=== PATIENT | male | born 1980 | race Caucasian/White ===

== ENCOUNTER 2025-09-18 11:03 | Emergency (ER) | payer MEDICARE, MEDICAID, SELFPAY ==
--- OUTSIDE RECORDS SUMMARY | 2025-09-15 20:20 | XMS_ITS | Continuity of Care Document ---
Author Organization [facility] ter Address [address] [place] [address]- Care Team Providers Care Staff Anesthetist Name Role Phone Wilton Myers MD Primary Care Physician [phone] Encounter [facility] Date(s): 09/15/25 - 09/15/[address] [address]- Discharge Disposition: A-D/C Home Attending Physician: Tino Chowdary MD Admitting Physician: Tino Chowdary MD Referring Physician: Not on Staff, Referring MD Encounter Type: Disch ES Allergies, Adverse Reactions, Alerts No Known Medication Allergies Mental Status Mental Status Assessment Assessment Assessment Component Result Effecti ve Date Yumiko coma score total 15 Mental Status Assessment Assessment Assessment Component Result Effecti ve Date Nursery coma score total 15 Problem List Condition Confirmation Course Effective Dates Status H ealth Status Informant Asthma Confirmed Active CAD (coronary artery disease) Confirmed Active 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 TECHNIQUE: Grashey and scapular Y view.. COMPARISON: None. FINDINGS: There is no fracture or focal bony lesion. The glenohumeral joint is normal. The acromioclavicular joint is normal. There is no soft tissue calcification to suggest calcific tendinitis IMPRESSION: 1. No abnormality seen. WSN: [id number] Ordering Physician: Tino Chowdary Dictated By: Miguel Pino MD Dictated Date/Time: 09/15/25 5:08 pm Reviewed By: Miguel Pino MD Signed By: Miguel Pino MD Signed Date/Time: 09/15/25 5:08 pm Transcribed By: RADHA Transcribed Date/Time: 09/15/25 5:07 pm * Exam Date Time Procedure Performing Provider Status 09/15/25 4:52 PM Pelvis 1 or 2 Views Auth (Verified) Notes: (Pelvis 1 or 2 Views) Reason For Exam: fall from standing, paraplegic, poor historian;Other: RESULT: Pelvis 1 or 2 Views Pelvis 1 or 2 Views INDICATION/CLINICAL QUESTION: Hx of Present Illness: pt from home wheelchair- bound at baseline. Fell from couch to floor. Paraplegic. Concern of fracture. COMPARISON: None.. TECHNIQUE: AP pelvis. FINDINGS: There is no fracture or focal lesion of the bony pelvis. The sacroiliac joints show no gross abnormality. There is no fracture in the visualized parts of the femurs. The hip joints are grossly normal. No concerning soft tissue abnormality. IMPRESSION: 1. No bone or joint abnormality seen. WSN: [id number] Ordering Physician: Tino Chowdary Dictated By: Miguel Pino MD Dictated Date/Time: 09/15/25 5:07 pm Reviewed By: Miguel Pino MD Signed By: Miguel Pino MD Signed Date/Time: 09/15/25 5:07 pm Transcribed By: RADHA Transcribed Date/Time: 09/15/25 5:06 pm Vital Signs Most recent to oldest [Reference Range]: 1 2 Oxygen Saturation [94-100 %] 96 % (09/15/25 6:36 PM) 97 % (09/15/25 1:42 PM) Pulse Rate [55-90 bpm] 66 bpm (09/15/25 6:36 PM) 67 bpm (09/15/25 1:42 PM) Blood Pressure [90-138/55-84 mm Hg] 102/ 69mm Hg (09/15/25 6:36 PM) 117/68mm Hg (09/15/25 1:42 PM) Respiratory Rate [16-30 br/min] 17 br/mi n (09/15/25 6:36 PM) 18 br/min (09/15/25 1:42 PM) Temperature [96.8-100.4 DegF] 98.1 DegF (09/15/25 6:36 PM) 98.3 DegF (09/15/25 1:42 PM) Mode of Delivery (Oxygen) Room air (09/15/25 6:36 PM) Room air (09/15/25 1:42 PM) Blood pressure sites Arm, left (09/15/25 1:42 PM) Temperature Route Oral (09/15/25 6:36 PM) Oral (09/15/25 1:42 PM) Social History Social History Type Response Sex Sex Representation Male (finding) Status N/A Note * Epi SANTOS, Tino Lopez: PERFORM Event Display: Patient Education Leaflets Authored Date: [id number] Shoulder Bruise ?? [id number] Shoulder Bruise You have a shoulder bruise (contusion). This causes pain, swelling, and sometimes bruising on the skin. You don???t have any broken bones. This injury will take from a few days to several weeks to heal, depending on how severe it is. Moderate to severe shoulder bruises are treated with a sling or shoulder immobilizer. Minor bruises can be treated without any special support. Home care Follow these tips when caring for yourself at home: ??? If you were given a sling to use, leave it in place for the time advised by your healthcare provider. If you aren???t sure how long to wear it,ask for advice. If the sling becomes loose, adjust it so that your forearm is parallel with the ground. Your shoulder should feel well supported. ??? Put an ice pack on the injured area for 20 minutes every 1 to 2 hours the first day. You can make your own ice pack by putting ice cubes in a plasticbag. Wrap the bag in a thin towel. Continue with ice packs 3 to 4 times a day for the next 2 days. Then use the pack as needed to ease pain and swelling. ??? You may use acetaminophen or ibuprofen tocontrol pain, unless another pain medicine was prescribed.??If you have chronic liver or kidney disease, talk with your healthcare provider before using these medicines. Also talk with your provider if you???ve ever had a stomach ulcer or digestive bleeding. ??? Shoulder and elbow joints become stiff if left in a sling for too long. You should start range of motion exercises about 7 to 10 days after the injury. Talk with your provider to find out what type of exercises to do and how soon to start. ??? Unless your provider told you otherwise, you can take the sling off to shower or bathe. ?? Follow-up care Follow up with your healthcare provider if you don???t start getting better in the next 5 days. ?? When to seek medical advice Call your healthcare provider right away??if any of the following occur: ??? Pain or swelling gets worse??or continues for more than a few days ??? Large amount of bruising on your shoulder or upper arm ??? Your hand or fingers become cold, blue, numb, or tingly ??? Trouble moving your hand or fingers ??? Weakness in your hand or fingers ??? Your shoulder becomes stiff ??? Your shoulder feels like it's popping out ??? You aren???t able to do your daily activities ?? Last Reviewed Date: 2022 00:00:00 ?? [id number] [employer]. All rights reserved. This information is not intended as a substitute for professional medical care. Always follow your healthcare professional's instructions. ?? Patient Care team information Care Team Personnel Name: Wilton Myers MD Position: Reference Physician Member Role: PCP Address: [address] [place] [address] Telecom: Insurance Providers Guarantor name: Health Plan Information #: 1 Payer: [employer] Payer Identifier: LAYLA Member Number: [id number] Group Number: [id number] Subscriber Identifier: [id number] Relationship to Subscriber: self Coverage Type: MEDICAID Coverage Verification Date: LAYLA Telecom: LAYLA Address:
--- NOTE | ~2025-09-18 | CT_ITS ---
CLINICAL HISTORY: Fall from wheelchair, T-spine tenderness --- Additional Notes or Special Instructions: R O fracture CT thoracic spine without contrast Comparison: None provided Findings: Normal vertebral body alignment. No acute fractures or dislocations. No significant degenerative change. Mild right and moderate left bibasilar airspace opacity. Normal upper abdominal contents. IMPRESSION: 1. No evidence of thoracic spine injury. 2. Bibasilar pneumonia. This document has been electronically signed by: Marion Cespedes MD on 09/18/2025 15:43:48
--- NOTE | ~2025-09-18 | CT_ITS ---
CLINICAL HISTORY: Fall from wheelchair, neck pain, R O fracture CT cervical spine without contrast Comparison: None provided Findings: Vertebral alignment is within normal limits. Multilevel disc space narrowing and endplate osteophyte formation, as well as facet hypertrophy. No acute fractures or dislocations. No acute findings on limited view of the intracranial contents. No cervical fluid collections or masses. Lung apices are clear. IMPRESSION: No acute findings. This document has been electronically signed by: Marion Cespedes MD on 09/18/2025 15:46:38
--- NOTE | ~2025-09-18 | CT_ITS ---
CLINICAL HISTORY: Fall from wheelchair, right-sided rib tenderness p --- Additional Notes or Special Instructions: Rule out fracture, pneumothorax CT chest without contrast Comparison: None provided Findings: The heart size is normal. Calcification of the coronary vasculature. The visualized thyroid and mediastinum are unremarkable. Mild right and moderate left bibasilar airspace opacity. Visualized portions of the upper abdomen demonstrate high density material within the gallbladder lumen. No acute fractures. IMPRESSION: 1. Bibasilar pneumonia. 2. Coronary artery disease. This document has been electronically signed by: Marion Cespedes MD on 09/18/2025 15:38:52
--- NOTE | ~2025-09-18 | CT_ITS ---
CLINICAL HISTORY: Fall from wheelchair, headache, R O fracture, blee CT head without contrast Comparison: None provided Findings: No intra-axial mass, midline shift, hydrocephalus, or acute hemorrhage. No significant atrophy-like change or white matter disease. The visualized paranasal sinuses and mastoid air cells are normal. The orbits are unremarkable. No skull fracture. IMPRESSION: 1. No acute intracranial findings. This document has been electronically signed by: Marion Cespedes MD on 09/18/2025 15:41:38
[2025-09-18 11:11] VITALS: BP 104/60; BP 128/82; PULSE 58; PULSE 60; RESP 16; TEMP 36.8; O2SAT 94; O2SAT 95; BMI 30.4
[2025-09-18 11:16] VITALS: BP 104/60; PULSE 58; RESP 16; TEMP 36.8; O2SAT 95
--- OUTSIDE RECORDS SUMMARY | 2025-09-18 11:44 | XMS_ITS | Clinical Summary ---
Author Organization [facility] Address [address] [facility] [address] [place] [address] Phone Care Team Providers Care Day Habilitation Specialist Name Role Phone Pcp, Unknown Primary Care Provider Unavailabl e Encounters Date Type Department Care Team Description 08/01/2025 9:15 AM EDT - 08/01/2025 11:59 PM EDT Hospital Encounter [facility] - [address] [place] [id number] Simon Maier MD Discharge Disposition: Home or Self Care 07/29/2025 Transcribe Orders Virtual Department [address] [place] [address] Simon Maier MD Other neuromuscular dysfunction of bladder (Primary Dx); Other retention of urine 06/24/2025 Orders Only [facility] [address] [place] [id number] Homehealth, Interface ProviderMD from Last 3 Months Social History Tobacco Use Types Packs/Day Years Used Date Smoking Tobacco: Never Assessed Education Answer Date Recorded Are you interested in more education? Not on ancelmo e 06/24/2025 Are you concerned about learning? Not on file 06/24/2025 No 06/24/2025 No 06/24/2025 Digital Access Answer Date Recorded No 06/24/2025 No 06/24/2025 Reliable internet access at home? Not on file 06/24/2025 Device with a working camera? 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 Technically difficult examination demonstrating no obvious hydronephrosis or sonographically evident renal calculi. 2. Urinary bladder is not well assessed Narrative 08/01/2025 11:01 AM EDT US KIDNEYS Referring clinician's provided indication for this examination in Epic: Outside Radiology Order; chronic Tineo TECHNIQUE: Kidney Ultrasound. COMPARISON: Similar studies are unavailable for comparison at this time. FINDINGS: Technically difficult examination as patient was imaged in wheelchair. Right Kidney: Size: 10.0 cm No hydronephrosis or sonographically evident renal calculi Left Kidney: Size: 10.8 cm No hydronephrosis or sonographically evident renal calculi. Bladder: Not well assessed. Procedure Note Adela Beckwith MD - 08/01/2025 US KIDNEYS Referring clinician's provided indication for this examination in Epic:Outside Radiology Order; chronic Tineo TECHNIQUE: Kidney Ultrasound. COMPARISON: Similar studies are unavailable for comparison at this time. FINDINGS: Technically difficult examination as patient was imaged in wheelchair. Right Kidney: Size: 10.0 cm No hydronephrosis or sonographically evident renal calculi Left Kidney: Size: 10.8 cm No hydronephrosis or sonographically evident renal calculi. Bladder: Not well assessed. IMPRESSION: 1. Technically difficult examination demonstrating no obvioushydronephrosis or sonographically evident renal calculi. 2. Urinary bladder is not well assessed Simon Maier MD [facility] Final Result from Last 3 Months Insurance MEDICARE PART A [place] [id number] MEDICARE PART A & [facility] [place] MEDIC[place] PART [place] MED[place]ARE PART A & B [facility] MEDICARE PART A & [facility] [place] [id number] Care Teams Day Habilitation Specialist Relationship Specialty Start Date End Date Pcp, Unknown PCP - General 07/29/25 [address] [place] [address] [place] [id number] Primary Care Physician 07/29/25 Additional Source Comments The information contained in this document represents components of the legal health record. It is not the complete legal health record.[facility]
--- OUTSIDE RECORDS SUMMARY | 2025-09-18 11:44 | XMS_ITS | Encounter Summary ---
Author Organization [facility] Address [address] [place] [address] Care Team Providers Care Rock Wool Insulator Name Role Phone Angelique Agudelo PA-C Primary Care Provider [phone] Juan Mckinley MD Primary Care Provider [phone] Angelique Agudelo PA-C Unavailable Angelique Agudelo PA-C Unavailable [phone] Angelique Agudelo PA-C Unavailable Sarah Figueroa MD Primary Care Provider [phone] Encounter Details Date Type Department Care Team (Late st Contact Info) Description 10/05/2018 Historical Results Only [facility] Radiology Results [address] [place] [address] Angelique Agudelo PA-C [address] [phone] Social History Tobacco Use Types Packs/Day Years Used Date Smoking Tobacco: Every Day Cigarettes 0.5 1 Pipe Smokeless Tobacco: Never Alcohol Use Standard Drinks/Week Comments No 0 (1 standard drink = 0.6 oz pur e alcohol) quit Sex and Gender Information Value Date Recorded Sex Assigned at Male 01/24/2023 11:09 EDT Legal Sex Male 18:36 EST Gender Identity Male 07/17/2022 17:21 EDT Sexual Orientation Straight 03/08/2025 8: 49 EDT documented as of this encounter Functional Status * Because of a physical, mental, or emotional condition, does this person have difficulty doing errands alone such as visiting a doctor's office or shopping? Answer Date of Assessment Author No 01/23/2018 9:07 EDT documented as of this encounter Mental Status * Because of a physical, mental, or emotional condition, does this person have serious difficulty concentrating, remembering, or making decisions? Answer Entry Date Author Yes 01/23/2018 9:07 EDT documented in this encounter Plan of Treatment Not on file documented as of this encounter Procedures Procedure Name Priority Date/Time Associated Diagnosis Comments MR THORACIC SPINE WO CONTRAST 10/05/2018 19:11 EST MR CERVICAL SPINE WO CONTAST 10/05/2018 19:11 EST documented in this encounter Results * MR THORACIC SPINE WO CONTRAST (10/05/2018 19:11 EST) Anatomical Region Laterality Modality Thoracic spine Other 10/05/2018 19:1 1 EST Narrative 10/06/2018 9:21 EST EXAM: MRI 6170 THORACIC SPINE W/O CONTRAST [facility]#[id number] DATE & TIME EXAM COMPLETED: Oct 05 2018 7:11PM CPT:72493 REASON FOR EXAM: M54.14 radiculopathy cervical m54.12 radiculopathy thoracic Accession# : [id number] PT CL: O FINDINGS: The following MRI sequences of the thoracic spine were carried out without IV contrast: T1 W, T2 W, and STIR sagittal; T2 W axial. Comparison is with 03/19/2016. Alignment is normal. No fracture or bone lesion is evident. Findings at thoracic disc levels are as follows: C7-T1: Normal. T1-2: Normal. T2-3: Normal. T3-4: Normal. T4-5: Normal. T5-6: Normal. T6-7: Normal. T7-8: Normal. T8-9: Small left paracentral disc protrusion, not significant changed, with no significant effacement of canal or foramina. T9-10: Normal. T10-11: Normal. T11-12: Trace central disc protrusion, unchanged, with no significant effacement of canal or foramina. T12-L1: Normal. Throughout the thoracic spine, the spinal cord appears normal. Paravertebral soft tissues appear unremarkable. IMPRESSION: No significant change compared with 03/19/2016. Small left paracentral disc protrusion at T8-9 and trace central disc protrusion at T11-12 resulting in no significant effacement of the vertebral canal or neural foramina. Procedure Note Quentin Echeverria MD - 07/31/2019 EXAM: MRI 6170 THORACIC SPINE W/O CONTRAST [facility]#[id number] DATE & TIME EXAM COMPLETED: Oct 05 2018 7:11PM CPT:44263 REASON FOR EXAM: M54.14 radiculopathy cervical m54.12 radiculopathy thoracic Accession# : [id number] PT CL: O FINDINGS: The following MRI sequences of the thoracic spine werecarried out without IV contrast: T1 W, T2 W, and STIR sagittal; T2 W axial. Comparison is with 03/19/2016. Alignment is normal. No fracture or bone lesion is evident. Findings at thoracic disc levels are as follows: C7-T1: Normal. T1-2: Normal. T2-3: Normal. T3-4: Normal. T4-5: Normal. T5-6: Normal. T6-7: Normal. T7-8: Normal. T8-9: Small left paracentral disc protrusion, not significant changed,with no significant effacement of canal or foramina. T9-10: Normal. T10-11: Normal. T11-12: Trace central disc protrusion, unchanged, with no significant effacement of canal or foramina. T12-L1: Normal. Throughout the thoracic spine, the spinal cord appears normal. Paravertebral soft tissues appear unremarkable. IMPRESSION: No significant change compared with 03/19/2016. Small left paracentraldisc protrusion at T8-9 and trace central disc protrusion at T11-12 resultingin no significant effacement of the vertebral canal or neural foramina. us Angelique Agudelo PA-C IMG MRI ORDERABLES Final Result * MR CERVICAL SPINE WO CONTRAST (10/05/2018 19:11 EST) Anatomical Region Laterality Modality Cervical spine Other 10/05/2018 19:1 1 EST Narrative 10/06/2018 9:00 EST EXAM: MRI 5025 C/S CANAL W/O CONTRAST [facility]#[id number] DATE & TIME EXAM COMPLETED: Oct 05 2018 7:11PM CPT:38826 REASON FOR EXAM: M54.14 radiculopathy cervical m54.12 radiculopathy thoracic Accession# : [id number] PT CL: O FINDINGS: The following MRI sequences of the cervical spine were carried out without intravenous contrast: T1W and T2W sagittal; T2W and 3-D MERGE axial; bilateral T2W oblique. COMPARISON: 10/06/2008. Alignment is unremarkable. No bone lesion or fracture is observed. Imaged contents of the posterior fossa appear unremarkable. Anteroposterior diameter the cervical vertebral canal is somewhat small on a congenital basis. Findings at cervical disc levels are as follows: C2-3: Trace left paracentral disc protrusion without significant effacement of canal or foramina. C3-4: No apparent disc herniation. Mild left neural foraminal stenosis secondary to uncinate joint and facet joint hypertrophy. C4-5: Central disc herniation resulting in central spinal stenosis, with narrowing of the anteroposterior diameter the vertebral canal to approximately 7 mm in mild spinal cord compression. Moderate bilateral neural foraminal stenosis secondary to uncinate joint and facet joint hypertrophy. This level appears worse than previously. C5-6: Minimal central disc protrusion. Anteroposterior diameter the vertebral canal is narrowed to approximately 9 mm. No spinal cord compression. Moderate bilateral neural foraminal stenosis secondary to uncinate joint hypertrophy. C6-7: Trace central disc protrusion without significant effacement of the canal or foramina. C7-T1: Normal. Throughout the cervical spine, no signal is seen in the spinal cord. IMPRESSION: Central spinal stenosis at C4-5 with mild cord compression secondary to a central disc herniation. There is also moderate bilateral neural foraminal stenosis at this level secondary to facet joint hypertrophy. This level appears worse than previously. Degenerative changes at additional levels, discussed in detail above. Procedure Note Quentin Echeverria MD - 07/31/2019 EXAM: MRI 5025 C/S CANAL W/O CONTRAST [facility]#[id number] DATE & TIME EXAM COMPLETED: Oct 05 2018 7:11PM CPT:56465 REASON FOR EXAM: M54.14 radiculopathy cervical m54.12 radiculopathy thoracic Accession# : [id number] PT CL: O FINDINGS: The following MRI sequences of the cervical spine werecarried out without intravenous contrast: T1W and T2W sagittal; T2W and 3-DMERGE axial; bilateral T2W oblique. COMPARISON: 10/06/2008. Alignment is unremarkable. No bone lesion or fracture is observed. Imaged contents of the posterior fossa appear unremarkable. Anteroposterior diameter the cervical vertebral canal is somewhat small alberta congenital basis. Findings at cervical disc levels are as follows: C2-3: Trace left paracentral disc protrusion without significanteffacement of canal or foramina. C3-4: No apparent disc herniation. Mild left neural foraminal stenosis secondary to uncinate joint and facet joint hypertrophy. C4-5: Central disc herniation resulting in central spinal stenosis, with narrowing of the anteroposterior diameter the vertebral canal to approximately 7 mm in mild spinal cord compression. Moderate bilateral neural foraminal stenosis secondary to uncinate joint and facet joint hypertrophy. This level appears worse than previously. C5-6: Minimal central disc protrusion. Anteroposterior diameter the vertebral canal is narrowed to approximately 9 mm. No spinal cord compression. Moderate bilateral neural foraminal stenosis secondary to uncinate joint hypertrophy. C6-7: Trace central disc protrusion without significant effacement ofthe canal or foramina. C7-T1: Normal. Throughout the cervical spine, no signal is seen in the spinal cord. IMPRESSION: Central spinal stenosis at C4-5 with mild cord compression secondary toa central disc herniation. There is also moderate bilateral neuralforaminal stenosis at this level secondary to facet joint hypertrophy. This level appears worse than previously. Degenerative changes at additional levels, discussed in detail above. us Angelique Agudelo PA-C [facility] MRI ORDERABLES Final Result documented in this encounter Visit Diagnoses Not on filedocumented in this encounter Additional Health Concerns Infection Onset Date Last Indicated Resolved Time R/O COVID-19 11/30/2024 11/30/2024 12/01/2024 1:04 EST R/O COVID-19 12/08/2024 12/08/2024 12/08/2024 14:1 9 EST R/O COVID-19 12/29/2024 12/29/2024 12/29/2024 23:5 5 EST documented as of this encounter Care Teams Rock Wool Insulator Relationship Specialty Start Date End Date Angelique Agudelo PA-C [address] [phone] PCP - General 01/10/16 07/16/22 Juan Mckinley MD [facility] [address] [place] [address] PCP - General 07/17/22 01/31/25 Sarah Figueroa MD [address] [place] [address] PCP - General Internal Medicine - [facility] 02/01/25 Angelique Agudelo PA-C [address] [phone] Endocrinology, Diabetes and Metabolism 07/14/24 Angelique Agudelo PA-C [address] [address] Endocrinology, Diabetes and Metabolism 08/23/24 Angelique Agudelo PA-C [address] [address] Endocrinology, Diabetes and Metabolism 10/18/24 documented as of this encounter
--- OUTSIDE RECORDS SUMMARY | 2025-09-18 11:44 | XMS_ITS | Encounter Summary ---
Author Organization [facility] Address [address] [place] [address] Care Team Providers Care Prepress Stripper Name Role Phone Angelique Agudelo PA-C Primary Care Provider [phone] Juan Mckinley MD Primary Care Provider [phone] Angelique Agudelo PA-C Unavailable [phone] Angelique Agudelo-C Unavailable [phone] Angelique Agudelo-C Unavailable [phone] Sarah Figueroa MD Primary Care Provider [phone] Reason for Visit * Reason Comments Other Encounter Details Date Type Department Care Team (Late st Contact Info) Description [facility] [address] [place] [address] Connie Herrera, FIELD ARTILLERY RADAR OPERATOR [address] [facility] [address] [place] [phone] Other Social History Tobacco Use Types Packs/Day Years Used Date Smoking Tobacco: Every Day Cigarettes 0.5 1 Pipe Smokeless Tobacco: Never Alcohol Use Standard Drinks/Week Comments No 0 (1 standard drink = 0.6 oz pur e alcohol) quit Interpersonal Safety Answer Date Record ed Physically Hurt Never 05/28/2020 Verbally Threaten Not on file 05/28/2020 Sex and Gender Information Value Date Recorded [...] on file documented as of this encounter Visit Diagnoses Not on filedocumented in this encounter Additional Health Concerns Infection Onset Date Last Indicated Resolved Time R/O COVID-19 11/30/2024 11/30/2024 12/01/2024 1:04 EST R/O COVID-19 12/08/2024 12/08/2024 12/08/2024 14:1 9 EST R/O COVID-19 12/29/2024 12/29/2024 12/29/2024 23:5 5 EST documented as of this encounter Care Teams Prepress Stripper Relationship Specialty Start Date End Date Angelique Agudelo PA-C [address] [facility] [address] [place] [address] PCP - General 01/10/16 07/16/22 Juan Mckinley MD [address] [place] [address] 3 [place] [address] PCP - General 07/17/22 01/31/25 Sarah Figueroa MD [address] [place] [address] PCP - General Internal Medicine - [facility] Medicine 02/01/25 Angelique Agudelo PA-C [address] [phone] Endocrinology, Diabetes and Metabolism 07/14/24 Angelique Agudelo PA-C [address] [phone] Endocrinology, Diabetes and Metabolism 08/23/24 Angelique Agudelo PA-C [address] [phone] Endocrinology, Diabetes and Metabolism 10/18/24 documented as of this encounter
--- OUTSIDE RECORDS SUMMARY | 2025-09-18 11:44 | XMS_ITS | Clinical Summary ---
Author Organization [facility] Address [address] [place] [address] Care Team Providers Care Seat Scooper Machine Name Role Phone Angelique Agudelo PA-C Unavailable Angelique Agudelo PA-C Unavailable Angelique Agudelo PA-C Unavailable Sarah Figueroa MD Primary Care Provider [phone] Allergies Active Allergy Reactions Criticality Noted Date Comments Amitriptyline Hives 12/16/2024 Divalproex 12/16/2024 Medications albuterol 2.5 mg /3 mL (0.083 %) nebulizer solutionIndicat ions:Uncomplica julio cesar asthma, unspecified asthma severity, unspecified whether persistent Take 3 mL by nebulization every 4 hours as needed for Wheezing. 50 Each 5 Active ascorbic acid, vitamin C, (VITAMIN C) 250 mg tablet 1 Tablet by per g tube route daily. 30 Tablet 5 Active cyanocobalamin (VITAMIN B-12) 1,000 mcg tablet 1 Tablet by per g tube route daily. 30 Tablet 5 Active DULoxetine (CYMBALTA) 60 mg capsule Take 1 Capsule by mouth daily. 30 Capsule 5 Active enoxaparin (LOVENOX) 40 mg/0.4 mL injection Inject 40 mg into the skin daily. 30 mL 5 Active lithium carbonate 300 mg capsule Take 1 Capsule by mouth 2 times daily. 60 Tablet 5 Active methIMAzole (TAPAZOLE) 5 mg tablet Take 1 Tablet by mouth every 48 hours. 15 Tablet 5 Active gimcpfrr-wvv-fn rrous gluconate 9 mg iron/ 15 mL (15 mL) liquid oral solution 15 mL by per g tube route daily with breakfast. 450 mL 5 Active polyethylene glycol 3350 (MIRALAX) 17 gram packet 17 g by per g tube route daily. 30 Each 5 Active pregabalin (LYRICA) 300 mg capsuleIndicati ons:Guillain Darnell syndrome Take 1 Capsule by mouth 2 times daily. Daily Max: 600 mg 60 Capsule 5 Active pyridoxine, vitamin B6, (VITAMIN B6) 50 mg tablet 1 Tablet by per g tube route daily. 30 Tablet 5 Active QUEtiapine (SEROQUEL) 100 mg tablet Take 1 Tablet by mouth at bedtime. 30 Tablet 5 Active senna (SENOKOT) 8.6 mg tablet 1 Tablet by per g tube route at bedtime. 30 Tablet 5 Active budesonide-form oterol HFA (SYMBICORT) 160-4.5 mcg/actuation HFA aerosol inhaler inhaler Inhale 1 Puff as directed 2 times daily. 1 Each 5 Active pantoprazole (PROTONIX) 40 mg tablet Take 1 Tablet by mouth daily. 30 Tablet 5 Active thiamine (VITAMIN B1) 100 mg tablet 1 Tablet by per g tube route 3 times daily. 90 Tablet 5 Active traZODone (DESYREL) 100 mg tablet Take 1 Tablet by mouth at bedtime. 30 Tablet 5 Active HYDROcodone-ary taminophen (NORCO) 7.5-325 mg per tabletIndicatio ns:Guillain Darnell syndrome Take 1 Tablet by mouth every 8 hours as needed for Pain. Use hydrocodone/APAP supply at home as directed for pain. This was previously dispensed from [facility] in November just before initial hospitalization. Daily Max: 3 Tablets 5 Active levETIRACetam (KEPPRA) 500 mg/5 mL (5 mL) solution 10 mL by per g tube route 2 times daily. 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 Rhabdomyolysis 12/01/2024 Lactic acidosis 12/01/2024 Kidney damage from lithium 12/01/2024 Elevated CSF protein 12/01/2024 Acute respiratory failure 12/01/2024 Hypokalemia 12/01/2024 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 Weakness 12/01/2024 Dysphagia 12/01/2024 Facet arthropathy, lumbosacral 01/23/2018 Lumbar spondylosis 01/23/2018 Facial asymmetry 09/29/2017 Spells 07/09/2016 Generalized anxiety disorder 10/24/2015 Fibrositis 10/24/2015 Migraine without intractable migraine 10/24/2015 Bipolar disorder 10/24/2015 Pain in back 10/24/2015 GERD (gastroesophageal reflux disease) 5 Depression 10/24/2015 Asthma 10/24/2015 Seizure 10/24/2015 Resolved Problems Problem Noted Date Diagnosed Date Resolved Date GBS (group B streptococcus) infection 12/24/2024 02/10/2025 Surgical History Surgery Date Site/Laterality Comments HERNIA REPAIR 10/27/2008 - 10/26/2009 R inguinal LAPAROSCOPY 10/27/2007 - 10/26/2008 ROSA Babcock HAND SURGERY Right HAND SURGERY Left pinning finger Medical History Medical History Date Comments Hernia of unspecified site o f abdominal cavity without mention of obstruction or gangrene DDD (degenerative disc disease) Generalized anxiety disorder 10/24/2015 Fibrositis 10/24/2015 Migraine without intractable migraine 10/24/2015 Bipolar disorder 10/24/2015 Pain in back 10/24/2015 GERD (gastroesophageal reflux disease) 5 Depression 10/24/2015 Asthma 10/24/2015 Seizure ([facility]) 10/24/2015 last a few mon ths ago; he is not allowed to drive chronic back pain, gets injections Dr. Yaw Kang 07/09/2016 Anxiety Schizophrenia Heart murmur 09/28/2015 Had as child H/O ETOH abuse H/O drug abuse ([facility]) 10/27/2012 Quit- C ocaine, heroin, and speedball Fibromyalgia 09/28/2015 Family History Medical History Relation Comments Cancer Father Unknown No Known Mother No Known Other Relation Status Comments Father Mother Other Other Other Social History Tobacco Use Types Packs/Day Years Used Date Smoking Tobacco: Every Day Cigarettes 1 1 Started: 1989 Pipe Smokeless Tobacco: Never Alcohol Use Standard Drinks/Week Comments No 0 (1 standard drink = 0.6 oz pur e alcohol) quit [facility] Utilities Answer Date Recorded In the past 12 months has th e [employer], gas, oil, or water [employer] threatened to shut off services in your home? No 12/26/2024 PHQ-2 Answer Date Recorded PHQ-2 SUBTOTAL 0 12/01/2024 Hunger Vital Sign Answer Date Recorded Within the past 12 months, y ou worried that your food would run out before you got the money to buy more. Never true 12/27/19 25 Within the past 12 months, t he food you bought just didn't last and you didn't have money to get more. Never true 12/26/2024 PRAPARE - Transportation Answer Date Re corded In the past 12 months, has l ack of transportation kept you from medical appointments or from getting medications? Patient unable to answer 12/03/2024 In the past 12 months, has l ack of transportation kept you from meetings, work, or from getting things needed for daily living? Patient unable to answer 12/03/2024 Housing Stability Vital Sign Answer Carter e Recorded In the last 12 months, was t here a time when you were not able to pay the mortgage or rent on time? Patient unable to answer 12/03/2024 Number of Times Moved in the Last Year Not on fi le 12/03/2024 At any time in the past 12 m [facility], were you homeless or living in a prison (including now)? Patient unable to answer 12/03/2024 [facility] - Inadequate Housing Answer Date Re corded What is your living situation today? I have a [facility] place to live 12/26/[address] you li ve. Do you have problems with any of the following? Pests such as bugs, ants, or mice 12/26/2024 [facility] - Transportation Answer Date Record ed In the past 12 months, has l ack of reliable transportation kept you from medical appointments, meetings, work or from getting things needed for daily living? No 12/26/2024 [facility] - Personal Safety Answer Date Recor ded How often does anyone, shelbie barone family and friends, physically hurt you? Patient unable to answer 12/26/2024 How often does anyone, shelbie barone family and friends, insult or talk down to you? Patient unable to answer 12/26/2024 How often does anyone, shelbie barone family and friends, threaten you with harm? Patient unable to answer 12/26/2024 How often does anyone, shelbie barone family and friends, scream or curse at you? Patient unable to answer 12/26/2024 Interpersonal Safety Answer Date Record ed How often does anyone, shelbie barone family, hit, punch or physically hurt you? Unrecognized value 12/03/2024 How often does anyone, shelbie barone family, insult, scream, curse or threaten to hurt you? Unrecognized value 12/03/2024 Sex and Gender Information Value Date Recorded Sex Assigned at Male 01/24/2023 11:09 EDT Legal Sex Male 18:36 EST Gender Identity Male 07/17/2022 17:21 EDT Sexual Orientation Straight 03/08/2025 8: 49 EDT Last Filed Vital Signs Vital Sign Reading Time Taken Comments Blood Pressure 106/73 02/22/20252309 EDT Pulse 105 02/22/20252309 EDT Temperature 37.2 C (98.9 F) 02/22/20252309 EDT Respiratory Rate 20 02/22/20252309 EDT Oxygen Saturation 97% 02/22/20252309 EDT Inhaled Oxygen Concentration - - Weight 89.8 kg (198 lb) 02/16/20251929 EDT Height 180.3 cm (5' 11 ) 02/16/2025 1930 EDT Body Mass Index 27.62 02/16/2025 193 EDT Plan of Treatment Health Maintenance Due Date Last Done Comments Asthma Action Plan 1981 Lung Function Test (Spirometry) 1981 Hepatitis B Vaccine (1 of 3 - 19+ 3-dose series) 2000 Pneumococcal Immunization (1 of 2 - PCV) 2000 COVID-19 Vaccine ( - 2024- season) 2025 Hepatitis C Screen Completed 12/04/2024, 06/22/2024 Procedures Procedure Name Priority Date/Time Associated Diagnosis Comments HEPATITIS C AB W REFLEX TO HCV RNA BY PCR Add-On 12/04/2024 5:22 EST from Last 3 Months or Most Recently Relevant to Health Maintenance Results * HEPATITIS C AB W REFLEX TO HCV RNA BY PCR (12/04/2024 5:22 EST) Hep C Antibody Negative Negative 12/06/2024 10:40 EST [facility] Blood VENOUS BLOOD / Unknown Venipuncture / Unknown 12/04/2024 5:22 EST 12/04/2024 5:26 EST us Diego Camacho MD CHEMISTRY & BLOOD GAS ORDERAB LES Final Result [facility] [address] [place] [address] from Last 3 Months or Most Recently Relevant to Health Maintenance Insurance MEDICAID [place] [employer] MEDICARE [place]ICAID [place]ICAID [place] MEDICARE Advance Directives For more information, please contact: [phone] Documents on File Type Date Recorded Patient Fabric Sourcer Expl anation Advance Directive 02/14/2025 21:04 Health Care Proxy Advance Directive 02/14/2025 20:54 Power of Civil Engineer Land Development COLST/MOLST 01/31/2025 7:[address] pgs 1 & 2 Void COLST/MOLST 01/20/2025 12:36 H ealth Care Proxy COLST/MOLST 12/25/2024 8:48 MOLS T * Full Code (Latest Code Status on File) Date Activated Date Inactivated Comments 12/24/2024 23:57 01/27/2025 16:08 Question Answer Comments When the patient has NO PULSE: Full Code / CPR [facility]: Refer to current pap er/scanned MOLST for order details. * Full Code Date Activated Date Inactivated Comments 12/01/2024 6:21 12/24/2024 23:04 Question Answer Comments When the patient has NO PULSE: Full Code / CPR Who Made the Decision? Default/Not Discussed Care Teams Seat Scooper Machine Relationship Specialty Start Date End Date Sarah Figueroa MD [address] [place] [address] PCP - General Internal Medicine - [facility] Medicine 02/01/25 Angelique Agudelo PA-C [address] [phone] Endocrinology, Diabetes and Metabolism 07/14/24 Angelique Agudelo PA-C [address] [phone] Endocrinology, Diabetes and Metabolism 08/23/24 Angelique Agudelo PA-C [address] [phone] Endocrinology, Diabetes and Metabolism 10/18/24
--- OUTSIDE RECORDS SUMMARY | 2025-09-18 11:44 | XMS_ITS | Encounter Summary ---
Author Organization [facility] Address [address] [place] [address] Care Team Providers Care Forming Machine Adjuster Name Role Phone Angelique Agudelo PA-C Primary Care Provider [phone] Juan Mckinley MD Primary Care Provider [phone] Angelique Agudelo PA-C Unavailable [phone] Angelique Agudelo PA-C Unavailable [phone] Angelique Agudelo PA-C Unavailable [phone] Sarah Figueroa MD Primary Care Provider [phone] Reason for Visit * Reason Onset Date Comments Medications Refill 01/23/2018 Encounter Details Date Type Department Care Team (Late st Contact Info) Description 01/23/2018 Telephone [facility] Interventional Pain [address] [place] [address] Nydia Sotelo PA [address] [place] [id number] Medications Refill Social History Tobacco Use Types Packs/Day Years [...] 01/23/2018 9:07 EDT documented in this encounter Miscellaneous Notes * Telephone Encounter - Vani Estrada - 01/23/2018 1326 EDT Pharmacy states they can not fill the medication because patient is from [place] and it has a controlled substance in it. Please advise. * Telephone Encounter - Sonam Reddy - 01/23/2018 1109 EDT Please call back pharmacy, they have a question about RX that was sent over to them. Please call. documented in this encounter Plan of Treatment Not on file documented as of this encounter Visit Diagnoses Not on filedocumented in this encounter Additional Health Concerns Infection Onset Date Last Indicated Resolved Time R/O COVID-19 11/30/2024 11/30/2024 12/01/2024 1:04 EST R/O COVID-19 12/08/2024 12/08/2024 12/08/2024 14:1 9 EST R/O COVID-19 12/29/2024 12/29/2024 12/29/2024 23:5 5 EST documented as of this encounter Care Teams Forming Machine Adjuster Relationship Specialty Start Date End Date Angelique Agudelo PA-C [address] [place] [address] [place] [phone] PCP - General 01/10/16 07/16/22 Juan Mckinley MD [address] [facility] [address] [place] [address] PCP - General 07/17/22 01/31/25 Sarah Figueroa MD [address] [place] [address] PCP - General Internal Medicine - [facility] 02/01/25 Angelique Agudelo PA-C [address] [phone] Endocrinology, Diabetes and Metabolism 07/14/24 Angelique Agudelo PA-C [address] [phone] Endocrinology, Diabetes and Metabolism 08/23/24 Angelique Agudelo PA-C [address] [phone] Endocrinology, Diabetes and Metabolism 10/18/24 documented as of this encounter
--- OUTSIDE RECORDS SUMMARY | 2025-09-18 11:44 | XMS_ITS | Encounter Summary ---
Author Organization [facility] Address [address] [place] [address] Care Team Providers Care Irrigation Foreman Name Role Phone Angelique Agudelo PA-C Primary Care Provider [phone] Juan Mckinley MD Primary Care Provider [phone] Angelique Agudelo PA-C Unavailable Angelique Agudelo PA-C Unavailable [phone] Angelique Agudelo-C Unavailable [phone] Sarah Figueroa MD Primary Care Provider [phone] Encounter Details Date Type Department Care Team (Late st Contact Info) Description 12/19/2016 Historical Results Only [facility] - [facility] Radiology Results [address] [place] [address] Kaz Munguia DO [address] [place] [address] [address] [place] [address] Social History Tobacco Use Types Packs/Day Years Used Date Smoking Tobacco: Every Day Cigarettes 0.5 1 Pipe Alcohol Use Standard Drinks/Week Comments No 0 [...] shopping? Answer Date of Assessment Author No 07/09/2016 8:45 EDT documented as of this encounter Mental Status * Because of a physical, mental, or emotional condition, does this person have serious difficulty concentrating, remembering, or making decisions? Answer Entry Date Author Yes 07/09/2016 8:45 EDT documented in this encounter Plan of Treatment Not on file documented as of this encounter Procedures Procedure Name Priority Date/Time Associated Diagnosis Comments MR LUMBAR SPINE WO CONTRAST 12/19/2016 9:07 EST documented in this encounter Results * MR LUMBAR SPINE WO CONTRAST (12/19/2016 9:07 EST) Anatomical Region Laterality Modality Lumbar spine Other 12/19/2016 9:07 EST Narrative 12/19/2016 15:43 EST EXAM: MRI [id number] L/S SPINE CANAL W/O CONTRAST [facility]#[id number] DATE & TIME EXAM COMPLETED: Dec 19 2016 9:07AM CPT:35439 REASON FOR EXAM: Lumbar Radiculopathy Accession# : [id number] PT CL: {pt_class} FINDINGS: Sagittal T1, T2 and STIR and axial T1 and T2-weighted images were obtained. COMPARISON STUDY: 12/31/2013. IV contrast: None MEDICAL HISTORY: Low back pain and right leg radiculopathy. The lumbar vertebral bodies demonstrate normal height and shape. The bone marrow signal intensity is within normal limits. There is no subluxation. The tip of the conus medullaris is behind L1-2 disc which is normal. The aorta is not dilated and there is no retroperitoneal lymphadenopathy. At L1-2, disc height is within normal limits. There is no disc herniation or bulging. There is no central spinal or neuroforaminal stenosis. At L2-3, disc height is normal. There is no disc herniation. There is no central spinal or neuroforaminal stenosis. At L3-4, disc height is normal. There is mild circumferential disc bulging and there is mild bilateral facet arthritis with small spurs. There is mild triangulation of the thecal sac. Mid sagittal spinal canal diameter measures 13.5 mm. There is no significant central spinal or neuroforaminal stenosis. At L4-5, disc height appears normal. There is mild circumferential disc bulging and mild facet arthritis. There is no herniation. There is no central spinal or neuroforaminal stenosis. There is mild triangulation of the thecal sac. At L5-S1, disc height is normal. There is minimal posterior disc bulging and there is no herniation. There is no central spinal or neuroforaminal stenosis. There is mild facet arthritis. IMPRESSION: There is mild circumferential disc bulging and mild facet arthritis at L3-4, L4-5 and L5-S1. There is no disc herniation or central spinal stenosis or nerve impingement. Procedure Note Ruben Pat MD - 07/30/2019 EXAM: MRI [id number] L/S SPINE CANAL W/O CONTRAST [facility]#[id number] DATE & TIME EXAM COMPLETED: Dec 19 2016 9:07AM CPT:01934 REASON FOR EXAM: Lumbar Radiculopathy PT CL: {pt_class} FINDINGS: Sagittal T1, T2 and STIR and axial T1 and T2-weighted imageswere obtained. COMPARISON STUDY: 12/31/2013. IV contrast: None MEDICAL HISTORY: Low back pain and right leg radiculopathy. The lumbar vertebral bodies demonstrate normal height and shape. Thebone marrow signal intensity is within normal limits. There is nosubluxation. The tip of the conus medullaris is behind L1-2 disc which is normal. The aorta is not dilated and there is no retroperitoneal lymphadenopathy. At L1-2, disc height is within normal limits. There is no disc herniationor bulging. There is no central spinal or neuroforaminal stenosis. At L2-3, disc height is normal. There is no disc herniation. There is no central spinal or neuroforaminal stenosis. At L3-4, disc height is normal. There is mild circumferential discbulging and there is mild bilateral facet arthritis with small spurs. There ismild triangulation of the thecal sac. Mid sagittal spinal canal diametermeasures 13.5 mm. There is no significant central spinal or neuroforaminalstenosis. At L4-5, disc height appears normal. There is mild circumferential disc bulging and mild facet arthritis. There is no herniation. There is no central spinal or neuroforaminal stenosis. There is mild triangulationof the thecal sac. At L5-S1, disc height is normal. There is minimal posterior disc bulgingand there is no herniation. There is no central spinal or neuroforaminal stenosis. There is mild facet arthritis. IMPRESSION: There is mild circumferential disc bulging and mild facet arthritis at L3-4, L4-5 and L5-S1. There is no disc herniation orcentral spinal stenosis or nerve impingement. Kaz Munguia DO IMG MRI ORDERABLES Final Result documented in this encounter Visit Diagnoses Not on filedocumented in this encounter Additional Health Concerns Infection Onset Date Last Indicated Resolved Time R/O COVID-19 11/30/2024 11/30/2024 12/01/2024 1:04 EST R/O COVID-19 12/08/2024 12/08/2024 12/08/2024 14:1 9 EST R/O COVID-19 12/29/2024 12/29/2024 12/29/2024 23:5 5 EST documented as of this encounter Care Teams Irrigation Foreman Relationship Specialty Start Date End Date Angelique Agudelo PA-C [address] [place] [phone] PCP - General 01/10/16 07/16/22 Juan Mckinley MD [address] [place] [address] 3 [place] [address] PCP - General 07/17/22 01/31/25 Sarah Figueroa MD [address] [place] [address] PCP - General Internal Medicine - [facility] Medicine 02/01/25 Angelique Agudelo PA-C [address] [phone] Endocrinology, Diabetes and Metabolism 07/14/24 Angelique Agudelo PA-C [address] [phone] Endocrinology, Diabetes and Metabolism 08/23/24 Angelique Agudelo PA-C [address] [phone] Endocrinology, Diabetes and Metabolism 10/18/24 documented as of this encounter
--- OUTSIDE RECORDS SUMMARY | 2025-09-18 11:44 | XMS_ITS | Encounter Summary ---
Author Organization [facility] Address [address] [place] [address] Care Team Providers Care Applications Support Specialist Name Role Phone Angelique Agudelo PA-C Primary Care Provider [phone] Juan Mckinley MD Primary Care Provider [phone] Angelique Agudelo PA-C Unavailable Angelique Agudelo PA-C Unavailable [phone] Angelique Agudelo-C Unavailable Sarah Figueroa MD Primary Care Provider [phone] Encounter Details Date Type Department Care Team (Late st Contact Info) Description 10/22/[address] [facility] - CV[facility] Radiology Results [address] [place] [address] Kaz Munguia DO [address] [place] [address] [address] [place] [address] Social History Tobacco Use Types [...] Procedure Name Priority Date/Time Associated Diagnosis Comments XR CERVICAL SPINE 4-5 VIEWS 10/22/2016 13:11 EST documented in this encounter Results * XR CERVICAL SPINE 4-5 VIEWS (10/22/2016 13:11 EST) Anatomical Region Laterality Modality Left Other 10/22/2016 13:1 1 EST Narrative 10/22/2016 14:42 EST EXAM: RAD 1405 CERVICAL SPINE MIN 4 VIEWS CDM#[id number] DATE & TIME EXAM COMPLETED: Oct 22 2016 1:11PM CPT:15910 REASON FOR EXAM: M47.892 Cervical spondylosis Accession# : [id number] PT CL: {pt_class} FINDINGS: AP, lateral and oblique views of the cervical spine were obtained. Alignment is maintained. Vertebral body heights are maintained. There is mild disc space degeneration and narrowing at C4/C5. Disc spaces otherwise preserved. There is mild uncovertebral spur formation seen at C5/C6 on the right without significant foraminal narrowing. IMPRESSION: Mild degenerative disease. Procedure Note Unknown, Doctor - 11/03/2019 EXAM: RAD 1405 CERVICAL SPINE MIN 4 VIEWS CDM#[id number] DATE & TIME EXAM COMPLETED: Oct 22 2016 1:11PM CPT:17416 REASON FOR EXAM: M47.892 Cervical spondylosis PT CL: {pt_class} FINDINGS: AP, lateral and oblique views of the cervical spine wereobtained. Alignment is maintained. Vertebral body heights are maintained. There is mild disc space degeneration and narrowing at C4/C5. Disc spacesotherwise preserved. There is mild uncovertebral spur formation seen at C5/C6 onthe right without significant foraminal narrowing. IMPRESSION: Mild degenerative disease. Kaz Munguia IMG DIAGNOSTIC IMAGING ORDERABLE S Final Result documented in this encounter Visit Diagnoses Not on filedocumented in this encounter Additional Health Concerns Infection Onset Date Last Indicated Resolved Time R/O COVID-19 11/30/2024 11/30/2024 12/01/2024 1:04 EST R/O COVID-19 12/08/2024 12/08/2024 12/08/2024 14:1 9 EST R/O COVID-19 12/29/2024 12/29/2024 12/29/2024 23:5 5 EST documented as of this encounter Care Teams Applications Support Specialist Relationship Specialty Start Date End Date Angelique Agudelo PA-C [address] [phone] PCP - General 01/10/16 07/16/22 Juan Mckinley MD 158 [facility] 3 [place] [address] PCP - General 07/17/22 01/31/25 Sarah Figueroa MD [address] [place] [address] PCP - General Internal Medicine - [facility] Medicine 02/01/25 Angelique Agudelo PA-C [address] [phone] Endocrinology, Diabetes and Metabolism 07/14/24 Angelique Agudelo PA-C [address] [phone] Endocrinology, Diabetes and Metabolism 08/23/24 Angelique Agudelo PA-C [address] [place] [phone] Endocrinology, Diabetes and Metabolism 10/18/24 documented as of this encounter
--- OUTSIDE RECORDS SUMMARY | 2025-09-18 11:44 | XMS_ITS | Encounter Summary ---
Author Organization [facility] Address [address] [place] [address] Care Team Providers Care Spindle Setter Name Role Phone Heena Oneill MD Primary Care Provider Encounter Details Date Type Department Care Team (Late st Contact Info) Description 09/13/2025 Zindig[facility]art Message [facility] Primary Care [address] [place] [phone] Heena Oneill MD [address] [place], [place] [id number] Referral for Partial Rotator Cuff Tear Social History Tobacco Use Types Packs/Day Years Used Date Smoking Tobacco: Every Day Cigarettes Smokeless Tobacco: Never Alcohol Use Standard Drinks/Week Comments Not Currently 0 (1 standard drink = 0.6 oz pur e alcohol) Hunger Vital Sign Answer Date Recorded Within the past 12 months, y ou worried that your food would run out before you got the money to buy more. Patient declined Within the past 12 months, t he food you bought just didn't last and you didn't have money to get more. Patient declined [facility] Utilities Answer Date Recorded In the past 12 months has e electric, gas, oil, or water company threatened to shut off services in your home? No 06/18/2025 Transportation Answer Date Recorded In the past 12 months, has l ack of reliable transportation kept you from medical appointments, meetings, work or from getting things needed for daily living? No 06/18/2025 Housing Answer Date Recorded Housing Risk Low 2 06/18/2025 Housing Risk Medium Not on file 06/18/2025 Housing Risk High Not on file 06/18/2025 What is your living situation today? LSSTEADY 06/18/2025 Sex and Gender Information Value Date Recorded Sex Assigned at Male 02/24/2025 11:57 AM EDT Legal Sex Male 4:31 PM EDT Gender Identity Male 04/14/2025 9:18 PM EDT Sexual Orientation Not on file documented as of this encounter Plan of Treatment Upcoming Encounters Date Type Department Care Team (Late st Contact Info) Description 10/14/2025 4:20 PM EST Follow-Up [facility] End[facility]ology [facility] [address] [place] [address] Bottle Washer Machine: Maria Alejandra Gardiner MD [address] [place] [address] 04/25/2026 9:45 AM EDT Appointment [address] [address] documented as of this encounter Visit Diagnoses Not on filedocumented in this encounter Care Teams Spindle Setter Relationship Specialty Start Date End Date Heena Oneill MD [address] [place] [address] [place] [address] PCP - General Family Medicine 06/22/25 documented as of this encounter
--- OUTSIDE RECORDS SUMMARY | 2025-09-18 11:44 | XMS_ITS | Encounter Summary ---
Author Organization [facility] Address [address] [place] [address] Care Team Providers Care Cost Reduction Engineer Name Role Phone Angelique Agudelo PA-C Primary Care Provider [phone] Juan Mckinley MD Primary Care Provider [phone] Angelique Agudelo PA-C Unavailable Angelique Agudelo PA-C Unavailable [phone] Angelique Agudelo PA-C Unavailable Sarah Figueroa MD Primary Care Provider [phone] Encounter Details Date Type Department Care Team (Late st Contact Info) Description 05/20/2018 Historical Results Only [facility] - CVPH Radiology Results [address] [place] [address] Angelique Agudelo PA-C [address] [phone] Social History Tobacco Use Types [...] Diagnosis Comments MR LUMBAR SPINE WO CONTRAST 05/20/2018 10:35 EDT documented in this encounter Results * MR LUMBAR SPINE WO CONTRAST (05/20/2018 10:35 EDT) Anatomical Region Laterality Modality Lumbar spine Other 05/20/2018 10:3 5 EDT Narrative 05/20/2018 10:41 EDT EXAM: MRI 5055 L/S SPINE CANAL W/O CONTRAST [facility]#[id number] DATE & TIME EXAM COMPLETED: May 20 2018 10:35AM CPT:90350 REASON FOR EXAM: G83.10 M54.16 R53, WEAKNESS, LUMBAR RADICULOPATHY Accession# : [id number] PT CL: O FINDINGS: Multiplanar multi sequential study of the lumbar spine is performed. Comparison made to prior study of 12/19/2016. Vertebral body alignment is anatomic. No fracture or bone marrow edema. Tip of the conus is at the top of L2. T12-L1 disc is unremarkable and there is no stenosis or foraminal narrowing at this level. At L1-2 and L2-3 the disc is unremarkable with no stenosis or foraminal narrowing. At L3-4 the disc is unremarkable. There is some mild facet DJD. No stenosis or foraminal narrowing. At L4-5 mild degree of diffuse annular bulging is present without significant foraminal narrowing or stenosis. There is mild facet DJD. At L5-S1 slight degree of annular disc bulging is again seen with minimal facet DJD. No stenosis or foraminal narrowing. Paraspinal muscular structures are unremarkable. Aorta is normal in caliber. No paraspinal mass. IMPRESSION: Minimal degenerative changes lower lumbar spine similar to prior study, no new abnormalities. Procedure Note Froilan Fisher MD - 07/30/2019 EXAM: MRI 5055 L/S SPINE CANAL W/O CONTRAST [facility]#[id number] DATE & TIME EXAM COMPLETED: May 20 2018 10:35AM CPT:18803 REASON FOR EXAM: G83.10 M54.16 R53, WEAKNESS, LUMBAR RADICULOPATHY Accession# : [id number] PT CL: O FINDINGS: Multiplanar multi sequential study of the lumbar spine is performed. Comparison made to prior study of 12/19/2016. Vertebral body alignment is anatomic. No fracture or bone marrow edema.Tip of the conus is at the top of L2. T12-L1 disc is unremarkable and there is no stenosis or foraminalnarrowing at this level. At L1-2 and L2-3 the disc is unremarkable with no stenosis or foraminal narrowing. At L3-4 the disc is unremarkable. There is some mild facet DJD. Nostenosis or foraminal narrowing. At L4-5 mild degree of diffuse annular bulging is present without significant foraminal narrowing or stenosis. There is mild facet DJD. At L5-S1 slight degree of annular disc bulging is again seen withminimal facet DJD. No stenosis or foraminal narrowing. Paraspinal muscular structures are unremarkable. Aorta is normal incaliber. No paraspinal mass. IMPRESSION: Minimal degenerative changes lower lumbar spine similar toprior study, no new abnormalities. us Angelique Agudelo PA-C IMHorace MRI ORDERABLES Final Result documented in this encounter Visit Diagnoses Not on filedocumented in this encounter Additional Health Concerns Infection Onset Date Last Indicated Resolved Time R/O COVID-19 11/30/2024 11/30/2024 12/01/2024 1:04 EST R/O COVID-19 12/08/2024 12/08/2024 12/08/2024 14:1 9 EST R/O COVID-19 12/29/2024 12/29/202412/2912/29/2024 23:5 5 EST documented as of this encounter Care Teams Cost Reduction Engineer Relationship Specialty Start Date End Date Angelique Agudelo PA-C [address] [phone] PCP - General 01/10/16 07/16/22 Juan Mckinley MD [address] 3 [place] [address] PCP - General 07/17/22 01/31/25 Sarah Figueroa MD [address] [place] [address] PCP - General Internal Medicine - [facility] Medicine 02/01/25 Angelique Agudelo PA-C [address] [phone] Endocrinology, Diabetes and Metabolism 07/14/24 Angelique Agudelo PA-C [address] [phone] Endocrinology, Diabetes and Metabolism 08/23/24 Angelique Agudelo PA-C [address] [phone] Endocrinology, Diabetes and Metabolism 10/18/24 documented as of this encounter
--- OUTSIDE RECORDS SUMMARY | 2025-09-18 11:44 | XMS_ITS | Encounter Summary ---
Author Organization [facility] Address [address] [place] [address] Care Team Providers Care Wood Barker Name Role Phone Angelique Agudelo PA-C Primary Care Provider [phone] Juan Mckinley MD Primary Care Provider [phone] Angelique Agudelo PA-C Unavailable Angelique Agudelo-C Unavailable [phone] Angelique Agudelo-C Unavailable Sarah Figueroa MD Primary Care Provider [phone] Reason for Visit * Reason Comments Other Encounter Details Date Type Department Care Team (Late st Contact Info) Description 09/28/2018 [facility] Neurophysiology - [facility] ([facility]) [address] [place], [place] [address] [place] [address] [phone] Other Social History Tobacco Use Types Packs/Day [...] 01/23/2018 9:07 EDT documented in this encounter Ordered Prescriptions Prescription Sig Dispense Quantity Refills Last Filled Start Date End Date levETIRAcetam (KEPPRA) 500 mg tablet TAKE 1 TABLET BY MOUTH 2 TIMES DAILY. 60 Tab 09/29/2018 10/24/2018 documented in this encounter Miscellaneous Notes * Telephone Encounter - Chey Maldonado - 09/30/2018 0922 EST Patient returning call and scheduled w/ on 10/09/18 @ 9am. * Telephone Encounter - Bhakti Flores RN - 09/29/2018 1505 EST Reason for contact: Pharmacy requested rx refill Keppra 500 mg bid Pt last seen 02/03/18. Was nos for visit on 08/04/18 and has not called to reschedule Rx refilled x 30 days with no refills. Message forwarded to home health scheduler to contact pt and schedule visit documented in this encounter Plan of Treatment Not on file documented as of this encounter Visit Diagnoses Not on filedocumented in this encounter Discontinued Medications Medication Sig Discontinue Reason Start Date End Da te levETIRAcetam (KEPPRA) 500 mg tablet Take 1 Tab by mouth 2 times daily. Reorder 09/02/2018 09/28/2018 documented as of this encounter Additional Health Concerns Infection Onset Date Last Indicated Resolved Time R/O COVID-19 11/30/2024 11/30/2024 12/01/2024 1:04 EST R/O COVID-19 12/08/2024 12/08/2024 12/08/2024 14:1 9 EST R/O COVID-19 12/29/2024 12/29/2024 12/29/2024 23:5 5 EST documented as of this encounter Care Teams Wood Barker Relationship Specialty Start Date End Date Angelique Agudelo PA-C [address] [phone] PCP - General 01/10/16 07/16/22 Juan Mckinley MD 158 [facility] 3 [place] [address] PCP - General 07/17/22 01/31/25 Sarah Figueroa MD [address] [place] [address] PCP - General Internal Medicine - [facility] Medicine 02/01/25 Angelique Agudelo PA-C [address] [phone] Endocrinology, Diabetes and Metabolism 07/14/24 Angelique Agudelo PA-C [address] [address] Endocrinology, Diabetes and Metabolism 08/23/24 Angelique Agudelo PA-C [address] [address] Endocrinology, Diabetes and Metabolism 10/18/24 documented as of this encounter
--- OUTSIDE RECORDS SUMMARY | 2025-09-18 11:44 | XMS_ITS | Encounter Summary ---
Author Organization [facility] Address [address] [place] [address] Care Team Providers Care Child Support Case Officer Name Role Phone Angelique Agudelo PA-C Primary Care Provider + [phone] Juan Mckinley MD Primary Care Provider [phone] Angelique Agudelo PA-C Unavailable Angelique Agudelo PA-C Unavailable [phone] Angelique Agudelo PA-C Unavailable Sarah Figueroa MD Primary Care Provider [phone] Encounter Details Date Type Department Care Team (Late st Contact Info) Description 09/03/2018 Historical Results Only [facility] - CVPH Radiology Results [address] [place] [address] Angelique Agudelo PA-C [address] [phone] Social History Tobacco Use Types [...] Name Priority Date/Time Associated Diagnosis Comments XR THORACIC SPINE 2 VIEWS 09/03/2018 12:38 EST XR CERVICAL SPINE 4-5 VIEWS 09/03/2018 12:38 EST documented in this encounter Results * XR THORACIC SPINE 2 VIEWS (09/03/2018 12:38 EST) Anatomical Region Laterality Modality Spine Other 09/03/2018 12:3 8 EST Narrative 09/03/2018 16:56 EST EXAM: RAD 1435 THORACIC SPINE 2 VIEWS CD#[id number] DATE & TIME EXAM COMPLETED: Sep 03 2018 12:38PM CPT:85899 REASON FOR EXAM: M54.2 Cervical pain M54.6 Thoracic pain Accession# : [id number] PT CL: O FINDINGS: AP and lateral views of the thoracic spine are obtained. There are no visible fractures and no focal bony abnormalities are identified. Alignment is anatomic. No paraspinal or soft tissue abnormality is seen. Disc spaces are well-maintained. IMPRESSION: Normal study. Comparison study 07/29/2013. Procedure Note Froilan Fisher MD - 07/31/2019 EXAM: RAD 1435 THORACIC SPINE 2 VIEWS CDM#[id number] DATE & TIME EXAM COMPLETED: Sep 03 2018 12:38PM CPT:80246 REASON FOR EXAM: M54.2 Cervical pain M54.6 Thoracic pain Accession# : [id number] PT CL: O FINDINGS: AP and lateral views of the thoracic spine are obtained.There are no visible fractures and no focal bony abnormalities are identified. Alignment is anatomic. No paraspinal or soft tissue abnormality is seen. Disc spaces are well-maintained. IMPRESSION: Normal study. Comparison study 07/29/2013. Angelique Agudelo PA-C IM DIAGNOSTIC IMAGING OR DERABLES Final Result * XR CERVICAL SPINE 4-5 VIEWS (09/03/2018 12:38 EST) Anatomical Region Laterality Modality Lower Extremities, Calcaneus Left Oth er 09/03/2018 12:3 8 EST Narrative 09/03/2018 16:52 EST EXAM: RAD 1405 CERVICAL SPINE MIN 4 VIEWS [facility]#[id number] DATE & TIME EXAM COMPLETED: Sep 03 2018 12:38PM CPT:62190 REASON FOR EXAM: M54.2 Cervical pain M54.6 Thoracic pain Accession# : [id number] PT CL: O FINDINGS: Five views of the cervical spine including bilateral oblique views are obtained. Comparison made to prior study of 07/01/2017. Disc space narrowing again seen at C4-5 and C5-6. No subluxation. No prevertebral soft tissue swelling. Slight foraminal narrowing bilaterally at C4-5. No fracture or destructive lesion. IMPRESSION: Mild degenerative disc disease. No acute findings. Procedure Note Froilan Fisher MD - 07/31/2019 EXAM: RAD 1405 CERVICAL SPINE MIN 4 VIEWS [facility]#[id number] DATE & TIME EXAM COMPLETED: Sep 03 2018 12:38PM CPT:59503 REASON FOR EXAM: M54.2 Cervical pain M54.6 Thoracic pain Accession# : [id number] PT CL: O FINDINGS: Five views of the cervical spine including bilateral oblique views are obtained. Comparison made to prior study of 07/01/2017. Disc space narrowing again seen at C4-5 and C5-6. No subluxation. No prevertebral soft tissue swelling. Slight foraminal narrowing bilaterallyat C4-5. No fracture or destructive lesion. IMPRESSION: Mild degenerative disc disease. No acute findings. us Angelique Agudelo PA-C IM DIAGNOSTIC IMAGING OR DERABLES Final Result documented in this encounter Visit Diagnoses Not on filedocumented in this encounter Additional Health Concerns Infection Onset Date Last Indicated Resolved Time R/O COVID-19 11/30/2024 11/30/2024 12/01/2024 1:04 EST R/O COVID-19 12/08/2024 12/08/2024 12/08/2024 14:1 9 EST R/O COVID-19 12/29/2024 12/29/2024 12/29/2024 23:5 5 EST documented as of this encounter Care Teams Child Support Case Officer Relationship Specialty Start Date End Date Angelique Agudelo PA-C [address] [phone] PCP - General 01/10/16 07/16/22 Juan Mckinley MD 158 [facility] [address] [place] [address] PCP - General 07/17/22 01/31/25 Sarah Figueroa MD [address] [place] [address] PCP - General Internal Medicine - [facility] Medicine 02/01/25 Angelique Agudelo PA-C [address] [phone] Endocrinology, Diabetes and Metabolism 07/14/24 Angelique Agudelo PA-C [address] [phone] Endocrinology, Diabetes and Metabolism 08/23/24 Angelique Agudelo PA-C [address] [address] Endocrinology, Diabetes and Metabolism 10/18/24 documented as of this encounter
--- OUTSIDE RECORDS SUMMARY | 2025-09-18 11:44 | XMS_ITS | Encounter Summary ---
Author Organization [facility] Address [address] [place] [address] Care Team Providers Care Auto Air Conditioning Installer Name Role Phone Angelique Agudelo PA-C Primary Care Provider [phone] Juan Mckinley MD Primary Care Provider [phone] Angelique Agudelo PA-C Unavailable Angelique Agudelo-C Unavailable [phone] Angelique Agudelo-C Unavailable Sarah Figueroa MD Primary Care Provider [phone] Reason for Visit * Reason Comments Other Encounter Details Date Type Department Care Team (Late st Contact Info) Description 10/24/2018 [facility] Neurophysiology - [facility] ([facility]) [address] [place], [place] [phone] [place] [address] [address] Other Social History Tobacco Use [...] BY MOUTH 2 TIMES DAILY. 60 Tab 1 10/26/2018 11/20/2018 documented in this encounter Miscellaneous Notes * Telephone Encounter - Bhakti Flores, RN - 10/26/2018 0712 EST Reason for contact: Rx refill Keppra 500 mg bid Pt last seen 02/03/18. Was nos for visits on 08/14/18 and 09/29/18 due to problems with Medicaid transportation. Pt needs appt. If Medicaid will not provide transportation and pt unable to get here, possibly schedule with Dr Lindsey in [place]. Will forward to schedulers. I refilled rx for 30 days with 1 rf documented in this encounter Plan of Treatment Not on file documented as of this encounter Visit Diagnoses Not on filedocumented in this encounter Discontinued Medications Medication Sig Discontinue Reason Start Date End Da te levETIRAcetam (KEPPRA) 500 mg tablet TAKE 1 TABLET BY MOUTH 2 TIMES DAILY. Reorder 09/29/2018 10/24/2018 documented as of this encounter Additional Health Concerns Infection Onset Date Last Indicated Resolved Time R/O COVID-19 11/30/2024 11/30/2024 12/01/2024 1:04 EST R/O COVID-19 12/08/2024 12/08/2024 12/08/2024 14:1 9 EST R/O COVID-19 12/29/2024 12/29/2024 12/29/2024 23:5 5 EST documented as of this encounter Care Teams Auto Air Conditioning Installer Relationship Specialty Start Date End Date Angelique Agudelo PA-C [address] [phone] PCP - General 01/10/16 07/16/22 Juan Mckinley MD [facility] 3 [place] [address] PCP - General 07/17/22 01/31/25 Sarah Figueroa MD [address] [place] [address] PCP - General Internal Medicine - [facility] Medicine 02/01/25 Angelique Agudelo PA-C [address] [phone] Endocrinology, Diabetes and Metabolism 07/14/24 Angelique Agudelo PA-C [address] [address] Endocrinology, Diabetes and Metabolism 08/23/24 Angelique Agudelo PA-C [address] [phone] Endocrinology, Diabetes and Metabolism 10/18/24 documented as of this encounter
--- OUTSIDE RECORDS SUMMARY | 2025-09-18 11:44 | XMS_ITS | Encounter Summary ---
Author Organization [facility] Address [address] [place] [address] Care Team Providers Care Assessment Nurse Practitioner Name Role Phone Angelique Agudelo PA-C Primary Care Provider + [phone] Juan Mckinley MD Primary Care Provider [phone] Angelique Agudelo PA-C Unavailable [phone] Angelique Agudelo PA-C Unavailable [phone] Angelique Agudelo-C Unavailable [phone] Sarah Figueroa MD Primary Care Provider [phone] Encounter Details Date Type Department Care Team (Late st Contact Info) Description 01/23/2022 Lab [facility] - [facility] [address] [place], [place] [address] Outr Resulting Lab, Provider Social History Tobacco Use Types Packs/Day Years [...] Procedure Name Priority Date/Time Associated Diagnosis Comments HEMOGLOBIN A1C Routine 01/23/2022 12:44 EDT documented in this encounter Results * HEMOGLOBIN A1C (01/23/2022 12:44 EDT) Hemoglobin A1c 5.4 <5.7 % 01/24/2022 14:23 EDT [facility] Comment: Glycemic Status References: Normal: <5.7% Pre-Diabetes: 5.7% - 6.4% Diagnostic of Diabetes: > or = 6.5% (if confirmed) Est Avg Glucose 108 mg/dL 14:23 EDT [facility] Comment:The eAG represents t he A1c result expressed as average glucose in mg/dL. Blood VENOUS BLOOD / Unknown 01/23/2022 12:44 EDT 01/24/2022 8:57 EDT us Provider Outr Resulting Lab CHEMISTRY & BLOOD GA S ORDERABLES Final Result [facility] [address] [place] [address] documented in this encounter Visit Diagnoses Not on filedocumented in this encounter Additional Health Concerns Infection Onset Date Last Indicated Resolved Time R/O COVID-19 11/30/2024 11/30/2024 12/01/2024 1:04 EST R/O COVID-19 12/08/2024 12/08/2024 12/08/2024 14:1 9 EST R/O COVID-19 12/29/2024 12/29/2024 12/29/2024 23:5 5 EST documented as of this encounter Care Teams Assessment Nurse Practitioner Relationship Specialty Start Date End Date Angelique Agudelo PA-C [address] [address] PCP - General 01/10/16 07/16/22 Juan Mckinley MD [address] [place] [address] 3 [place] [address] PCP - General 07/17/22 01/31/25 Sarah Figueroa MD [address] [place] [address] PCP - General Internal Medicine - [facility] 02/01/25 Angelique Agudelo PA-C [address] [address] Endocrinology, Diabetes and Metabolism 07/14/24 Angelique Agudelo PA-C [address] [address] Endocrinology, Diabetes and Metabolism 08/23/24 Angelique Agudelo PA-C [address] [phone] Endocrinology, Diabetes and Metabolism 10/18/24 documented as of this encounter
--- OUTSIDE RECORDS SUMMARY | 2025-09-18 11:44 | XMS_ITS | Encounter Summary ---
Author Organization [facility] Address [address] [place] [address] Care Team Providers Care Associate Professor Of Theology Name Role Phone Angelique Agudelo PA-C Primary Care Provider [phone] Juan Mckinley MD Primary Care Provider [phone] Angelique Agudelo PA-C Unavailable [phone] Angelique Agudelo PA-C Unavailable [phone] Angelique Agudelo-C Unavailable [phone] Sarah Figueroa MD Primary Care Provider [phone] Reason for Visit * Reason Onset Date Comments Appointment Related 02/13/2018 Encounter Details Date Type Department Care Team (Late st Contact Info) Description 02/13/2018 Telephone [facility] Interventional Pain [address] [place] [address] Nydia Sotelo PA [address] [place] [id number] Appointment Related Social History Tobacco Use Types Packs/Day Years [...] encounter Miscellaneous Notes * Telephone Encounter - Sonam Reddy - 02/13/2018 1433 EDT PER NYDIA MONTES He has had success with TPI and RFA through the [facility]. We will obtain records and schedule these injections once records are obtained. THESE NOTES HAVE BEEN SCANNEDINTO PATIENTS CHART. documented in this encounter Plan of Treatment Not on file documented as of this encounter Visit Diagnoses Not on filedocumented in this encounter Additional Health Concerns Infection Onset Date Last Indicated Resolved Time R/O COVID-19 11/30/2024 11/30/2024 12/01/2024 1:04 EST R/O COVID-19 12/08/2024 12/08/2024 12/08/2024 14:1 9 EST R/O COVID-19 12/29/2024 12/29/2024 12/29/2024 23:5 5 EST documented as of this encounter Care Teams Associate Professor Of Theology Relationship Specialty Start Date End Date Angelique Agudelo PA-C [address] [place] [phone] PCP - General 01/10/16 07/16/22 Juan Mckinley MD [address] [place] [address] PCP - General 07/17/22 01/31/25 Sarah Figueroa MD [address] [place] [address] PCP - General Internal Medicine - [facility] Medicine 02/01/25 Angelique Agudelo PA-C [address] [address] Endocrinology, Diabetes and Metabolism 07/14/24 Angelique Agudelo PA-C [address] [phone] Endocrinology, Diabetes and Metabolism 08/23/24 Angelique Agudelo PA-C [address] [address] Endocrinology, Diabetes and Metabolism 10/18/24 documented as of this encounter
--- OUTSIDE RECORDS SUMMARY | 2025-09-18 11:44 | XMS_ITS | Encounter Summary ---
Author Organization [facility] Address [address] [place] [address] Care Team Providers Care Telegraph Office Route Aide Name Role Phone Angelique Agudelo PA-C Primary Care Provider [phone] Juan Mckinley MD Primary Care Provider [phone] Angelique Agudelo PA-C Unavailable Angelique Agudelo PA-C Unavailable [phone] Angelique Agudelo-C Unavailable [phone] Sarah Figueroa MD Primary Care Provider [phone] Encounter Details Date Type Department Care Team (Late st Contact Info) Description 07/01/2017 Historical Results Only [facility] - [facility] Radiology Results [address] [place] [address] Navarro Banks MD [address] [place] [phone] Social History Tobacco Use Types Packs/Day Years [...] shopping? Answer Date of Assessment Author No 01/22/2017 9:15 EDT documented as of this encounter Mental Status * Because of a physical, mental, or emotional condition, does this person have serious difficulty concentrating, remembering, or making decisions? Answer Entry Date Author Yes 01/22/2017 9:15 EDT documented in this encounter Plan of Treatment Not on file documented as of this encounter Procedures Procedure Name Priority Date/Time Associated Diagnosis Comments XR CERVICAL SPINE 4-5 VIEWS 07/01/2017 9:20 EDT documented in this encounter Results * XR CERVICAL SPINE 4-5 VIEWS (07/01/2017 9:20 EDT) Anatomical Region Laterality Modality Lower Extremities, Calcaneus Left Oth er 07/01/2017 9:20 EDT Narrative 07/01/2017 16:26 EDT EXAM: RAD 1405 CERVICAL SPINE MIN 4 VIEWS [facility]#[id number] DATE & TIME EXAM COMPLETED: Jul 01 2017 9:20AM CPT:10415 REASON FOR EXAM: CERVICALGIA Accession# : [id number] PT CL: {pt_class} FINDINGS: AP, open mouth, lateral, and two oblique views of the cervical spine were obtained. Comparison is with 10/22/2016. Alignment is unremarkable. No bone lesion or fracture is evident. There is again mild disc space narrowing and endplate osteophytosis at C4-5 and C5-6. Precervical soft tissues appear unremarkable. There appears to be slight narrowing of the left neuroforamen at C5-6 secondary to uncinate joint hypertrophy. IMPRESSION: Degenerative disc disease at C4-5 and C5-6 with slight apparent narrowing of the left neuroforamen at C4-5 secondary to uncinate joint hypertrophy. No significant change from the prior study. Procedure Note Quentin Echeverria MD - 07/30/2019 EXAM: RAD 1405 CERVICAL SPINE MIN 4 VIEWS [facility]#[id number] DATE & TIME EXAM COMPLETED: Jul 01 2017 9:20AM CPT:10797 REASON FOR EXAM: CERVICALGIA Accession# : [id number] CL: {pt_class} FINDINGS: AP, open mouth, lateral, and two oblique views of thecervical spine were obtained. Comparison is with 10/22/2016. Alignment is unremarkable. No bone lesion or fracture is evident. Thereis again mild disc space narrowing and endplate osteophytosis at C4-5 andC5-6. Precervical soft tissues appear unremarkable. There appears to be slight narrowing of the left neuroforamen at C5-6 secondary to uncinate joint hypertrophy. IMPRESSION: Degenerative disc disease at C4-5 and C5-6 with slight apparent narrowingof the left neuroforamen at C4-5 secondary to uncinate joint hypertrophy.No significant change from the prior study. Navarro Banks MD IMG DIAGNOSTIC IMAGING ORDERAB LES Final Result documented in this encounter Visit Diagnoses Not on filedocumented in this encounter Additional Health Concerns Infection Onset Date Last Indicated Resolved Time R/O COVID-19 11/30/2024 11/30/2024 12/01/2024 1:04 EST R/O COVID-19 12/08/2024 12/08/2024 12/08/2024 14:1 9 EST R/O COVID-19 12/29/2024 12/29/2024 12/29/2024 23:5 5 EST documented as of this encounter Care Teams Telegraph Office Route Aide Relationship Specialty Start Date End Date Angelique Agudelo PA-C [address] [place] [address] [address] [place] [address] PCP - General 01/10/16 07/16/22 Juan Mckinley MD [address] [place] [address] 3 [place] [address] PCP - General 07/17/22 01/31/25 Sarah Figueroa MD [address] [place] [address] PCP - General Internal Medicine - Hospital [facility] 02/01/25 Angelique Agudelo PA-C [address] [phone] Endocrinology, Diabetes and Metabolism 07/14/24 Angelique Agudelo PA-C [address] [address] Endocrinology, Diabetes and Metabolism 08/23/24 Angelique Agudelo PA-C [address] [phone] Endocrinology, Diabetes and Metabolism 10/18/24 documented as of this encounter
--- OUTSIDE RECORDS SUMMARY | 2025-09-18 11:45 | XMS_ITS | Encounter Summary ---
Author Organization [facility] Address [address] [place] [address] Care Team Providers Care Rack Production Worker Name Role Phone Juan Mckinley MD Primary Care Provider [phone] Angelique Agudelo PA-C Unavailable [phone] Angelique Agudelo PA-C Unavailable [phone] Angelique Agudelo PA-C Unavailable [phone] Sarah Figueroa MD Primary Care Provider [phone] Reason for Visit * Reason Comments Medications Refill Encounter Details Date Type Department Care Team (Late st Contact Info) Description 01/27/2023 Refill [facility] - [facility] Endocrinology [address] [place] [address] Angelique Agudelo PA-C 210 [facility] [address] [place] [phone] Medications Refill Social History Tobacco Use Types [...] Refills Last Filled Start Date End Date propRANolol (INDERAL) 20 mg tabletIndications: Hyperthyroidism TAKE ONE TABLET BY MOUTH THREE TIMES A DAY 90 Tablet 01/29/2023 12/24/2024 documented in this encounter Miscellaneous Notes * Telephone Encounter - Jodee Mott RN - 01/28/2023 0827 EDT Pharmacy requesting refills on behalf of patient. JANE 09/11/2022. Jodee Mott RN 01/28/2023 8:28 documented in this encounter Plan of Treatment Not on file documented as of this encounter Visit Diagnoses Diagnosis Hyperthyroidism Thyrotoxicosis without mention of goiter or other cause, without mention of thyrotoxic crisis or storm documented in this encounter Discontinued Medications Medication Sig Discontinue Reason Start Date End Da te propRANolol (INDERAL) 20 mg tabletIndications:Hypert hyroidism Take 1 Tablet by mouth 3 times daily. 12/31/2022 01/29/2023 documented as of this encounter Additional Health Concerns Infection Onset Date Last Indicated Resolved Time R/O COVID-19 11/30/2024 11/30/2024 12/01/2024 1:04 EST R/O COVID-19 12/08/2024 12/08/2024 12/08/2024 14:1 9 EST R/O COVID-19 12/29/2024 12/29/2024 12/29/2024 23:5 5 EST documented as of this encounter Care Teams Rack Production Worker Relationship Specialty Start Date End Date Juan Mckinley MD [address] [place] [address] PCP - General 07/17/22 01/31/25 Sarah Figueroa MD [address] [place] [address] PCP - General Internal Medicine - [facility] 02/01/25 Angelique Agudelo PA-C [address] [address] Endocrinology, Diabetes and Metabolism 07/14/24 Angelique Agudelo PA-C [address] [phone] Endocrinology, Diabetes and Metabolism 08/23/24 Angelique Agudelo PA-C [address] [place] [phone] Endocrinology, Diabetes and Metabolism 10/18/24 documented as of this encounter
--- OUTSIDE RECORDS SUMMARY | 2025-09-18 11:45 | XMS_ITS | Encounter Summary ---
Author Organization [facility] Address [address] [place] [address] Care Team Providers Care File Keeper Name Role Phone Juan Mckinley MD Primary Care Provider [phone] Angelique Agudelo-Idalia Unavailable [phone] Angelique Agudelo-Idalia Unavailable [phone] Angelique Agudelo-Idalia Unavailable [phone] Sarah Figueroa MD Primary Care Provider [phone] Reason for Visit * Reason Onset Date Comments Medications Refill 10/22/2024 Encounter Details Date Type Department Care Team (Late st Contact Info) Description 10/22/2024 Refill [facility] - [facility] Endocrinology [address] [place] [address] Fely Martin, TAMARA Medications Refill Social History Tobacco Use Types [...] Refills Last Filled Start Date End Date methIMAzole (TAPAZOLE) 5 mg tabletIndications: Hyperthyroidism Take 1 Tablet by mouth every 48 hours. 45 Tablet 10/22/2024 12/24/2024 documented in this encounter Miscellaneous Notes * Telephone Encounter - Fely Martin RN - 10/22/2024 1346 EST JANE 01/08/24 NOV nothing yet Labs 10/05/24 TSH 1.35 documented in this encounter Plan of Treatment Not on file documented as of this encounter Visit Diagnoses Diagnosis Hyperthyroidism Thyrotoxicosis without mention of goiter or other cause, without mention of thyrotoxic crisis or storm documented in this encounter Discontinued Medications Medication Sig Discontinue Reason Start Date End Da te methIMAzole (TAPAZOLE) 5 mg tabletIndications:Hypert hyroidism Take 1 Tablet by mouth every 48 hours. Reorder 08/27/2024 10/22/2024 documented as of this encounter Additional Health Concerns Infection Onset Date Last Indicated Resolved Time R/O COVID-19 11/30/2024 11/30/2024 12/01/2024 1:04 EST R/O COVID-19 12/08/2024 12/08/2024 12/08/2024 14:1 9 EST R/O COVID-19 12/29/2024 12/29/2024 12/29/2024 23:5 5 EST documented as of this encounter Care Teams File Keeper Relationship Specialty Start Date End Date Juan Mckinley MD [address] [place] [address] PCP - General 07/17/22 01/31/25 Sarah Figueroa MD [address] [place] [address] PCP - General Internal Medicine - [facility] Medicine 02/01/25 Angelique Agudelo PA-C [address] [phone] Endocrinology, Diabetes and Metabolism 07/14/24 Angelique Agudelo PA-C [address] [phone] Endocrinology, Diabetes and Metabolism 08/23/24 Angelique Agudelo PA-C [address] [phone] Endocrinology, Diabetes and Metabolism 10/18/24 documented as of this encounter
--- OUTSIDE RECORDS SUMMARY | 2025-09-18 11:45 | XMS_ITS | Encounter Summary ---
Author Organization [facility] Address [address] [place] [address] Care Team Providers Care Director Sales Support Name Role Phone Angelique Agudelo PA-C Primary Care Provider [phone] Juan Mckinley MD Primary Care Provider [phone] Angelique Agudelo PA-C Unavailable Angelique Agudelo-C Unavailable [phone] Angelique Agudelo-C Unavailable Sarah Figueroa MD Primary Care Provider [phone] Reason for Visit * Reason Onset Date Comments Other 05/21/2022 Encounter Details Date Type Department Care Team (Late st Contact Info) Description 05/21/2022 Telephone [facility] Transplant - [place] [address] [place], [place] [id number] Ochoa Mcguire MD 1 [facility], Level [address] [place] [address] Other Social History Tobacco Use Types Packs/Day [...] encounter Miscellaneous Notes * Telephone Encounter - Pretty Bermudez - 05/21/2022 1442 EDT Call to NETWORK ANALYST Anneliese. She shares that pt struggles with compliance, hoping he attends appt 05/27. Sees him for mental health. Was on lithium but not compliant with labs, finally got labs done and kidney function declining - December 2021 GFR 46 CRE 1.6, 2019 GFR 76 and CRE 1.1. D/C'd lithium slowly and pt was very upset about this. Pt has hx of bipolar and aggression and reports feeling more irritable off lithium. Wondering if safe to restart low dose of lithium if cleared by powder blender and pourer. Med List (prescribed by Anneliese) Latuda 60 mg Duloxetine 30 mg Trazadone 100 mg HS Hydraxazine 50 mg TID PRN for anxiety (by PCP) Hydrocodone Marce Burrell Routing message to Dr. Mcguire for review prior to pt's appt 05/27. * Telephone Encounter - Peggy Torres - 05/21/2022 1310 EDT Anneliese Stoney NETWORK ANALYST referred Pt here and would like to speak with someone about her concerns before his appt next week. Please call her at [phone] ext [phone] leave a msg if she doesn't answer and she will call back documented in this encounter Plan of Treatment Not on file documented as of this encounter Visit Diagnoses Not on filedocumented in this encounter Additional Health Concerns Infection Onset Date Last Indicated Resolved Time R/O COVID-19 11/30/2024 11/30/2024 12/01/2024 1:04 EST R/O COVID-19 12/08/2024 12/08/2024 12/08/2024 14:1 9 EST R/O COVID-19 12/29/2024 12/29/2024 12/29/2024 23:5 5 EST documented as of this encounter Care Teams Director Sales Support Relationship Specialty Start Date End Date Angelique Agudelo PA-C [address] [phone] PCP - General 01/10/16 07/16/22 Juan Mckinley MD [address] [place] [address] 3 [place] [address] PCP - General 07/17/22 01/31/25 Sarah Figueroa MD [address] [place] [address] PCP - General Internal Medicine - [facility] Medicine 02/01/25 Angelique Agudelo PA-C [address] [place] [phone] Endocrinology, Diabetes and Metabolism 07/14/24 Angelique Agudelo PA-C [address] [place] [phone] Endocrinology, Diabetes and Metabolism 08/23/24 Angelique Agudelo PA-C 210 [facility] [address] [place] [phone] Endocrinology, Diabetes and Metabolism 10/18/24 documented as of this encounter
--- OUTSIDE RECORDS SUMMARY | 2025-09-18 11:45 | XMS_ITS | Encounter Summary ---
Author Organization [facility] Address [address] [place] [address] Care Team Providers Care Director Of Vocational Guidance Name Role Phone Juan Mckinley MD Primary Care Provider [phone] Angelique Agudelo PA-C Unavailable [phone] Angelique Agudelo PA-C Unavailable [phone] Angelique Agudelo PA-C Unavailable [phone] Sarah Figueroa MD Primary Care Provider [phone] Reason for Visit * Reason Comments Medications Refill Encounter Details Date Type Department Care Team (Late st Contact Info) Description 02/12/[address] [facility] - [facility] Endocrinology [address] [place] [address] Angelique Agudelo PA-C 210 [facility] [address] [place] [phone] Medications Refill Social History Tobacco Use Types [...] Date methIMAzole (TAPAZOLE) 5 mg tabletIndications: Hyperthyroidism TAKE ONE TABLET BY MOUTH EVERY DAY 30 Tablet 02/13/2023 03/04/2023 documented in this encounter Miscellaneous Notes * Telephone Encounter - Jodee Mott RN - 02/13/2023 0830 EDT Pharmacy requesting refills on behalf of patient. JANE 09/11/2022, Cancelled 10/11/22, 10/18/22. NOV05/28/23. Jodee Mott RN 02/13/2023 8:35 documented in this encounter Plan of Treatment Not on file documented as of this encounter Visit Diagnoses Diagnosis Hyperthyroidism Thyrotoxicosis without mention of goiter or other cause, without mention of thyrotoxic crisis or storm documented in this encounter Discontinued Medications Medication Sig Discontinue Reason Start Date End Da te methIMAzole (TAPAZOLE) 5 mg tabletIndications:Hypert hyroidism Take 1 Tablet by mouth daily for 30 days. 02/07/2023 02/13/2023 documented as of this encounter Additional Health Concerns Infection Onset Date Last Indicated Resolved Time R/O COVID-19 11/30/2024 11/30/2024 12/01/2024 1:04 EST R/O COVID-19 12/08/2024 12/08/2024 12/08/2024 14:1 9 EST R/O COVID-19 12/29/2024 12/29/2024 12/29/2024 23:5 5 EST documented as of this encounter Care Teams Director Of Vocational Guidance Relationship Specialty Start Date End Date Juan Mckinley MD [address] [address] [place] [address] PCP - General 07/17/22 01/31/25 Sarah Figueroa MD [address] [place] [address] PCP - General Internal Medicine - [facility] 02/01/25 Angelique Agudelo PA-C [address] [phone] Endocrinology, Diabetes and Metabolism 07/14/24 Angelique Agudelo PA-C [address] [phone] Endocrinology, Diabetes and Metabolism 08/23/24 Angelique Agudelo PA-C [address] [phone] Endocrinology, Diabetes and Metabolism 10/18/24 documented as of this encounter
--- OUTSIDE RECORDS SUMMARY | 2025-09-18 11:45 | XMS_ITS | Encounter Summary ---
Author Organization [facility] Address [address] [place] [address] Care Team Providers Care Hardening Machine Operator Name Role Phone Angelique Agudelo PA-C Primary Care Provider [phone] Juan Mckinley MD Primary Care Provider [phone] Angelique Agudelo PA-C Unavailable Angelique Agudelo PA-C Unavailable [phone] Angelique Agudelo-C Unavailable [phone] Sarah Figueroa MD Primary Care Provider [phone] Encounter Details Date Type Department Care Team (Late st Contact Info) Description 03/19/2016 Historical Results Only [facility] - [facility] Radiology Results [address] [place] [address] Navarro Banks MD [address] [place] [phone] Social History Tobacco Use Types Packs/Day Years Used Date Smoking Tobacco: Every Day Cigarettes 1.5 1 Pipe Alcohol Use Standard Drinks/Week Comments [...] shopping? Answer Date of Assessment Author No 01/11/2016 14:22 EDT documented as of this encounter Mental Status * Because of a physical, mental, or emotional condition, does this person have serious difficulty concentrating, remembering, or making decisions? Answer Entry Date Author Yes 01/11/2016 14:22 EDT documented in this encounter Plan of Treatment Not on file documented as of this encounter Procedures Procedure Name Priority Date/Time Associated Diagnosis Comments MR THORACIC SPINE WO CONTRAST 03/19/2016 18:24 EDT documented in this encounter Results * MR THORACIC SPINE WO CONTRAST (03/19/2016 18:24 EDT) Anatomical Region Laterality Modality Thoracic spine Other 03/19/2016 18:2 4 EDT Narrative 03/20/2016 11:36 EDT EXAM: MRI 6170 THORACIC SPINE W/O CONTRAST [facility]#[id number] DATE & TIME EXAM COMPLETED: Mar 19 2016 6:24PM CPT:53361 REASON FOR EXAM: THORACIC DISCOGENIC PAIN Accession# : [id number] PT CL: {pt_class} FINDINGS: A multiplanar, multi sequential MR examination of the thoracic spine was performed without contrast. The alignment and contours of the thoracic vertebral bodies are within normal limits. The thoracic spinal cord demonstrates normal signal intensity and contour. There is no syrinx. T1-T2: There is no evidence of a disc bulge, protrusion, or extrusion. There is no central or neuroforaminal narrowing. T2-T3: There is no evidence of a disc bulge, protrusion, or extrusion. There is no central or neuroforaminal narrowing. T3-T4: There is no evidence of a disc bulge, protrusion, or extrusion. There is no central or neuroforaminal narrowing. T4-T5: There is no evidence of a disc bulge, protrusion, or extrusion. There is no central or neuroforaminal narrowing. T5-T6: There is no evidence of a disc bulge, protrusion, or extrusion. There is no central or neuroforaminal narrowing. T6-T7: There is no evidence of a disc bulge, protrusion, or extrusion. There is no central or neuroforaminal narrowing. T7-T8: There is no evidence of a disc bulge, protrusion, or extrusion. There is no central or neuroforaminal narrowing. T8-T9: There is a very small left lateral recess disc protrusion minimally indenting the anterior aspect of the thecal sac. There is no central or neuroforaminal stenosis. T9-T10: There is no evidence of a disc bulge, protrusion, or extrusion. There is no central or neuroforaminal narrowing. T10-T11: There is no evidence of a disc bulge, protrusion, or extrusion. There is no central or neuroforaminal narrowing. T11-T12: There is no evidence of a disc bulge, protrusion, or extrusion. There is no central or neuroforaminal narrowing. IMPRESSION: 1. Small focal disc protrusion on the left at the T8-9 level with only minimal mass effect. Otherwise negative study. Procedure Note Perry Soliman MD - 07/29/2019 EXAM: MRI 6170 THORACIC SPINE W/O CONTRAST [facility]#[id number] DATE & TIME EXAM COMPLETED: Mar 19 2016 6:24PM CPT:91758 REASON FOR EXAM: THORACIC DISCOGENIC PAIN Accession# : [id number] PT CL: {pt_class} FINDINGS: A multiplanar, multi sequential MR examination of thethoracic spine was performed without contrast. The alignment and contours of the thoracic vertebral bodies are within normal limits. The thoracic spinal cord demonstrates normal signal intensity andcontour. There is no syrinx. T1-T2: There is no evidence of a disc bulge, protrusion, or extrusion.There is no central or neuroforaminal narrowing. T2-T3: There is no evidence of a disc bulge, protrusion, or extrusion.There is no central or neuroforaminal narrowing. T3-T4: There is no evidence of a disc bulge, protrusion, or extrusion.There is no central or neuroforaminal narrowing. T4-T5: There is no evidence of a disc bulge, protrusion, or extrusion.There is no central or neuroforaminal narrowing. T5-T6: There is no evidence of a disc bulge, protrusion, or extrusion.There is no central or neuroforaminal narrowing. T6-T7: There is no evidence of a disc bulge, protrusion, or extrusion.There is no central or neuroforaminal narrowing. T7-T8: There is no evidence of a disc bulge, protrusion, or extrusion.There is no central or neuroforaminal narrowing. T8-T9: There is a very small left lateral recess disc protrusionminimally indenting the anterior aspect of the thecal sac. There is no central or neuroforaminal stenosis. T9-T10: There is no evidence of a disc bulge, protrusion, or extrusion. There is no central or neuroforaminal narrowing. T10-T11: There is no evidence of a disc bulge, protrusion, or extrusion. There is no central or neuroforaminal narrowing. T11-T12: There is no evidence of a disc bulge, protrusion, or extrusion. There is no central or neuroforaminal narrowing. IMPRESSION: 1. Small focal disc protrusion on the left at the T8-9 level with only minimal mass effect. Otherwise negative study. us Navarro Banks MD IMG MRI ORDERABLES Final Resul t documented in this encounter Visit Diagnoses Not on filedocumented in this encounter Additional Health Concerns Infection Onset Date Last Indicated Resolved Time R/O COVID-19 11/30/2024 11/30/2024 12/01/2024 1:04 EST R/O COVID-19 12/08/2024 12/08/2024 12/08/2024 14:1 9 EST R/O COVID-19 12/29/2024 12/29/2024 12/29/2024 23:5 5 EST documented as of this encounter Care Teams Hardening Machine Operator Relationship Specialty Start Date End Date Angelique Agudelo PA-C [address] [facility] [address] [place] [address] PCP - General 01/10/16 07/16/22 Juan Mckinley MD [address] [place] [address] [address] [place], [place] [id number] PCP - General 07/17/22 01/31/25 Sarah Figueroa MD [address] [place] [address] PCP - General Internal Medicine - [facility] Medicine 02/01/25 Angelique Agudelo PA-C [address] [address] Endocrinology, Diabetes and Metabolism 07/14/24 Angelique Agudelo PA-C [address] [address] Endocrinology, Diabetes and Metabolism 08/23/24 Angelique Agudelo PA-C [address] [address] Endocrinology, Diabetes and Metabolism 10/18/24 documented as of this encounter
--- OUTSIDE RECORDS SUMMARY | 2025-09-18 11:45 | XMS_ITS | Encounter Summary ---
Author Organization [facility] Address [address] [place] [address] Care Team Providers Care Design Agent Name Role Phone Juan Mckinley MD Primary Care Provider [phone] Angelique Agudelo PA-C Unavailable [phone] Angelique Agudelo PA-C Unavailable [phone] Angelique Agudelo PA-C Unavailable [phone] Sarah Figueroa MD Primary Care Provider [phone] Reason for Visit * Reason Comments Medications Refill Encounter Details Date Type Department Care Team (Late st Contact Info) Description 03/29/2024 Refill [facility] - [facility] Endocrinology [address] [place] [address] Angelique Agudelo PA-C 210 [facility] [address] [place] [phone] Medications Refill Social History Tobacco Use Types [...] by mouth every 48 hours. 45 Tablet 03/30/2024 06/15/2024 documented in this encounter Miscellaneous Notes * Telephone Encounter - Fely Martin, RN - 03/30/2024 1356 EDT JANE 01/08/24 NOV 07/14/24 Labs 03/17/24 TSH 11.60 documented in this encounter Plan of Treatment Not on file documented as of this encounter Visit Diagnoses Diagnosis Hyperthyroidism Thyrotoxicosis without mention of goiter or other cause, without mention of thyrotoxic crisis or storm documented in this encounter Discontinued Medications Medication Sig Discontinue Reason Start Date End Da te methIMAzole (TAPAZOLE) 5 mg tabletIndications:Hypert hyroidism Take 1 Tablet by mouth daily. 01/08/2024 03/30/2024 documented as of this encounter Additional Health Concerns Infection Onset Date Last Indicated Resolved Time R/O COVID-19 11/30/2024 11/30/2024 12/01/2024 1:04 EST R/O COVID-19 12/08/2024 12/08/2024 12/08/2024 14:1 9 EST R/O COVID-19 12/29/2024 12/29/202412/2912/29/2024 23:5 5 EST documented as of this encounter Care Teams Design Agent Relationship Specialty Start Date End Date Juan Mckinley MD [address] [address] [place] [address] PCP - General 07/17/22 01/31/25 Sarah Figueroa MD [address] [place] [address] PCP - General Internal Medicine - [facility] Medicine 02/01/25 Angelique Agudelo PA-C [address] [address] Endocrinology, Diabetes and Metabolism 07/14/24 Angelique Agudelo PA-C [address] [phone] Endocrinology, Diabetes and Metabolism 08/23/24 Angelique Agudelo PA-C [address] [phone] Endocrinology, Diabetes and Metabolism 10/18/24 documented as of this encounter
--- OUTSIDE RECORDS SUMMARY | 2025-09-18 11:45 | XMS_ITS | Encounter Summary ---
Author Organization [facility] Address [address] [place] [address] Care Team Providers Care Customer Solutions Representative Name Role Phone Juan Mckinley MD Primary Care Provider [phone] Angelique Agudelo-Idalia Unavailable [phone] Angelique Agudelo-Idalia Unavailable [phone] Angelique Agudelo-Idalia Unavailable [phone] Sarah Figueroa MD Primary Care Provider [phone] Encounter Details Date Type Department Care Team (Late st Contact Info) Description 09/12/2022 Refill [facility] - [facility] Endocrinology [address] [place] [address] Roselyn Morales, TAMARA Social History Tobacco Use Types Packs/Day Years [...] Sexual Orientation Straight 03/08/2025 8: 49 EDT COVID-19 Exposure Response Date Recorded In the last 10 days, have fadia soto been in contact with someone who was confirmed or suspected to have Coronavirus/COVID-19? No / Unsure 09/11/2022 14:47 EST documented as of this encounter Functional Status [...] tabletIndications: Hyperthyroidism Take 1 Tablet by mouth 2 times daily for 30 days. 60 Tablet 09/12/2022 10/18/2022 propRANolol (INDERAL) 20 mg tabletIndications: Hyperthyroidism Take 1 Tablet by mouth 3 times daily for 30 days. 90 Tablet 09/12/2022 10/18/2022 documented in this encounter Miscellaneous Notes * Telephone Encounter - Roselyn Morales RN - 09/12/2022 1257 EST Patient was in yesterday, Scripts got sent to the wrong pharmacy. [facility] documented in this encounter Plan of Treatment Not on file documented as of this encounter Visit Diagnoses Diagnosis Hyperthyroidism Thyrotoxicosis without mention of goiter or other cause, without mention of thyrotoxic crisis or storm documented in this encounter Discontinued Medications Medication Sig Discontinue Reason Start Date End Da te propRANolol (INDERAL) 20 mg tabletIndications:Hypert hyroidism Take 1 Tablet by mouth 3 times daily for 30 days. Reorder 09/11/2022 09/12/2022 methIMAzole (TAPAZOLE) 5 mg tabletIndications:Hypert hyroidism Take 1 Tablet by mouth 2 times daily for 30 days. Reorder 09/11/2022 09/12/2022 documented as of this encounter Additional Health Concerns Infection Onset Date Last Indicated Resolved Time R/O COVID-19 11/30/2024 11/30/2024 12/01/2024 1:04 EST R/O COVID-19 12/08/2024 12/08/2024 12/08/2024 14:1 9 EST R/O COVID-19 12/29/2024 12/29/2024 12/29/2024 23:5 5 EST documented as of this encounter Care Teams Customer Solutions Representative Relationship Specialty Start Date End Date Juan Mckinley MD [address] [facility] 3 [place] [address] PCP - General 07/17/22 01/31/25 Sarah Figueroa MD [address] [place] [address] PCP - General Internal Medicine - [facility] 02/01/25 Angelique Agudelo PA-C [address] [phone] Endocrinology, Diabetes and Metabolism 07/14/24 Angelique Agudelo PA-C [address] [phone] Endocrinology, Diabetes and Metabolism 08/23/24 Angelique Agudelo PA-C [address] [address] Endocrinology, Diabetes and Metabolism 10/18/24 documented as of this encounter
--- OUTSIDE RECORDS SUMMARY | 2025-09-18 11:45 | XMS_ITS | Encounter Summary ---
Author Organization [facility] Address [address] [place] [address] Care Team Providers Care Chipper Machine Operator Name Role Phone Juan Mckinley MD Primary Care Provider [phone] Angelique Agudelo-C Unavailable [phone] Angelique Agudelo-C Unavailable [phone] Angelique Agudelo-Idalia Unavailable [phone] Sarah Figueroa MD Primary Care Provider [phone] Reason for Visit * Reason Onset Date Comments Medication Questions 02/18/2023 Encounter Details Date Type Department Care Team ([facility] Contact Info) Description 02/18/2023 Telephone [facility] - [facility] Endocrinology [address] [place] [address] Roselyn Morales, stabilizing machine operator Questions Social History Tobacco Use Types Packs/Day Years [...] Telephone Encounter - Roselyn Morales RN - 02/18/2023 6346 EDT Spoke with patients significant other. She states they mad an appointment with [facility] for next . She is aware that either imitrex or lithium could be the cause of his mood. Roselyn Morales RN 02/18/2023 13:59 * Telephone Encounter - Roselyn Morales RN - 02/18/2023 1058 EDT Patient states that since he cut back on his methimazole he has been short tempered and doesn't feel like himself. Pt. Also started taking Imitrex again for migraines. Bricklayer advised him to call his pcp to let him know this information as it could be imitrex causing the irritability. Please advise. Roselyn Morales RN 02/18/2023 11:01 documented in this encounter Plan of Treatment Not on file documented as of this encounter Visit Diagnoses Not on filedocumented in this encounter Additional Health Concerns Infection Onset Date Last Indicated Resolved Time R/O COVID-19 11/30/2024 11/30/2024 12/01/2024 1:04 EST R/O COVID-19 12/08/2024 12/08/202412/08/2024 14:1 9 EST R/O COVID-19 12/29/2024 12/29/2024 12/29/2024 23:5 5 EST documented as of this encounter Care Teams Chipper Machine Operator Relationship Specialty Start Date End Date Juan Mckinley MD [address] [place] [address] PCP - General 07/17/22 01/31/25 Sarah Figueroa MD [address] [place] [address] PCP - General Internal Medicine - [facility] 02/01/25 Angelique Agudelo PA-C [address] [phone] Endocrinology, Diabetes and Metabolism 07/14/24 Angelique Agudelo PA-C [address] [phone] Endocrinology, Diabetes and Metabolism 08/23/24 Angelique Agudelo PA-C [address] [phone] Endocrinology, Diabetes and Metabolism 10/18/24 documented as of this encounter
--- OUTSIDE RECORDS SUMMARY | 2025-09-18 11:45 | XMS_ITS | Encounter Summary ---
Author Organization [facility] Address [address] [place] [address] Care Team Providers Care Policy Checker Name Role Phone Angelique Agudelo PA-C Primary Care Provider [phone] Juan Mckinley MD Primary Care Provider [phone] Angelique Agudelo PA-C Unavailable [phone] Angelique Agudelo-Idalia Unavailable [phone] Angelique Agudelo-C Unavailable [phone] Sarah Figueroa MD Primary Care Provider [phone] Reason for Visit * Reason Comments Other Encounter Details Date Type Department Care Team (Late st Contact Info) Description 05/07/2020 [facility] [place] [facility] [address] [place] [phone] Connie Herrera, INSPECTORS AND [employer]ULATORY OFFICERS [address] [facility] [address] [place] [phone] Other Social History Tobacco Use Types Packs/Day [...] documented as of this encounter Care Teams Policy Checker Relationship Specialty Start Date End Date Angelique Agudelo PAYeimyC [address] [place] [address] [place] [phone] PCP - General 01/10/16 07/16/22 Juan Mckinley MD [address] [place] [address] 3 [place] [address] PCP - General 07/17/22 01/31/25 Sarah Figueroa MD [address] [place] [address] PCP - General Internal Medicine - [facility] Medicine 02/01/25 Angelique Agudelo PA-C [address] [phone] Endocrinology, Diabetes and Metabolism 07/14/24 Angelique Agudelo PA-C [address] [phone] Endocrinology, Diabetes and Metabolism 08/23/24 Angelique Agudelo PA-C [address] [phone] Endocrinology, Diabetes and Metabolism 10/18/24 documented as of this encounter
--- OUTSIDE RECORDS SUMMARY | 2025-09-18 11:45 | XMS_ITS | Clinical Summary ---
Author Organization [facility] Address [address] [place] [address] Care Team Providers Care Client Support Manager Name Role Phone Heena Oneill MD Primary Care Provider [phone] Allergies Active Allergy Reactions Criticality Noted Date Comments Amitriptyline Anaphylaxis,Hives High 12/16/2024 Divalproex Unknown 12/16/2024 Medications * This document contains information received from the source organization and may not represent a complete record from that organization. naloxone HCl (Narcan) 4 mg/actuation nasal spray Administer 4 mg into affected nostril(s). Instill the contents of 1 unit intranasally for suspected opioid overdose. Repeat after 3 minutes if no or minimal response. Active albuterol (PROAIR HFA,VENTOLIN HFA) 90 mcg inhalerIndication s:Moderate persistent asthma without complication (HCC) Inhale 2 puffs (180 mcg total) by mouth every 6 hours as needed for wheezing or shortness of breath. Use with spacer. 18 g 3 025 Active thiamine mononitrate (VITAMIN B1) 100 mg tabletIndications :Wernicke encephalopathy Take 1 tablet (100 mg total) by mouth once a day. 30 tablet 025 Active senna (SENOKOT) 8.6 mg tabletIndications :Chronic constipation Take 1 tablet (8.6 mg total) by mouth every night. 30 tablet 025 Active rosuvastatin (CRESTOR) 20 mg tabletIndications :Mixed hyperlipidemia,Co ronary artery disease of unga artery of unga heart with stable angina pectoris Take 1 tablet (20 mg total) by mouth nightly. 90 tablet 3 025 Active pyridoxine (VITAMIN B6) 50 mg tabletIndications :Wernicke encephalopathy Take 1 tablet (50 mg total) by mouth once a day. 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 If no relief, dial 911. 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 90 tablet 025 Active methIMAzole (TAPAZOLE) 5 mg tabletIndications :Hyperthyroidism Take 1 tablet (5 mg total) by mouth every morning. 90 tablet 025 Active ibuprofen (MOTRIN) 600 mg tabletIndications :Chronic pain disorder Take 1 tablet (600 mg total) by mouth every 6 hours as needed for pain. [address] (CYMBALTA) 60 mg capsuleIndication s:Chronic pain disorder,Schizoaf fective disorder, unspecified type Take 1 capsule (60 mg total) by mouth once a day. 30 capsule Active budesonide-formot Shayne (SYMBICORT) 160-4.5 mcg inhalerIndication s:Moderate persistent asthma without complication (HCC) Inhale 2 puffs by mouth 2 times a day. Rinse mouth with water after use. Do not swallow. 6 g 025 Active capsaicin (ZOSTRIX-HP) 0.075% topical creamIndications: Chronic pain disorder Apply topically to the affected area 3 times a day. 57 g 3 025 Active polyethylene glycol 3350 (MIRALAX) 17 gram packet TAKE 1 PACKET (17 G TOTAL) BY MOUTH DAILY NEEDED FOR CONSTIPATION. 30 packet 2 025 Active traZODone (DESYREL) 100 mg tabletIndications :Schizoaffective disorder, unspecified type Take 0.5 tablets (50 mg total) by mouth at bed time. 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 90 tablet 3 025 2025 Active acetaminophen (TYLENOL) 325 mg tabletIndications :Chronic pain disorder Take 2 tablets (650 mg total) by mouth every 4 hours as needed for pain or fever (not to exceed 3 grams in 24 hours). 90 tablet 3 Active benzoyl peroxide 2.5 % gelIndications:Ac ne vulgaris Apply 1 g topically to the affected area once a day. 42.5 g 3 025 2025 Active ketoconazole (NIZORAL) 2% creamIndications: Onychomycosis Apply topically to the affected area once a day. 60 g 1 Active tiZANidine (ZANAFLEX) 2 mg tabletIndications :Chronic pain disorder Take 1 tablet (2 mg total) by mouth every 8 hours as needed for muscle spasms. 90 tablet 1 025 2024 Active nicotine (NICODERM CQ) 14 mg/24 hr patchIndications: Tobacco use disorder Place 1 patch on the skin every 24 hours. 30 patch 025 Active lithium 300 mg capsuleIndication s:Schizoaffective disorder, unspecified type Take 1 capsule (300 mg total) by mouth every 12 hours. 60 capsule 025 2024 Active levETIRAcetam (KEPPRA) 500 mg tabletIndications :Seizure disorder Take 2 tablets (1,000 mg total) by mouth 2 times a day. 90 tablet 3 025 Active pregabalin (LYRICA) 300 mg capsuleIndication s:Chronic pain disorder Take 1 capsule (300 mg total) by mouth 2 times a day. 90 capsule 025 Active cyanocobalamin (vitamin B-12) 1,000 mcg tabletIndications :Wernicke encephalopathy TAKE 1 TABLET BY MOUTH EVERY DAY 90 tablet Active QUEtiapine (SEROquel) 100 mg tabletIndications :Schizoaffective disorder, unspecified type Take 1 tablet (100 mg total) by mouth nightly. 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 720 tablet [address] (PROTONIX) 40 mg tabletIndications :Gastroesophageal reflux disease without esophagitis Take 1 tablet (40 mg total) by mouth once a day. 30 tablet 025 2024 Active cyanocobalamin (vitamin B-12) 1,000 mcg tabletIndications :Wernicke encephalopathy Take 1 tablet (1,000 mcg total) by mouth once a day. 30 tablet 025 2024 Discontinued vitamin B-12 1,000 mcg tabletIndications :Wernicke encephalopathy TAKE 1 TABLET (1,000 MCG TOTAL) BY MOUTH DAILY 30 tablet 025 2024 Discontinued Active Problems Problem Noted Date Diagnosed Date Chronic constipation 06/30/2025 Assessment & Plan (06/30/2025 6:26 PM EDT): Wheelchair bound. No BM in 2 days. Plan to double miralax and senna until patient has diarrhea, then go back to normal bowel regimen of 1 cap miralax and 1 senna. Could be contributing to urinary retention. Orders: senna (SENOKOT) 8.6 mg tablet; Take 1 tablet (8.6 mg total) by mouth every night. polyethylene glycol 3350 (MIRALAX) 17 gram packet; Take 1 packet (17 g total) by mouth 2 times a day. Mix powder in 4 to 8 oz of water, juice, coffee, or tea prior to administration. magnesium hydroxide (MILK OF MAGNESIA) 400 mg/5 mL suspension; Take 30 mL by mouth daily as needed for constipation. Tobacco use disorder 06/30/2025 Assessment & Plan (06/30/2025 6:26 PM EDT): Smokes 4 cigarettes per day; desires nicotine patch Consider chantix at future visit Orders: nicotine (NICODERM CQ) 14 mg/24 hr patch; Place 1 patch on the skin every 24 hours. Pyelonephritis of right kidney 06/30/2025 Assessment & Plan (06/30/2025 6:26 PM EDT): Patient endorsing worsening dysuria and right sided flank pain for the past week. No n/v/fever/chills. Recent urine cx in April grew pseudomonas resistant to cipro. Will treat for pyleo empirically with bactrim for 14 days. Ua and urine culture today would likely grow something and not sure how helpful that data would be with indwelling lezama catheter. Consider exchange of lezama with urology if no improvement of symptoms with abx. Orders: sulfamethoxazole-trimethoprim (BACTRIM DS) 800-160 mg tablet; Take 1 tablet by mouth 2 times a day for 14 days. Vitamin D deficiency 06/30/2025 Assessment & Plan (06/30/2025 6:26 PM EDT): Will check vit d level per daughter request Orders: Vitamin D 25 hydroxy; Future Quadriparesis 06/29/2025 Assessment & Plan (07/28/2025 6:27 PM EDT): Neurologic exam slowly improving per patient and daughter D/t GBS PT, OT, Physiatry [place] needed Need for home health; patient is total care 2 assist Orders: Ambulatory referral to Home Health; Future Assessment & Plan (06/30/2025 6:26 PM EDT): Neurologic exam slowly improving per patient and daughter D/t GBS PT, OT, Physiatry in [place] needed Need for home health; patient is total care 2 assist Orders: Ambulatory referral to Physical Medicine Rehab; Future Hyperlipidemia 06/19/2025 Assessment & Plan (06/30/2025 6:26 PM EDT): Cont crestor 20 mg. Pt was dx with NSTEMI and received stent to LAD. ?SCAD. Consider increasing to 40 mg next visit for secondary prevention. Orders: Lipid panel; Future rosuvastatin (CRESTOR) 20 mg tablet; Take 1 tablet (20 mg total) by mouth nightly. Assessment & Plan (06/20/2025 1:32 PM EDT): Chest pain worsening over several months but acutely while outpatient getting imagine. Unstable angina in 44 year old patient w/ no prior coronary history as well as a CTA coronary calcium score of 0 plus abrupt narrowing in LAD is suspicious for SCAD vs coronary artery vasospasm. Trops peaked at 141, EKG without ischemic changes. With a calcium score of 0, an atherosclerotic plaque is unlikely however still possible though he would be very young for this. Inflammatory markers elevated (CRP 20.6, ESR 32). Suspect instead some inflammatory process related to GBS or stress cardiomyopathy precipitating this. It is strange however as GBS is more typically associated with myocarditis. Recent A1c 5.1. TSH - 2.79 Lipids - T cholest 213. Trigs 552, cannot calculate LDL -Repeat lipid panel -Start crestor 20mg every day -Start metoprolol tartrate 12.5mg BID -Continue aspirin 81mg every day -Plan for cardiac cath this admission -SLN 0.8mg PRN chest pain -TSH as in #hyperthyroidism Assessment & Plan (06/19/2025 11:19 AM EDT): Chest pain worsening over several months but acutely while outpatient getting imagine. Unstable angina in 44 year old patient w/ no prior coronary history as well as a CTA coronary calcium score of 0 plus abrupt narrowing in LAD is suspicious for SCAD vs coronary artery vasospasm. Trops peaked at 141, EKG without ischemic changes. With a calcium score of 0, an atherosclerotic plaque is unlikely however still possible though he would be very young for this. Inflammatory markers elevated (CRP 20.6, ESR 32). Suspect instead some inflammatory process related to GBS or stress cardiomyopathy precipitating this. It is strange however as GBS is more typically associated with myocarditis. Recent A1c 5.1. TSH Lipids - T cholest 213. Trigs 552, cannot calculate LDL -Repeat lipid panel -Start crestor 20mg every day -Start metoprolol tartrate 12.5mg BID -Continue aspirin 81mg every day -Plan for cardiac cath this admission -SLN 0.8mg PRN chest pain -TSH as in #hyperthyroidism Polysubstance use disorder 06/18/2025 Assessment & Plan (06/20/2025 1:32 PM EDT): In remission; not on any maintenence medications Assessment & Plan (06/19/2025 7:25 AM EDT): In remission; not on any maintenence medications Assessment & Plan (06/18/2025 8:10 PM EDT): In remission; not on any maintenence medications Onychomycosis 05/09/2025 Assessment & Plan (07/28/2025 8:35 PM EDT): Ongoing past 20 years. Use ketoconazole cream for tinea ungum. Orders: ketoconazole (NIZORAL) 2% cream; Apply topically to the affected area once a day. Assessment & Plan (06/30/2025 6:26 PM EDT): Ongoing past 20 years. Probably needs oral treatment. 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 Found to have unstable angina s/p PCI to LAD on 06/20/25. Chest pain worsening over several months but acutely while getting outpatient CTA Coronary. Troponins peaked at 141, EKG without ischemic changes. CTA coronary performed showed calcium score of 0 and abrupt narrowing in LAD is suspicious for SCAD vs coronary artery vasospasm. With a calcium score of 0, an atherosclerotic plaque is unlikely however still possible though he would be very young for this. Inflammatory markers elevated (CRP 20.6, ESR 32). Inflammatory process related to GBS or stress cardiomyopathy is also possibly a precipitating factor. It is strange however as GBS is more typically associated with myocarditis. Recent A1c 5.1, TSH - 2.79, Lipids - T cholest 213. Trigs 552, cannot calculate LDL. Cath performed on 06/20/25 revealed mid-vessel 70% lesion in LAD, and TAURUS was successfully deployed in this area. Brilinta was added to med regimen. Echo 05/20 EF 60%, no valvular dysfunction. In office today, no CP, shortness of breath, palpitations. discussed healthy eating and smoking cessation to improve triglycerides. Cardiology recommendations: -Continue aspirin 81 mg daily indefinitely. -Continue ticagrelor 90 mg BID for at least 12 months post-PCI. -Continue metoprolol succinate 25 mg daily. -Continue rosuvastatin 20 mg nightly. -Continue nitroglycerin SL as needed for chest pain. -Emphasize medication adherence and avoidance of NSAIDs (except for short-term use if needed for costochondritis). -Cardiology follow-up in 6 months, or sooner if symptoms recur. -Lipid panel in 3 months, goal LDL <75 -Reinforced smoking cessation Orders: aspirin 81 mg EC tablet; Take 1 tablet (81 mg total) by mouth once a day. Assessment & Plan (06/30/2025 6:26 PM EDT): chest pain during an outpatient CTA coronary. Found to have unstable angina s/p PCI to LAD on 06/20/25. Chest pain worsening over several months but acutely while getting outpatient CTA Coronary. Troponins peaked at 141, EKG without ischemic changes. CTA coronary performed showed calcium score of 0 and abrupt narrowing in LAD is suspicious for SCAD vs coronary artery vasospasm. With a calcium score of 0, an atherosclerotic plaque is unlikely however still possible though he would be very young for this. Inflammatory markers elevated (CRP 20.6, ESR 32). Inflammatory process related to GBS or stress cardiomyopathy is also possibly a precipitating factor. It is strange however as GBS is more typically associated with myocarditis. Recent A1c 5.1, TSH - 2.79, Lipids - T cholest 213. Trigs 552, cannot calculate LDL. Cath performed on 06/20/25 revealed mid-vessel 70% lesion in LAD, and TAURUS was successfully deployed in this area. Brilinta was added to med regimen. Echo 05/20 EF 60%, no valvular dysfunction. In office today, no CP, shortness of breath, palpitations. - Continue Aspirin 81mg daily - Cont Brilinta 90mg BID - Cont Metoprolol Succinate XL 25mg Daily - Cont SL Nitroglycerin 0.4mg PRN - Cont crestor 20 mg every day - Repeat lipid panel today - Follow up with cardiology as outpatient (apt tomorrow) Orders: Lipid panel; Future ticagrelor (BRILINTA) 90 mg tablet; Take 1 tablet (90 mg total) by mouth every 12 hours. rosuvastatin (CRESTOR) 20 mg tablet; Take 1 tablet (20 mg total) by mouth nightly. nitroglycerin (NITROSTAT) 0.4 mg SL tablet; Dissolve 1 tablet under the tongue every 5 minutes for up to 3 doses as needed for chest pain. If no relief, dial 911. metoprolol succinate XL (TOPROL XL) 25 mg tablet; Take 1 tablet (25 mg total) by mouth once a day. aspirin 81 mg EC tablet; Take 1 tablet (81 mg total) by mouth once a day. Ambulatory referral to Cardiology; Future Assessment & Plan (05/11/2025 5:44 PM EDT): Patient has a complex medical history and is presenting to emergency department secondary to chest pain from his facility. Patient of note had a recent admission to [facility] secondary to similar with a largely negative work about that time. Initial electrocardiogram here demonstrated normal sinus rhythm without any evidence of ischemic change and was comparable to prior electrocardiogram. Patient's troponins were 109 and 110; improved from 300 during prior admission. Echocardiogram on 05/03/2025 demonstrated ejection fraction of 57% with no evidence of biventricular dysfunction or significant valvular abnormalities. Consideration for myocarditis given tenderness and pleuritic chest pain with elevated troponins; patient during prior admission was discharged with plans for evaluation by cardiology and possible outpatient CT coronary; stress testing was held off due to seizure history and inpatient ischemic evaluation was held off due to negative echocardiogram. - Cardiology consulted, appreciate recs: - No further trending trop or EKG - No heparin gtt or antiplatelet - Consider outpatient coronary CT - Monitor patient on telemetry and pulse oximetry - Monitor daily weights and strict ins and outs - No indication for further troponin trending or echocardiography - Recent A1C of 5.1 5 days ago with lipid panel showing a total cholesterol of 215 and LDL of 106. Assessment & Plan (05/09/2025 6:16 PM EDT): Patient has a complex medical history and is presenting to emergency department secondary to chest pain from his facility. Patient of note had a recent admission to [facility] secondary to similar with a largely negative work about that time. Initial electrocardiogram here demonstrated normal sinus rhythm without any evidence of ischemic change and was comparable to prior electrocardiogram. Patient's troponins were 109 and 110; improved from 300 during prior admission. Echocardiogram on 05/03/2025 demonstrated ejection fraction of 57% with no evidence of biventricular dysfunction or significant valvular abnormalities. Consideration for myocarditis given tenderness and pleuritic chest pain with elevated troponins; patient during prior admission was discharged with plans for evaluation by cardiology and possible outpatient CT coronary; stress testing was held off due to seizure history and inpatient ischemic evaluation was held off due to negative echocardiogram. - Cardiology consulted, appreciate recs: - No further trending trop or EKG - No heparin gtt or antiplatelet - Consider outpatient coronary CT - Monitor patient on telemetry and pulse oximetry - Monitor daily weights and strict ins and outs - No indication for further troponin trending or echocardiography - Recent A1C of 5.1 5 days ago with lipid panel showing a total cholesterol of 215 and LDL of 106. Pseudomonas urinary tract infection 05/08/2025 Assessment & Plan (05/09/2025 6:16 PM EDT): Patient was noted during prior admission at [facility] to have a positive urine culture for pansensitive pseudomonas with initiation of IV ceftriaxone on 05/03/2025 and patient was ultimately sent home on cefuroxime. Patient fortunately had no fever or evidence of leukocytosis lactic acidosis or sepsis otherwise. Due to chronic indwelling lezama from neurogenic bladder he has grown sensitive pseudomonas in the past, likely colonized. He has already received 4 days of IV ceftriaxone and 3 days of Zosyn, and with lack of systemic signs antibiotics stopped. 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 He had a recent fall in November 2024 from his bed. He believes many of his symptoms started after this fall. X-ray from February of his right shoulder shows moderate AC joint osteoarthritis and mild GH osteoarthritis with signs of rotator cuff arthropathy. MRI of his right shoulder showed rotator cuff tendinopathy with probable partial-thickness supraspinatus tear and mild AC degenerative arthropathy. Additionally an MRI of his cervical spine from November 2024 did show some extensive epidural collections C1-C4 moderate spinal canal stenosis with concern of an epidural phlegmon. Multilevel spinal canal stenosis in the setting of degenerative disc changes and ligamentum flavum thickening along the epidural collection which was moderate to severe C4-C5. On exam today he is significantly limited in range of motion in abduction and flexion secondary to pain and decreased muscle strength secondary to pain. He likely has some symptoms secondary to the rotator cuff findings seen on his MRI. However it is difficult to tell to what degree nerve impingement, given his cervical spine MRI, may be contributing to his symptoms. We discussed the following plan during today's visit: - An ultrasound-guided SA-SD bursa corticosteroid injection was performed during today's visit. See procedure note for further details. He tolerated the procedure well. - Postinjection instructions were discussed - He may continue with his current medication regimen and conservative measures for symptomatic relief - Follow-up in 10 weeks for reevaluation - I agree with the plan for physiatry referral for further evaluation of his cervical spine and how may be contributing to his current symptoms Lezama catheter present 04/08/2025 Assessment & Plan (07/28/2025 8:35 PM EDT): No dysuria today. Lezama exchanged 1 month ago in ED Assessment & Plan (06/30/2025 6:26 PM EDT): Recently saw [facility] urology, passed voiding trial. However a few days later retained 500 mL in bladder so lezama was replaced. Likely bladder muscle weakness due to chronic lezama use. 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 Well controlled. Referral provided for neurologist in [facility]. -Avoid sodium channel blockers -Continue Keppra 500mg BID Orders: levETIRAcetam (KEPPRA) 500 mg tablet; Take 2 tablets (1,000 mg total) by mouth 2 times a day. 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 Well controlled. Needs neurologist in [facility]. -Avoid sodium channel blockers -Continue Keppra 500mg BID Orders: levETIRAcetam (KEPPRA) 500 mg/5 mL solution; Take 10 mL (1,000 mg total) by mouth every 12 hours. 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 Patient presented to emergency department secondary to a 30 minute episode of eyes fluttering shoulder twitching concerning for possible seizure like activity. Has hx of PNES as well. Witnessed eyes fluttering on 05/08. Pt was conscious, reportedly remembered episode on the . Today 05/09 says that he doesn't remember these episodes but says it lasted 3-5 mins. cEEG not available in [facility] so will obtain spot EEG. Rapid response called 05/09 for altered mental status, code stroke activated, CT head completed. Per Tel[facility] attending, patient to have [facility] at [facility]. 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 Patient presented to emergency department secondary to a 30 minute episode of eyes fluttering shoulder twitching concerning for possible seizure like activity. Has hx of PNES as well. Witnessed eyes fluttering on 05/08. Pt was conscious, reportedly remembered episode on the . Today 05/09 says that he doesn't remember these episodes but says it lasted 3-5 mins. cEEG not available in [facility] so will obtain spot EEG. Rapid response called 05/09 for altered mental status, code stroke activated, CT head completed. Per [facility] attending, patient to have [facility] - Neuro consulted, appreciate recs: - Episodes most consistent w PNES (no added treatment for reduced responsiveness but preserved awareness) - Continue keppra and rec ambulatory EEG - Spot EEG 05/09, normal - Seizure precautions - Continue home levetiracetam 1 g IV twice daily Assessment & Plan (03/28/2025 10:26 AM EDT): Patient daughter reported that the patient has been having increased seizure- like episodes, between 5 to 10/week. Previously, episodes were occurring only about once a month. Episodes described as fluttering of the eyes and shoulders which last about 1-2 minutes. Neurology noted that description of episodes are atypical for epileptic seizures. PNES suspected. Spot EEG normal. No seizure like activity noted during this admission. - Continue home Keppra 500 mg twice daily - Seizure precautions - Patient to follow-up with neurology at [facility] as an outpatient Assessment & Plan (03/27/2025 10:58 AM EDT): Patient daughter reported that the patient has been having increased seizure- like episodes, between 5 to 10/week. Previously, episodes were occurring only about once a month. Episodes described as fluttering of the eyes and shoulders which last about 1-2 minutes. Neurology noted that description of episodes are atypical for epileptic seizures. PNES suspected. Spot EEG normal. No seizure like activity noted during this admission. - Continue home Keppra 500 mg twice daily - Seizure precautions - Patient to follow-up with neurology at [facility] as an outpatient Assessment & Plan (03/26/2025 11:33 AM EDT): Patient daughter reported that the patient has been having increased seizure- like episodes, between 5 to 10/week. Previously, episodes were occurring only about once a month. Episodes described as fluttering of the eyes and shoulders which last about 1-2 minutes. Neurology noted that description of episodes are atypical for epileptic seizures. PNES suspected. Spot EEG normal. No seizure like activity noted during this admission. - Continue home Keppra 500 mg twice daily - Seizure precautions - Patient to follow-up with neurology at [facility] as an outpatient Assessment & Plan (03/25/2025 2:15 PM EDT): Patient daughter reported that the patient has been having increased seizure- like episodes, between 5 to 10/week. Previously, episodes were occurring only about once a month. Episodes described as fluttering of the eyes and shoulders which last about 1-2 minutes. Neurology noted that description of episodes are atypical for epileptic seizures. PNES suspected. Spot EEG normal. No seizure like activity noted during this admission. - Continue home Keppra 500 mg twice daily - Seizure precautions - Patient to follow-up with neurology at [facility] as an outpatient Assessment & Plan (03/24/2025 3:46 PM EDT): Patient daughter reported that the patient has been having increased seizure- like episodes, between 5 to 10/week. Previously, episodes were occurring only about once a month. Episodes described as fluttering of the eyes and shoulders which last about 1-2 minutes. Neurology noted that description of episodes are atypical for epileptic seizures. PNES suspected. Spot EEG normal. - Continue home Keppra 500 mg twice daily - Seizure precautions - Patient to follow-up with neurology at [facility] as an outpatient -no seizure like activity noted during admission Assessment & Plan (03/23/2025 5:05 PM EDT): Patient daughter reported that the patient has been having increased seizure- like episodes, between 5 to 10/week. Previously, episodes were occurring only about once a month. Episodes described as fluttering of the eyes and shoulders which last about 1-2 minutes. Neurology noted that description of episodes are atypical for epileptic seizures. PNES suspected. Spot EEG normal. - Continue home Keppra 500 mg twice daily - Seizure precautions - Patient to follow-up with neurology at [facility] as an outpatient -no seizure like activity noted during admission Assessment & Plan (03/22/2025 12:57 PM EDT): Patient daughter reported that the patient has been having increased seizure- like episodes, between 5 to 10/week. Previously, episodes were occurring only about once a month. Episodes described as fluttering of the eyes and shoulders which last about 1-2 minutes. Neurology noted that description of episodes are atypical for epileptic seizures. PNES suspected. Spot EEG normal. - Continue home Keppra 500 mg twice daily - Seizure precautions - Patient to follow-up with neurology at [facility] as an outpatient Assessment & Plan (03/21/2025 11:38 AM EDT): Patient daughter reported that the patient has been having increased seizure- like episodes, between 5 to 10/week. Previously, episodes were occurring only about once a month. Episodes described as fluttering of the eyes and shoulders which last about 1-2 minutes. Neurology noted that description of episodes are atypical for epileptic seizures. PNES suspected. Spot EEG normal. - Continue home Keppra 500 mg twice daily - Seizure precautions - Patient to follow-up with neurology at [facility] as an outpatient Assessment & Plan (03/20/2025 5:14 PM EDT): Patient daughter reports that the patient has been having increased seizure-like episodes, between 5 to 10/week. Previously, episodes were occurring only about once a month. Episodes described as fluttering of the eyes and shoulders which last about 1-2 minutes. Neurology noted that description of episodes are atypical for epileptic seizures. PNES suspected. Spot EEG normal. - Continue home Keppra 500 mg twice daily - Seizure precautions - Patient to follow-up with neurology at [facility] as an outpatient Assessment & Plan (03/19/2025 4:34 PM EDT): Patient daughter reports that the patient has been having increased seizure-like episodes, between 5 to 10/week. Previously, episodes were occurring only about once a month. Episodes described as fluttering of the eyes and shoulders which last about 1-2 minutes. Neurology noted that description of episodes are atypical for epileptic seizures. PNES suspected. Spot EEG normal. -Continue home Keppra 500 mg twice daily - Seizure precautions -Patient to follow-up with neurology at [facility] as an outpatient Assessment & Plan (03/18/2025 3:36 PM EDT): Patient daughter reports that the patient has been having increased seizure-like episodes, between 5 to 10/week. Previously, episodes were occurring only about once a month. Episodes described as fluttering of the eyes and shoulders which last about 1-2 minutes. Neurology noted that description of episodes are atypical for epileptic seizures. PNES suspected. Spot EEG normal. -Continue home Keppra 500 mg twice daily - Seizure precautions -Patient to follow-up with neurology at [facility] as an outpatient Assessment & Plan (03/17/2025 3:10 PM EDT): Patient daughter reports that the patient has been having increased seizure-like episodes, between 5 to 10/week. Previously, episodes were occurring only about once a month. Episodes described as fluttering of the eyes and shoulders which last about 1-2 minutes. Neurology noted that description of episodes are atypical for epileptic seizures. PNES suspected. Spot EEG normal. -Continue home Keppra 500 mg twice daily - Seizure precautions -Patient to follow-up with neurology at [facility] as an outpatient Assessment & Plan (03/16/2025 10:48 PM EDT): Patient daughter reports that the patient has been having increased seizure-like episodes, between 5 to 10/week. Previously, episodes were occurring only about once a month. Episodes described as fluttering of the eyes and shoulders which last about 1-2 minutes. Neurology noted that description of episodes are atypical for epileptic seizures. PNES suspected. Spot EEG normal. -Continue home Keppra 500 mg twice daily - Seizure precautions -Patient to follow-up with neurology at [facility] as an outpatient Neurogenic bladder 03/16/2025 Assessment & Plan (07/28/2025 8:35 PM EDT): Neurogenic bladder, with patient now with indwelling catheter. He needs a urological evaluation including ultrasound of the bladder and upper tracts. Saw urology today; recommend kidney US and cystoscopy Urology will exchange his lezama every month outpatient until he gets home nursing seet up Assessment & Plan (06/30/2025 6:26 PM EDT): Neurogenic bladder, with patient now with indwelling catheter. He needs a urological evaluation including ultrasound of the bladder and upper tracts. Needs urologist in [facility]. Orders: Ambulatory referral to Urology; Future Assessment & Plan (05/11/2025 5:43 PM EDT): Secondary to GBS. This admission he has been having polyuria, with 7L yesterday. He has reportedly been drinking a lot of water PO. No symptoms of dehydration and lithium level on 05/07 was low-normal. - Continue catheterization Assessment & Plan (05/09/2025 6:16 PM EDT): Secondary to GBS. This admission he has been having polyuria, with 7L yesterday. He has reportedly been drinking a lot of water PO. No symptoms of dehydration and lithium level on 05/07 was low-normal. 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 Plasmapheresis was discontinued 2 days after initiation due to central line infection. He completed 5 days of IVIG. MRI brain was consistent with Wernicke's encephalopathy for which he received high-dose thiamine. As a result of the GBS, patient has flaccid paralysis bl LE and limited motor strength in upper extremitites L>R, neurogenic bladder (with chronic indwelling Lezama). He also has cognitive impairment, which may be multifactorial. He is alert and oriented x 3, which is his current baseline. Patient had been a rehab facility in [place], but was discharged by the patient's daughter and transferred to [facility] on 03/16 by private ambulance due to concerns for poor care at the facility and to be closer to family. 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 His healthcare proxy (daughter, Halina Payan) was previously activated on admissions. Currently HCP not activated as patient able to understand simple medical information and participate in discharge planning. He may require more support and shared decision making for more complex medical decisions. -Patient will need follow-up with neurology at [facility] as an outpatient - PT/OT, case management -> bed search for STR, currently being [facility] Daughter and patient made aware that facilities willing to offer a bed would likely be limited due to patient and daughter's homeless status. PT/dtr advised that planning for eventual transition home would need to occur with SW at next facility as insurance would require up to date evals and a permanent address to arrange DME. 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 Plasmapheresis was discontinued 2 days after initiation due to central line infection. He completed 5 days of IVIG. MRI brain was consistent with Wernicke's encephalopathy for which he received high-dose thiamine. As a result of the GBS, patient has flaccid paralysis bl LE and limited motor strength in upper extremitites L>R, neurogenic bladder (with chronic indwelling Lezama). He also has cognitive impairment, which may be multifactorial. He is alert and oriented x 3, which is his current baseline. Patient had been a rehab facility in [place], but was discharged by the patient's daughter and transferred to [facility] on 03/16 by private ambulance due to concerns for poor care at the facility and to be closer to family. 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 His healthcare proxy (daughter, Halnia Payan) was previously activated on admissions. Currently HCP not activated as patient able to understand simple medical information and participate in discharge planning. He may require more support and shared decision making for more complex medical decisions. -Patient will need follow-up with neurology at [facility] as an outpatient - PT/OT, case management -> bed search for STR, currently being followed by [facility], and [facility]. Daughter and patient made aware that facilities willing to offer a bed would likely be limited due to patient and daughter's homeless status. PT/dtr advised that planning for eventual transition home would need to occur with SW at next facility as insurance would require up to date evals and a permanent address to arrange DME. 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 Plasmapheresis was discontinued 2 days after initiation due to central line infection. He completed 5 days of IVIG. MRI brain was consistent with Wernicke's encephalopathy for which he received high-dose thiamine. As a result of the GBS, patient has flaccid paralysis bl LE and limited motor strength in upper extremitites L>R, neurogenic bladder (with chronic indwelling Lezama). He also has cognitive impairment, which may be multifactorial. He is alert and oriented x 3, which is his current baseline. Patient had been a rehab facility in [place], but was discharged by the patient's daughter and transferred to [facility] on 03/16 by private ambulance due to concerns for poor care at the facility and to be closer to family. 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 His healthcare proxy (daughter, Halina Payan) was previously activated on admissions. Currently HCP not activated as patient able to understand simple medical information and participate in discharge planning. He may require more support and shared decision making for more complex medical decisions. -Patient will need follow-up with neurology at [facility] as an outpatient - PT/OT, case management -> bed search for STR, currently being followed by [facility], and [facility]. Daughter and patient made aware that facilities willing to offer a bed would likely be limited due to patient and daughter's homeless status. PT/dtr advised that planning for eventual transition home would need to occur with SW at next facility as insurance would require up to date evals and a permanent address to arrange DME. 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 Plasmapheresis was discontinued 2 days after initiation due to central line infection. He completed 5 days of IVIG. MRI brain was consistent with Wernicke's encephalopathy for which he received high-dose thiamine. As a result of the GBS, patient has flaccid paralysis bl LE and limited motor strength in upper extremitites L>R, neurogenic bladder (with chronic indwelling Lezama). He also has cognitive impairment, which may be multifactorial. He is alert and oriented x 3, which is his current baseline. Patient had been a rehab facility in [place], but was discharged by the patient's daughter and transferred to [facility] on 03/16 by private ambulance due to concerns for poor care at the facility and to be closer to family. 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 His healthcare proxy (daughter, Halina Payan) was previously activated on admissions. Currently HCP not activated as patient able to understand simple medical information and participate in discharge planning. He may require more support and shared decision making for more complex medical decisions. -Patient will need follow-up with neurology at [facility] as an outpatient - PT/OT, case management -> bed search for STR, currently being followed by [facility], and [facility]. Daughter and patient made aware that facilities willing to offer a bed would likely be limited due to patient and daughter's homeless status. PT/dtr advised that planning for eventual transition home would need to occur with SW at next facility as insurance would require up to date evals and a permanent address to arrange DME. 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 Plasmapheresis was discontinued 2 days after initiation due to central line infection. He completed 5 days of IVIG. MRI brain was consistent with Wernicke's encephalopathy for which he received high-dose thiamine. As a result of the GBS, patient has flaccid paralysis bl LE and limited motor strength in upper extremitites L>R, neurogenic bladder (with chronic indwelling Lezama). He also has cognitive impairment, which may be multifactorial. He is alert and oriented x 3, which is his current baseline. His healthcare proxy (daughter, Halina Payan) was previously activated on admissions. Patient has been a rehab facility in [place], but was discharged by the patient's daughter and transferred to [facility] by private ambulance due to concerns for poor care at the facility. Also to be closer to family. -Patient will need follow-up with neurology at [facility] as an outpatient - PT/OT, case management -G-tube removed 03/23 -HCP activated on ban but no documentation in chart of activation and patient marked as full capacity. Capacity assessed on 03/24. Patient has basic understanding of his current medical condition and physical limitations. Although he would like to go home with his daughter, he understands the lack of housing and his inability to care for himself are barriers. Patient understands the need to go to a SNF in order to receive care. He has capacity to make these discharge decisions. He may require more support and shared decision making for more complex medical decisions. He will remain his own decision maker at this time. 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 Plasmapheresis was discontinued 2 days after initiation due to central line infection. He completed 5 days of IVIG. MRI brain was consistent with Wernicke's encephalopathy for which he received high-dose thiamine. As a result of the GBS, patient has flaccid paralysis paralysis, neurogenic bladder (with chronic indwelling Lezama). He also has cognitive impairment, which may be multifactorial. He is alert and oriented x 2, which is his current baseline. His healthcare proxy (daughter, Halina Payan) was previously activated. Patient has been a rehab facility in [place], but was discharged by the patient's daughter and transferred to [facility] by private ambulance due to concerns for poor care at the facility. Also to be closer to family. -Patient will need follow-up with neurology at [facility] as an outpatient - PT/OT, case management -G-tube removed 03/23 -HCP activated on ban but no documentation in chart of activation and patient marked as full capacity. Prior notes indicate plan reviewed with patient and no concerns for capacity. Removed HCP activation ban. Will perform formal capacity assessment in am. 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 Plasmapheresis was discontinued 2 days after initiation due to central line infection. He completed 5 days of IVIG. MRI brain was consistent with Wernicke's encephalopathy for which he received high-dose thiamine. As a result of the GBS, patient has flaccid paralysis paralysis, neurogenic bladder (with chronic indwelling Lezama). He also has cognitive impairment, which may be multifactorial. He is alert and oriented x 2, which is his current baseline. His healthcare proxy (daughter, Halina Payan) was previously activated. Patient has been a rehab facility in [place], but was discharged by the patient's daughter and transferred to [facility] by private ambulance due to concerns for poor care at the facility. Also to be closer to family. Patient asked when the G-tube can be removed. We will check first with dietitian for assessment before deciding on G-tube removal. 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 Plasmapheresis was discontinued 2 days after initiation due to central line infection. He completed 5 days of IVIG. MRI brain was consistent with Wernicke's encephalopathy for which he received high-dose thiamine. As a result of the GBS, patient has flaccid paralysis paralysis, neurogenic bladder (with chronic indwelling Lezama). He also has cognitive impairment, which may be multifactorial. He is alert and oriented x 2, which is his current baseline. His healthcare proxy (daughter, Halina Payan) was previously activated. Patient has been a rehab facility in [place], but was discharged by the patient's daughter and transferred to [facility] by private ambulance due to concerns for poor care at the facility. Also to be closer to family. Patient asked when the G-tube can be removed. We will check first with dietitian for assessment before deciding on G-tube removal. 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 Plasmapheresis was discontinued 2 days after initiation due to central line infection. He completed 5 days of IVIG. MRI brain was consistent with Wernicke's encephalopathy for which he received high-dose thiamine. As a result of the GBS, patient has flaccid paralysis paralysis, neurogenic bladder (with chronic indwelling Lezama). He also has cognitive impairment, which may be multifactorial. He is alert and oriented x 2, which is his current baseline. His healthcare proxy (daughter, Halina Payan) was previously activated. Patient has been a rehab facility in [place], but was discharged by the patient's daughter and transferred to [facility] by private ambulance due to concerns for poor care at the facility. Also to be closer to family. Patient asked when the G-tube can be removed. We will check first with dietitian for assessment before deciding on G-tube removal. 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 Plasmapheresis was discontinued 2 days after initiation due to central line infection. He completed 5 days of IVIG. MRI brain was consistent with Wernicke's encephalopathy for which he received high-dose thiamine. As a result of the GBS, patient has flaccid paralysis paralysis, neurogenic bladder (with chronic indwelling Lezama). He also has cognitive impairment, which may be multifactorial. He is alert and oriented x 2, which is his current baseline. His healthcare proxy (daughter, Halina Payan) was previously activated. Patient has been a rehab facility in [place], but was discharged by the patient's daughter and transferred to [facility] by private ambulance due to concerns for poor care at the facility. Also to be closer to family. -Patient will need follow-up with neurology at [facility] as an outpatient - PT/OT, case management Assessment & Plan (03/18/2025 3:36 PM EDT): Patient with MICU admission in 12/21 at an OSH for weakness with areflexia and AMS requiring intubation for airway protection secondary to axonal variant of Guillain-Darnell . Plasmapheresis was discontinued 2 days after initiation due to central line infection. He completed 5 days of IVIG. MRI brain was consistent with Wernicke's encephalopathy for which he received high-dose thiamine. As a result of the GBS, patient has flaccid paralysis paralysis, neurogenic bladder (with chronic indwelling Lezama). He also has cognitive impairment, which may be multifactorial. He is alert and oriented x 2, which is his current baseline. His healthcare proxy (daughter, Halina Payan) was previously activated. Patient has been a rehab facility in [place], but was discharged by the patient's daughter and transferred to [facility] by private ambulance due to concerns for poor care at the facility. Also to be closer to family. -Patient will need follow-up with neurology at [facility] as an outpatient - PT/OT, case management Assessment & Plan (03/17/2025 3:10 PM EDT): Patient with MICU admission in 12/21 at an OSH for weakness with areflexia and AMS requiring intubation for airway protection secondary to axonal variant of Guillain-Darnell . Plasmapheresis was discontinued 2 days after initiation due to central line infection. He completed 5 days of IVIG. MRI brain was consistent with Wernicke's encephalopathy for which he received high-dose thiamine. As a result of the GBS, patient has flaccid paralysis paralysis, neurogenic bladder (with chronic indwelling Lzeama). He also has cognitive impairment, which may be multifactorial. He is alert and oriented x 2, which is his current baseline. His healthcare proxy (daughter, Halina Payan) was previously activated. Patient has been a rehab facility in [place], but was discharged by the patient's daughter and transferred to [facility] by private ambulance due to concerns for poor care at the facility. Also to be closer to family. -Patient will need follow-up with neurology at [facility] as an outpatient - PT/OT, case management Assessment & Plan (03/16/2025 10:48 PM EDT): Patient with MICU admission in 12/21 at an OSH for weakness with areflexia and AMS requiring intubation for airway protection secondary to axonal variant of Guillain-Darnell . Plasmapheresis was discontinued 2 days after initiation due to central line infection. He completed 5 days of IVIG. MRI brain was consistent with Wernicke's encephalopathy for which he received high-dose thiamine. As a result of the GBS, patient has flaccid paralysis paralysis, neurogenic bladder (with chronic indwelling Lezama). He also has cognitive impairment, which may be multifactorial. He is alert and oriented x 2, which is his current baseline. His healthcare proxy (daughter, Halina Payan) was previously activated. Patient has been a rehab facility in [place], but was discharged by the patient's daughter and transferred to [facility] by private ambulance due to concerns for poor care at the facility. Also to be closer to family. -Patient will need follow-up with neurology at [facility] as an outpatient - PT/OT, case management Hyperthyroidism 03/16/2025 Assessment & Plan (06/30/2025 6:26 PM EDT): Home medication: Methimazole 5mg every day Repeat TSH, Ft4 today Would like patient to see endocrine in [facility] Thyroid dysfunction could be due to lithium Orders: TSH Reflex Free T4; Future methIMAzole (TAPAZOLE) 5 mg tablet; Take 1 tablet (5 mg total) by mouth every morning. Ambulatory referral to Endocrinology; Future Assessment & Plan (06/20/2025 1:32 PM EDT): Home medication: Methimazole 5mg every day -Continue home methimazole 5mg every day -TSH reflex free T4 Assessment & Plan (06/19/2025 7:25 AM EDT): Home medication: Methimazole 5mg every day -Continue home methimazole 5mg every day -TSH reflex free T4 Assessment & Plan (06/18/2025 8:10 PM EDT): Home medication: Methimazole 5mg every day -Continue home methimazole 5mg every day -TSH reflex free T4 Assessment & Plan (05/09/2025 6:16 PM EDT): Patient reportedly has been on methimazole since October 2024 with reported plan for outpatient follow-up with endocrinology. Last reported TSH of 2.3 within normal free T4. - Continue home methimazole 5 mg every other day. - Plan for follow-up with endocrinology outpatient on discharge Assessment & Plan (03/28/2025 10:26 AM EDT): Per OSH records patient has been on methimazole since at least Oct 2024. There are no records to indicate when he was diagnosed and records from OSH at that time do not have a hyperthyroidism diagnosis although they do mention continuing this medication during his care in hospital notes from Oct, Nov, Dec, and Apr. Daughter and patient can not recall exactly when/where hyperthyroidism was dx. They believe it was about 2 years ago. TSH and free T4 WNL Continue home methimazole 5 mg every other day Refer to endocrinology on discharge. Patient and daughter advised to follow up with endocrinology q 6 months for monitoring of thyroid function and methimazole. Assessment & Plan (03/27/2025 10:58 AM EDT): Per OSH records patient has been on methimazole since at least Oct 2024. There are no records to indicate when he was diagnosed and records from OSH at that time do not have a hyperthyroidism diagnosis although they do mention continuing this medication during his care in hospital notes from Oct, Nov, Dec, and Apr. Daughter and patient can not recall exactly when/where hyperthyroidism was dx. They believe it was about 2 years ago. TSH and free T4 WNL Continue home methimazole 5 mg every other day Refer to endocrinology on discharge. Patient and daughter advised to follow up with endocrinology q 6 months for monitoring of thyroid function and methimazole. Assessment & Plan (03/26/2025 11:33 AM EDT): Per OSH records patient has been on methimazole since at least Oct 2024. There are no records to indicate when he was diagnosed and records from OSH at that time do not have a hyperthyroidism diagnosis although they do mention continuing this medication during his care in hospital notes from Oct, Nov, Dec, and Apr. Daughter and patient can not recall exactly when/where hyperthyroidism was dx. They believe it was about 2 years ago. TSH and free T4 WNL Continue home methimazole 5 mg every other day Refer to endocrinology on discharge. Patient and daughter advised to follow up with endocrinology q 6 months for monitoring of thyroid function and methimazole. Assessment & Plan (03/25/2025 2:15 PM EDT): Per OSH records patient has been on methimazole since at least Oct 2024. There are no records to indicate when he was diagnosed and records from OSH at that time do not have a hyperthyroidism diagnosis although they do mention continuing this medication during his care in hospital notes from Oct, Nov, Dec, and Jan. Daughter and patient can not recall exactly when/where hyperthyroidism was dx. They believe it was about 2 years ago. TSH and free T4 WNL Continue home methimazole 5 mg every other day Refer to endocrinology on discharge. Patient and daughter advised to follow up with endocrinology q 6 months for monitoring of thyroid function and methimazole. Assessment & Plan (03/24/2025 3:46 PM EDT): Per OSH records patient has been on methimazole since at least Oct 2024. There are no records to indicate when he was diagnosed and records from OSH at that time do not have a hyperthyroidism diagnosis although they do mention continuing this medication during his care in hospital notes from Oct, Nov, Dec, and Apr. Continue home methimazole 5 mg every other day Check TSH and Free T4 Assessment & Plan (03/23/2025 5:05 PM EDT): Continue home methimazole 5 mg every other day Assessment & Plan (03/22/2025 12:57 PM EDT): Continue home methimazole 5 mg every other day Assessment & Plan (03/21/2025 11:38 AM EDT): Continue home methimazole 5 mg every other day Assessment & Plan (03/20/2025 5:14 PM EDT): Continue home methimazole 5 mg every other day Assessment & Plan (03/19/2025 4:34 PM EDT): Continue home methimazole 5 mg every other day Assessment & Plan (03/18/2025 3:36 PM EDT): Continue home methimazole 5 mg every other day Assessment & Plan (03/17/2025 3:10 PM EDT): Continue home methimazole 5 mg every other day Assessment & Plan (03/16/2025 10:48 PM EDT): Continue home methimazole 5 mg every other day Moderate persistent asthma without complication 03/16/2025 Assessment & Plan (06/30/2025 6:26 PM EDT): Well controlled. No shortness of breath, wheezing, cough. Orders: albuterol (PROAIR HFA,VENTOLIN HFA) 90 mcg inhaler; Inhale 2 puffs (180 mcg total) by mouth every 6 hours as needed for wheezing or shortness of breath. Use with spacer. budesonide-formoteroL (SYMBICORT) 160-4.5 mcg inhaler; Inhale 2 puffs by mouth 2 times a day. Rinse mouth with water after use. Do not swallow. Assessment & Plan (05/09/2025 6:16 PM EDT): Was placed on 2L NC when came in, but not on O2 at baseline and as of 05/09 on RA with no dyspnea. CXR from 05/07 was showing airspace opacities at bases ?aspiration vs pna, but clinical suspicion is low. - Continue nebs (baseline budesonide-formoterol, albuterol PRN) Assessment & Plan (03/28/2025 10:26 AM EDT): Stable. No wheezing on exam. -Hold home Symbicort - Start budesonide nebs ever 12 hours and arformoterol nebs every 12 hours - Albuterol nebs every 4 hours as needed for shortness of breath/wheeze Assessment & Plan (03/27/2025 10:58 AM EDT): Stable. No wheezing on exam. -Hold home Symbicort - Start budesonide nebs ever 12 hours and arformoterol nebs every 12 hours - Albuterol nebs every 4 hours as needed for shortness of breath/wheeze Assessment & Plan (03/26/2025 11:33 AM EDT): Stable. No wheezing on exam. -Hold home Symbicort - Start budesonide nebs ever 12 hours and arformoterol nebs every 12 hours - Albuterol nebs every 4 hours as needed for shortness of breath/wheeze Assessment & Plan (03/25/2025 2:15 PM EDT): Stable. No wheezing on exam. -Hold home Symbicort - Start budesonide nebs ever 12 hours and arformoterol nebs every 12 hours - Albuterol nebs every 4 hours as needed for shortness of breath/wheeze Assessment & Plan (03/24/2025 3:46 PM EDT): Stable. No wheezing on exam. -Hold home Symbicort - Start budesonide nebs ever 12 hours and arformoterol nebs every 12 hours - Albuterol nebs every 4 hours as needed for shortness of breath/wheeze Assessment & Plan (03/23/2025 5:05 PM EDT): Stable. No wheezing on exam. -Hold home Symbicort - Start budesonide nebs ever 12 hours and arformoterol nebs every 12 hours - Albuterol nebs every 4 hours as needed for shortness of breath/wheeze Assessment & Plan (03/22/2025 12:57 PM EDT): Stable. No wheezing on exam. -Hold home Symbicort - Start budesonide nebs ever 12 hours and arformoterol nebs every 12 hours - Albuterol nebs every 4 hours as needed for shortness of breath/wheeze Assessment & Plan (03/21/2025 11:38 AM EDT): Stable. No wheezing on exam. -Hold home Symbicort - Start budesonide nebs ever 12 hours and arformoterol nebs every 12 hours - Albuterol nebs every 4 hours as needed for shortness of breath/wheeze Assessment & Plan (03/20/2025 5:14 PM EDT): Stable. No wheezing on exam. -Hold home Symbicort - Start budesonide nebs ever 12 hours and arformoterol nebs every 12 hours - Albuterol nebs every 4 hours as needed for shortness of breath/wheeze Assessment & Plan (03/19/2025 4:34 PM EDT): Stable. No wheezing on exam. -Hold home Symbicort - Start budesonide nebs ever 12 hours and arformoterol nebs every 12 hours - Albuterol nebs every 4 hours as needed for shortness of breath/wheeze Assessment & Plan (03/18/2025 3:36 PM EDT): Stable. No wheezing on exam. -Hold home Symbicort - Start budesonide nebs ever 12 hours and arformoterol nebs every 12 hours - Albuterol nebs every 4 hours as needed for shortness of breath/wheeze Assessment & Plan (03/17/2025 3:10 PM EDT): Stable. No wheezing on exam. -Hold home Symbicort - Start budesonide nebs ever 12 hours and arformoterol nebs every 12 hours - Albuterol nebs every 4 hours as needed for shortness of breath/wheeze Assessment & Plan (03/16/2025 10:48 PM EDT): Stable. No wheezing on exam. -Hold home Symbicort - Start budesonide nebs ever 12 hours and arformoterol nebs every 12 hours - Albuterol nebs every 4 hours as needed for shortness of breath/wheeze Gastroesophageal reflux disease without esophagi tis 03/16/2025 Assessment & Plan (06/30/2025 6:26 PM EDT): Denies reflux symptoms today. Orders: pantoprazole DR (PROTONIX) 40 mg tablet; Take 1 tablet (40 mg total) by mouth once a day. Assessment & Plan (05/09/2025 6:16 PM EDT): - Continue home pantoprazole 40mg daily Assessment & Plan (03/28/2025 10:26 AM EDT): Continue home pantoprazole 40 mg daily Assessment & Plan (03/27/2025 10:58 AM EDT): Continue home pantoprazole 40 mg daily Assessment & Plan (03/26/2025 11:33 AM EDT): Continue home pantoprazole 40 mg daily Assessment & Plan (03/25/2025 2:15 PM EDT): Continue home pantoprazole 40 mg daily Assessment & Plan (03/24/2025 3:46 PM EDT): Continue home pantoprazole 40 mg daily Assessment & Plan (03/23/2025 5:05 PM EDT): Continue home pantoprazole 40 mg daily Assessment & Plan (03/22/2025 12:57 PM EDT): Continue home pantoprazole 40 mg daily Assessment & Plan (03/21/2025 11:38 AM EDT): Continue home pantoprazole 40 mg daily Assessment & Plan (03/20/2025 5:14 PM EDT): Continue home pantoprazole 40 mg daily Assessment & Plan (03/19/2025 4:34 PM EDT): Continue home pantoprazole 40 mg daily Assessment & Plan (03/18/2025 3:36 PM EDT): Continue home pantoprazole 40 mg daily Assessment & Plan (03/17/2025 3:10 PM EDT): Continue home pantoprazole 40 mg daily Assessment & Plan (03/16/2025 10:48 PM EDT): Continue home pantoprazole 40 mg daily 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 Patient no longer requires tube feedings as any dysphagia has completely resolved. He is able to feed himself with someone else cutting up his food and doing set up for him. 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 - Continue home enoxaparin prophylaxis Psychoactive substance abuse 01/27/2025 Assessment & Plan (06/30/2025 11:42 AM EDT): History of polysubstance abuse with Warnicke's encephalopathy. Patient may have some cognitive deficits with regards to higher level executive function which need to be evaluated before he is discharged to a home environment where he would need to make more decisions for himself. 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 Off ddavp. Most recent Na 138. Not receiving extra free water. Likely due to lithium. MSSA bacteremia 12/08/2024 Assessment & Plan (06/30/2025 12:00 PM EDT): Blood cultures were positive for MSSA bacteremia secondary to central line. Infectious disease was consulted who recommended cefazolin IV for 6 weeks (until 01/14/25). Hypernatremia 12/07/2024 Wernicke encephalopathy 12/03/2024 Assessment & Plan (07/28/2025 8:35 PM EDT): Clear, goal directed thinking today. No agitation. Cont Thiamine supplement. Assessment & Plan (06/30/2025 6:26 PM EDT): Clear, goal directed thinking today. No agitation. Cont Thiamine supplement. Consider checking thiamine level. Orders: Vitamin B1 (Thiamine), Plasma; Future thiamine mononitrate (VITAMIN B1) 100 mg tablet; Take 1 tablet (100 mg total) by mouth once a day. pyridoxine (VITAMIN B6) 50 mg tablet; Take 1 tablet (50 mg total) by mouth once a day. cyanocobalamin (vitamin B-12) 1,000 mcg tablet; Take 1 tablet (1,000 mcg total) by mouth once a day. ascorbic acid (VITAMIN C) 500 mg tablet; Take 0.5 tablets (250 mg total) by mouth once a day. 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 Assessment & Plan (06/30/2025 11:52 AM EDT): D/t guillan barre syndrome Paralyzed from waist down as well as b/l hands Assessment & Plan (06/20/2025 1:32 PM EDT): Paralyzed from waist down as well as b/l hands -Pressure offloading Assessment & Plan (06/19/2025 7:25 AM EDT): Paralyzed from waist down as well as b/l hands -Pressure offloading Assessment & Plan (06/18/2025 10:35 PM EDT): Paralyzed from waist down as well as b/l hands -Pressure offloading Assessment & Plan (05/09/2025 6:16 PM EDT): Patient has a 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 Patient presented to emergency department secondary to a 30 minute episode of eyes fluttering shoulder twitching concerning for possible seizure like activity. Has hx of PNES as well. Witnessed eyes fluttering on 05/08. Pt was conscious, reportedly remembered episode on the . Today 05/09 says that he doesn't remember these episodes but says it lasted 3-5 mins. cEEG not available in [facility] so will obtain spot EEG. Rapid response called 05/09 for altered mental status, code stroke activated, CT head completed. Per Tel[facility] attending, patient to have cEEG [facility] at [facility]. - Neuro consulted, appreciate recs: - Episodes most consistent w PNES (no added treatment for reduced responsiveness but preserved awareness) - Continue keppra and rec ambulatory EEG - Spot EEG 05/09, normal - Seizure precautions - Continue home levetiracetam 1 g IV twice daily Assessment & Plan (03/28/2025 10:26 AM EDT): Patient with MICU admission in 12/21 at an OSH for weakness with areflexia and AMS requiring intubation for airway protection secondary to axonal variant of Guillain-Darnell . Plasmapheresis was discontinued 2 days after initiation due to central line infection. He completed 5 days of IVIG. MRI brain was consistent with Wernicke's encephalopathy for which he received high-dose thiamine. As a result of the GBS, patient has flaccid paralysis bl LE and limited motor strength in upper extremitites L>R, neurogenic bladder (with chronic indwelling Lezama). He also has cognitive impairment, which may be multifactorial. He is alert and oriented x 3, which is his current baseline. Patient had been a rehab facility in [place], but was discharged by the patient's daughter and transferred to [facility] on 03/16 by private ambulance due to concerns for poor care at the facility and to be closer to family. 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 His healthcare proxy (daughter, Halina Payan) was previously activated on admissions. Currently HCP not activated as patient able to understand simple medical information and participate in discharge planning. He may require more support and shared decision making for more complex medical decisions. -Patient will need follow-up with neurology at [facility] as an outpatient - PT/OT, case management -> bed search for STR, currently being followed by [facility], and [facility]. Daughter and patient made aware that facilities willing to offer a bed would likely be limited due to patient and daughter's homeless status. PT/dtr advised that planning for eventual transition home would need to occur with SW at next facility as insurance would require up to date evals and a permanent address to arrange DME. 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 Plasmapheresis was discontinued 2 days after initiation due to central line infection. He completed 5 days of IVIG. MRI brain was consistent with Wernicke's encephalopathy for which he received high-dose thiamine. As a result of the GBS, patient has flaccid paralysis bl LE and limited motor strength in upper extremitites L>R, neurogenic bladder (with chronic indwelling Lezama). He also has cognitive impairment, which may be multifactorial. He is alert and oriented x 3, which is his current baseline. Patient had been a rehab facility in [place], but was discharged by the patient's daughter and transferred to [facility] on 03/16 by private ambulance due to concerns for poor care at the facility and to be closer to family. 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 His healthcare proxy (daughter, Halina Payan) was previously activated on admissions. Currently HCP not activated as patient able to understand simple medical information and participate in discharge planning. He may require more support and shared decision making for more complex medical decisions. -Patient will need follow-up with neurology at [facility] as an outpatient - PT/OT, case management -> bed search for STR, currently being followed by [facility] [place], and [facility]. Daughter and patient made aware that facilities willing to offer a bed would likely be limited due to patient and daughter's homeless status. PT/dtr advised that planning for eventual transition home would need to occur with SW at next facility as insurance would require up to date evals and a permanent address to arrange DME. 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 Plasmapheresis was discontinued 2 days after initiation due to central line infection. He completed 5 days of IVIG. MRI brain was consistent with Wernicke's encephalopathy for which he received high-dose thiamine. As a result of the GBS, patient has flaccid paralysis bl LE and limited motor strength in upper extremitites L>R, neurogenic bladder (with chronic indwelling Lezama). He also has cognitive impairment, which may be multifactorial. He is alert and oriented x 3, which is his current baseline. Patient had been a rehab facility in [place], but was discharged by the patient's daughter and transferred to [facility] on 03/16 by private ambulance due to concerns for poor care at the facility and to be closer to family. 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 His healthcare proxy (daughter, Halina Payan) was previously activated on admissions. Currently HCP not activated as patient able to understand simple medical information and participate in discharge planning. He may require more support and shared decision making for more complex medical decisions. -Patient will need follow-up with neurology at [facility] as an outpatient - PT/OT, case management -> bed search for STR, currently being [facility] Daughter and patient made aware that facilities willing to offer a bed would likely be limited due to patient and daughter's homeless status. PT/dtr advised that planning for eventual transition home would need to occur with SW at next facility as insurance would require up to date evals and a permanent address to arrange DME. 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 Plasmapheresis was discontinued 2 days after initiation due to central line infection. He completed 5 days of IVIG. MRI brain was consistent with Wernicke's encephalopathy for which he received high-dose thiamine. As a result of the GBS, patient has flaccid paralysis bl LE and limited motor strength in upper extremitites L>R, neurogenic bladder (with chronic indwelling Lezama). He also has cognitive impairment, which may be multifactorial. He is alert and oriented x 3, which is his current baseline. Patient had been a rehab facility in [place], but was discharged by the patient's daughter and transferred to [facility] on 03/16 by private ambulance due to concerns for poor care at the facility and to be closer to family. 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 His healthcare proxy (daughter, Halina Payan) was previously activated on admissions. Currently HCP not activated as patient able to understand simple medical information and participate in discharge planning. He may require more support and shared decision making for more complex medical decisions. -Patient will need follow-up with neurology at [facility] as an outpatient - PT/OT, case management -> bed search for STR, currently [facility] and [facility]. Daughter and patient made aware that facilities willing to offer a bed would likely be limited due to patient and daughter's homeless status. PT/dtr advised that planning for eventual transition home would need to occur with SW at next facility as insurance would require up to date evals and a permanent address to arrange DME. 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 Plasmapheresis was discontinued 2 days after initiation due to central line infection. He completed 5 days of IVIG. MRI brain was consistent with Wernicke's encephalopathy for which he received high-dose thiamine. As a result of the GBS, patient has flaccid paralysis bl LE and limited motor strength in upper extremitites L>R, neurogenic bladder (with chronic indwelling Lezama). He also has cognitive impairment, which may be multifactorial. He is alert and oriented x 3, which is his current baseline. His healthcare proxy (daughter, Halina Payan) was previously activated on admissions. Patient has been a rehab facility in [place], but was discharged by the patient's daughter and transferred to [facility] by private ambulance due to concerns for poor care at the facility. Also to be closer to family. -Patient will need follow-up with neurology at [facility] as an outpatient - PT/OT, case management -G-tube removed 03/23 -HCP activated on but no documentation in chart of activation and patient marked as full capacity. Capacity assessed on 03/24. Patient has basic understanding of his current medical condition and physical limitations. Although he would like to go home with his daughter, he understands the lack of housing and his inability to care for himself are barriers. Patient understands the need to go to a SNF in order to receive care. He has capacity to make these discharge decisions. He may require more support and shared decision making for more complex medical decisions. He will remain his own decision maker at this time. 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 Plasmapheresis was discontinued 2 days after initiation due to central line infection. He completed 5 days of IVIG. MRI brain was consistent with Wernicke's encephalopathy for which he received high-dose thiamine. As a result of the GBS, patient has flaccid paralysis paralysis, neurogenic bladder (with chronic indwelling Lezama). He also has cognitive impairment, which may be multifactorial. He is alert and oriented x 2, which is his current baseline. His healthcare proxy (daughter, Halina Payan) was previously activated. Patient has been a rehab facility in [place], but was discharged by the patient's daughter and transferred to [facility] by private ambulance due to concerns for poor care at the facility. Also to be closer to family. -Patient will need follow-up with neurology at [facility] as an outpatient - PT/OT, case management -G-tube removed 03/23 -HCP activated on banner but no documentation in chart of activation and patient marked as full capacity. Prior notes indicate plan reviewed with patient and no concerns for capacity. Removed HCP activation banner. Will perform formal capacity assessment in am. 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 Plasmapheresis was discontinued 2 days after initiation due to central line infection. He completed 5 days of IVIG. MRI brain was consistent with Wernicke's encephalopathy for which he received high-dose thiamine. As a result of the GBS, patient has flaccid paralysis paralysis, neurogenic bladder (with chronic indwelling Lezama). He also has cognitive impairment, which may be multifactorial. He is alert and oriented x 2, which is his current baseline. His healthcare proxy (daughter, Halina Payan) was previously activated. Patient has been a rehab facility in [place], but was discharged by the patient's daughter and transferred to [facility] by private ambulance due to concerns for poor care at the facility. Also to be closer to family. Patient asked when the G-tube can be removed. We will check first with dietitian for assessment before deciding on G-tube removal. 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 Plasmapheresis was discontinued 2 days after initiation due to central line infection. He completed 5 days of IVIG. MRI brain was consistent with Wernicke's encephalopathy for which he received high-dose thiamine. As a result of the GBS, patient has flaccid paralysis paralysis, neurogenic bladder (with chronic indwelling Lezama). He also has cognitive impairment, which may be multifactorial. He is alert and oriented x 2, which is his current baseline. His healthcare proxy (daughter, Halina Payan) was previously activated. Patient has been a rehab facility in [place], but was discharged by the patient's daughter and transferred to [facility] by private ambulance due to concerns for poor care at the facility. Also to be closer to family. Patient asked when the G-tube can be removed. We will check first with dietitian for assessment before deciding on G-tube removal. 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 Plasmapheresis was discontinued 2 days after initiation due to central line infection. He completed 5 days of IVIG. MRI brain was consistent with Wernicke's encephalopathy for which he received high-dose thiamine. As a result of the GBS, patient has flaccid paralysis paralysis, neurogenic bladder (with chronic indwelling Lezama). He also has cognitive impairment, which may be multifactorial. He is alert and oriented x 2, which is his current baseline. His healthcare proxy (daughter, Halina Payan) was previously activated. Patient has been a rehab facility in [place], but was discharged by the patient's daughter and transferred to [facility] by private ambulance due to concerns for poor care at the facility. Also to be closer to family. Patient asked when the G-tube can be removed. We will check first with dietitian for assessment before deciding on G-tube removal. 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 Plasmapheresis was discontinued 2 days after initiation due to central line infection. He completed 5 days of IVIG. MRI brain was consistent with Wernicke's encephalopathy for which he received high-dose thiamine. As a result of the GBS, patient has flaccid paralysis paralysis, neurogenic bladder (with chronic indwelling Lezama). He also has cognitive impairment, which may be multifactorial. He is alert and oriented x 2, which is his current baseline. His healthcare proxy (daughter, Halina Payan) was previously activated. Patient has been a rehab facility in [place], but was discharged by the patient's daughter and transferred to [facility] by private ambulance due to concerns for poor care at the facility. Also to be closer to family. -Patient will need follow-up with neurology at [facility] as an outpatient - PT/OT, case management Assessment & Plan (03/18/2025 3:36 PM EDT): Patient with MICU admission in 12/21 at an OSH for weakness with areflexia and AMS requiring intubation for airway protection secondary to axonal variant of Guillain-Darnell . Plasmapheresis was discontinued 2 days after initiation due to central line infection. He completed 5 days of IVIG. MRI brain was consistent with Wernicke's encephalopathy for which he received high-dose thiamine. As a result of the GBS, patient has flaccid paralysis paralysis, neurogenic bladder (with chronic indwelling Lezama). He also has cognitive impairment, which may be multifactorial. He is alert and oriented x 2, which is his current baseline. His healthcare proxy (daughter, Halina Payan) was previously activated. Patient has been a rehab facility in [place], but was discharged by the patient's daughter and transferred to [facility] by private ambulance due to concerns for poor care at the facility. Also to be closer to family. -Patient will need follow-up with neurology at [facility] as an outpatient - PT/OT, case management Assessment & Plan (03/17/2025 3:10 PM EDT): Patient with MICU admission in 12/21 at an OSH for weakness with areflexia and AMS requiring intubation for airway protection secondary to axonal variant of Guillain-Darnell . Plasmapheresis was discontinued 2 days after initiation due to central line infection. He completed 5 days of IVIG. MRI brain was consistent with Wernicke's encephalopathy for which he received high-dose thiamine. As a result of the GBS, patient has flaccid paralysis paralysis, neurogenic bladder (with chronic indwelling Lezama). He also has cognitive impairment, which may be multifactorial. He is alert and oriented x 2, which is his current baseline. His healthcare proxy (daughter, Halina Payan) was previously activated. Patient has been a rehab facility in [place], but was discharged by the patient's daughter and transferred to [facility] by private ambulance due to concerns for poor care at the facility. Also to be closer to family. -Patient will need follow-up with neurology at [facility] as an outpatient - PT/OT, case management Assessment & Plan (03/16/2025 10:48 PM EDT): Patient with MICU admission in 12/21 at an OSH for weakness with areflexia and AMS requiring intubation for airway protection secondary to axonal variant of Guillain-Darnell . Plasmapheresis was discontinued 2 days after initiation due to central line infection. He completed 5 days of IVIG. MRI brain was consistent with Wernicke's encephalopathy for which he received high-dose thiamine. As a result of the GBS, patient has flaccid paralysis paralysis, neurogenic bladder (with chronic indwelling Lezama). He also has cognitive impairment, which may be multifactorial. He is alert and oriented x 2, which is his current baseline. His healthcare proxy (daughter, Halina Payan) was previously activated. Patient has been a rehab facility in [place], but was discharged by the patient's daughter and transferred to [facility] by private ambulance due to concerns for poor care at the facility. Also to be closer to family. 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 Patient is currently presenting with a variety of complaints including chest pain as well as hypoxia and possible aspiration noted on imaging. Patient reportedly is able to take oral medications without difficulty. 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 S/p plex, IVIG. Gradually improved neurologic function. 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 PT/OT referral placed. Patient moved to [place]. Holter lift at home. Patient needs help getting set up with home health in [facility]. Daughter is caring for him at home by herself currently. Needs neurologist, PT, PM&R, OT in [facility]. Also needs home nursing to exchange lezama 1x/month for neurogenic bladder Assessment & Plan (06/30/2025 6:26 PM EDT): Intubated in MICU nov 2024 for resp failure. S/p plex, IVIG. Gradually improved neurologic function. 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 PT/OT referral placed. Patient moved to [place]. Holter lift at home. Patient needs help getting set up with home health in [facility]. Daughter is caring for him at home by herself currently. Needs neurologist, PT, PM&R, OT in [facility]. 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 Patient presented to emergency department secondary to a 30 minute episode of eyes fluttering shoulder twitching concerning for possible seizure like activity. Has hx of PNES as well. Witnessed eyes fluttering on 05/08. Pt was conscious, reportedly remembered episode on the . Today 05/09 says that he doesn't remember these episodes but says it lasted 3-5 mins. cEEG not available in [facility] so will obtain spot EEG. Rapid response called 05/09 for altered mental status, code stroke activated, CT head completed. Per Tel[facility] attending, patient to have cEEG completed at [facility]. - Neuro consulted, appreciate recs: - Episodes most consistent w PNES (no added treatment for reduced responsiveness but preserved awareness) - Continue keppra and rec ambulatory EEG - Spot EEG 05/09, normal - Seizure precautions - Continue home levetiracetam 1 g IV twice daily Assessment & Plan (03/28/2025 10:26 AM EDT): Patient with MICU admission in 12/21 at an OSH for weakness with areflexia and AMS requiring intubation for airway protection secondary to axonal variant of Guillain-Darnell . Plasmapheresis was discontinued 2 days after initiation due to central line infection. He completed 5 days of IVIG. MRI brain was consistent with Wernicke's encephalopathy for which he received high-dose thiamine. As a result of the GBS, patient has flaccid paralysis bl LE and limited motor strength in upper extremitites L>R, neurogenic bladder (with chronic indwelling Lezama). He also has cognitive impairment, which may be multifactorial. He is alert and oriented x 3, which is his current baseline. Patient had been a rehab facility in [place], but was discharged by the patient's daughter and transferred to [facility] on 03/16 by private ambulance due to concerns for poor care at the facility and to be closer to family. 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 His healthcare proxy (daughter, Halina Payan) was previously activated on admissions. Currently HCP not activated as patient able to understand simple medical information and participate in discharge planning. He may require more support and shared decision making for more complex medical decisions. -Patient will need follow-up with neurology at [facility] as an outpatient - PT/OT, case management -> bed search for STR, currently being [facility]. Daughter and patient made aware that facilities willing to offer a bed would likely be limited due to patient and daughter's homeless status. PT/dtr advised that planning for eventual transition home would need to occur with SW at next facility as insurance would require up to date evals and a permanent address to arrange DME. 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 Plasmapheresis was discontinued 2 days after initiation due to central line infection. He completed 5 days of IVIG. MRI brain was consistent with Wernicke's encephalopathy for which he received high-dose thiamine. As a result of the GBS, patient has flaccid paralysis bl LE and limited motor strength in upper extremitites L>R, neurogenic bladder (with chronic indwelling Lezama). He also has cognitive impairment, which may be multifactorial. He is alert and oriented x 3, which is his current baseline. Patient had been a rehab facility in [place], but was discharged by the patient's daughter and transferred to [facility] on 03/16 by private ambulance due to concerns for poor care at the facility and to be closer to family. 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 His healthcare proxy (daughter, Halina Payan) was previously activated on admissions. Currently HCP not activated as patient able to understand simple medical information and participate in discharge planning. He may require more support and shared decision making for more complex medical decisions. -Patient will need follow-up with neurology at [facility] as an outpatient - PT/OT, case management -> bed search for STR, currently being [facility] by [facility], and [facility]. Daughter and patient made aware that facilities willing to offer a bed would likely be limited due to patient and daughter's homeless status. PT/dtr advised that planning for eventual transition home would need to occur with SW at next facility as insurance would require up to date evals and a permanent address to arrange DME. 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 Plasmapheresis was discontinued 2 days after initiation due to central line infection. He completed 5 days of IVIG. MRI brain was consistent with Wernicke's encephalopathy for which he received high-dose thiamine. As a result of the GBS, patient has flaccid paralysis bl LE and limited motor strength in upper extremitites L>R, neurogenic bladder (with chronic indwelling Lezama). He also has cognitive impairment, which may be multifactorial. He is alert and oriented x 3, which is his current baseline. Patient had been a rehab facility in [place], but was discharged by the patient's daughter and transferred to [facility] on 03/16 by private ambulance due to concerns for poor care at the facility and to be closer to family. 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 His healthcare proxy (daughter, Halina Payan) was previously activated on admissions. Currently HCP not activated as patient able to understand simple medical information and participate in discharge planning. He may require more support and shared decision making for more complex medical decisions. -Patient will need follow-up with neurology at [facility] as an outpatient - PT/OT, case management -> bed search for STR, currently being followed by [facility], and [facility]. Daughter and patient made aware that facilities willing to offer a bed would likely be limited due to patient and daughter's homeless status. PT/dtr advised that planning for eventual transition home would need to occur with SW at next facility as insurance would require up to date evals and a permanent address to arrange DME. 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 Plasmapheresis was discontinued 2 days after initiation due to central line infection. He completed 5 days of IVIG. MRI brain was consistent with Wernicke's encephalopathy for which he received high-dose thiamine. As a result of the GBS, patient has flaccid paralysis bl LE and limited motor strength in upper extremitites L>R, neurogenic bladder (with chronic indwelling Lezama). He also has cognitive impairment, which may be multifactorial. He is alert and oriented x 3, which is his current baseline. Patient had been a rehab facility in [place], but was discharged by the patient's daughter and transferred to [facility] on 03/16 by private ambulance due to concerns for poor care at the facility and to be closer to family. 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 His healthcare proxy (daughter, Halina Payan) was previously activated on admissions. Currently HCP not activated as patient able to understand simple medical information and participate in discharge planning. He may require more support and shared decision making for more complex medical decisions. -Patient will need follow-up with neurology at [facility] as an outpatient - PT/OT, case management -> bed search for STR, currently being followed by [facility], and [facility]. Daughter and patient made aware that facilities willing to offer a bed would likely be limited due to patient and daughter's homeless status. PT/dtr advised that planning for eventual transition home would need to occur with SW at next facility as insurance would require up to date evals and a permanent address to arrange DME. 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 Plasmapheresis was discontinued 2 days after initiation due to central line infection. He completed 5 days of IVIG. MRI brain was consistent with Wernicke's encephalopathy for which he received high-dose thiamine. As a result of the GBS, patient has flaccid paralysis bl LE and limited motor strength in upper extremitites L>R, neurogenic bladder (with chronic indwelling Lezama). He also has cognitive impairment, which may be multifactorial. He is alert and oriented x 3, which is his current baseline. His healthcare proxy (daughter, Halina Payan) was previously activated on admissions. Patient has been a rehab facility in [place], but was discharged by the patient's daughter and transferred to [facility] by private ambulance due to concerns for poor care at the facility. Also to be closer to family. -Patient will need follow-up with neurology at [facility] as an outpatient - PT/OT, case management -G-tube removed 03/23 -HCP activated on ban but no documentation in chart of activation and patient marked as full capacity. Capacity assessed on 03/24. Patient has basic understanding of his current medical condition and physical limitations. Although he would like to go home with his daughter, he understands the lack of housing and his inability to care for himself are barriers. Patient understands the need to go to a SNF in order to receive care. He has capacity to make these discharge decisions. He may require more support and shared decision making for more complex medical decisions. He will remain his own decision maker at this time. 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 Plasmapheresis was discontinued 2 days after initiation due to central line infection. He completed 5 days of IVIG. MRI brain was consistent with Wernicke's encephalopathy for which he received high-dose thiamine. As a result of the GBS, patient has flaccid paralysis paralysis, neurogenic bladder (with chronic indwelling Lezama). He also has cognitive impairment, which may be multifactorial. He is alert and oriented x 2, which is his current baseline. His healthcare proxy (daughter, Halina Payan) was previously activated. Patient has been a rehab facility in [place], but was discharged by the patient's daughter and transferred to [facility] by private ambulance due to concerns for poor care at the facility. Also to be closer to family. -Patient will need follow-up with neurology at [facility] as an outpatient - PT/OT, case management -G-tube removed 03/23 -HCP activated on banner but no documentation in chart of activation and patient marked as full capacity. Prior notes indicate plan reviewed with patient and no concerns for capacity. Removed HCP activation banner. Will perform formal capacity assessment in am. 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 Plasmapheresis was discontinued 2 days after initiation due to central line infection. He completed 5 days of IVIG. MRI brain was consistent with Wernicke's encephalopathy for which he received high-dose thiamine. As a result of the GBS, patient has flaccid paralysis paralysis, neurogenic bladder (with chronic indwelling Lezama). He also has cognitive impairment, which may be multifactorial. He is alert and oriented x 2, which is his current baseline. His healthcare proxy (daughter, Halina Payan) was previously activated. Patient has been a rehab facility in [place], but was discharged by the patient's daughter and transferred to [facility] by private ambulance due to concerns for poor care at the facility. Also to be closer to family. Patient asked when the G-tube can be removed. We will check first with dietitian for assessment before deciding on G-tube removal. 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 Plasmapheresis was discontinued 2 days after initiation due to central line infection. He completed 5 days of IVIG. MRI brain was consistent with Wernicke's encephalopathy for which he received high-dose thiamine. As a result of the GBS, patient has flaccid paralysis paralysis, neurogenic bladder (with chronic indwelling Lezama). He also has cognitive impairment, which may be multifactorial. He is alert and oriented x 2, which is his current baseline. His healthcare proxy (daughter, Halina Payan) was previously activated. Patient has been a rehab facility in [place], but was discharged by the patient's daughter and transferred to [facility] by private ambulance due to concerns for poor care at the facility. Also to be closer to family. Patient asked when the G-tube can be removed. We will check first with dietitian for assessment before deciding on G-tube removal. 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 Plasmapheresis was discontinued 2 days after initiation due to central line infection. He completed 5 days of IVIG. MRI brain was consistent with Wernicke's encephalopathy for which he received high-dose thiamine. As a result of the GBS, patient has flaccid paralysis paralysis, neurogenic bladder (with chronic indwelling Lezama). He also has cognitive impairment, which may be multifactorial. He is alert and oriented x 2, which is his current baseline. His healthcare proxy (daughter, Halina Payan) was previously activated. Patient has been a rehab facility in [place], but was discharged by the patient's daughter and transferred to [facility] by private ambulance due to concerns for poor care at the facility. Also to be closer to family. Patient asked when the G-tube can be removed. We will check first with dietitian for assessment before deciding on G-tube removal. 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 Plasmapheresis was discontinued 2 days after initiation due to central line infection. He completed 5 days of IVIG. MRI brain was consistent with Wernicke's encephalopathy for which he received high-dose thiamine. As a result of the GBS, patient has flaccid paralysis paralysis, neurogenic bladder (with chronic indwelling Lezama). He also has cognitive impairment, which may be multifactorial. He is alert and oriented x 2, which is his current baseline. His healthcare proxy (daughter, Halina Payan) was previously activated. Patient has been a rehab facility in [place], but was discharged by the patient's daughter and transferred to [facility] by private ambulance due to concerns for poor care at the facility. Also to be closer to family. -Patient will need follow-up with neurology at [facility] as an outpatient - PT/OT, case management Assessment & Plan (03/18/2025 3:36 PM EDT): Patient with MICU admission in 12/21 at an OSH for weakness with areflexia and AMS requiring intubation for airway protection secondary to axonal variant of Guillain-Darnell . Plasmapheresis was discontinued 2 days after initiation due to central line infection. He completed 5 days of IVIG. MRI brain was consistent with Wernicke's encephalopathy for which he received high-dose thiamine. As a result of the GBS, patient has flaccid paralysis paralysis, neurogenic bladder (with chronic indwelling Lezama). He also has cognitive impairment, which may be multifactorial. He is alert and oriented x 2, which is his current baseline. His healthcare proxy (daughter, Halina Payan) was previously activated. Patient has been a rehab facility in [place], but was discharged by the patient's daughter and transferred to [facility] by private ambulance due to concerns for poor care at the facility. Also to be closer to family. -Patient will need follow-up with neurology at [facility] as an outpatient - PT/OT, case management Assessment & Plan (03/17/2025 3:10 PM EDT): Patient with MICU admission in 12/21 at an OSH for weakness with areflexia and AMS requiring intubation for airway protection secondary to axonal variant of Guillain-Darnell . Plasmapheresis was discontinued 2 days after initiation due to central line infection. He completed 5 days of IVIG. MRI brain was consistent with Wernicke's encephalopathy for which he received high-dose thiamine. As a result of the GBS, patient has flaccid paralysis paralysis, neurogenic bladder (with chronic indwelling Lezama). He also has cognitive impairment, which may be multifactorial. He is alert and oriented x 2, which is his current baseline. His healthcare proxy (daughter, Halina Payan) was previously activated. Patient has been a rehab facility in [place], but was discharged by the patient's daughter and transferred to [facility] by private ambulance due to concerns for poor care at the facility. Also to be closer to family. -Patient will need follow-up with neurology at [facility] as an outpatient - PT/OT, case management Assessment & Plan (03/16/2025 10:48 PM EDT): Patient with MICU admission in 12/21 at an OSH for weakness with areflexia and AMS requiring intubation for airway protection secondary to axonal variant of Guillain-Darnell . Plasmapheresis was discontinued 2 days after initiation due to central line infection. He completed 5 days of IVIG. MRI brain was consistent with Wernicke's encephalopathy for which he received high-dose thiamine. As a result of the GBS, patient has flaccid paralysis paralysis, neurogenic bladder (with chronic indwelling Lezama). He also has cognitive impairment, which may be multifactorial. He is alert and oriented x 2, which is his current baseline. His healthcare proxy (daughter, Halina Payan) was previously activated. Patient has been a rehab facility in [place], but was discharged by the patient's daughter and transferred to [facility] by private ambulance due to concerns for poor care at the facility. Also to be closer to family. -Patient will need follow-up with neurology at [facility] as an outpatient - PT/OT, case management Facet arthropathy, lumbosacral 01/23/2018 Facial asymmetry 09/29/2017 Asthma 10/24/2015 Depression 10/24/2015 Generalized anxiety disorder 10/24/2015 Migraine without intractable migraine 10/24/2015 Schizoaffective disorder 10/27/2014 Assessment & Plan (07/28/2025 8:35 PM EDT): History of bipolar and schizophrenia, no psychiatrist currently. I will refill his home psychotropic medications however psych needs to see him for ongoing management and diagnostic clarification. Decreased trazodone dose due to sedation Home medications: [place] 300mg BID, Trazodone 100mg -> 50 mg at bedtime, Seroquel 100mg at bedtime, Lyrica 300mg BID, Duloxetine 60mg QD Orders: traZODone (DESYREL) 100 mg tablet; Take 0.5 tablets (50 mg total) by mouth at bed time. Ambulatory referral to Psychiatry; Future Assessment & Plan (06/30/2025 6:26 PM EDT): History of bipolar and schizophrenia, no psychiatrist currently. I will refill his home psychotropic medications however psych needs to see him for ongoing management and diagnostic clarification. I would like to increase duloxetine dose for lower extremity neuropathy but am hesitant given hx bipolar 1 with walker without psychiatric approval. Mental status exam normal today. No recent AVH. Passive SI. Low suicide risk today. Warm handoff to Corrina NAVA who will coordinate followup for this patient. Home medications: [place] 300mg BID, Trazodone 100mg at bedtime, Seroquel 100mg at bedtime, Lyrica 300mg BID, Duloxetine 60mg QD Orders: Ambulatory referral to Psychiatry; Future traZODone (DESYREL) 100 mg tablet; Take 1 tablet (100 mg total) by mouth nightly. QUEtiapine (SEROquel) 100 mg tablet; Take 1 tablet (100 mg total) by mouth nightly. lithium 300 mg capsule; Take 1 capsule (300 mg total) by mouth every [address] (CYMBALTA) 60 mg capsule; Take 1 capsule (60 mg total) by mouth once a day. Assessment & Plan (06/20/2025 1:32 PM EDT): Home medications: [place] 300mg BID, Trazodone 100mg at bedtime, Seroquel 100mg at bedtime, Lyrica 300mg BID, Duloxetine 60mg QD -Continue all home medications Assessment & Plan (06/19/2025 7:25 AM EDT): Home medications: [place] 300mg BID, Trazodone 100mg at bedtime, Seroquel 100mg at bedtime, Lyrica 300mg BID, Duloxetine 60mg QD -Continue all home medications Assessment & Plan (06/18/2025 8:10 PM EDT): Home medications: [place] 300mg BID, Trazodone 100mg at bedtime, Seroquel 100mg at bedtime, Lyrica 300mg BID, Duloxetine 60mg QD -Continue all home medications Assessment & Plan (05/09/2025 6:16 PM EDT): - Continue home lithium 300 mg twice daily, duloxetine 60 mg daily, quetiapine 100 mg nightly and trazodone 100 mg nightly Assessment & Plan (03/28/2025 10:26 AM EDT): Mood stable. Continue home lithium 300 mg twice daily; lithium a.m. level low at 0.5 mg on 03/16 Continue home duloxetine 60 mg daily Continue home quetiapine 100 mg nightly Continue home trazodone 100 mg nightly Assessment & Plan (03/27/2025 10:58 AM EDT): Mood stable. Continue home lithium 300 mg twice daily; lithium a.m. level low at 0.5 mg on 03/16 Continue home duloxetine 60 mg daily Continue home quetiapine 100 mg nightly Continue home trazodone 100 mg nightly Assessment & Plan (03/26/2025 11:33 AM EDT): Mood stable. Continue home lithium 300 mg twice daily; lithium a.m. level low at 0.5 mg on 03/16 Continue home duloxetine 60 mg daily Continue home quetiapine 100 mg nightly Continue home trazodone 100 mg nightly Assessment & Plan (03/25/2025 2:15 PM EDT): Mood stable. Continue home lithium 300 mg twice daily; lithium a.m. level low at 0.5 mg on 03/16 Continue home duloxetine 60 mg daily Continue home quetiapine 100 mg nightly Continue home trazodone 100 mg nightly Assessment & Plan (03/24/2025 3:46 PM EDT): Mood stable. Continue home lithium 300 mg twice daily; lithium a.m. level low at 0.5 mg on 03/16 Continue home duloxetine 60 mg daily Continue home quetiapine 100 mg nightly Continue home trazodone 100 mg nightly Assessment & Plan (03/23/2025 5:05 PM EDT): Mood stable. Continue home lithium 300 mg twice daily; lithium a.m. level low at 0.5 mg on 03/16 Continue home duloxetine 60 mg daily Continue home quetiapine 100 mg nightly Continue home trazodone 100 mg nightly Assessment & Plan (03/22/2025 12:57 PM EDT): Continue home lithium 300 mg twice daily; lithium a.m. level low at 0.5 mg on 03/16 Continue home duloxetine 60 mg daily Continue home quetiapine 100 mg nightly Continue home trazodone 100 mg nightly Assessment & Plan (03/21/2025 11:38 AM EDT): Continue home lithium 300 mg twice daily; lithium a.m. level low at 0.5 mg on 03/16 Continue home duloxetine 60 mg daily Continue home quetiapine 100 mg nightly Continue home trazodone 100 mg nightly Assessment & Plan (03/20/2025 5:14 PM EDT): Continue home lithium 300 mg twice daily; lithium a.m. level low at 0.5 mg on 03/16 Continue home duloxetine 60 mg daily Continue home quetiapine 100 mg nightly Continue home trazodone 100 mg nightly Assessment & Plan (03/19/2025 4:34 PM EDT): Continue home lithium 300 mg twice daily; lithium a.m. level low at 0.5 mg on 03/16 Continue home duloxetine 60 mg daily Continue home quetiapine 100 mg nightly Continue home trazodone 100 mg nightly Assessment & Plan (03/18/2025 3:36 PM EDT): Continue home lithium 300 mg twice daily; lithium a.m. level low at 0.5 mg on 03/16 Continue home duloxetine 60 mg daily Continue home quetiapine 100 mg nightly Continue home trazodone 100 mg nightly Assessment & Plan (03/17/2025 3:10 PM EDT): Continue home lithium 300 mg twice daily; lithium a.m. level low at 0.5 mg on 03/16 Continue home duloxetine 60 mg daily Continue home quetiapine 100 mg nightly Continue home trazodone 100 mg nightly Assessment & Plan (03/16/2025 10:48 PM EDT): Continue home lithium 300 mg twice daily; lithium a.m. level low at 0.5 mg on 03/16 Continue home duloxetine 60 mg daily Continue home quetiapine 100 mg nightly Continue home trazodone 100 mg nightly Chronic pain disorder 10/27/2004 Assessment & Plan (07/28/2025 8:35 PM EDT): Patient has a longstanding history of chronic pain for which he had previously been on hydrocodone, pregabalin, duloxetine and ibuprofen; - Cont current pain meds including cont capsaicin cream and diclofenac gel alternating 4x/day for bilateral lower extremity neuropathy. - no gabapentin (walker) - Refilled norco this month; however discussed with patient I will be tapering this medication slowly as he has little improvement in his pain from it and it can cause sedation, worsen constipation, and increases risks of falls. - added robaxin 500 mg BID for continued chronic pain, however neuropathic pain is slowly improving as patient recovers from gbs - at max dose of duloxetine and pregablin - cont norco 7.5 mg once daily Orders: acetaminophen (TYLENOL) 325 mg tablet; Take 2 tablets (650 mg total) by mouth every 4 hours as needed for pain or fever (not to exceed 3 grams in 24 hours). methocarbamoL (ROBAXIN) 500 mg tablet; Take 1 tablet (500 mg total) by mouth 4 times a day as needed for muscle spasms. Assessment & Plan (06/30/2025 6:26 PM EDT): Patient has a longstanding history of chronic pain for which he had previously been on hydrocodone, pregabalin, duloxetine and ibuprofen; - Cont current pain meds; start capsaicin cream and diclofenac gel alternating for bilateral lower extremity neuropathy. - no gabapentin (walker) - Refilled norco this month; however discussed with patient I will be tapering this medication slowly as he has little improvement in his pain from it and it can cause sedation, worsen constipation, and increases risks of falls. - consider adding muscle relaxant next visit - consider increasing dose of duloxetine for neuropathy and depression; however I am cautious because of his schizoaffective disorder with hx walker. I would like psych to see him before I change any of his psychotropic medications. Orders: pregabalin (LYRICA) 300 mg capsule; Take 1 capsule (300 mg total) by mouth 2 times a day. ibuprofen (MOTRIN) 600 mg tablet; Take 1 tablet (600 mg total) by mouth every 6 hours as needed for pain. HYDROcodone-acetaminophen (NORCO) 7.5-325 mg per tablet; Take 1 tablet by mouth every 8 hours as needed for pain. DULoxetine DR (CYMBALTA) 60 mg capsule; Take 1 capsule (60 mg total) by mouth once a day. diclofenac (VOLTAREN) 1% gel; Apply 4 g topically to the affected area 4 times a day for 30 days. acetaminophen (TYLENOL) 325 mg tablet; Take 2 tablets (650 mg total) by mouth every 6 hours as needed for pain or fever (not to exceed 3 grams in 24 hours). capsaicin (ZOSTRIX-HP) 0.075% topical cream; Apply topically to the affected area 3 times a day. Assessment & Plan (05/09/2025 6:16 PM EDT): Patient has a longstanding history of chronic pain for which he had previously been on hydrocodone, pregabalin, duloxetine and ibuprofen; the hydrocodone was stopped during prior admission due to minimal improvement as well as initiation of lidocaine patches and tizanidine - Continue home lidocaine patches and tizanidine - Patient was sent home on morphine with slight improvement - Continue home pregabalin 200 mg twice daily, duloxetine 60 mg daily Assessment & Plan (03/28/2025 10:26 AM EDT): Increased home hydrocodone-acetaminophen 7.5 mg to every 6 hours as needed for pain instead of every 8 hours on 03/17; daughter expressed concern that dose was too high as patient slept till noon the next day. Patient alert since that time. Discussed with nursing and no concerns for sedation. 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 Reassurance provided at bedside that left knee examination is entirely normal Assessment & Plan (03/27/2025 10:58 AM EDT): Increased home hydrocodone-acetaminophen 7.5 mg to every 6 hours as needed for pain instead of every 8 hours on 03/17; daughter expressed concern that dose was too high as patient slept till noon the next day. Patient alert since that time. Discussed with nursing and no concerns for sedation. 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 Continue home Cymbalta 60 mg daily- maximum suggested dose for neuropathic pain Ibuprofen 600 mg every 6 hours as needed for mild pain -increased hydrocodone-acetominophen to 10mg q6hrs prn pain on 03/25 Patient would benefit from steam locomotive firer/fireman visit however service not available inpatient, consider ambulatory referral on discharge Assessment & Plan (03/26/2025 11:33 AM EDT): Increased home hydrocodone-acetaminophen 7.5 mg to every 6 hours as needed for pain instead of every 8 hours on 03/17; daughter expressed concern that dose was too high as patient slept till noon the next day. Patient alert since that time. Discussed with nursing and no concerns for sedation. 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 Continue home Cymbalta 60 mg daily- maximum suggested dose for neuropathic pain Ibuprofen 600 mg every 6 hours as needed for mild pain -increased hydrocodone-acetominophen to 10mg q6hrs prn pain on 03/25 Patient would benefit from steam locomotive firer/fireman visit however service not available inpatient, consider ambulatory referral on discharge Assessment & Plan (03/25/2025 2:15 PM EDT): Increased home hydrocodone-acetaminophen 7.5 mg to every 6 hours as needed for pain instead of every 8 hours on 03/17; daughter expressed concern that dose was too high as patient slept till noon the next day. Patient alert since that time. Discussed with nursing and no concerns for sedation. Pain report today: significant R shoulder pain. Neuropathic pain in LE not bothering him as much today. 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 Continue home Cymbalta 60 mg daily- maximum suggested dose for neuropathic pain Ibuprofen 600 mg every 6 hours as needed for mild pain -increased hydrocodone-acetominophen to 10mg q6hrs prn pain on 03/25 Patient would benefit from steam locomotive firer/fireman visit however service not available inpatient, consider ambulatory referral on discharge Assessment & Plan (03/24/2025 3:46 PM EDT): Increased home hydrocodone-acetaminophen 7.5 mg to every 6 hours as needed for pain instead of every 8 hours on 03/17; daughter expressed concern that dose was too high as patient slept till noon the next day. Patient alert since that time. Discussed with nursing and no concerns for sedation so will continue dose at this time. 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 Patient alert since that time. Discussed with nursing and no concerns for sedation so will continue dose at this time. 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 Continue home Cymbalta 60 mg daily- maximum suggested dose for neuropathic pain Ibuprofen 600 mg every 6 hours as needed for mild pain Patient would benefit from steam locomotive firer/fireman visit however service not available inpatient, consider ambulatory referral on discharge Assessment & Plan (03/22/2025 12:57 PM EDT): Increased home hydrocodone-acetaminophen 7.5 mg to every 6 hours as needed for pain instead of every 8 hours Continue home pregabalin 300 mg twice daily Ibuprofen 600 mg every 6 hours as needed for mild pain Assessment & Plan (03/21/2025 11:38 AM EDT): Increased home hydrocodone-acetaminophen 7.5 mg to every 6 hours as needed for pain instead of every 8 hours Continue home pregabalin 300 mg twice daily Ibuprofen 600 mg every 6 hours as needed for mild pain Assessment & Plan (03/20/2025 5:14 PM EDT): Increased home hydrocodone-acetaminophen 7.5 mg to every 6 hours as needed for pain instead of every 8 hours Continue home pregabalin 300 mg twice daily Ibuprofen 600 mg every 6 hours as needed for mild pain Assessment & Plan (03/19/2025 4:34 PM EDT): Increased home hydrocodone-acetaminophen 7.5 mg to every 6 hours as needed for pain instead of every 8 hours Continue home pregabalin 300 mg twice daily Ibuprofen 600 mg every 6 hours as needed for mild pain Assessment & Plan (03/18/2025 3:36 PM EDT): Increased home hydrocodone-acetaminophen 7.5 mg to every 6 hours as needed for pain instead of every 8 hours Continue home pregabalin 300 mg twice daily Ibuprofen 600 mg every 6 hours as needed for mild pain Assessment & Plan (03/17/2025 3:10 PM EDT): Increased home hydrocodone-acetaminophen 7.5 mg to every 6 hours as needed for pain instead of every 8 hours Continue home pregabalin 300 mg twice daily Ibuprofen 600 mg every 6 hours as needed for mild pain Assessment & Plan (03/16/2025 10:48 PM EDT): Continue home hydrocodone-acetaminophen 7.5 mg every 8 hours as needed for pain Continue home pregabalin 300 mg twice daily Ibuprofen 600 mg every 6 hours as needed for mild pain Resolved Problems Problem Noted Date Diagnosed Date Resolved Date Unstable angina 06/18/2025 06/21/2025 Assessment & Plan (06/20/2025 1:32 PM EDT): Chest pain worsening over several months but acutely while outpatient getting imagine. Unstable angina in 44 year old patient w/ no prior coronary history as well as a CTA coronary calcium score of 0 plus abrupt narrowing in LAD is suspicious for SCAD vs coronary artery vasospasm. Trops peaked at 141, EKG without ischemic changes. With a calcium score of 0, an atherosclerotic plaque is unlikely however still possible though he would be very young for this. Inflammatory markers elevated (CRP 20.6, ESR 32). Suspect instead some inflammatory process related to GBS or stress cardiomyopathy precipitating this. It is strange however as GBS is more typically associated with myocarditis. Recent A1c 5.1. TSH - 2.79 Lipids - T cholest 213. Trigs 552, cannot calculate LDL -Repeat lipid panel -Start crestor 20mg every day -Start metoprolol tartrate 12.5mg BID -Continue aspirin 81mg every day -Plan for cardiac cath this admission -SLN 0.8mg PRN chest pain -TSH as in #hyperthyroidism Assessment & Plan (06/19/2025 11:19 AM EDT): Chest pain worsening over several months but acutely while outpatient getting imagine. Unstable angina in 44 year old patient w/ no prior coronary history as well as a CTA coronary calcium score of 0 plus abrupt narrowing in LAD is suspicious for SCAD vs coronary artery vasospasm. Trops peaked at 141, EKG without ischemic changes. With a calcium score of 0, an atherosclerotic plaque is unlikely however still possible though he would be very young for this. Inflammatory markers elevated (CRP 20.6, ESR 32). Suspect instead some inflammatory process related to GBS or stress cardiomyopathy precipitating this. It is strange however as GBS is more typically associated with myocarditis. Recent A1c 5.1. TSH Lipids - T cholest 213. Trigs 552, cannot calculate LDL -Repeat lipid panel -Start crestor 20mg every day -Start metoprolol tartrate 12.5mg BID -Continue aspirin 81mg every day -Plan for cardiac cath this admission -SLN 0.8mg PRN chest pain -TSH as in #hyperthyroidism Assessment & Plan (06/18/2025 10:35 PM EDT): Unstable angina in 44 year old patient w/ no prior coronary history as well as a CTA coronary calcium score of 0 plus abrupt narrowing in LAD only is suspicious for SCAD vs coronary artery vasospasm. With a calcium score of 0, an atherosclerotic plaque is extremely unlikely however still possible though he would be very young for this. Suspect instead some inflammatory process related to GBS or stress cardiomyopathy precipitating this. It is strange however as GBS is more typically associated with myocarditis. -Repeat lipid panel -Start crestor 20mg every day -Start metoprolol tartrate 12.5mg BID -Continue aspirin 81mg every day -Plan for cardiac cath this admission -SLN 0.8mg PRN chest pain -ESR/CRP -A1c -TSH as in #hyperthyroidism Chest pain, unspecified type 05/05/2025 06/30/2025 Assessment & Plan (06/20/2025 1:32 PM EDT): Troponin level elevated 05/02/2025 08/03/2025 Assessment & Plan (06/20/2025 1:32 PM EDT): Chest pain worsening over several months but acutely while outpatient getting imagine. Unstable angina in 44 year old patient w/ no prior coronary history as well as a CTA coronary calcium score of 0 plus abrupt narrowing in LAD is suspicious for SCAD vs coronary artery vasospasm. Trops peaked at 141, EKG without ischemic changes. With a calcium score of 0, an atherosclerotic plaque is unlikely however still possible though he would be very young for this. Inflammatory markers elevated (CRP 20.6, ESR 32). Suspect instead some inflammatory process related to GBS or stress cardiomyopathy precipitating this. It is strange however as GBS is more typically associated with myocarditis. Recent A1c 5.1. TSH - 2.79 Lipids - T cholest 213. Trigs 552, cannot calculate LDL -Repeat lipid panel -Start crestor 20mg every day -Start metoprolol tartrate 12.5mg BID -Continue aspirin 81mg every day -Plan for cardiac cath this admission -SLN 0.8mg PRN chest pain -TSH as in #hyperthyroidism Assessment & Plan (06/19/2025 11:19 AM EDT): Chest pain worsening over several months but acutely while outpatient getting imagine. Unstable angina in 44 year old patient w/ no prior coronary history as well as a CTA coronary calcium score of 0 plus abrupt narrowing in LAD is suspicious for SCAD vs coronary artery vasospasm. Trops peaked at 141, EKG without ischemic changes. With a calcium score of 0, an atherosclerotic plaque is unlikely however still possible though he would be very young for this. Inflammatory markers elevated (CRP 20.6, ESR 32). Suspect instead some inflammatory process related to GBS or stress cardiomyopathy precipitating this. It is strange however as GBS is more typically associated with myocarditis. Recent A1c 5.1. TSH Lipids - T cholest 213. Trigs 552, cannot calculate LDL -Repeat lipid panel -Start crestor 20mg every day -Start metoprolol tartrate 12.5mg BID -Continue aspirin 81mg every day -Plan for cardiac cath this admission -SLN 0.8mg PRN chest pain -TSH as in #hyperthyroidism Assessment & Plan (06/18/2025 10:35 PM EDT): Unstable angina in 44 year old patient w/ no prior coronary history as well as a CTA coronary calcium score of 0 plus abrupt narrowing in LAD only is suspicious for SCAD vs coronary artery vasospasm. With a calcium score of 0, an atherosclerotic plaque is extremely unlikely however still possible though he would be very young for this. Suspect instead some inflammatory process related to GBS or stress cardiomyopathy precipitating this. It is strange however as GBS is more typically associated with myocarditis. -Repeat lipid panel -Start crestor 20mg every day -Start metoprolol tartrate 12.5mg BID -Continue aspirin 81mg every day -Plan for cardiac cath this admission -SLN 0.8mg PRN chest pain -ESR/CRP -A1c -TSH as in #hyperthyroidism Dysphagia 03/16/2025 03/29/2025 Assessment & Plan (03/28/2025 10:26 AM EDT): PEG tube was placed in 11/2024 for dysphagia. At presentation he was on a modified diet and has not been using the G-tube. Per discussion with staff at patient's rehab facility, patient was scheduled to have the G-tube removed on 03/14, but the appointment was canceled for unclear reason. - HORIZONTAL RESAW OPERATOR and MBS completed. -Continued on modified diet: regular liquids, soft and bite-size solids -gastric tube removed 03/23 Assessment & Plan (03/27/2025 10:58 AM EDT): PEG tube was placed in 11/2024 for dysphagia. At presentation he was on a modified diet and has not been using the G-tube. Per discussion with staff at patient's rehab facility, patient was scheduled to have the G-tube removed on 03/14, but the appointment was canceled for unclear reason. - HORIZONTAL RESAW OPERATOR and MBS completed. -Continued on modified diet: regular liquids, soft and bite-size solids -gastric tube removed 03/23 Assessment & Plan (03/26/2025 11:33 AM EDT): PEG tube was placed in 11/2024 for dysphagia. At presentation he was on a modified diet and has not been using the G-tube. Per discussion with staff at patient's rehab facility, patient was scheduled to have the G-tube removed on 03/14, but the appointment was canceled for unclear reason. - HORIZONTAL RESAW OPERATOR and MBS completed. -Continued on modified diet: regular liquids, soft and bite-size solids -gastric tube removed 03/23 Assessment & Plan (03/25/2025 2:15 PM EDT): PEG tube was placed in 11/2024 for dysphagia. At presentation he was on a modified diet and has not been using the G-tube. Per discussion with staff at patient's rehab facility, patient was scheduled to have the G-tube removed on 03/14, but the appointment was canceled for unclear reason. - HORIZONTAL RESAW OPERATOR and MBS completed. -Continued on modified diet: regular liquids, soft and bite-size solids -gastric tube removed 03/23 Assessment & Plan (03/24/2025 3:46 PM EDT): PEG tube was placed in 11/2024 for dysphagia. At presentation he was on a modified diet and has not been using the G-tube. Per discussion with staff at patient's rehab facility, patient was scheduled to have the G-tube removed on 03/14, but the appointment was canceled for unclear reason. - HORIZONTAL RESAW OPERATOR and MBS completed. -Continued on modified diet: regular liquids, soft and bite-size solids -gastric tube removed 03/23 Assessment & Plan (03/23/2025 5:05 PM EDT): PEG tube was placed in 11/2024 for dysphagia. He is currently on a modified diet and has not been using the G-tube. Per discussion with staff at patient's rehab facility, patient was scheduled to have the G-tube removed on 03/14, but the appointment was canceled for unclear reason. - HORIZONTAL RESAW OPERATOR and MBS completed. Continued on modified diet: regular liquids, soft and bite-size solids -gastric tube removed 03/23 Assessment & Plan (03/22/2025 2:51 PM EDT): PEG tube was placed in 11/2024 for dysphagia. He is currently on a modified diet and has not been using the G-tube. Per discussion with staff at patient's rehab facility, patient was scheduled to have the G-tube removed on 03/14, but the appointment was canceled for unclear reason. - HORIZONTAL RESAW OPERATOR and MBS completed. Continued on modified diet: regular liquids, soft and bite-size solids Continue to review the removal of the Gastric tube as patient is unable to feed himself. Review with RD, case management before removal decision is made to ensure he is able to maintain his nutrition without the G-tube. IR consulted and following- s/p X-ray KUB today. Assessment & Plan (03/21/2025 11:38 AM EDT): PEG tube was placed in 11/2024 for dysphagia. He is currently on a modified diet and has not been using the G-tube. Per discussion with staff at patient's rehab facility, patient was scheduled to have the G-tube removed on 03/14, but the appointment was canceled for unclear reason. - HORIZONTAL RESAW OPERATOR and MBS completed. Continued on modified diet: regular liquids, soft and bite-size solids Continue to review the removal of the Gastric tube as patient is unable to feed himself. Review with RD, case management before removal decision is made to ensure he is able to maintain his nutrition without the G-tube. Assessment & Plan (03/20/2025 5:14 PM EDT): PEG tube was placed in 11/2024 for dysphagia. He is currently on a modified diet and has not been using the G-tube. Per discussion with staff at patient's rehab facility, patient was scheduled to have the G-tube removed on 03/14, but the appointment was canceled for unclear reason. -Continued on modified diet: [employer] thickened liquids, soft and bite-size solids - HORIZONTAL RESAW OPERATOR and MBS completed. Patient cleared for regular diet and clear liquids - consulted IR as patient and family wants his peg tube out Assessment & Plan (03/19/2025 4:34 PM EDT): PEG tube was placed in 11/2024 for dysphagia. He is currently on a modified diet and has not been using the G-tube. Per discussion with staff at patient's rehab facility, patient was scheduled to have the G-tube removed on 03/14, but the appointment was canceled for unclear reason. -Continued on modified diet: [employer] thickened liquids, soft and bite-size solids - HORIZONTAL RESAW OPERATOR and MBS completed. Patient cleared for regular diet and clear liquids - consulted IR as patient and family wants his peg tube out Assessment & Plan (03/18/2025 3:36 PM EDT): PEG tube was placed in 11/2024 for dysphagia. He is currently on a modified diet and has not been using the G-tube. Per discussion with staff at patient's rehab facility, patient was scheduled to have the G-tube removed on 03/14, but the appointment was canceled for unclear reason. -Continued on modified diet: [employer] thickened liquids, soft and bite-size solids - HORIZONTAL RESAW OPERATOR and MBS completed. Patient cleared for regular diet and clear liquids - consulted IR as patient and family wants his peg tube out Assessment & Plan (03/17/2025 3:10 PM EDT): PEG tube was placed in 11/2024 for dysphagia. He is currently on a modified diet and has not been using the G-tube. Per discussion with staff at patient's rehab facility, patient was scheduled to have the G-tube removed on 03/14, but the appointment was canceled for unclear reason. -Continued on modified diet: [employer] thickened liquids, soft and bite-size solids - HORIZONTAL RESAW OPERATOR and MBS completed. Patient cleared for regular diet and clear liquids - consult surgery for G tube removal Assessment & Plan (03/16/2025 11:19 PM EDT): PEG tube was placed in 11/2024 for dysphagia. He is currently on a modified diet and has not been using the G-tube. Per discussion with staff at patient's rehab facility, patient was scheduled to have the G-tube removed on 03/14, but the appointment was canceled for unclear reason. -Continued on modified diet: [employer] thickened liquids, soft and bite-size solids - HORIZONTAL RESAW OPERATOR consult - Patient will need to be scheduled for removal of G-tube Diabetes insipidus 03/16/2025 Assessment & Plan (03/28/2025 10:26 AM EDT): During his prior hospitalization received DDAVP for suspected diabetes insipidus; DDAVP was discontinued prior to hospital discharge. Sodium level remained WNL. Assessment & Plan (03/27/2025 10:58 AM EDT): During his prior hospitalization received DDAVP for suspected diabetes insipidus; DDAVP was discontinued prior to hospital discharge. Sodium level remained WNL. Assessment & Plan (03/26/2025 11:33 AM EDT): During his prior hospitalization received DDAVP for suspected diabetes insipidus; DDAVP was discontinued prior to hospital discharge. Sodium level remained WNL. Assessment & Plan (03/25/2025 2:15 PM EDT): During his prior hospitalization received DDAVP for suspected diabetes insipidus; DDAVP was discontinued prior to hospital discharge. Sodium level remained WNL. Assessment & Plan (03/24/2025 3:46 PM EDT): During his prior hospitalization received DDAVP for suspected diabetes insipidus; DDAVP was discontinued prior to hospital discharge. Sodium level remained WNL. Assessment & Plan (03/23/2025 5:05 PM EDT): During his prior hospitalization received DDAVP for suspected diabetes insipidus; DDAVP was discontinued prior to hospital discharge. Sodium level remained WNL. Assessment & Plan (03/22/2025 12:57 PM EDT): During his prior hospitalization received DDAVP for suspected diabetes insipidus; DDAVP was discontinued prior to hospital discharge. Sodium level WNL. - Monitor BMP Assessment & Plan (03/21/2025 11:38 AM EDT): During his prior hospitalization received DDAVP for suspected diabetes insipidus; DDAVP was discontinued prior to hospital discharge. Sodium level WNL. - Monitor BMP Assessment & Plan (03/20/2025 5:14 PM EDT): During his prior hospitalization received DDAVP for suspected diabetes insipidus; DDAVP was discontinued prior to hospital discharge. Sodium level WNL. - Monitor BMP Assessment & Plan (03/19/2025 4:34 PM EDT): During his prior hospitalization received DDAVP for suspected diabetes insipidus; DDAVP was discontinued prior to hospital discharge. Sodium level WNL. - Monitor BMP Assessment & Plan (03/18/2025 3:36 PM EDT): During his prior hospitalization received DDAVP for suspected diabetes insipidus; DDAVP was discontinued prior to hospital discharge. Sodium level WNL. - Monitor BMP Assessment & Plan (03/17/2025 3:10 PM EDT): During his prior hospitalization received DDAVP for suspected diabetes insipidus; DDAVP was discontinued prior to hospital discharge. Sodium level WNL. - Monitor BMP Assessment & Plan (03/16/2025 10:48 PM EDT): During his prior hospitalization received DDAVP for suspected diabetes insipidus; DDAVP was discontinued prior to hospital discharge. Sodium level WNL. - Monitor BMP Fall 03/16/2025 03/29/2025 Assessment & Plan (03/28/2025 10:26 AM EDT): Patient's daughter reports that the patient was dropped by staff at patient's rehab facility on the day prior to presentation. Patient reports that he fell out of bed and hit his head. Head CT without acute intracranial process. Staff at the [facility] was called for collateral information; there was no documentation of a fall during the course of his admission to their facility. On follow up discussions daughter reported that the fall was 3 months ago. Complaining of right shoulder pain -> MRI obtained. Results showed rotator cuff tendinopathy with probable partial thickness supraspinatus tear and mild acromioclavicular degenerative arthropathy. OT consulted. Patient/daughter advised that conservative management is usual approach for partial tear. [facility] outpatient ortho appointment if pain not resolving. - Continue home pain medications per chronic pain section Assessment & Plan (03/27/2025 10:58 AM EDT): Patient's daughter reports that the patient was dropped by staff at patient's rehab facility on the day prior to presentation. Patient reports that he fell out of bed and hit his head. Head CT without acute intracranial process. Staff at the [facility] was called for collateral information; there was no documentation of a fall during the course of his admission to their facility. On follow up discussions daughter reported that the fall was 3 months ago. Complaining of right shoulder pain -> MRI obtained. Results showed rotator cuff tendinopathy with probable partial thickness supraspinatus tear and mild acromioclavicular degenerative arthropathy. OT consulted. Patient/daughter advised that conservative management is usual approach for partial tear. [facility] outpatient ortho appointment if pain not resolving. - Continue home pain medications per chronic pain section Assessment & Plan (03/26/2025 11:33 AM EDT): Patient's daughter reports that the patient was dropped by staff at patient's rehab facility on the day prior to presentation. Patient reports that he fell out of bed and hit his head. Head CT without acute intracranial process. Staff at the [facility] was called for collateral information; there was no documentation of a fall during the course of his admission to their facility. On follow up discussions daughter reported that the fall was 3 months ago. Complaining of right shoulder pain -> MRI obtained. Results showed rotator cuff tendinopathy with probable partial thickness supraspinatus tear and mild acromioclavicular degenerative arthropathy. OT consulted. Patient/daughter advised that conservative management is usual approach for partial tear. [facility] outpatient ortho appointment if pain not resolving. - Continue home pain medications per chronic pain section Assessment & Plan (03/25/2025 2:15 PM EDT): Patient's daughter reports that the patient was dropped by staff at patient's rehab facility on the day prior to presentation. Patient reports that he fell out of bed and hit his head. Head CT without acute intracranial process. Staff at the [facility] was called for collateral information; there was no documentation of a fall during the course of his admission to their facility. On follow up discussions daughter reported that the fall was 3 months ago. Complaining of right shoulder pain -> MRI obtained. Results showed rotator cuff tendinopathy with probable partial thickness supraspinatus tear and mild acromioclavicular degenerative arthropathy. OT consulted. Patient/daughter advised that conservative management is usual approach for partial tear. Recc outpatient ortho appointment if pain not resolving. - Continue home pain medications per chronic pain section Assessment & Plan (03/24/2025 3:46 PM EDT): Patient's daughter reports that the patient was dropped by staff at patient's rehab facility on the day prior to presentation. Patient reports that he fell out of bed and hit his head. Head CT without acute intracranial process. Staff at the [facility] was called for collateral information; there was no documentation of a fall during the course of his admission to their facility. Complaining of right shoulder pain and family notified me that he had a tear in his right shoulder which needed further imaging MRI. Results showed rotator cuff tendinopathy with probable partial thickness supraspinatus tear and mild acromioclavicular degenerative arthropathy. OT consulted. - Continue home pain medications Assessment & Plan (03/23/2025 5:05 PM EDT): Patient's daughter reports that the patient was dropped by staff at patient's rehab facility on the day prior to presentation. Patient reports that he fell out of bed and hit his head. Head CT without acute intracranial process. Staff at the [facility] was called for collateral information; there was no documentation of a fall during the course of his admission to their facility. Complaining of right shoulder pain and family notified me that he had a tear in his right shoulder which needed further imaging MRI. Results showed rotator cuff tendinopathy with probable partial thickness supraspinatus tear and mild acromioclavicular degenerative arthropathy. - Continue home medications Assessment & Plan (03/22/2025 12:57 PM EDT): Patient's daughter reports that the patient was dropped by staff at patient's rehab facility on the day prior to presentation. Patient reports that he fell out of bed and hit his head. Head CT without acute intracranial process. Staff at the [facility] was called for collateral information; there was no documentation of a fall during the course of his admission to their facility. Complaining of right shoulder pain and family notified me that he had a tear in his right shoulder which needed further imaging MRI. Results showed rotator cuff tendinopathy with probable partial thickness supraspinatus tear and mild acromioclavicular degenerative arthropathy. - Continue home medications Assessment & Plan (03/21/2025 11:38 AM EDT): Patient's daughter reports that the patient was dropped by staff at patient's rehab facility on the day prior to presentation. Patient reports that he fell out of bed and hit his head. Head CT without acute intracranial process. Staff at the [facility] was called for collateral information; there was no documentation of a fall during the course of his admission to their facility. Complaining of right shoulder pain and family notified me that he had a tear in his right shoulder which needed further imaging MRI. Results showed rotator cuff tendinopathy with probable partial thickness supraspinatus tear and mild acromioclavicular degenerative arthropathy. - Continue home medications Assessment & Plan (03/20/2025 5:14 PM EDT): Patient's daughter reports that the patient was dropped by staff at patient's rehab facility on the day prior to presentation. Patient reports that he fell out of bed and hit his head. Head CT without acute intracranial process. Staff at the [facility] was called for collateral information; there was no documentation of a fall during the course of his admission to their facility. Complaining of right shoulder pain and family notified me that he had a tear in his right shoulder which needed further imaging MRI. Results showed rotator cuff tendinopathy with probable partial thickness supraspinatus tear and mild acromioclavicular degenerative arthropathy. - Continue home medications Assessment & Plan (03/19/2025 4:34 PM EDT): Patient's daughter reports that the patient was dropped by staff at patient's rehab facility on the day prior to presentation. Patient reports that he fell out of bed and hit his head. Head CT without acute intracranial process. Staff at the [facility] was called for collateral information; there was no documentation of a fall during the course of his admission to their facility. Complaining of right shoulder pain and family notified me that he had a tear in his right shoulder which needed further imaging MRI and has not been done. - get MRI of right shoulder - continue home medications Assessment & Plan (03/18/2025 3:36 PM EDT): Patient's daughter reports that the patient was dropped by staff at patient's rehab facility on the day prior to presentation. Patient reports that he fell out of bed and hit his head. Head CT without acute intracranial process. Staff at the [facility] was called for collateral information; there was no documentation of a fall during the course of his admission to their facility. Complaining of right shoulder pain and family notified me that he had a tear in his right shoulder which needed further imaging MRI and has not been done. - get MRI of right shoulder - continue home medications Assessment & Plan (03/17/2025 3:10 PM EDT): Patient's daughter reports that the patient was dropped by staff at patient's rehab facility on the day prior to presentation. Patient reports that he fell out of bed and hit his head. Head CT without acute intracranial process. Staff at the [facility] was called for collateral information; there was no documentation of a fall during the course of his admission to their facility. Complaining of right shoulder pain and family notified me that he had a tear in his right shoulder which needed further imaging MRI and has not been done. - get MRI of right shoulder - continue home medications Assessment & Plan (03/16/2025 11:19 PM EDT): Patient's daughter reports that the patient was dropped by staff at patient's rehab facility on the day prior to presentation. Patient reports that he fell out of bed and hit his head. Head CT without acute intracranial process. Staff at the [facility] was called for collateral information; there was no documentation of a fall during the course of his admission to their facility. - ibuprofen as needed for pain Drug-induced tardive dystonia 03/16/2025 03/29/2025 Assessment & Plan (03/28/2025 10:26 AM EDT): Mood stable. Continue home lithium 300 mg twice daily; lithium a.m. level low at 0.5 mg on 03/16 Continue home duloxetine 60 mg daily Continue home quetiapine 100 mg nightly Continue home trazodone 100 mg nightly Assessment & Plan (03/27/2025 10:58 AM EDT): Mood stable. Continue home lithium 300 mg twice daily; lithium a.m. level low at 0.5 mg on 03/16 Continue home duloxetine 60 mg daily Continue home quetiapine 100 mg nightly Continue home trazodone 100 mg nightly Assessment & Plan (03/26/2025 11:33 AM EDT): Mood stable. Continue home lithium 300 mg twice daily; lithium a.m. level low at 0.5 mg on 03/16 Continue home duloxetine 60 mg daily Continue home quetiapine 100 mg nightly Continue home trazodone 100 mg nightly Assessment & Plan (03/25/2025 2:15 PM EDT): Mood stable. Continue home lithium 300 mg twice daily; lithium a.m. level low at 0.5 mg on 03/16 Continue home duloxetine 60 mg daily Continue home quetiapine 100 mg nightly Continue home trazodone 100 mg nightly Assessment & Plan (03/24/2025 3:46 PM EDT): Mood stable. Continue home lithium 300 mg twice daily; lithium a.m. level low at 0.5 mg on 03/16 Continue home duloxetine 60 mg daily Continue home quetiapine 100 mg nightly Continue home trazodone 100 mg nightly Assessment & Plan (03/23/2025 5:05 PM EDT): Mood stable. Continue home lithium 300 mg twice daily; lithium a.m. level low at 0.5 mg on 03/16 Continue home duloxetine 60 mg daily Continue home quetiapine 100 mg nightly Continue home trazodone 100 mg nightly Assessment & Plan (03/22/2025 12:57 PM EDT): Continue home lithium 300 mg twice daily; lithium a.m. level low at 0.5 mg on 03/16 Continue home duloxetine 60 mg daily Continue home quetiapine 100 mg nightly Continue home trazodone 100 mg nightly Assessment & Plan (03/21/2025 11:38 AM EDT): Continue home lithium 300 mg twice daily; lithium a.m. level low at 0.5 mg on 03/16 Continue home duloxetine 60 mg daily Continue home quetiapine 100 mg nightly Continue home trazodone 100 mg nightly Assessment & Plan (03/20/2025 5:14 PM EDT): Continue home lithium 300 mg twice daily; lithium a.m. level low at 0.5 mg on 03/16 Continue home duloxetine 60 mg daily Continue home quetiapine 100 mg nightly Continue home trazodone 100 mg nightly Assessment & Plan (03/19/2025 4:34 PM EDT): Continue home lithium 300 mg twice daily; lithium a.m. level low at 0.5 mg on 03/16 Continue home duloxetine 60 mg daily Continue home quetiapine 100 mg nightly Continue home trazodone 100 mg nightly Assessment & Plan (03/18/2025 3:36 PM EDT): Continue home lithium 300 mg twice daily; lithium a.m. level low at 0.5 mg on 03/16 Continue home duloxetine 60 mg daily Continue home quetiapine 100 mg nightly Continue home trazodone 100 mg nightly Assessment & Plan (03/17/2025 3:10 PM EDT): Continue home lithium 300 mg twice daily; lithium a.m. level low at 0.5 mg on 03/16 Continue home duloxetine 60 mg daily Continue home quetiapine 100 mg nightly Continue home trazodone 100 mg nightly Assessment & Plan (03/16/2025 10:48 PM EDT): Continue home lithium 300 mg twice daily; lithium a.m. level low at 0.5 mg on 03/16 Continue home duloxetine 60 mg daily Continue home quetiapine 100 mg nightly Continue home trazodone 100 mg nightly Methicillin susceptible Stap hylococcus aureus infection 01/27/2025 06/30/2025 Elevated CSF protein 12/01/2024 025 Seizure 10/24/2015 06/30/2025 Heart murmur 04/08/2025 Encounters * This document contains information received from the source organization and may not represent a complete record from that organization. Date Type Department Care Team Description 09/13/2025 myChart Message [facility] Primary [facility] [address] [place] [address] [phone] Heena Oneill MD Referral for Partial Rotator Cuff Tear 09/12/2025 Results Follow-Up [facility] [address] [facility], [place] [address] Shipwright Helper: Mae Vaca PA 09/12/2025 Refill [facility] [address] [place] [address] [phone] Heena Oneill MD Gastroesophageal reflux disease without esophagitis 09/06/2025 Telephone [facility] [address] [place] [phone] Telephone Intake, Staff ATI asking for OT to be added 09/05/2025 1:30 PM EST Office Visit [facility] [address]th [address] 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 09/05/2025 Refill [facility] [address] [place] [address] [phone] Brian Smith MD Schizoaffective disorder, unspecified type 08/30/2025 Refill [facility] [address] [place] [address] [phone] Laila Tobias MD Wernicke encephalopathy 08/29/2025 Refill [facility] [address] [place] [address] [phone] Heena Oneill MD Chronic pain disorder 08/29/2025 Refill [facility] [address] [place] [address] [phone] Heena Oneill MD Seizure disorder 08/29/2025 myChart Message [facility] [address] [place] [address] [phone] Heena Oneill MD Referral 08/26/2025 Telephone [facility] [address] [place] [address] [phone] Telephone Intake, Staff notes and medication list needed 08/24/2025 Refill [facility] Care [address] [place] [address] [phone] Jose Finney MD Wernicke encephalopathy 08/23/2025 Refill [facility] [address] [place] [address] [phone] Heena Oneill MD Schizoaffective disorder, unspecified type ; Wernicke encephalopathy 08/23/2025 Telephone [facility] [address] [place] [address] [phone] Telephone Intake, Staff FYI, auth form 08/11/2025 Refill [facility] [address] [place] [address] [phone] Heena Oneill MD Schizoaffective disorder, unspecified type 08/11/2025 Refill [facility] [address] [place] [address] [phone] Heena Oneill MD Tobacco use disorder 08/01/2025 Refill [facility] [address] [place] [address] [phone] Heena Oneill MD Chronic pain disorder 07/29/2025 3:30 PM EDT Clinical Support [facility] [address] [place] [phone] Shipwright Helper: Anneliese Jernigan LPN Urinary retention (Primary Dx) 07/28/2025 2:45 PM EDT Follow-Up [facility] [address] [place] [phone] Heena Oneill MD Quadriparesis (Primary Dx); Schizoaffective disorder, unspecified type ; Seizure disorder ; 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; Chronic pain disorder; Acne vulgaris; Guillain Darnell syndrome (HCC); Wernicke encephalopathy; Neurogenic bladder; Lezama catheter present; Onychomycosis 07/27/2025 Refill [facility] [address] [place] [phone] Heena Oneill MD Schizoaffective disorder, unspecified type 07/25/2025 Refill [facility] [address] [place] [phone] Heena Oneill MD 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 07/21/2025 Telephone [facility] [address] [place] [phone] Telephone Intake, Staff would like referral resent to [facility] urology 07/14/2025 Telephone [facility] [address] [place] [phone] Telephone Intake, Staff 4 referrals faxed 07/14/2025 myChart Message [facility] [address] [place] [phone] Heena Oneill MD Referrals 07/11/2025 myChart Message [facility] [address] [place] [phone] Corrina Hdz, [facility] Appointment and Community Resources 07/06/2025 Telephone [facility] [address] [place] [phone] Telephone Intake, Staff AT asking for call back 07/05/2025 Telephone [facility] Cardiology at [facility] [address] [place] [address] Deanne Drake NP 07/04/2025 Refill [facility] [address] [place] [phone] Heena Oneill MD Schizoaffective disorder, unspecified type (HCC) 07/04/2025 Telephone [facility] [address] [place] [phone] Telephone Intake, Staff 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 07/01/2025 4:00 PM EDT Office Visit [facility] 4th floor Cardiology Medicine [address] [place] [phone] Shipwright Helper: Lucas Robles MD 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 (Primary Dx); Mixed hyperlipidemia; Tobacco use disorder 07/01/2025 Results Follow-Up [address] [address] Wilton Myers MD 07/01/2025 Refill [facility] [address] [place] [address] [phone] Jose Finney MD 06/30/2025 2:00 PM EDT Office Visit [facility] [address] [place] [address] [phone] Heena Oneill MD Guillain Darnell syndrome (HCC) (Primary Dx); Seizure disorder (HCC); Chronic pain disorder; Wernicke encephalopathy; Moderate persistent asthma without complication (HCC); Mixed hyperlipidemia; Schizoaffective disorder, unspecified type (HCC); Diabetes insipidus (HCC); 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; Hyperthyroidism; Vitamin D deficiency; Pyelonephritis of right kidney; Gastroesophageal reflux disease without esophagitis; Lezama catheter present; Neurogenic bladder; Chronic constipation; Onychomycosis; Quadriparesis (HCC); Tobacco use disorder 06/30/2025 Refill [facility] [address] [place] [phone] Henea Oneill MD 06/29/2025 10:00 AM EDT Office Visit [facility] [address] [place] [address] Jun Agudelo MD Guillain Darnell syndrome (HCC) (Primary Dx); Quadriparesis (HCC); Neurogenic bladder; Polysubstance use disorder; Other schizoaffective disorders (HCC) 06/22/2025 6:31 PM EDT - 06/23/2025 5:08 AM EDT Emergency [facility] Emergency Department [address] [place] [phone] Jonas Stanley MD Lieu, Amanda, MD Chest wall pain (Primary Dx) Discharge Disposition: Home or Self Care () 06/22/2025 11:00 AM EDT Office Visit [facility] [address] [place] [address] Shipwright Helper: Ester Marcelino NP Urinary retention (Primary Dx) 06/22/2025 Telephone [facility] Cardiology [address] [place] [phone] Ronda Springer NP 06/21/[address] floor Cardiology Medicine [address] [place] [phone] Shipwright Helper: Narda Milton Telephone Intake, Staff PAC Appt Request - Established 06/20/2025 4:00 PM EDT - 06/20/2025 5:14 PM EDT Surgery [facility] Heart and Vascular Interventional Lab [address] [place] [address] Jone Oliver MD Coronary angiography 06/17/2025 2:13 PM EDT - 06/21/2025 2:25 PM EDT Hospital Encounter [facility] [address] [place] [address] Jose J Malin MD Hegde, Shruti, MD Chest pain (Primary Dx); Chest pain, unspecified type; Unstable angina (HCC) Discharge Disposition: Retirement Facility (03) from Last 3 Months Immunizations Immunization Administration Dates Next Due Influenza trivalent, PF MDCK (FLUCELVAX) vaccine 0.5 mL IM (for age 6 mo and older) 10/09/2019 Tuberculin Skin Test; Unspecified Formulation Family History Medical History Relation Name Comments Heart disease Brother 1 at age 12 Substance Abuse Brother 2 due to overdose No Known Problems Brother 3 No Known Problems Brother 4 Asthma Daughter Cancer Father ? type No Known Problems Sister 1 No Known Problems Sister 2 Geetha Autoimmune disease Neg Hx Thyroid disease Neg Hx Relation Name Status Comments Brother 1 Brother 2 Brother 3 Alive Brother 4 Alive Daughter Alive Father Mother Unknown Sister 1 Alive Sister 2 Geetha Alive Social History Tobacco Use Types Packs/Day Years Used Date Smoking Tobacco: Every Day Cigarettes Smokeless Tobacco: Never Tobacco Cessation:Ready to Q uit: Not Asked; Counseling Given: Not Answered Alcohol Use Standard Drinks/Week Comments Not Currently [...] have money to get more. Patient declined [facility] Utilities Answer Date Recorded In the past 12 months has th e electric, gas, oil, or water company [...] PM EDT Sexual Orientation Not on file Last Filed Vital Signs Vital Sign Reading Time Taken Comments Blood Pressure 116/80 07/29/2025 3:26 PM EDT Pulse 79 07/29/2025 3:26 PM EDT Temperature 36.9 C (98.5 F) 06/22/2025 6:41 PM EDT Respiratory Rate 18 07/01/2025 4:02 PM EDT Oxygen Saturation 95% 07/01/2025 4:02 PM EDT Inhaled Oxygen Concentration - - Weight 83.9 kg (185 lb) 06/18/2025 9:46 PM EDT Height 180.3 cm (5' 11 ) 06/18/2025 9:46 PM EDT Body Mass Index 25.8 06/18/2025 9:46 PM EDT Plan of Treatment Upcoming Encounters Date Type Department Care Team (Late st Contact Info) Description 10/14/2025 4:20 PM EST Follow-Up [facility] Endocrinology Clinic [address] [place] [phone] Shipwright Helper: Maria Alejandra Gardiner MD [address] [place] [phone] 04/25/2026 9:45 [place] [address] Health Maintenance Due Date Last Done Comments HIV Screening 1981 Hepatitis C Screening 1981 Medicare AWV 1982 Varicella Vaccines (1 of 2 - 13+ 2-dose series) 1994 Hepatitis B Vaccines (1 of 3 - 19+ 3-dose series) 2000 Pneumococcal Vaccine: Pediat blanche (0-5 Years) and At-Risk Patients (6-50 Years) (1 of 2 - PCV) 2000 DTaP,Tdap,and Td Vaccines (1 - Tdap) 2003 Alcohol/Substance Use Screening 10/27/2024 Influenza Vaccine (#1) 2025 10/09/2019 COVID-19 Vaccine (1 - 2024-2 6 season) 2025 Social Drivers of Health Connie ual Screening 06/18/2026 06/18/2025 Depression Screening and Follow-Up 06/30/20262024 Diabetes Screening 06/22/2028 06/22/2025, 0 06/21/2025, 06/20/2025, Additional history exists Abdominal Aortic Aneurysm (A AA) Screening Completed 04/18/2025, 04/15/2025, 02/16/2025, Additional history exists Medical Devices Implanted Type Area Heavy Equipment Operator/Paver Device Identifier Shelf Expiration Date Model / Serial / Lot Stent Coronary Drug Eluting Sirolimus Rapid Exchange Biolute Pro[employer] Coating Cocr [id number] [facility] S00 - [id number] Implanted:Qty: 1 on 06/20/2025 by Jone Oliver MD at [facility] Stent N/A: Coronary Biotronik [id number] 02/21/2028 [id number] 00 / [id number] Procedures * Due to [place] state law, this organization might not be sharing negative HIV tests. Procedure Name Priority Date/Time Associated Diagnosis Comments FUNGUS CULTURE W/STAIN, SKIN/HAIR/NAILS Routine 09/05/2025 2:56 PM EST Nail dystrophy HC 025080 BAG SECURITY CONTOURED LAEG 600ML Routine 07/29/2025 3:30 PM EDT Urinary retention HC 938848 BARD CATHETER TRAY Routine 07/29/2025 3:30 PM EDT Urinary retention HC 390329 CATHETER LEZAMA BARD 16 FR 5 CC Routine 07/29/2025 3:30 PM EDT Urinary retention HC INSERTION OF TEMPORARY INDWELLING BLADDER CATHETER SIMPLE Routine 07/29/2025 3:30 PM EDT Urinary retention ECG 12-LEAD Routine 07/01/2025 4:06 PM EDT Mixed hyperlipidemia VITAMIN B1 (THIAMINE), PLASMA Routine 06/30/2025 4:07 PM EDT Wernicke encephalopathy VITAMIN D, 25-HYDROXY, TOTAL, IMMUNOASSAY Routine 06/30/2025 4:07 PM EDT Chronic pain disorder Vitamin D deficiency TSH REFLEX FREE T4 Routine 06/30/2025 4: 07 PM EDT Chronic pain disorder Hyperthyroidism LIPID PANEL Routine 06/30/2025 4:07 PM EDT Mixed hyperlipidemia 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 TROPONIN T HIGH SENSITIVITY STAT 06/22/2025 9:43 PM EDT XR CHEST 1 VW STAT 06/22/2025 8:55 PM EDT ECG 12-LEAD STAT 06/22/2025 8:30 PM EDT CBC AUTO DIFFERENTIAL STAT 06/22/2025 8:00 PM EDT TROPONIN T HIGH SENSITIVITY STAT 06/22/2025 8:00 PM EDT COMPREHENSIVE METABOLIC PANEL STAT 06/22/2025 8:00 PM EDT CATHETER CHANGE Routine 06/22/2025 11:00 AM EDT Urinary retention HEART & VASCULAR - SCANNED 06/22/2025 MAGNESIUM Routine 06/21/2025 4:27 AM EDT COMPREHENSIVE METABOLIC PANEL Routine 06/21/2025 4:27 AM EDT CBC AUTO DIFFERENTIAL Routine 06/21/2025 4:27 AM EDT CARDIAC CATHETERIZATION Routine 06/20/2025 5:23 PM EDT Chest pain, unspecified type CARDIAC CATHETERIZATION Routine 06/20/2025 5:23 PM EDT Chest pain, unspecified type CARDIAC CATHETERIZATION Routine 06/20/2025 5:23 PM EDT Chest pain, unspecified type CARDIAC CATHETERIZATION Routine 06/20/2025 5:23 PM EDT Chest pain, unspecified type ECG 12-LEAD Routine 06/20/2025 5:17 PM EDT POCT I-STAT ACTIVATED CLOTTING TIME Routine 06/20/2025 5:06 PM EDT POCT I-STAT ACTIVATED CLOTTING TIME Routine 06/20/2025 4:44 PM EDT SMEAR REVIEW Routine 06/20/2025 6:54 AM EDT MAGNESIUM Routine 06/20/2025 6:54 AM EDT COMPREHENSIVE METABOLIC PANEL Routine 06/20/2025 6:54 AM EDT CBC AUTO DIFFERENTIAL Routine 06/20/2025 6:54 AM EDT POCT GLUCOSE Routine 06/19/2025 11:51 AM EDT CBC AUTO DIFFERENTIAL Routine 06/19/2025 6:28 AM EDT HEMOGLOBIN A1C Routine 06/19/2025 6:28 AM EDT SEDIMENTATION RATE, AUTOMATED Routine 06/19/2025 6:28 AM EDT TSH Add-On 06/19/2025 6:27 AM EDT MAGNESIUM Routine 06/19/2025 6:27 AM EDT COMPREHENSIVE METABOLIC PANEL Routine 06/19/2025 6:27 AM EDT C-REACTIVE PROTEIN Routine 06/19/2025 6: 27 AM EDT LIPID PANEL W/REFLEX TO DIRECT LDL Routine 06/19/2025 6:[address] CARDIAC CORONARY AND CALCIUM SCORING STAT 06/18/2025 2:[address] ABDOMEN PELVIS W CONTRAST STAT 04/18/2025 8:52 PM EDT from Last 3 Months or Most Recently Relevant to Health Maintenance Results * Due to [place] state law, this organization might not be sharing negative HIV tests. * HC INSERTION OF TEMPORARY INDWELLING BLADDER CATHETER [place], [place] 585110 CATHETER LEZAMA BARD 16 FR 5CC, HC 414719 BARD CATHETER TRAY, [place] 750661 BAG SECURITY CONTOURED LAEG 600ML (07/29/2025 3:30 PM EDT) Anneliese Robison LPN - 07/29/2025 3:30 PM EDT Anneliese Huffman LPN 07/29/2025 4:01 PM Bladder Catheterization Performed by: Anneliese Huffman LPN Authorized by: Ester Norris NP Procedure: Catheter Change Patient ID confirmed by name and : Yes Removal: Catheter Type: Lezama Catheter size: 16 Fr Catheter disconected from: Bedside bag Urine characteristics upon removal: Yellow Balloon size (cc's): 10 Ease of Removal: Easy Insertion: Patient prepped with: Betadine solution Catheter insertion type: Indwelling Catheter type: Lezama Catheter size: 16 Fr Complicated insertion: No Ease of Insertion: Easy Balloon size (cc's): 10 mL's of normal saline used for cath irrigation: 60 Urine volume (ml): 100 Urine characteristics: Yellow Catheter attached to: Bedside bag Patient tolerance: Patient tolerated the procedure well with no immediate complications Pt of FATOU Norris was scheduled incorrectly as a nurse visit but was suppose to be booked on FATOU Norris schedule for Follow up. Pt arrived to urology clinic with catheter in place. Pt had catheter in for 6 weeks was placed in ER at OSH. Pt and family expressed that they are also being followed at [facility] urology. Pt had catheter changed today and is flushed and aspirated with return of clear yellow urine. Pt will return in 1 month on [facility] schedule to determine if patient can have another TOV. Pt d/c from clinic Supplies: HC 852717 Catheter Lezama Bard 16 Fr 5 cc HC 298413 Bard Catheter Tray HC 419458 Bag Security Contoured LAEG 600 ml Ester Norris PROTOCOL OFFICER UROLOGY ORDERABLES Final Res ult * ECG 12 lead (07/01/2025 4:06 PM EDT) Only the most recent of3 resultswithin the time period is included. Ventricular Rate EKG 71 BPM MUSE EKG Atrial Rate 71 BPM MUSE EKG VT Interval 182 ms MUSE EKG QRS Interval 96 ms MUSE EKG QT Interval 386 ms MUSE EKG QTC Interval 419 ms MUSE EKG P [place] 31 degrees MUSE EKG R [place] 26 degrees MUSE EKG T Wave [place] 55 degrees MUSE EKG 07/01/2025 4:06 PM EDT 07/06/2025 6:32 AM EDT Impressions MUSE EKG - 07/06/2025 6:32 AM EDT NORMAL SINUS RHYTHM RSR' OR QR PATTERN IN V1 SUGGESTS RIGHT VENTRICULAR CONDUCTION DELAY WHEN COMPARED WITH ECG OF 22-Jun-2025 20:30, NO SIGNIFICANT CHANGE WAS FOUND Confirmed by Jone Soto ([id number]) on 07/06/2025 6:32:55 AM Narrative Procedure Note Jone Soto MD - 07/06/2025 IMPRESSION: NORMAL SINUS RHYTHM RSR' OR QR PATTERN IN V1 SUGGESTS RIGHT VENTRICULAR CONDUCTION DELAY WHEN COMPARED WITH ECG OF 22-Jun-2025 20:30, NO SIGNIFICANT CHANGE WAS FOUND Confirmed by Jone Soto ([id number]) on 07/06/2025 6:32:55 AM Lucas Jordan MD ECG ORDERABLES Final Resu lt MUSE EKG * TSH Reflex Free T4 (06/30/2025 4:07 PM EDT) TSH 2.750 0.280 - 3.890 uIU/mL 06/30/2025 9:34 PM EDT [email or web address] Blood Structure of peripheral vein / Unknown Venipuncture / Unknown 06/30/2025 4:07 PM EDT 06/30/2025 4:07 PM EDT Wilton Myers MD LAB BLOOD ORDERABLES Final Re sult Performing Organization Address City/[facility]/ZIP Co de Phone Number [facility] [address] [place] [address], [place] * Vitamin D 25 hydroxy (06/30/2025 4:07 PM EDT) Calcidiol+ercalc idiol 36 30 - 100 ng/mL 07/01/2025 1:15 AM EDT [facility] Comment: Vitamin D Status 25-OH Vitamin D: Deficiency: <20 ng/mL Insufficiency: 20 - 29 ng/mL Optimal: > or = 30 ng/mL For 25-OH Vitamin D testing on patients on D2-supplementation and patients for whom quantitation of D2 and D3 fractions is required, the QuestAssureD(TM) 25-OH VIT D, (D2,D3), LC/MS/MS is recommended: order code 06616 (patients >2yrs). See Note 1 Note 1 For additional information, please refer to http://education.Sportmeets/faq/EKO598 (This link is being provided for informational/ educational purposes only.) Blood Structure of peripheral vein / Unknown Venipuncture / Unknown 06/30/2025 4:07 PM EDT 06/30/2025 4:07 PM EDT Narrative [facility] [place] - 07/01/2025 1:15 AM EDT [facility] Received Date:[id number] us Wilton Myers MD LAB BLOOD ORDERABLES Final Re sult [facility] [place] [address] [facility] 3rd Floor, [place] [address], [facility] [address], [place] [address], * (ABNORMAL) Vitamin B1 (Thiamine), Plasma (06/30/2025 4:07 PM EDT) Pathologist [facility] Vitamin B1, LCMSMS 134(H) 8 - 30 nmol/L 07/04/2025 11:38 AM EDT [facility] [place]) Comment: Vitamin supplementation within 24 hours prior to blood draw may affect the accuracy of the results. This test was developed and its analytical performance characteristics have been determined by [facility] [place], [place]. It has not been cleared or approved by the U.S. Food and Drug Administration. This assay has been validated pursuant to the CLIA regulations and is used for clinical purposes. Blood Structure of peripheral vein / Unknown Venipuncture / Unknown 06/30/2025 4:07 PM EDT 06/30/2025 4:07 PM EDT Narrative [facility] ([facility]) - 07/04/2025 11:38 AM EDT [facility] Received Date: us Wilton Myers MD LAB BLOOD ORDERABLES [place]) [address] [place] [address], [place] * (ABNORMAL) Lipid panel (06/30/2025 4:07 PM EDT) Pathologist [facility] Cholesterol 156 <=199 mg/dL 06/30/2025 9:37 PM EDT [email or web address] Triglycerides 411(H) <=149 mg/dL 06/30/2025 9:37 PM EDT [email or web address] Cholesterol, HDL 43 40 - 59 mg/dL 06/30/2025 9:37 PM EDT [email or web address] Cholesterol, Non-HDL 113 mg/dL 06/30/2025 9:37 PM EDT [email or web address] LDL Cholesterol [place] [facility] 06/30/2025 9:37 PM EDT [facility] Comment: Unable to calculate due to elevated Triglycerides LDL-C is calculated using the Friedewald calculation. VLDL [place] [facility] 06/30/2025 9:37 PM EDT [facility] Comment: Unable to calculate due to elevated Triglycerides Cholesterol/HDL Ratio 3.6 [place] [facility] 06/30/2025 9:37 PM EDT [facility] ManagementM[facility] Blood Structure of peripheral vein / Unknown Venipuncture / Unknown 06/30/2025 4:07 PM EDT 06/30/2025 4:07 PM EDT Narrative [facility] - 06/30/2025 9:37 PM EDT Adult Treatment Panel III Guidelines of NCEP 2001 Category: Total Cholesterol (mg/dL) Desirable <200 Borderline High 200-239 High >=240 Category: LDL Cholesterol (mg/dL) Optimal <100 Near Optimal/Above Optimal 100-129 Borderline High 130-159 High 160-189 Very High >=190 Category: HDL Cholesterol (mg/dL) Low <40 High >=60 NCEP's Expert Panel on Blood Cholesterol in Children and Adolescents Category: Total Cholesterol (mg/dL) Desirable <170 Borderline High 170-199 High >=200 Category: LDL Cholesterol (mg/dL) Desirable <110 Borderline High 110-129 High >=130 us Wilton Myers MD LAB BLOOD ORDERABLES Final Re sult [facility] [address] [place] [address], * (ABNORMAL) Repeat Troponin #1 (06/22/2025 9:43 PM EDT) Only the most recent of2 resultswithin the time period is included. Troponin T High Sensitivity 103(HH) <=21 ng/L 06/22/2025 10:48 PM EDT [facility]asesAK [facility] Comment: Lc-Eaosbomy-A level of 52 ng/L or higher at 0-hour at presentation is recommended by the ESC 0/1-hour algorithm for identifying patients at high risk for ruling in acute myocardial infarction (AMI) in the appropriate clinical context. Repeat troponin testing 1-3 hours after the initial sample may be helpful in assessing for ongoing myocardial injury. Troponin elevations can be seen in several other non-infarct conditions, and the change (delta) should be evaluated in line with the 4th [place] Definition of AMI. Troponin baseline and serial elevation for a significant delta should be interpreted with clinical presentation, history, signs and symptoms, ECG, and biomarker concentrations. For inpatient setting: Value <12ng/L is considered negative for all genders. 0-1hr: A delta change of <3 will be considered negative/flat if chest pain onset >3 hours 0-3hr: A delta change of <7 will be considered negative/flat Blood Structure of peripheral vein / Unknown 06/22/2025 9:43 PM EDT 06/22/2025 9:43 PM EDT us Jonas Stanley MD LAB BLOOD ORDERABLES Final Re sult [facility] [address] [place] [address], [place] * XR Chest 1 vw (06/22/2025 8:55 PM EDT) Anatomical Region Laterality Modality Body Computed Radiogr aphy 06/22/2025 9:31 PM EDT Impressions 06/22/2025 9:32 PM EDT No acute cardiopulmonary process identified. If this radiology report contains a blank impression section, it is an incomplete radiology report. Please contact the interpreting radiologist or applicable radiology division as soon as possible to obtain the completed interpretation. Workstation ID: [id number] Narrative 06/22/2025 9:32 PM EDT COMPARISON: 06/17/2025. FINDINGS: There is no consolidation. Stable chronic atelectasis or scar at the bilateral lung bases. The cardiac silhouette and mediastinal contours are unremarkable. No pleural effusion or CHF is identified. There is no pneumothorax. Resulting Agency Comment [id number] Procedure Note Reymundo Jerome MD - 06/22/2025 COMPARISON: 06/17/2025. FINDINGS: There is no consolidation. Stable chronic atelectasis or scar at thebilateral lung bases. The cardiac silhouette and mediastinal contours areunremarkable. No pleural effusion or CHF is identified. There is nopneumothorax. IMPRESSION: No acute cardiopulmonary process identified. If this radiology report contains a blank impression section, it is anincomplete radiology report. Please contact the interpreting radiologistor applicable radiology division as soon as possible to obtain thecompleted interpretation. Workstation ID: [id number] us Jonas Stanley MD IMG XR PROCEDURES Final Resul t * (ABNORMAL) CBC Auto Differential (06/22/2025 8:00 PM EDT) Only the most recent of4 resultswithin the time period is included. WBC 9.3 3.8 - 10.8 10*3/uL 06/22/2025 8:10 PM EDT [email or web address] RBC 4.75 4.20 - 5.80 10*6/uL 06/22/2025 8:10 PM EDT [email or web address] Hemoglobin 13.6 13.2 - 17.1 g/dL 06/22/2025 8:10 PM EDT [facility] Hematocrit 42.2 38.5 - 50.0 % 06/22/2025 8:10 PM EDT [facility] MCV 88.8 80.0 - 100.0 fL 06/22/2025 8:10 PM EDT [facility] MCH 28.6 27.0 - 33.0 pg 06/22/2025 8:10 PM EDT [facility] MCHC 32.2 32.0 - 36.0 g/dL 06/22/2025 8:10 PM EDT [email or web address] RDW 13.5 11.0 - 15.0 % 06/22/2025 8:10 PM EDT [email or web address] Platelets 250 140 - 400 10*3/uL 06/22/2025 8:10 PM EDT [email or web address] MPV 10.0 7.5 - 12.5 fL 06/22/2025 8:10 PM EDT [facility] Neutrophil % 64.2 % 06/22/2025 8:10 PM EDT [facility] Immature Grans % 1.3(H) 0.0 - 0.9 % 06/22/2025 8:10 PM EDT [facility] Lymphocyte % 22.9 % 06/22/2025 8:10 PM EDT [facility] Monocyte % 7.8 % 06/22/2025 8:10 PM EDT [facility] Eosinophil % 2.9 % 06/22/2025 8:10 PM EDT [facility] Basophil % 0.9 % 06/22/2025 8:10 PM EDT [facility] Neutrophil # 5.99 1.50 - 7.80 10*3/uL 06/22/2025 8:10 PM EDT [facility] Immature Grans # 0.12(H) <=0.03 10*3/uL 06/22/2025 8:10 PM EDT [facility] Lymphocyte # 2.10 0.85 - 3.90 10*3/uL 06/22/2025 8:10 PM EDT [facility] Monocyte # 0.70 0.20 - 0.95 10*3/uL 06/22/2025 8:10 PM EDT [facility] Eosinophil # 0.30 0.02 - 0.50 10*3/uL 06/22/2025 8:10 PM EDT [facility] Basophil # 0.10 0.00 - 0.20 10*3/uL 06/22/2025 8:10 PM EDT [facility] nRBC % 0.0 /100 WBCs 06/22/2025 8:10 PM EDT [facility] nRBC # <0.01 <0.01 10*3/uL 06/22/2025 8:10 PM EDT [email or web address] Blood Structure of peripheral vein / Unknown Venipuncture / Unknown 06/22/2025 8:00 PM EDT 06/22/2025 8:00 PM EDT us Jonas Stanley MD LAB BLOOD ORDERABLES Final Re sult [facility] [address] [place] [address], * (ABNORMAL) CMP - Comprehensive Metabolic Panel (06/22/2025 8:00 PM EDT) Only the most recent of4 resultswithin the time period is included. NA 141 135 - 145 mmol/L 06/22/2025 8:40 PM EDT [email or web address] K 4.2 3.5 - 5.3 mmol/L 06/22/2025 8:40 PM EDT [email or web address] Cl 103 98 - 107 mmol/L 06/22/2025 8:40 PM EDT [email or web address] CO2 24 22 - 32 mmol/L 06/22/2025 8:40 PM EDT [email or web address] Anion Gap 14 5 - 15 06/22/2025 8:40 PM EDT [email or web address] Glucose 78 65 - 99 mg/dL 06/22/2025 8:40 PM EDT [email or web address] Creatinine 1.25 0.60 - 1.30 mg/dL 06/22/2025 8:40 PM EDT [email or web address] Calcium 9.2 8.6 - 10.5 mg/dL 06/22/2025 8:40 PM EDT [email or web address] Total Protein 7.7 6.0 - 8.0 g/dL 06/22/2025 8:40 PM EDT [email or web address] Albumin 4.1 3.5 - 5.2 g/dL 06/22/2025 8:40 PM EDT [email or web address] Bilirubin, Total 0.2 0.2 - 1.2 mg/dL 06/22/2025 8:40 PM EDT [facility] Alkaline Phosphatase 92 35 - 129 U/L 06/22/2025 8:40 PM EDT [facility] AST 21 10 - 40 U/L 06/22/2025 8:40 PM EDT [facility] ALT 18 10 - 40 U/L 06/22/2025 8:40 PM EDT [email or web address] BUN 13 7 - 23 mg/dL 06/22/2025 8:40 PM EDT [facility] eGFR 73 >=60 mL/min/1. 73m2 06/22/2025 8:40 PM EDT [facility] Comment:The estimated glomer ular filtration rate (eGFR) is calculated using a new formula developed by the NKF-ASN task force to eliminate race-based correction factors. The new formula uses serum/plasma creatinine, age, and gender to determine eGFR. A value below 60mls/min might indicate kidney disease and will be flagged. For additional information, see Toya et al, Am J Kidney Dis. 2021;79(2):268- 288, A Unifying Approach for GFR estimation: Recommendations of the NKF-ASN Task Force on Reassessing the Inclusion of Race in Diagnosing Kidney Disease . Globulin, Total 3.6 2.1 - 4.2 g/dL 06/22/2025 8:40 PM EDT [facility] A/G Ratio 1.1(L) 1.5 - 3.0 06/22/2025 8:40 PM EDT [facility] Blood Structure of peripheral vein / Unknown Venipuncture / Unknown 06/22/2025 8:00 PM EDT 06/22/2025 8:00 PM EDT us Jonas Stanley MD LAB BLOOD ORDERABLES Final Re sult [email or web address] [address] [place] [address], [place] * Bladder Catheterization (06/22/2025 11:00 AM EDT) Narrative Amber Douglas LPN - 06/22/2025 11:00 AM EDT Amber Douglas LPN 06/22/2025 4:31 PM Bladder Catheterization Performed by: Amber Douglas LPN Authorized by: Ester Norris NP Procedure: Catheter Removal Patient ID confirmed by name and : Yes Removal: Catheter Type: Lezama Catheter size: 16 Fr Catheter disconected from: Bedside bag Urine characteristics upon removal: Yellow Patient prepped with: Betadine solution Balloon size (cc's): 10 Ease of Removal: Easy Patient tolerance: Patient tolerated the procedure well with no immediate complications Rey Payan in clinic today for Trial of Void. Consent obtained and patient prepped accordingly for procedure.200 ml of sterile water instilled into the bladder via catheter, then the 10 ml ballon was deflated and catheter removed without complication. Patient voided 200 ml, us Ester Norris NP UROLOGY ORDERABLES Final Res ult * HEART & VASCULAR - SCANNED (06/22/2025) Anatomical Region Laterality Modality Other us Onbase Scan Kedar SCANNED PROCEDURES Final Resu lt * Magnesium (06/21/2025 4:27 AM EDT) Only the most recent of3 resultswithin the time period is included. MG 2.0 1.6 - 2.4 mg/dL 06/21/2025 5:21 AM EDT [email or web address] Blood Structure of peripheral vein / Unknown Venipuncture / Unknown 06/21/2025 4:27 AM EDT 06/21/2025 4:50 AM EDT us Jaye Gill MD LAB BLOOD ORDERABLES Final Resul t [facility] [address] [place] [address], * CORONARY ANGIOGRAPHY, CORONARY INTERVENTION (PCI), LEFT HEART CATHETERIZATION, OPTICAL COHERENCE TOMOGRAPHY (OCT) (06/20/2025 5:23 PM EDT) Anatomical Region Laterality Modality Heart X-Ray Angiograph y Narrative 06/20/2025 5:49 PM EDT Findings: 6F RRA LVEDP 15 Right-dominant circulation LM normal LAD large vessel, mid-vessel 70% lesion. OCT MLA 1.69mm2 LCX non-dominant vessel with luminal irregularities RCA dominant vessel with luminal irregularities Successful OCT-guided PCI of the LAD with TAURUS (2.11j00no Orsiro, post-dilated to 2.5mm proximally). Recommendations: Return to [facility] after completion of post-procedural care. Aspirin for lifetime. P2Y12 inhibitor for at least one year. Further management as per the Cardiology team. Evidence-based optimal medical therapy. Aggressive cardiovascular risk factor modification. High-intensity statin. Procedure Details The risks and alternatives of the procedures and conscious sedation were explained to the patient and informed consent was obtained. The patient was brought to the laborer tanbark and placed on the table. The planned puncture sites were prepped and draped in the usual sterile fashion and a time-out was performed. Right radial artery access. The puncture site was infiltrated with 1% lidocaine. The vessel was accessed using the ultrasound-guided and micropuncture-assisted modified Seldinger technique, a wire was threaded into the vessel, and a 6 Fr sheath was advanced over the wire into the vessel. Right coronary artery angiography. A JR4 catheter was advanced to the aorta and positioned in the vessel ostium under fluoroscopic guidance. Angiography was performed in multiple projections using hand-injection of contrast. Left coronary artery angiography. A JL 3.5 catheter was advanced to the aorta and positioned in the vessel ostium under fluoroscopic guidance. Angiography was performed in multiple projections using hand-injection of contrast. Left heart catheterization. A JR4 catheter was advanced across the aortic valve and left ventricular pressures were recorded. On the basis of the findings from the diagnostic coronary angiography, the decision was made to proceed with percutaneous coronary intervention, as detailed below. Hemostasis with TR Band. The attending physician performed the procedure and interpreted the results. Please refer to the Procedural Log for details. Coronary Findings Diagnostic Dominance: Right Left Main: The vessel was visualized by angiography, is moderate in size and is angiographically normal. Left Anterior Descending: Mid LAD lesion is 70% stenosed. Optical coherence tomography (OCT) was performed using a CATHETER IMAGING [employer] OPSTAR. Cross-sectional area: 1.7 mm . The lesion is fibrinous. Left Circumflex: The vessel was visualized by angiography and is moderate in size. The vessel exhibits minimal luminal irregularities. Right Coronary Artery: The vessel was visualized by angiography and is angiographically normal. Intervention Mid LAD lesion: PCI: A CATHETER GUIDE LEFT STANDARD SIZE 3.5 6FR [id number] LAUNCHER guide catheter was used to engage the vessel ostium. A GUIDEWIRE CORONARY SHAPEABLE TIP [id number] RUNTHROUGH guidewire was used. The pre- interventional distal flow is normal (YANDY 3). A balloon angioplasty was performed using a CATHETER BALLOON MONORAIL 2.03IYP69YR EMERGE. A STENT CORONARY DRUG ELUTING SIROLIMUS RAPID EXCHANGE BIOLUTE PROBIO COATING COCR 2.14MFE05LD [facility] drug-eluting stent was successfully deployed. Post-stent angioplasty was performed using a CATHETER BALLOON MONORAIL 2.9YWP51VI NC EMERGE . The post-interventional distal flow is normal (YANDY 3). The intervention was successful. No complications occurred at this lesion. There is a 0% residual stenosis post intervention. Left Ventricle LV end diastolic pressure is mildly elevated. Imaging Guidance Imaging guidance used for procedure: fluoroscopy and ultrasound. Ultrasound was used for evaluation of the access site, to confirm selected vessel patency, and for concurrent real-time ultrasound visualization of vascular needle entry. Images were stored in the permanent record. History Rey Payan is a 44 y.o. 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 He began having chest pain following PEG tube removal in January. He was scheduled for outpatient coronary CTA when in arrival he complained of worsening chest pain and became less responsive. He had trop elevation to 138-> 141. Subsequent CTA performed demonstrated calcium score of 0, however also with a distal LAD abrupt decreased in caliber. He was admitted for LHC +/- PCI. us Jaye Gill MD CV CARDIAC CATH PROCEDURES Final Result * POCT I-STAT Activated Clotting Time, interfaced (06/20/2025 5:06 PM EDT) Only the most recent of2 resultswithin the time period is included. Sample Type, POCT Arterial 06/20/2025 5:08 PM EDT [facility], POC ACT Average, POCT 298 See Comment Seconds 06/20/2025 5:08 PM EDT [facility] [facility] Comment: Therapeutic Range: Baseline: 75-127 Cardiac Catherization Lab: 200-300 EP Lab: 200-400 Perfusion and OR - Cardiac Surgery: 450 Valve replacement: 480 Blood 06/20/2025 5:06 PM EDT 06/20/2025 5:08 PM EDT Jaye Gill MD LAB POCT ORDERABLES - DEVICE Fin al Result [facility] [address] [place] [address], * Smear Review (06/20/2025 6:54 AM EDT) Pathologist [facility] Platelet Estimate Adequate Adequate 06/20/2025 7:46 AM EDT [email or web address] RBC Morphology Normal Normal, No clinically significant RBC morphology present (ICSH guidelines, 2015). 06/20/2025 7:46 AM EDT [email or web address] Blood Structure of peripheral vein / Unknown Venipuncture / Unknown 06/20/2025 6:54 AM EDT 06/20/2025 7:06 AM EDT Jaye Gill MD LAB BLOOD ORDERABLES Final Resul t [facility] [address] [place] [address], [place] * (ABNORMAL) POCT Glucose, interfaced (06/19/2025 11:51 AM EDT) Glucose, POCT 100(H) 70 - 99 mg/dL 06/19/2025 11:52 AM EDT [facility] Comment: The fitter up has not determined the efficacy of this test in Critically ill patients. [facility] defines Critically ill patients for the purpose of blood glucose monitoring (BGM) by glucometer, as patients meeting one or more of the following criteria: Hypotension- non-ICU patients (systolic blood pressure Less than 90 mmHg) due to shock Hypotension -ICU patients (Mean Arterial Pressure (MAP) <60 mmHg or systolic blood pressure < 90 mmHg due to shock Patients receiving Vasopressors (phenylephrine, vasopressin or norepinephrine) Anasarca In all locations, BGM test results should not be relied upon in the above situations, unless these results confirmed with lab-based glucose values. Blood 06/19/2025 11:5 1 AM EDT 06/19/2025 11:52 AM EDT Jaye Gill MD LAB POCT ORDERABLES - DEVICE Fin al Result Performing Organization Address City/[facility]/ZIP Co de Phone Number [facility] [address] [place] [address], [place] * (ABNORMAL) Sedimentation Rate (06/19/2025 6:28 AM EDT) Sed Rate 32(H) <15 mm/Hr mm/Hr 06/19/2025 7:02 AM EDT [facility] [employer] CL[facility] PATH[facility] LAB[facility] Blood Structure of peripheral vein / Unknown Venipuncture / Unknown 06/19/2025 6:28 AM EDT 06/19/2025 6:55 AM EDT Jaye Gill MD LAB BLOOD ORDERABLES Final Resul t [facility] [address] [place] [address], [place] * Hemoglobin A1c (06/19/2025 6:28 AM EDT) Hemoglobin A1C 5.0 <5.7 % 06/20/2025 10:20 AM EDT [facility] Comment: For the purpose of screening for the presence of diabetes: <5.7% Consistent with the absence of diabetes 5.7-6.4% Consistent with increased risk for diabetes (prediabetes) > or =6.5% Consistent with diabetes This assay result is consistent with a decreased risk of diabetes. Currently, no consensus exists regarding use of hemoglobin A1c for diagnosis of diabetes in children. According to [place] Diabetes Association (ADA) guidelines, hemoglobin A1c <7.0% represents optimal control in non- diabetic patients. Different metrics may apply to specific patient populations. Standards of Medical Care in Diabetes(ADA). eAG (MG/DL) 97 mg/dL 06/20/2025 10:20 AM EDT [facility] [facility] eAG (MMOL/L) 5.4 mmol/L 06/20/2025 10:20 AM EDT [employer] Blood Structure of peripheral vein / Unknown Venipuncture / Unknown 06/19/2025 6:28 AM EDT 06/19/2025 6:55 AM EDT Narrative [facility] - 06/20/2025 10:20 AM EDT Check-Cap Received Date: us Jaye Gill MD LAB BLOOD ORDERABLES Final Resul t [facility] [address] [facility] [address], [place] [address], [place] [phone] [employer] [facility] [address] [facility] 3rd Floor, [place] [address], [place] [phone] * (ABNORMAL) Lipid Panel w/Reflex to Direct LDL (06/19/2025 6:27 AM EDT) Cholesterol 201(H) <=199 mg/dL 06/19/2025 7:30 AM EDT [email or web address] Triglycerides 338(H) <=149 mg/dL 06/19/2025 7:30 AM EDT [email or web address] Cholesterol, HDL 34(L) 40 - 59 mg/dL 06/19/2025 7:30 AM EDT [email or web address] Cholesterol, Non-HDL 167 mg/dL 06/19/2025 7:30 AM EDT [email or web address] LDL Cholesterol 99 <100 mg/dL 06/19/2025 7:30 AM EDT [email or web address] VLDL 67.6 mg/dL 06/19/2025 7:30 AM EDT [email or web address] Cholesterol/HDL Ratio 5.9(H) <5.0 06/19/2025 7:30 AM EDT [email or web address] Blood Structure of peripheral vein / Unknown Venipuncture / Unknown 06/19/2025 6:27 AM EDT 06/19/2025 6:56 AM EDT [email or web address] - 06/19/2025 7:30 AM EDT Adult Treatment Panel III Guidelines of NCEP 2001 Category: Total Cholesterol (mg/dL) Desirable <200 Borderline High 200-239 High >=240 Category: LDL Cholesterol (mg/dL) Optimal <100 Near Optimal/Above Optimal 100-129 Borderline High 130-159 High 160-189 Very High >=190 Category: HDL Cholesterol (mg/dL) Low <40 High >=60 NCEP's Expert Panel on Blood Cholesterol in Children and Adolescents Category: Total Cholesterol (mg/dL) Desirable <170 Borderline High 170-199 High >=200 Category: LDL Cholesterol (mg/dL) Desirable <110 Borderline High 110-129 High >=130 us Jaye Gill MD LAB BLOOD ORDERABLES Final Resul t [facility] [address] [place] [address], * (ABNORMAL) C-reactive protein (06/19/2025 6:27 AM EDT) C Reactive Protein 20.6(H) <=9.9 mg/L 06/19/2025 7:30 AM EDT [email or web address] Blood Structure of peripheral vein / Unknown Venipuncture / Unknown 06/19/2025 6:27 AM EDT 06/19/2025 6:56 AM EDT Jaye Gill MD LAB BLOOD ORDERABLES Final Resul t Performing Organization Address City/[facility] Co de Phone Number [facility] [address] [place] [address], * TSH (06/19/2025 6:27 AM EDT) TSH 2.790 0.280 - 3.890 uIU/mL 06/19/2025 12:00 PM EDT [facility] Blood Structure of peripheral vein / Unknown Venipuncture / Unknown 06/19/2025 6:27 AM EDT 06/19/2025 6:56 AM EDT Jaye Gill MD LAB BLOOD ORDERABLES Final Resul t Performing Organization Address [facility] de Phone Number [facility] [address] [place] [address], [place] * CT CARDIAC CORONARY AND CALCIUM SCORING (06/18/2025 2:02 PM EDT) Anatomical Region Laterality Modality Heart Computed Tomogra phy 06/18/2025 3:12 PM EDT Impressions 06/18/2025 3:[address] coronary calcium of 0 2. LAD: The left anterior descending artery is patent. The left anterior descending (LAD) artery is patent and gives off one significant diagonal branch (D1, >1.8 mm). No atherosclerotic plaque or stenosis is seen in the proximal or mid LAD. In the distal LAD, beginning at the end of the mid segment, there is an abrupt decrease in vessel caliber. The distal LAD remains very small throughout its course and cannot be adequately evaluated on this CT. The abrupt transition in vessel caliber may represent coronary dissection, vasospasm, or diffuse atherosclerosis. Clinical correlation is recommended. 3.FFRct: FFRct coronary analysis will not be ordered to define the extent of lesion-specific ischemia in the multiple vessels coronary artery. TERMINOLOGY (CAD-RAD Class and Recommendations): / CAD-RADS CATEGORY STENOSIS GRADE (%) MANAGEMENT 0 0 No further evaluation of ACS is required. Consider other etiologies. 1 Minimal (1-24%) Consider evaluation of non-ACS etiology. Consider referral for out-patient follow-up for preventive management of coronary atherosclerosis and risk factors modification. 2 Mild (25-49%) Consider evaluation of non-ACS etiology. Consider referral for out-patient follow-up for preventive management of coronary atherosclerosis and risk factors modification. 3 Moderate (50-69%) Consider and/or ICA for evaluation and management. Recommendation for anti-ischemic and preventive management should be considered as well as risk factor modifications . Other treatments should be considered if there is the presence of hemodynamic significant lesion. 4 Severe (A 70-99%) Consider hospital admission with cardiology consultation and further evaluation with ICA and revascularization is appropriate. (B left main > 50% or Recommendation for anti-ischemic and preventive management should be considered as well as risk factor modifications 3-vessel obstructive disease) 5 Occluded (100%) Consider expedited ICA on a timely basis and revascularization if appropriate. Recommendation for anti-ischemic and preventive management should be considered as well as risk factor modifications. MODIFIERS: S=Stent presents G=By-pass grafts present V= High-risk plaque present N=Non-diagnostic ACS: acute coronary syndrome, CAD: coronary artery disease, CAD-RADS coronary artery disease reporting and data system, ICA: invasive coronary angiography REFERENCES: 1. / / / / / / / Bri RL, Landon H, Noe R, Abiel W, Scott RA. Distribution of coronary artery calcium by race, gender, and age: results from the Multi- Ethnic Study of Atherosclerosis (MCKEON). Circulation. 2006;113(1):30-37. 2. / / / / / / / Tamra RC, Kalia S, Antoine S, Lopez A, Jacky DS, Chanda MJ, Cj KE, Katelin JE, Kimberlee CD, Alfredo GD, Ashlee FJ, Jey UJ, Mitchell LJ, Delia AE, Wilber CS, Nieves PK, Gina GONZALES. CAD-RADS(TM) Coronary Artery Disease - Reporting and Data System. An expert consensus document of the Society of Cardiovascular Computed Tomography (SCCT), the [place] College of Radiology (ACR) and the [place] Society for Cardiovascular Imaging (NASCI). Endorsed by the [place] College of Cardiology. Journal of cardiovascular computed tomography. 2016; 10 (4): 269-78. / If this radiology report contains a blank impression section, it is an incomplete radiology report. Please contact the interpreting radiologist or applicable radiology division as soon as possible to obtain the completed interpretation. Workstation ID: [id number] Narrative 06/18/2025 3:[address] CARDIAC CORONARY AND CALCIUM SCORING INDICATION: CAD evaluation, chest pain TECHNIQUE: Prior to and during the administration of intravenous contrast material, ECG-gated CT of the heart was performed from the cardiac base to the apex without complication using retrospective gating. A timing bolus was used. Medications: / /nitroglycerine 0.8 mg nitroglycerine SL Dose: For radiation dose control at least one of the following techniques was used in this procedure (1) Automated exposure control (2) Adjustment of the mA and/or kV according to patient size (3) Use of iterative reconstruction technique. Post-processing:Multiplanar and 3D reformatted images were rendered and reviewed on an advanced processing workstation to further define anatomy and possible pathology. Calcium scoring was performed. TECHNICAL QUALITY: fair FINDINGS: Calcium Score: The total calcium score 0 Coronary Arteries: Coronary Origin:Normal Coronary dominance: Right Dominant LM: The left main coronary artery is patent. It divides into LAD and LCX LAD: The left anterior descending artery is patent. The left anterior descending (LAD) artery is patent and gives off one significant diagonal branch (D1, >1.8 mm). No atherosclerotic plaque or stenosis is seen in the proximal or mid LAD. In the distal LAD, beginning at the end of the mid segment, there is an abrupt decrease in vessel caliber. The distal LAD remains very small throughout its course and cannot be adequately evaluated on this CT. The abrupt transition in vessel caliber may represent coronary dissection, vasospasm, or diffuse atherosclerosis. Clinical correlation is recommended. Ramus:none LCX: The left circumflex artery is patent. It gives off no significant (>1.8 mm) obtuse marginal branches. Circumflex is small and diminutive branch. Also affected by motion artifact. No significant stenosis noted. RCA: The right coronary artery is patent. RCA is a dominant vessel gives off a right PDA and posterolateral branch. There is significant motion artifact in the distal RCA. Within the limitations of the study there is no significant atherosclerosis or luminal stenosis noted. Other Cardiac Findings: Left ventricle: Normal in size Valves: Normal aortic and mitral valves Pericardium: Normal in thickness Extra-cardiac findings: Please see separately reported limited CT of the chest for extra-cardiac findings. Resulting Agency Comment [id number] Procedure Note Jaye Gill MD - 06/18/2025 CT CARDIAC CORONARY AND CALCIUM SCORING INDICATION: CAD evaluation, chest pain TECHNIQUE: Prior to and during the administration of intravenous contrastmaterial, ECG-gated CT of the heart was performed from the cardiac base tothe apex without complication using retrospective gating. A timing boluswas used. Medications: / /nitroglycerine 0.8 mg nitroglycerine SL Dose: For radiation dose control at least one of the following techniqueswas used in this procedure (1) Automated exposure control (2) Adjustmentof the mA and/or kV according to patient size (3) Use of iterativereconstruction technique. Post-processing:Multiplanar and 3D reformatted images were rendered andreviewed on an advanced processing workstation to further define anatomyand possible pathology. Calcium scoring was performed. TECHNICAL QUALITY: fair FINDINGS: Calcium Score: The total calcium score 0 Coronary Arteries: Coronary Origin:Normal Coronary dominance: Right Dominant LM: The left main coronary artery is patent. It divides into LAD and LCX LAD: The left anterior descending artery is patent. The left anteriordescending (LAD) artery is patent and gives off one significant diagonalbranch (D1, >1.8 mm). No atherosclerotic plaque or stenosis is seen in theproximal or mid LAD. In the distal LAD, beginning at the end of the midsegment, there is an abrupt decrease in vessel caliber. The distal LADremains very small throughout its course and cannot be adequatelyevaluated on this CT. The abrupt transition in vessel caliber mayrepresent coronary dissection, vasospasm, or diffuse atherosclerosis.Clinical correlation is recommended. Ramus:none LCX: The left circumflex artery is patent. It gives off no significant(>1.8 mm) obtuse marginal branches. Circumflex is small and diminutivebranch. Also affected by motion artifact. No significant stenosisnoted. RCA: The right coronary artery is patent. RCA is a dominant vessel givesoff a right PDA and posterolateral branch. There is significant motionartifact in the distal RCA. Within the limitations of the study there isno significant atherosclerosis or luminal stenosis noted. Other Cardiac Findings: Left ventricle: Normal in size Valves: Normal aortic and mitral valves Pericardium: Normal in thickness Extra-cardiac findings: Please see separately reported limited CT of the chest for extra- cardiacfindings. IMPRESSION: 1. CT coronary calcium of 0 2. LAD: The left anterior descending artery is patent. The left anteriordescending (LAD) artery is patent and gives off one significant diagonalbranch (D1, >1.8 mm). No atherosclerotic plaque or stenosis is seen in theproximal or mid LAD. In the distal LAD, beginning at the end of the midsegment, there is an abrupt decrease in vessel caliber. The distal LADremains very small throughout its course and cannot be adequatelyevaluated on this CT. The abrupt transition in vessel caliber mayrepresent coronary dissection, vasospasm, or diffuse atherosclerosis.Clinical correlation is recommended. 3.FFRct: FFRct coronary analysis will not be ordered to define the extentof lesion-specific ischemia in the multiple vessels coronary artery. TERMINOLOGY (CAD-RAD Class and Recommendations): / CAD-RADS CATEGORY STENOSIS GRADE (%)MANAGEMENT 0 0No further evaluation of ACS is required.Consider other etiologies. 1 Minimal (1-24%)Consider evaluation of non-ACS etiology. Consider referral for out-patient follow-upfor preventive management of coronary atherosclerosis and risk factorsmodification. 2 Mild (25-49%)Consider evaluation of non-ACS etiology. Consider referral for out-patient follow-upfor preventive management of coronary atherosclerosis and risk factorsmodification. 3 Moderate (50-69%)Consider and/or ICA for evaluation and management. Recommendation for anti-ischemic andpreventive management should be considered as well as risk factormodifications . Other treatments should be considered ifthere is the presence of hemodynamic significant lesion. 4 Severe (A 70-99%)Consider hospital admission with cardiology consultation andfurther evaluation with ICA and revascularization is appropriate. (B left main > 50% orRecommendation for anti-ischemic and preventivemanagement should be considered as well as risk factor modifications 3-vessel obstructive disease) 5 Occluded (100%)Consider expedited ICA on a timely basis andrevascularization if appropriate. Recommendation for anti-ischemic andpreventive management should be considered as well as risk factormodifications. MODIFIERS: S=Stent presents G=By-pass grafts present V= High-risk plaque present N=Non-diagnostic ACS: acute coronary syndrome, CAD: coronary artery disease, CAD-RADScoronary artery disease reporting and data system, ICA: invasive coronaryangiography REFERENCES: 1. / / / / / / / Bri RL, Landon H, Noe R, Abiel W, Scott RA.Distribution of coronary artery calcium by race, gender, and age: resultsfrom the Multi- Ethnic Study of Atherosclerosis (MCKEON). Circulation.2006;113(1):30-37. 2. / / / / / / / Tamra RC, Kalia S, Antoine S, Lopez A, Jacky DS,Chanda MJ, Cj KE, Katelin JE, Kimberlee CD, Alfredo GD, Ashlee FJ, AníbalJ, Mitchell LJ, Delia AE, Wilber CS, Nieves PK, Gina JA. CAD-RADS(TM)Coronary Artery Disease - Reporting and Data System. An expert consensusdocument of the Society of Cardiovascular Computed Tomography (SCCT), theAmerican College of Radiology (ACR) and the [place] Society forCardiovascular Imaging (NASCI). Endorsed by the [place] College ofCardiology. Journal of cardiovascular computed tomography. 2016; 10 (4):269- 81. / If this radiology report contains a blank impression section, it is anincomplete radiology report. Please contact the interpreting radiologistor applicable radiology division as soon as possible to obtain thecompleted interpretation. Workstation ID: [id number] Simon Campuzano NP IMG CT PROCEDURES Final Result * CT Abd Pelvis W Contrast (04/18/2025 8:52 PM EDT) Anatomical Region Laterality Modality Body Computed Tomogra phy 04/18/2025 9:14 PM EDT Impressions 04/18/2025 9:23 PM EDT No acute abnormality in the abdomen and pelvis. No acute fracture of the lumbar spine. If this radiology report contains a blank impression section, it is an incomplete radiology report. Please contact the interpreting radiologist or applicable radiology division as soon as possible to obtain the completed interpretation. Workstation ID: [id number] Up-to-date CT equipment and radiation dose reduction techniques were employed. CTDIvol: 17.3 mGy. DLP: 1080 mGy-cm. Narrative 04/18/2025 9:23 PM EDT EXAMINATION: CT RECONSTRUCTION LUMBAR SPINE, CT ABDOMEN PELVIS W CONTRAST INDICATION: Low back pain. TECHNIQUE: Images of the abdomen and pelvis were obtained with intravenous contrast. Coronal and sagittal reformats were generated. COMPARISON: None available. FINDINGS: LOWER THORAX: The visualized lung bases are clear. HEPATOBILIARY: No focal hepatic lesions. Patent portal and hepatic veins. The gallbladder is contracted.. No biliary ductal dilatation. SPLEEN: No splenomegaly. PANCREAS: No focal masses or ductal dilatation. ADRENAL GLANDS: No adrenal nodules. KIDNEYS/URETERS: No hydronephrosis, calculi, or solid mass lesions. GI TRACT: Rectal wall thickening likely related to proctitis. The appendix is unremarkable. PERITONEUM/RETROPERITONEUM: No ascites or free air. LYMPH NODES: No lymphadenopathy. VESSELS: Unremarkable. PELVIC ORGANS/BLADDER: The urinary bladder is underdistended with Lezama catheter in place. BONES AND SOFT TISSUES: Unremarkable. Resulting Agency Comment [id number] Procedure Note Fredi Stockton MD - 04/18/2025 EXAMINATION: CT RECONSTRUCTION LUMBAR SPINE, CT ABDOMEN PELVIS WCONTRAST INDICATION: Low back pain. TECHNIQUE: Images of the abdomen and pelvis were obtained with intravenouscontrast. Coronal and sagittal reformats were generated. COMPARISON: None available. FINDINGS: LOWER THORAX: The visualized lung bases are clear. HEPATOBILIARY: No focal hepatic lesions. Patent portal and hepatic veins.The gallbladder is contracted.. No biliary ductal dilatation. SPLEEN: No splenomegaly. PANCREAS: No focal masses or ductal dilatation. ADRENAL GLANDS: No adrenal nodules. KIDNEYS/URETERS: No hydronephrosis, calculi, or solid mass lesions. GI TRACT: Rectal wall thickening likely related to proctitis. Theappendix is unremarkable. PERITONEUM/RETROPERITONEUM: No ascites or free air. LYMPH NODES: No lymphadenopathy. VESSELS: Unremarkable. PELVIC ORGANS/BLADDER: The urinary bladder is underdistended with Foleycatheter in place. BONES AND SOFT TISSUES: Unremarkable. IMPRESSION: No acute abnormality in the abdomen and pelvis. No acute fracture of the lumbar spine. If this radiology report contains a blank impression section, it is anincomplete radiology report. Please contact the interpreting radiologistor applicable radiology division as soon as possible to obtain thecompleted interpretation. Workstation ID: [id number] Up-to-date CT equipment and radiation dose reduction techniques wereemployed. CTDIvol: 17.3 mGy. DLP: 1080 mGy-cm. Ameer Alberto Kendall MD IMG CT PROCEDURES Final Resu lt from Last 3 Months or Most Recently Relevant to Health Maintenance Insurance [facility]ICARE [facility] Advance Directives Documents on File Type Date Recorded Patient Continuous Improvement Coach Expl anation Health Care Proxy 05/08/2025 4:00 PM Healt h Care Proxy Health Care Proxy 05/08/2025 12:22 AM 04/21 Health Care Proxy 03/24/2025 4:07 PM 03-24 MOLST/POLST 03/23/2025 10:36 AM * Full Code (Latest Code Status on File) Date Activated Date Inactivated Comments 06/20/2025 5:26 PM 06/21/2025 4:30 PM * Full Code Date Activated Date Inactivated Comments 06/17/2025 9:56 PM 06/20/2025 5:26 PM * Full Code Date Activated Date Inactivated Comments 05/08/2025 2:50 AM 05/12/2025 4:22 PM * Full Code Date Activated Date Inactivated Comments 05/07/2025 11:48 PM 05/08/2025 2:50 AM * Full Code Date Activated Date Inactivated Comments 05/02/2025 10:11 PM 05/05/2025 3:05 PM Healthcare Agents on File Name Relationship Healthcare Agent Relationshi p Communication Halina Ora Daughter Health Care Agent Care Teams Client Support Manager Relationship Specialty Start Date End Date Heena Oneill MD [address] [place] [address] [place] [id number] PCP - General Family Medicine 06/22/25
--- OUTSIDE RECORDS SUMMARY | 2025-09-18 11:45 | XMS_ITS | Encounter Summary ---
Author Organization [facility] Address [address] [place] [address] Care Team Providers Care Community Resource Officer Name Role Phone Juan Mckinley MD Primary Care Provider [phone] Angelique Agudelo PA-C Unavailable [phone] Angelique Agudelo PA-C Unavailable [phone] Angelique Agudelo PA-C Unavailable [phone] Sarah Figueroa MD Primary Care Provider [phone] Reason for Visit * Reason Comments Medications Refill Encounter Details Date Type Department Care Team (Late st Contact Info) Description 11/26/[address] [facility] Endocrinology [address] [place] [address] Angelique Agudelo PA-C 210 [facility] [address] [place] [phone] Medications Refill Social History Tobacco Use Types [...] tabletIndications: Hyperthyroidism TAKE ONE TABLET BY MOUTH TWICE A DAY 60 Tablet 11/28/2022 12/31/2022 documented in this encounter Miscellaneous Notes * Telephone Encounter - Jodee Mott RN - 11/26/2022 2542 EST .Pharmacy requesting refills on behalf of patient. JANE 09/11/2022. Jodee Mott RN 11/26/2022 14:55 documented in this encounter Plan of Treatment Not on file documented as of this encounter Visit Diagnoses Diagnosis Hyperthyroidism Thyrotoxicosis without mention of goiter or other cause, without mention of thyrotoxic crisis or storm documented in this encounter Discontinued Medications Medication Sig Discontinue Reason Start Date End Da te methIMAzole (TAPAZOLE) 5 mg tabletIndications:Hypert hyroidism TAKE ONE TABLET BY MOUTH TWICE A DAY 10/18/2022 11/28/2022 documented as of this encounter Additional Health Concerns Infection Onset Date Last Indicated Resolved Time R/O COVID-19 11/30/2024 11/30/2024 12/01/2024 1:04 EST R/O COVID-19 12/08/2024 12/08/2024 12/08/2024 14:1 9 EST R/O COVID-19 12/29/2024 12/29/2024 12/29/2024 23:5 5 EST documented as of this encounter Care Teams Community Resource Officer Relationship Specialty Start Date End Date Juan Mckinley MD [address],[facility] [address] [place] [address] PCP - General 07/17/22 01/31/25 Sarah Figueroa MD [address] [place] [address] PCP - General Internal Medicine - [facility] 02/01/25 Angelique Agudelo PA-C [address] [phone] Endocrinology, Diabetes and Metabolism 07/14/24 Angelique Agudelo PA-C [address] [phone] Endocrinology, Diabetes and Metabolism 08/23/24 Angelique Agudelo PA-C [address] [place] [phone] Endocrinology, Diabetes and Metabolism 10/18/24 documented as of this encounter
--- OUTSIDE RECORDS SUMMARY | 2025-09-18 11:45 | XMS_ITS | Encounter Summary ---
Author Organization [facility] Address [address] [place] [address] Care Team Providers Care Contract Engineer Name Role Phone Heena Oneill MD Primary Care Provider [phone] Reason for Visit * Reason Onset Date Comments FYI, auth form 08/23/2025 Encounter Details Date Type Department Care Team (Late st Contact Info) Description 08/23/2025 Telephone [facility] Primary Care [address] [place] [address] Telephone Intake, Staff FYI, auth form Social History Tobacco Use Types Packs/Day Years [...] have money to get more. Patient declined [facility] Utilities Answer Date Recorded In the past [...] on file documented as of this encounter Miscellaneous Notes * Telephone Encounter - Elda Jackie - 08/23/2025 10:47 AM EDT Ginger called today regarding an authorization form for registered appraiser services that she will be refaxing to us momentarily as apparently they did not send it to the correct fax number the first time back on 08/05/25. Please have provider sign and fax back at [phone] documented in this encounter Plan of Treatment Upcoming Encounters Date Type Department Care Team (Late st Contact Info) Description 10/14/2025 4:20 PM EST Follow-Up [facility]ology [facility] [address] [place] [address] Cycle Repairer: Maria Alejandra Gardiner MD [address] [place] [address] 04/25/2026 9:45 AM EDT Appointment [address] [address] documented as of this encounter Visit Diagnoses Not on filedocumented in this encounter Care Teams Contract Engineer Relationship Specialty Start Date End Date Heena Oneill MD [address] [place] [address] PCP - General Family Medicine 06/22/25 documented as of this encounter
--- OUTSIDE RECORDS SUMMARY | 2025-09-18 11:45 | XMS_ITS | Encounter Summary ---
Author Organization [facility] Address [address] [place] [address] Care Team Providers Care Fowl Blood Tester Name Role Phone Heena Oneill MD Primary Care Provider [phone] Reason for Visit * Reason Onset Date Comments [facility] asking for OT to be added 09/06/2025 Encounter Details Date Type Department Care Team (Late st Contact Info) Description 09/06/2025 Telephone [facility] Primary Care [address] [place] [phone] Telephone Intake, Staff [facility] asking for OT to be added Social History Tobacco Use Types Packs/Day Years [...] have money to get more. Patient declined [facility] Utilities Answer Date Recorded In the [...] encounter Miscellaneous Notes * Telephone Encounter - Megha Sandoval - 09/06/2025 2:00 PM EST Pavithra from [facility] is assisting the patient in getting set up with home therapy - they have the PT referral but will need OT added as well and faxed to [facility] at [phone] documented in this encounter Plan of Treatment Upcoming Encounters Date Type Department Care Team (Late st Contact Info) Description 10/14/2025 4:20 PM EST Follow-Up [facility] Endocrinology Clinic [address] [place] [address] Gasket Notcher: Maria Alejandra Gardiner MD [address] [place] [address] 04/25/2026 9:45 AM EDT Appointment [address] [address] documented as of this encounter Visit Diagnoses Not on filedocumented in this encounter Care Teams Fowl Blood Tester Relationship Specialty Start Date End Date Heena Oneill MD [address] [place] [address] PCP - General Family Medicine 06/22/25 documented as of this encounter
--- OUTSIDE RECORDS SUMMARY | 2025-09-18 11:45 | XMS_ITS | Encounter Summary ---
Author Organization [facility] Address [address] [place] [address] Care Team Providers Care Mixer Operator Hot Metal Name Role Phone Jaun Mckinley MD Primary Care Provider [phone] Angelique Agudelo-C Unavailable [phone] Angelique Agudelo-C Unavailable [phone] Angelique Agudelo-C Unavailable [phone] Sarah Figueroa MD Primary Care Provider [phone] Reason for Visit * Reason Onset Date Comments Appointment Related 09/03/2022 Encounter Details Date Type Department Care Team ([facility] [address] Contact Info) Description 09/03/2022 Telephone [facility] Nephrology - [address] [phone] Lucas Reaves MD [address] [place] [phone] Appointment Related Social History Tobacco Use Types [...] encounter Miscellaneous Notes * Telephone Encounter - Eduin Cervantes - 09/03/2022 0923 EST Spoke with pt looking to reschedule NPV appt he advised that he doesn't understand why his doctor is referring him to all these doctor's in [place] as he doesn't have transportation declined rescheduling and will reach out to his doctor. Referral has been closed. documented in this encounter Plan of Treatment Not on file documented as of this encounter Visit Diagnoses Not on filedocumented in this encounter Additional Health Concerns Infection Onset Date Last Indicated Resolved Time R/O COVID-19 11/30/2024 11/30/2024 12/01/2024 1:04 EST R/O COVID-19 12/08/2024 12/08/2024 12/08/2024 14:1 9 EST R/O COVID-19 12/29/2024 12/29/2024 12/29/2024 23:5 5 EST documented as of this encounter Care Teams Mixer Operator Hot Metal Relationship Specialty Start Date End Date Juan Mckinley MD [address] [facility] [place] [address] PCP - General 07/17/22 01/31/25 Sarah Figueroa MD [address] [place] [address] PCP - General Internal Medicine - [facility] Medicine 02/01/25 Angelique Agudelo PA-C [address] [phone] Endocrinology, Diabetes and Metabolism 07/14/24 Angelique Agudelo PA-C [address] [phone] Endocrinology, Diabetes and Metabolism 08/23/24 Angelique Agudelo PA-C [address] [phone] Endocrinology, Diabetes and Metabolism 10/18/24 documented as of this encounter
--- OUTSIDE RECORDS SUMMARY | 2025-09-18 11:45 | XMS_ITS | Encounter Summary ---
Author Organization [facility] Address [address] [place] [address] Care Team Providers Care Sales Solutions Associate Name Role Phone Juan Mckinley MD Primary Care Provider [phone] Angelique Agudelo PA-C Unavailable [phone] Angelique Agudelo PA-C Unavailable [phone] Angelique Agudelo PA-C Unavailable [phone] Sarah Figueroa MD Primary Care Provider [phone] Reason for Visit * Reason Onset Date Comments Erroneous Encounter 10/17/2022 Encounter Details Date Type Department Care Team (Late Contact Info) Description 10/17/2022 Refill [facility] Endocrinology [address] [place] [address] Angelique Agudelo PA-C 210 [facility] [address] [place] [phone] Erroneous Encounter Social History Tobacco Use Types Packs/Day Years [...] BY MOUTH TWICE A DAY 60 Tablet 10/18/2022 11/28/2022 propRANolol (INDERAL) 20 mg tabletIndications: Hyperthyroidism TAKE ONE TABLET BY MOUTH THREE TIMES A DAY 90 Tablet 10/18/2022 12/30/2022 documented in this encounter Miscellaneous Notes * Telephone Encounter - Jodee Mott RN - 10/18/2022 0881 EST Pharmacy requesting refills on behalf of patient. JANE 09/11/22, NOV today. documented in this encounter Plan of Treatment Not on file documented as of this encounter Visit Diagnoses Diagnosis Hyperthyroidism Thyrotoxicosis without mention of goiter or other cause, without mention of thyrotoxic crisis or storm documented in this encounter Discontinued Medications Medication Sig Discontinue Reason Start Date End Da te propRANolol (INDERAL) 20 mg tablet propranolol 20 mg tablet TAKE ONE TABLET BY MOUTH THREE TIMES A DAY 10/18/2022 methIMAzole (TAPAZOLE) 5 mg tablet methimazole 5 mg tablet TAKE ONE TABLET BY MOUTH TWICE A DAY 10/18/2022 propRANolol (INDERAL) 20 mg tabletIndications:Hype rthyroidism Take 1 Tablet by mouth 3 times daily for 30 days. 09/12/2022 10/18/2022 methIMAzole (TAPAZOLE) 5 mg tabletIndications:Hype rthyroidism Take 1 Tablet by mouth 2 times daily for 30 days. 09/12/2022 10/18/2022 documented as of this encounter Additional Health Concerns Infection Onset Date Last Indicated Resolved Time R/O COVID-19 11/30/2024 11/30/2024 12/01/2024 1:04 EST R/O COVID-19 12/08/2024 12/08/2024 12/08/2024 14:1 9 EST R/O COVID-19 12/29/2024 12/29/2024 12/29/2024 23:5 5 EST documented as of this encounter Care Teams Sales Solutions Associate Relationship Specialty Start Date End Date Juan Mckinley MD [address] [facility] 3 [place] [address] PCP - General 07/17/22 01/31/25 Sarah Figueroa MD [address] [place] [address] PCP - General Internal Medicine - [facility] Medicine 02/01/25 Angelique Agudelo PA-C [address] [phone] Endocrinology, Diabetes and Metabolism 07/14/24 Angelique Agudelo PA-C [address] [phone] Endocrinology, Diabetes and Metabolism 08/23/24 Angelique Agudelo PA-C [address] [phone] Endocrinology, Diabetes and Metabolism 10/18/24 documented as of this encounter
--- OUTSIDE RECORDS SUMMARY | 2025-09-18 11:45 | XMS_ITS | Encounter Summary ---
Author Organization [facility] Address [address] [place] [address] Care Team Providers Care Tourist Adviser Name Role Phone Juan Mckinley MD Primary Care Provider [phone] Angelique Agudelo PA-C Unavailable [phone] Angelique Agudelo PA-C Unavailable [phone] Angelique Agudelo PA-C Unavailable [phone] Sarah Figueroa MD Primary Care Provider [phone] Reason for Visit * Reason Onset Date Comments Medications Refill 08/27/2024 Encounter Details Date Type Department Care Team (Late st Contact Info) Description 08/27/2024 Refill [facility] Endocrinology [address] [place] [address] Yesy Ruby, TAMARA Medications Refill Social History Tobacco Use [...] by mouth every 48 hours. 45 Tablet 08/27/2024 10/22/2024 documented in this encounter Miscellaneous Notes * Telephone Encounter - Yesy Ruby RN - 08/27/2024 1322 EDT Next Office Visit:10/22/24 Last Office Visit:08/26/24 Yesy Ruby RN 08/27/2024 13:23 documented in this encounter Plan of Treatment [...] Tablet by mouth every 48 hours. Reorder 06/24/2024 08/27/2024 documented as of this encounter Additional Health Concerns Infection Onset Date Last Indicated Resolved Time R/O COVID-19 11/30/2024 11/30/2024 12/01/2024 1:04 EST R/O COVID-19 12/08/2024 12/08/2024 12/08/2024 14:1 9 EST R/O COVID-19 12/29/2024 12/29/2024 12/29/2024 23:5 5 EST documented as of this encounter Care Teams Tourist Adviser Relationship Specialty Start Date End Date Juan Mckinley MD [address],[facility] 3 [place] [address] PCP - General 07/17/22 01/31/25 Sarah Figueroa MD [address] [place] [address] PCP - General Internal Medicine - [facility] 02/01/25 Angelique Agudelo PA-C [address] [phone] Endocrinology, Diabetes and Metabolism 07/14/24 Angelique Agudelo PA-C [address] [phone] Endocrinology, Diabetes and Metabolism 08/23/24 Angelique Agudelo PA-C [address] [phone] Endocrinology, Diabetes and Metabolism 10/18/24 documented as of this encounter
--- OUTSIDE RECORDS SUMMARY | 2025-09-18 11:45 | XMS_ITS | Encounter Summary ---
Author Organization [facility] Address [address] [place] [address] Care Team Providers Care Portfolio Administrator Name Role Phone Juan Mckinley MD Primary Care Provider [phone] Angelique Agudelo PA-C Unavailable [phone] Angelique Agudelo-C Unavailable [phone] Angelique Agudelo-Idalia Unavailable [phone] Sarah Figueroa MD Primary Care Provider [phone] Reason for Visit * Reason Onset Date Comments Appointment Related 03/17/2024 Encounter Details Date Type Department Care Team ([facility] Contact Info) Description 03/17/[address] [facility] Nephrology [address] [phone] Unknown, Provider, Appointment Related Social History Tobacco Use Types [...] * Telephone Encounter - Eduin Cervantes - 03/18/2024 0844 EDT 2nd attempt to schedule LMOM. * Telephone Encounter - Eduin Cervantes - 03/17/2024 0945 EDT LMOM looking to schedule NPV appt. If pt calls back please schedule next available with any provider (not Dr. Holland) and assign to referral. documented in this encounter Plan of Treatment Not on file documented as of this encounter Visit Diagnoses Not on filedocumented in this encounter Additional Health Concerns Infection Onset Date Last Indicated Resolved Time R/O COVID-19 11/30/2024 11/30/2024 12/01/2024 1:04 EST R/O COVID-19 12/08/2024 12/08/2024 12/08/2024 14:1 9 EST R/O COVID-19 12/29/2024 12/29/2024 12/29/2024 23:5 5 EST documented as of this encounter Care Teams Portfolio Administrator Relationship Specialty Start Date End Date Juan Mckinley MD [address] [facility] [place] [address] PCP - General 07/17/22 01/31/25 Sarah Figueroa MD [address] [place] [address] PCP - General Internal Medicine - [facility] Medicine 02/01/25 Angelique Agudelo PA-C [address] [phone] Endocrinology, Diabetes and Metabolism 07/14/24 Angelique Agudelo PA-C [address] [phone] Endocrinology, Diabetes and Metabolism 08/23/24 Angelique Agudelo PA-C [address] [phone] Endocrinology, Diabetes and Metabolism 10/18/24 documented as of this encounter
--- OUTSIDE RECORDS SUMMARY | 2025-09-18 11:45 | XMS_ITS | Encounter Summary ---
Author Organization [facility] Address [address] [place] [address] Care Team Providers Care Cardiopulmonary Physical Therapist Name Role Phone Juan Mckinley MD Primary Care Provider [phone] Angelique Agudelo PA-C Unavailable [phone] Angelique Agudelo PA-C Unavailable [phone] Angelique Agudelo PA-C Unavailable [phone] Sarah Figueroa MD Primary Care Provider [phone] Reason for Visit * Reason Onset Date Comments Appointment Related 05/10/2024 Encounter Details Date Type Department Care Team (Late st Contact Info) Description 05/10/2024 Telephone [facility] Nephrology - [address] [address] Madeline Genao MD [address] [place] [address] Rehab, Level 2 [place] [address] Appointment Related Social History Tobacco Use Types [...] * Telephone Encounter - Eduin Cervantes - 05/10/2024 0913 EDT LMOM looking to see pt would like to reschedule missed NPV appt. If pt calls back please schedule next available and reassign to referral. documented in this encounter Plan [...] documented as of this encounter Care Teams Cardiopulmonary Physical Therapist Relationship Specialty Start Date End Date Juan Mckinley MD [address] [facility] [place] [address] PCP - General 07/17/22 01/31/25 Sarah Figueroa MD [address] [place] [address] PCP - General Internal Medicine - Hospital [facility] 02/01/25 Angelique Agudelo PA-C [address] [phone] Endocrinology, Diabetes and Metabolism 07/14/24 Angelique Agudelo PA-C [address] [phone] Endocrinology, Diabetes and Metabolism 08/23/24 Angelique Agudelo PA-C [address] [place] [phone] Endocrinology, Diabetes and Metabolism 10/18/24 documented as of this encounter
--- OUTSIDE RECORDS SUMMARY | 2025-09-18 11:45 | XMS_ITS | Encounter Summary ---
Author Organization Health system Address [address] [place] [address] Care Team Providers Care Press Department Manager Name Role Phone Juan Mckinley MD Primary Care Provider [phone] Angelique Agudelo-Idalia Unavailable [phone] Angelique Agudelo-Idalia Unavailable [phone] Angelique Agudelo PA-C Unavailable [phone] Sarah Figueroa MD Primary Care Provider [phone] Reason for Visit * Reason Onset Date Comments Medications Refill 02/03/2023 Encounter Details Date Type Department Care Team (Late st Contact Info) Description 02/03/2023 Refill [facility] Endocrinology [address] [place] [address] Jodee Mott, TAMARA Medications Refill Social History Tobacco Use [...] tabletIndications: Hyperthyroidism Take 1 Tablet by mouth daily for 30 days. 30 Tablet 02/03/2023 02/07/2023 documented in this encounter Miscellaneous Notes * Telephone Encounter - Jodee Mott RN - 02/04/2023 0913 EDT Attempted call to both patient and his friend Leigh, no answer. Letter sent to patient that provider would like labs completed. * Telephone Encounter - Jodee Mott RN - 02/03/2023 1543 EDT Patient looking for refill. JANE 10/18/2022. Jodee Mott RN 02/03/2023 16:04 documented in this encounter Plan of Treatment [...] Tablet by mouth daily for 30 days. Reorder 01/09/2023 02/03/2023 documented as of this encounter Additional Health Concerns Infection Onset Date Last Indicated Resolved Time R/O COVID-19 11/30/2024 11/30/2024 12/01/2024 1:04 EST R/O COVID-19 12/08/2024 12/08/2024 12/08/2024 14:1 9 EST R/O COVID-19 12/29/2024 12/29/2024 12/29/2024 23:5 5 EST documented as of this encounter Care Teams Press Department Manager Relationship Specialty Start Date End Date Juan Mckinley MD [address],[facility] 3 [place] [address] PCP - General 07/17/22 01/31/25 Sarah Figueroa MD [address] [place] [address] PCP - General Internal Medicine - [facility] Medicine 02/01/25 Angelique Agudelo PA-C [address] [phone] Endocrinology, Diabetes and Metabolism 07/14/24 Angelique Agudelo PA-C [address] [phone] Endocrinology, Diabetes and Metabolism 08/23/24 Angelique Agudelo PA-C [address] [phone] Endocrinology, Diabetes and Metabolism 10/18/24 documented as of this encounter
--- OUTSIDE RECORDS SUMMARY | 2025-09-18 11:45 | XMS_ITS | Encounter Summary ---
Author Organization [facility] Address [address] [place] [address] Care Team Providers Care Test Center Manager Name Role Phone Angelique Agudelo PA-C Primary Care Provider [phone] Juan Mckinley MD Primary Care Provider [phone] Angelique Agudelo PA-C Unavailable Angelique Agudelo PA-C Unavailable [phone] Angelique Agudelo-C Unavailable Sarah Figueroa MD Primary Care Provider [phone] Encounter Details Date Type Department Care Team (Late st Contact Info) Description 01/24/2016 Historical Results Only [facility] - [facility] Radiology Results [address] [place] [address] Omaira Barahona MD [address] [place] [phone] Social History Tobacco Use Types Packs/Day Years [...] Procedure Name Priority Date/Time Associated Diagnosis Comments CT ABDOMEN PELVIS W CONTRAST 01/24/2016 20:18 EDT documented in this encounter Results * CT ABDOMEN PELVIS W CONTRAST (01/24/2016 20:18 EDT) Anatomical Region Laterality Modality Abdomen and Pelvis Other 01/24/2016 20:1 8 EDT Narrative 01/24/2016 20:41 EDT EXAM: CTS [id number] ABDOMEN AND PELVIS W/IV CONTRAST [facility]#[id number] DATE & TIME EXAM COMPLETED: Jan 24 2016 8:18PM CPT:24820 REASON FOR EXAM: Abdominal Pain Accession# : [id number] PT CL: {pt_class} FINDINGS: This exam was specifically requested without oral contrast. Following the uneventful intravenous administration of 103 mL of Isovue-300 contrast, multidetector CT was performed from above the liver through the ischial tuberosities. Iterative reconstruction technique and automated exposure control were employed. Comparison is with 01/03/2014. Technologist note indicates the patient plans of lower abdominal pain. Visualized lung bases are clear. In hepatic segment seven there is a hypodense lesion measuring 9 x 5 mm. This was apparent on the previous study and has increased only slightly in size. The spleen, adrenals, pancreas, and right kidney appear unremarkable. There is a small cortical scar at the upper pole the left kidney. The gallbladder appears unremarkable. There is no apparent free air, fluid collection, mass, adenopathy, or inflammatory process in the abdominal and pelvic cavity. No abnormality of bowel structures is identified. The appendix appears normal. The abdominal aorta appears unremarkable. IMPRESSION: No apparent acute findings in the abdomen and pelvis. 9 x 5 mm well-defined hypodense lesion in the liver, only slightly larger than on 01/03/2014 and very likely benign. Procedure Note Quentin Echeverria MD - 07/29/2019 EXAM: CTS [id number] ABDOMEN AND PELVIS W/IV CONTRAST CD#[id number] DATE & TIME EXAM COMPLETED: Jan 24 2016 8:18PM CPT:02206 REASON FOR EXAM: Abdominal Pain Accession# : [id number] CL: {pt_class} FINDINGS: This exam was specifically requested without oral contrast. Following the uneventful intravenous administration of 103 mL ofIsovue-300 contrast, multidetector CT was performed from above the liver throughthe ischial tuberosities. Iterative reconstruction technique and automated exposure control were employed. Comparison is with 01/03/2014. Technologist note indicates the patient plans of lower abdominal pain. Visualized lung bases are clear. In hepatic segment seven there is a hypodense lesion measuring 9 x 5 mm. This was apparent on the previous study and has increased only slightlyin size. The spleen, adrenals, pancreas, and right kidney appearunremarkable. There is a small cortical scar at the upper pole the left kidney. The gallbladder appears unremarkable. There is no apparent free air, fluid collection, mass, adenopathy, or inflammatory process in the abdominal and pelvic cavity. No abnormality of bowel structures is identified. The appendix appears normal. The abdominal aorta appears unremarkable. IMPRESSION: No apparent acute findings in the abdomen and pelvis. 9 x 5 mm well-defined hypodense lesion in the liver, only slightlylarger than on 01/03/2014 and very likely benign. Omaira Barahona MD IMG CT ORDERABLES Final Result documented in this encounter Visit Diagnoses Not on filedocumented in this encounter Additional Health Concerns Infection Onset Date Last Indicated Resolved Time R/O COVID-19 11/30/2024 11/30/2024 12/01/2024 1:04 EST R/O COVID-19 12/08/2024 12/08/2024 12/08/2024 14:1 9 EST R/O COVID-19 12/29/2024 12/29/2024 12/29/2024 23:5 5 EST documented as of this encounter Care Teams Test Center Manager Relationship Specialty Start Date End Date Angelique Agudelo PA-C [address] [phone] PCP - General 01/10/16 07/16/22 Juan Mckinley MD [address],[facility] [address] [place] [address] PCP - General 07/17/22 01/31/25 Sarah Figueroa MD [address] [place] [address] PCP - General Internal Medicine - [facility] Medicine 02/01/25 Angelique Agudelo PA-C [address] [phone] Endocrinology, Diabetes and Metabolism 07/14/24 Angelique Agudelo PA-C [address] [phone] Endocrinology, Diabetes and Metabolism 08/23/24 Angelique Agudelo PA-C [address] [phone] Endocrinology, Diabetes and Metabolism 10/18/24 documented as of this encounter
--- OUTSIDE RECORDS SUMMARY | 2025-09-18 11:45 | XMS_ITS | Encounter Summary ---
Author Organization [facility] Address [address] [place] [address] Care Team Providers Care Senior Communications Specialist Name Role Phone Juan Mckinley MD Primary Care Provider [phone] Angelique Agudelo PA-C Unavailable [phone] Angelique Agudelo PA-C Unavailable [phone] Angelique Agudelo PA-C Unavailable [phone] Sarah Figueroa MD Primary Care Provider [phone] Reason for Visit * Reason Comments Medications Refill Encounter Details Date Type Department Care Team (Late st Contact Info) Description 04/04/2023 Refill [facility] - [facility] Endocrinology [address] [place] [address] Angelique Agudelo PA-C 210 [facility] [address] [place] [phone] Medications Refill Social History Tobacco Use Types [...] crisis or storm documented in this encounter Additional Health Concerns Infection Onset Date Last Indicated Resolved Time R/O COVID-19 11/30/2024 11/30/2024 12/01/2024 1:04 EST R/O COVID-19 12/08/2024 12/08/2024 12/08/2024 14:1 9 EST R/O COVID-19 12/29/2024 12/29/2024 12/29/2024 23:5 5 EST documented as of this encounter Care Teams Senior Communications Specialist Relationship Specialty Start Date End Date Juan Mckinley MD [address] [place] [address] [address] [place] [address] PCP - General 07/17/22 01/31/25 Sarah Figueroa MD [address] [place] [address] PCP - General Internal Medicine - [facility] Medicine 02/01/25 Angelique Agudelo, LATOSHAC [address] [place] [address] [address] [place] [phone] Endocrinology, Diabetes and Metabolism 07/14/24 Angelique Agudelo PA-C [address] [phone] Endocrinology, Diabetes and Metabolism 08/23/24 Angelique Agudelo PA-C [address] [phone] Endocrinology, Diabetes and Metabolism 10/18/24 documented as of this encounter
--- OUTSIDE RECORDS SUMMARY | 2025-09-18 11:45 | XMS_ITS | Encounter Summary ---
Author Organization [facility] Address [address] [place] [address] Care Team Providers Care Pleating Supervisor Name Role Phone Juan Mckinley MD Primary Care Provider [phone] Angelique Agudelo PA-C Unavailable [phone] Angelique Agudelo PA-C Unavailable [phone] Angelique Agudelo PA-C Unavailable [phone] Sarah Figueroa MD Primary Care Provider [phone] Reason for Visit * Reason Comments Medications Refill Encounter Details Date Type Department Care Team (Late st Contact Info) Description 07/21/2023 Refill [facility] Endocrinology [address] [place] [address] Angelique Agudelo PA-C 210 [facility] [address] [place] [phone] Medications Refill Social History Tobacco Use Types [...] BY MOUTH TWICE A DAY 60 Tablet 07/23/2023 08/22/2023 documented in this encounter Miscellaneous Notes * Telephone Encounter - Fely Martin RN - 07/22/2023 0912 EDT JANE 09/11/2022 NOV 09/04/23 Labs 03/28/23 documented in this encounter Plan of Treatment Not on file documented as of this encounter Visit Diagnoses Diagnosis Hyperthyroidism Thyrotoxicosis without mention of goiter or other cause, without mention of thyrotoxic crisis or storm documented in this encounter Discontinued Medications Medication Sig Discontinue Reason Start Date End Da te methIMAzole (TAPAZOLE) 5 mg tabletIndications:Hypert hyroidism TAKE ONE TABLET BY MOUTH TWICE A DAY 06/27/2023 07/23/2023 documented as of this encounter Additional Health Concerns Infection Onset Date Last Indicated Resolved Time R/O COVID-19 11/30/2024 11/30/2024 12/01/2024 1:04 EST R/O COVID-19 12/08/2024 12/08/2024 12/08/2024 14:1 9 EST R/O COVID-19 12/29/2024 12/29/2024 12/29/2024 23:5 5 EST documented as of this encounter Care Teams Pleating Supervisor Relationship Specialty Start Date End Date Juan Mckinley MD [address],[facility] 3 [place] [address] PCP - General 07/17/22 01/31/25 Sarah Figueroa MD [address] [place] [address] PCP - General Internal Medicine - [facility] Medicine 02/01/25 Angelique Agudelo PA-C [address] [phone] Endocrinology, Diabetes and Metabolism 07/14/24 Angelique Agudelo PA-C [address] [phone] Endocrinology, Diabetes and Metabolism 08/23/24 Angelique Agudelo PA-C [address] [phone] Endocrinology, Diabetes and Metabolism 10/18/24 documented as of this encounter
--- OUTSIDE RECORDS SUMMARY | 2025-09-18 11:45 | XMS_ITS | Encounter Summary ---
Author Organization [facility] Address [address] [place] [address] Care Team Providers Care Fur Scraper Name Role Phone Juan Mckinley MD Primary Care Provider [phone] Angelique Agudelo PA-C Unavailable [phone] Angelique Agudelo PA-C Unavailable [phone] Angelique Agudelo-C Unavailable [phone] Sarah Figueroa MD Primary Care Provider [phone] Reason for Visit * Reason Onset Date Comments Appointment Related 09/07/2024 Encounter Details Date Type Department Care Team (Late st Contact Info) Description 09/07/2024 Telephone [facility] Nephrology - [address] [address] Humberto Shabazz MD [address] [place] [address] Rehab, Level [address] [place] [address] Appointment Related Social History Tobacco [...] * Telephone Encounter - Eduin Cervantes - 09/07/2024 1335 EST Pt has no showed 3 times and canceled NPV appt's there will be no more attempts to reschedule. Referral has been closed. documented in this [...] documented as of this encounter Care Teams Fur Scraper Relationship Specialty Start Date End Date Juan Mckinley MD [address] [facility] [place] [address] PCP - General 07/17/22 01/31/25 Sarah Figueroa MD [address] [place] [address] PCP - General Internal Medicine - Hospital Medicine 02/01/25 Angelique Agudelo PA-C [address] [place] [phone] Endocrinology, Diabetes and Metabolism 07/14/24 Angelique Agudelo PA-C [address] [place] [phone] Endocrinology, Diabetes and Metabolism 08/23/24 Angelique Agudelo PA-C [address] [place] [phone] Endocrinology, Diabetes and Metabolism 10/18/24 documented as of this encounter
--- NOTE | 2025-09-18 13:46 | ED.FALL ---
HPI - Fall General Chief Complaint: Fall Stated Complaint: NECK AND BACK PAIN Time Seen by Provider: 09/18/25 11:34 Source: patient Mode of arrival: EMS Limitations: no limitations History of Present Illness ED Provider: Dr. 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 The patient states that he has severe pain in his right chest which is 10/10, worse with movement. He also has severe pain in his mid back and neck. The patient did not take any medications for his pain. Review of systems was negative for fever, chills, nausea, vomiting, frequency, urgency or dysuria. Related Data Previous Rx's ?Medication ?Instructions ?Recorded acetaminophen 500 mg tablet 1,000 mg (2 x 500 mg) PO Q6H PRN 09/18/25 (Tylenol Extra Strength) pain #20 tabs amoxicillin 500 mg capsule 1,000 mg (2 x 500 mg) PO TID 5 09/18/25 days #30 caps azithromycin 250 mg tablet See Rx Instructions PO .COMPLEX #6 09/18/25 (Zithromax Z-Robert) tabs ibuprofen 400 mg tablet 400 mg PO TID PRN fever or pain 09/18/25 #30 tabs morphine 15 mg immediate release 15 mg PO Q6H PRN pain #14 tabs 09/18/25 tablet Allergies Allergy/AdvReac Type Severity Reaction Status Date / Time amitriptyline Allergy Anaphylaxis Verified 09/18/25 11:15 divalproex sodium (From Allergy Anaphylaxis Verified 09/18/25 11:15 Depakote) gabapentin Allergy Anaphylaxis Verified 09/18/25 11:15 Review of Systems Review of Systems: Yes all other systems are reviewed and are negative [facility] Social History Social History Substance Use Type: Marijuana Physical Exam Vital Signs: Vital Signs: Last Vital Signs Temp 98.0 F 09/18/25 17:49 Pulse 70 09/18/25 17:49 Resp 16 09/18/25 17:49 BP 119/59 L 09/18/25 17:49 Pulse Ox 95 09/18/25 17:49 O2 Del Method Room Air 09/18/25 17:49 BMI result Body Mass Index 30.4 Vital signs were normal Exam: General: Awake, alert in no distress Head: Normocephalic, atraumatic EENT: PERRL, sclera and conjunctiva are normal, mouth with no erythema or exudates Neck: Diffuse C-spine tenderness and tenderness palpation of the trapezius muscles bilaterally Lung: breath sounds symmetric, no wheezing, no rales and no rhonchi Chest: symmetric movement, right-sided chest wall tenderness, no crepitus ecchymosis Heart: regular rate and rhythm, normal S1, S2 no murmurs or rubs Abdomen: soft, non-tender, nondistended, normal bowel sounds Back: Patient has diffuse vertebral tenderness with palpation of his thoracic spine. Neuro: Awake, alert, oriented, normal speech, cranial nerves 2-12 intact, spastic paralysis of the upper extremities, normal movement of the lower extremities-consistent with a his Guillain-Conshohocken syndrome Psych: Pleasant, cooperative Medications Administered Discontinued Medications Generic Name Dose Route Start Last Admin Trade Name Freq PRN Reason Stop Dose Admin Amoxicillin 1,000 mg 09/18/25 16:02 09/18/25 16:10 Amoxicillin 500 Mg Capsule PO 09/18/25 16:03 1,000 mg ONCE ONE Administration Azithromycin 500 mg 09/18/25 16:02 09/18/25 16:10 Azithromycin 500 Mg Tablet PO 09/18/25 16:03 500 mg ONCE ONE Administration Ketorolac Tromethamine 15 mg 09/18/25 13:46 09/18/25 14:40 Ketorolac Tromethamine 15 Mg/Ml Vial IVPUSH 09/18/25 13:47 15 mg ONCE STA Administration Morphine Sulfate 4 mg 09/18/25 13:46 09/18/25 14:40 Morphine Sulfate 4 Mg/Ml Cartridge IVPUSH 09/18/25 13:47 4 mg ONCE STA Administration Protocol Morphine Sulfate 4 mg 09/18/25 16:02 09/18/25 16:10 Morphine Sulfate 4 Mg/Ml Cartridge IVPUSH 09/18/25 16:03 4 mg ONCE STA Administration Protocol Medical Decision Making Medical Decision Making MDM Narrative: 44-year-old male with a 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 The patient states that he has severe pain in his right chest which is 10/10, worse with movement. He also has severe pain in his mid back and neck. The patient did not take any medications for his pain.Review of systems was negative for fever, chills, nausea, vomiting, frequency, urgency or dysuria. Vital signs were normal. Patient does have tenderness palpation of his cervical and thoracic spine as well as tenderness palpation in his right chest wall. Differential diagnosis: ?Includes but is not limited to skull fracture, intracranial bleed, cervical fracture, cervical sprain, thoracic fracture thoracic contusion, Course: 13:53 I ordered laboratory evaluation, CT scan of head, cervical spine, thoracic spine and chest without IV contrast, IV insert, Toradol 15 mg IV and morphine 4 mg IV. 16:03 My interpretation patient's laboratory evaluation is as follows: CBC was normal. CMP was normal. PT INR and PTT were normal. CT head, neck and thoracic spine revealed no acute fractures which is reassuring. The CT chest revealed no rib fractures but there is evidence for bilateral lower lobe pneumonia. This may be secondary to chest wall/rib contusions which caused the patient to have shallow breathing, poor mucus clearing leading to pneumonia. I did discuss this with the patient. He denied fever, chills or cough. Patient will be treated empirically with oral antibiotics; amoxicillin 1000 mg t.i.d. x5 days and Zithromax Z-Robert. He was given his 1st dose of these medications here in the emergency department. Patient only got minimal relief of his pain with the above treatment, therefore he was given another dose of morphine 4 mg IV. Patient was given prescriptions for amoxicillin 1000 mg 3 times a day x5 days, azithromycin Z-Robert x5 days,ibuprofen 400 mg q.6 hours, Tylenol 1000 mg q.6 hours and morphine 15 mg q.6 hours PRN pain. He was given printed and verbal instructions and discharged home. Differential Diagnosis Differential Diagnoses: The differential diagnosis associated with the presentation includes (See above) Admission/Observation Consideration of admission/observation: Escalation of care including admission/observation considered (Yes) Lab Data MDM Lab Attestation statement: I reviewed the patient's lab results. 09/18/25 14:21 09/18/25 14:21 Labs: Lab Results 09/18/25 Range/Units 14:21 WBC 11.0 H (4.8-10.8) X10*3/uL RBC 5.12 (4.60-5.80) X10*6/uL Hgb 14.7 (14.0-18.0) g/dl Hct 45.1 (42.0-52.0) % MCV 88.1 (80.0-98.0) fL MCH 28.7 (27.0-33.0) pg MCHC 32.6 (31.0-36.0) g/dl RDW 13.4 (11.0-16.0) % Plt Count 207 (160-400) X10*3/uL MPV 9.5 (9.4-12.4) fL Immature Gran % (Auto) 0.5 H (0.0-0.4) % Neut % (Auto) 72.5 (45-73) % Lymph % (Auto) 18.2 L (20-40) % Bullock % (Auto) 5.4 (2-11) % Eos % (Auto) 2.6 (0-4) % Baso % (Auto) 0.8 (0-2) % Lymph # (Auto) 2.0 (1.2-4.9) X10*3/uL Bullock # (Auto) 0.6 (0.1-1.2) X10*3/uL Eos # (Auto) 0.3 (0.0-0.4) X10*3/uL Baso # (Auto) 0.1 (0.0-0.2) X10*3/uL Abs Immat Gran (auto) 0.06 H (0.00-0.03) X10*3/uL Absolute Neuts (auto) 7.9 (2.0-8.3) x10*3/uL Absolute Nucleated RBC 0.000 (0.0-0.012) X10*3/uL Nucleated RBC % (auto) 0.0 (0.0-0.2) /100WBC PT 12.7 (11.2-13.5) SEC INR 1.0 (0.9-1.1) APTT 33.3 (26.7-34.1) SEC Sodium 144 (135-145) mmol/L Potassium 4.3 (3.3-5.1) mmol/L Chloride 112 H (96-108) mmol/L Carbon Dioxide 24 (22-29) mmol/L Anion Gap 12 (12-20) BUN 17 H (9-16) mg/dL Creatinine 1.23 (0.5-1.4) mg/dL Estim Creat Clear Calc 92.8 Estimated GFR > 60 Random Glucose 92 (60-115) mg/dL Calcium 9.4 (8.4-10.2) mg/dL Total Bilirubin 0.3 (0.0-1.0) mg/dL AST 27 (5-37) U/L ALT 30 (0-40) U/L Alkaline Phosphatase 100 (39-117) U/L Total Protein 7.6 (6.5-8.0) g/dL Albumin 4.5 (3.5-5.0) g/dL Radiology Impression Discussion of test interpretation with radiology: I have reviewed the radiologist's reading. Radiologist Impression: CT head without contrast Comparison: None provided Findings: No intra-axial mass, midline shift, hydrocephalus, or acute hemorrhage. No significant atrophy-like change or white matter disease. The visualized paranasal sinuses and mastoid air cells are normal. The orbits are unremarkable. No skull fracture. IMPRESSION: 1. No acute intracranial findings. This document has been electronically signed by: Marion Cespedes MD on 09/18/2025 15:41:38 CT cervical spine without contrast Comparison: None provided Findings: Vertebral alignment is within normal limits. Multilevel disc space narrowing and endplate osteophyte formation, as well as facet hypertrophy. No acute fractures or dislocations. No acute findings on limited view of the intracranial contents. No cervical fluid collections or masses. Lung apices are clear. IMPRESSION: No acute findings. This document has been electronically signed by: Marion Cespedes MD on 09/18/2025 15:46:38 CT thoracic spine without contrast Comparison: None provided Findings: Normal vertebral body alignment. No acute fractures or dislocations. No significant degenerative change. Mild right and moderate left bibasilar airspace opacity. Normal upper abdominal contents. IMPRESSION: 1. No evidence of thoracic spine injury. 2. Bibasilar pneumonia. This document has been electronically signed by: Marion Cespedes MD on 09/18/2025 15:43:48 CT chest without contrast Comparison: None provided Findings: The heart size is normal. Calcification of the coronary vasculature. The visualized thyroid and mediastinum are unremarkable. Mild right and moderate left bibasilar airspace opacity. Visualized portions of the upper abdomen demonstrate high density material within the gallbladder lumen. No acute fractures. IMPRESSION: 1. Bibasilar pneumonia. 2. Coronary artery disease. This document has been electronically signed by: Marion Cespedes MD on 09/18/2025 15:38:52 Prescription Management I considered prescription management with: Pain Medication (I prescribed ibuprofen, Tylenol and morphine) and Antibiotic (I prescribed the amoxicillin and azithromycin) Chronic Conditions Patient?s care impacted by: Other (Guillain-Conshohocken syndrome with spastic paralysis) Critical Care Time Critical Care Time Critical Care Time: Yes Total Critical Care Time: 45 Attestation: Critical Care: The patient was critically ill with a high probability of imminent or life threatening deterioration. I spent greater than 30 minutes of discontinuous time evaluating the patient,delivering critical care at the bedside, discussing and evaluating pertinent data with consultants. Critical care time does not include time spent performing separately billable procedures or teaching. Total time spent performing critical care was 45 minutes. Discharge Plan Discharge Clinical Impression: Accidental fall from wheelchair, Pneumonia, Contusion of rib on right side, Contusion of back wall of thorax, Acute neck sprain Patient Disposition: Home, Self-Care Instructions: Community Acquired Pneumonia (ED), Chest Contusion (ED) Additional Instructions: Your blood work was unremarkable. CT head, neck, chest and thoracic spine did not reveal any broken bones which is reassuring. CT chest did reveal pneumonia in your lower lungs bilaterally. Take amoxicillin 500 mg pills, 2 pills, every 6 hours (3 times a day) for 5 days. Take Zithromax (azithromycin) Z-Robert as prescribed. Day 1 take 2 pills, each day after that take 1 pill for total of 5 days. This medication states in your system for 7-10 days and continues to work despite only taking it for 5 days. Take ibuprofen 200 mg pills, 2 pills every 6 hours as needed for pain. Take Tylenol (acetaminophen) 2 pills every 6 hours as needed for pain. For pain not relieved by ibuprofen or Tylenol take morphine 15 mg pills, 1 pill every 6 hours as needed for pain. This medication will make you sleepy, do not drive or work while taking this medication. Morphine is a narcotic medication and can be addicting. If you are concerned about addiction you can ask the pharmacist for less pills or do not get this prescription filled. Follow-up with your doctor in 2 days. Please return to the emergency department if your symptoms get worse or if you develop any symptoms that are concerning to you. Prescriptions: New amoxicillin 500 mg capsule 1,000 mg PO TID 5 Days Qty: 30 0RF azithromycin [Zithromax Z-Robert] 250 mg tablet See Rx Instructions .ROUTE .COMPLEX Qty: 6 0RF Rx Instructions: take 500 mg today (day 1), then 250 mg for 4 days (days 2-5) acetaminophen [Tylenol Extra Strength] 500 mg tablet 1,000 mg PO Q6H PRN (Reason: pain) Qty: 20 0RF ibuprofen 400 mg tablet 400 mg PO TID PRN (Reason: fever or pain) Qty: 30 0RF morphine 15 mg tablet 15 mg PO Q6H PRN (Reason: pain) Qty: 14 0RF Rx Instructions: Patient may request partial fill; Partial Fill upon patient request. Interventions: ED Discharge Assessment Last Done: 09/18/25 17:49 Discharge Date/Time: 09/18/25 17:50 Print Language: Syriac
[2025-09-18 14:08] VITALS: BP 99/60; PULSE 58; RESP 16; TEMP 36.6; O2SAT 96
[2025-09-18 14:25] LABS: MANUAL DIFF FLAG NO
[2025-09-18 14:34] LABS: INTERNATIONAL NORM RATIO 1.0 (0.9-1.1); Prothrombin Time 12.7 SEC (11.2-13.5)
[2025-09-18 14:37] LABS: Partial Thromboplastin Time 33.3 SEC (26.7-34.1)
[2025-09-18 14:38] LABS: Hematocrit 45.1 % (42.0-52.0); Hemoglobin 14.7 g/dl (14.0-18.0); Imm Gran Abs Auto 0.06 X10*3/uL (0.00-0.03); Imm Gran Pct Auto 0.5 % (0.0-0.4); Lymphocytes Absolute Auto 2.0 X10*3/uL (1.2-4.9); Mean Corpuscular HGB Conc 32.6 g/dl (31.0-36.0); Mean Corpuscular Hemoglobin 28.7 pg (27.0-33.0); Mean Corpuscular Volume 88.1 fL (80.0-98.0); NRBC Abs Auto 0.000 X10*3/uL (0.0-0.012); NRBC Pct Auto 0.0 /100WBC (0.0-0.2); Platelet Count 207 X10*3/uL (160-400); Red Blood Count 5.12 X10*6/uL (4.60-5.80); White Blood Count 11.0 X10*3/uL (4.8-10.8)
[2025-09-18 14:45] LABS: Alanine Aminotransferase 30 U/L (0-40); Albumin Level 4.5 g/dL (3.5-5.0); Alkaline Phosphatase 100 U/L (39-117); Anion Gap 12 (12-20); Aspartate Amino Transferase 27 U/L (5-37); Blood Urea Nitrogen 17 mg/dL (9-16); Calcium 9.4 mg/dL (8.4-10.2); Carbon Dioxide 24 mmol/L (22-29); Chloride 112 mmol/L (96-108); Creatinine Clr Calc Pharmacy 92.8; Estimated Glomerular Filt Rate > 60; Potassium 4.3 mmol/L (3.3-5.1); Sodium 144 mmol/L (135-145); Total Protein 7.6 g/dL (6.5-8.0)
[2025-09-18 16:12] VITALS: BP 119/59; PULSE 70; RESP 16; TEMP 36.7; O2SAT 95
[2025-09-18 17:49] VITALS: BP 119/59; PULSE 70; RESP 16; TEMP 36.7; O2SAT 95
== END 2025-09-18 17:50 | disposition home or self-care (01) ==
PROVIDERS: Emergency Provider Emergency Medicine Emergency Medical Services
DX: S16.1XXA Strain of muscle, fascia and tendon at neck level, initial encounter (principal); S20.211A Contusion of right front wall of thorax, initial encounter; M54.50 Low back pain, unspecified; J18.9 Pneumonia, unspecified organism; R51.9 Headache, unspecified; M54.2 Cervicalgia; W05.0XXA Fall from non-moving wheelchair, initial encounter; Y93.9 Activity, unspecified; Y92.9 Unspecified place or not applicable; Y99.8 Other external cause status; Z79.899 Other long term (current) drug therapy
CPT/HCPCS: 36415; 70450; 71250; 72125; 72128; 80053; 85025; 85610; 85730; 96374; 96375; 96376; 99284; J1885; J2270

== ENCOUNTER → 2025-09-18 13:47 | Outpatient (BNV) | payer MEDICARE, MEDICAID, SELFPAY | PROVIDERS: Emergency Provider Emergency Medicine Emergency Medical Services; Visit Provider Radiology Diagnostic Radiology | DX: J18.9 Pneumonia, unspecified organism (principal); M54.2 Cervicalgia; R51.9 Headache, unspecified; V00.811A Fall from moving wheelchair (powered), initial encounter | CPT/HCPCS: 70450; 71250; 72125; 72128 ==

== ENCOUNTER 2025-09-22 11:36 | Emergency (ER) | payer MEDICARE, MEDICAID, SELFPAY ==
--- NOTE | ~2025-09-22 | CT_ITS ---
CLINICAL HISTORY: headache, vision changes CT Head without contrast. CT angiography head and neck with contrast. 3D Postprocessing. Comparison: CT/SR - CT HEAD/BRAIN WO IV CON - 09/18/25 14:49 EST Findings: HEAD CT: No intra-axial mass, midline shift, hydrocephalus, or acute hemorrhage. No significant atrophy-like change or white matter disease. There is no sinus or mastoid fluid. The orbits are unremarkable. There is no acute fracture. HEAD AND NECK CTA: Aortic arch and cervical great vessels are patent. Intracranial arteries are patent. No aneurysm, dissection, or occlusion. No abnormal intracranial enhancement. The visualized thyroid gland is unremarkable. No cervical mass or fluid collection. Lung apices clear. No acute fracture. IMPRESSION: 1. Unremarkable head CT. 2. Patent head and neck CTA. This document has been electronically signed by: Louise Eduardo MD on 09/22/2025 15:46:36
--- NOTE | ~2025-09-22 | XR_ITS ---
CLINICAL HISTORY: recent pneumonia 1 view chest x-ray Comparison: CT/SR - CT CHEST WO IV CON - 09/18/25 14:52 EST Findings: There is a focus of airspace opacity within the left lower lung with predominantly bandlike configuration. Multiple linear opacities within the right lower lung. The mid and upper lungs are clear. Heart size is normal. No acute fracture. IMPRESSION: Bibasilar atelectasis and/or infiltrates, [id number]-right. Findings have likely not changed significantly since the prior exam. This document has been electronically signed by: Louise Eduardo MD on 09/22/2025 19:22:18
[2025-09-22 11:44] VITALS: BP 108/70; BP 116/70; PULSE 64; RESP 18; TEMP 36.4; O2SAT 94; O2SAT 98; BMI 30.2
--- NOTE | 2025-09-22 12:05 | ED.HA ---
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 Patient states that he has had ongoing right shoulder pain, he states that he has a known rotator cuff injury, in his scheduled to see Orthopedics for possible surgical intervention for repair. He states that the pain has only worsened over the last several weeks. He denies any new injury or trauma. Patient also reports that this morning he awoke at 8:30 a.m. and noted that he had marked light sensitivity in both eyes with intermittent visual disturbances described as weekly little white worms or specks in the peripheral P on of admission. He states that this is bilateral. He states that he has episodes that lasts approximately 20 minutes and reoccur. He denies any blurred vision or double vision. No H/O similar symptoms in the past. He also reports that he has a headache as well. The headache is a stabbing like sensation localized above both of his eyes, and into his temples bilaterally. The pain comes and goes. Patient denies any recent head trauma or injury. He otherwise denies any fevers, chills, chest pain, shortness of breath, abdominal pain, nausea, vomiting or diarrhea. No new weakness numbness or tingling. MD elicited complaint: headache Onset (ago): day(s) Onset description: on awakening Location: frontal and temporal Quality & Timing: sharp Exacerbating factors: none Relieving factors: nothing Context: occurred at rest Associated symptoms: none Treatments prior to arrival: none Related Data Home Medications ?Medication ?Instructions ?Recorded ?Confirmed aspirin 81 mg tablet 81 mg PO DAILY 09/26/25 09/26/25 cyanocobalamin (vitamin B-12) 1,000 mcg PO DAILY 09/26/25 09/26/25 1,000 mcg tablet (Vitamin B-12) duloxetine 60 mg capsule,delayed 60 mg PO DAILY 12/01/25 12/01/25 release sprinkle levetiracetam 500 mg tablet 500 mg PO BID 09/26/25 09/26/25 (Keppra) lithium carbonate 300 mg tablet 300 mg PO BID 09/26/25 09/26/25 methimazole 5 mg tablet 5 mg PO DAILY 09/26/25 09/26/25 metoprolol succinate 25 mg 25 mg PO DAILY 09/26/25 09/26/25 tablet,extended release 24 hr pantoprazole 40 mg tablet,delayed 40 mg PO DAILY@0630 09/26/25 09/26/25 release pregabalin 300 mg capsule 300 mg PO BID 09/26/25 09/26/25 pyridoxine (vitamin B6) 500 mg 500 mg PO DAILY 09/26/25 09/26/25 tablet quetiapine 100 mg tablet 100 mg PO BEDTIME 09/26/25 09/26/25 rosuvastatin 20 mg tablet 20 mg PO BEDTIME 09/26/25 09/26/25 ticagrelor 90 mg tablet 90 mg PO BID 09/26/25 09/26/25 trazodone 100 mg tablet 50 mg PO BEDTIME 09/26/25 09/26/25 Allergies Allergy/AdvReac Type Severity Reaction Status Date / Time amitriptyline Allergy Anaphylaxis Verified 09/25/25 17:32 divalproex sodium (From Allergy Anaphylaxis Verified 09/25/25 17:32 Depakote) gabapentin Allergy Anaphylaxis Verified 09/25/25 17:32 Review of Systems Review of Systems: Constitutional : No Fever, No Chills ENT/Mouth : No sore throat, No Rhinorrhea Eyes: No Eye Pain, No Swelling, No Redness Cardiovascular : No Chest Pain, No SOB Respiratory : No Cough, No Sputum Gastrointestinal : No Nausea, No Vomiting, No Diarrhea, No abdominal Pain Genitourinary : No Dysuria, No Hematuria Musculoskeletal : No joint pain, No Myalgias, No Joint Swelling Skin : No Skin Lesions Neuro : No Weakness, No Numbness, + Headache All other systems reviewed and are negative Yes all other systems are reviewed and are negative Constitutional: Constitutional: Reports as per [facility] Past Medical History Medical History (Updated 09/28/25 @ 14:06 by Lyudmila Valdez NP) Coronary artery disease GERD (gastroesophageal reflux disease) Bipolar disorder Guillain Darnell? syndrome Seizures Surgical History (Updated 09/28/25 @ 13:28 by Roselyn Lemos RN) Hx of umbilical hernia repair Hx of heart artery stent Social History Social History Household Members: Children Housing: Apartment Do you presently have visiting nurse or other home services: Yes Comment: pt is not able to walk Patient Tobacco Use Status: Current everyday Tobacco user Tobacco use type: Cigarette Cigarettes Per Day: 4 Substance Use Type: Marijuana Advance Directives Date on File: 09/26/25 service: No Physical Exam Vital Signs: Vital Signs: Last Vital Signs Temp 97.3 F 09/22/25 22:17 Pulse 62 09/22/25 22:17 Resp 18 09/22/25 22:17 BP 102/68 09/22/25 22:17 Pulse Ox 97 09/22/25 22:17 O2 Del Method Room Air 09/22/25 22:17 BMI result Body Mass Index 30.2 Const: General: cooperative, comfortable and no acute distress Orientation/consciousness: patient oriented x3 Limitations: no limitations HEENT: Head: Yes normal to inspection, Yes normocephalic and Yes atraumatic Ears: hearing grossly normal bilaterally General nose exam: Normal external nose present Face and sinus: Yes normal facial exam Mouth: Normal oral and palatal mucosa present, oropharynx normal and moist mucous membranes Throat: Yes posterior oropharynx normal Eyes: General: appearance normal, both eyes and all related structures Eyelids: Yes eyelids normal Conjunctivae: conjunctivae normal Sclerae: sclerae normal EOM: EOMs intact bilaterally Neck: Neck: Yes normal visual inspection, Yes full ROM and Yes no lymphadenopathy Lymphatic: no lymphadenopathy noted Chest: Chest palpation & inspection: normal inspection of the chest Resp: Effort & Inspection: normal respiratory effort and able to speak in complete sentences Auscultation: clear to auscultation bilaterally, no crackles, no rales, no rhonchi and no wheezes Cardio: Rate: regular rate Rhythm: regular rhythm Heart sounds: S1 normal heart sound present and S2 normal heart sound present GI: Inspection: Yes normal to inspection Skin: General skin exam: no rashes or lesions noted Trauma: no lacerations or abrasions Wounds: no wounds Neuro: Other: Neurologic examination is limited secondary to Guillain-[place] with lower extremity weakness bilaterally from the knees down. General: patient oriented x3 and Unable to assess gait Cranial nerves: Yes Facial sensation intact/muscles of mastication intact and Yes Midline tongue present Gait exam (Neuro): Unable to assess gait Pupils: Normal pupillary reactivity/response: bilateral Extrem: General: Yes normal to inspection Right upper extremity: normal to inspection Left upper extremity: normal to inspection Right lower extremity: normal to inspection Left lower extremity: normal to inspection Medications Administered Discontinued Medications Generic Name Dose Route Start Last Admin Trade Name Freq PRN Reason Stop Dose Admin Diphenhydramine HCl 25 mg 09/22/25 16:18 09/22/25 17:03 Diphenhydramine Hcl 50 Mg/Ml Vial IVPUSH 09/22/25 16:19 25 mg ONCE ONE Administration Sodium Chloride 1,000 mls @ 999 mls/hr 09/22/25 12:29 09/22/25 15:00 Ns IV 09/22/25 13:29 Infused .Q1H1M ONE Infusion Acetaminophen 1,000 mg in 100 mls @ 400 mls/hr 09/22/25 12:29 09/22/25 14:15 Ofirmev IV 09/22/25 12:43 Infused ONCE ONE Infusion Ceftriaxone Sodium 1 gm/ 50 mls @ 100 mls/hr 09/22/25 21:13 09/22/25 22:16 Sodium Chloride IV 09/22/25 21:42 Infused ONCE ONE Infusion Iohexol 100 ml 09/22/25 14:28 09/22/25 14:39 Iohexol 350 Mg/Ml 100 Ml Infus..Btl IV 09/22/25 14:29 70 ml ONCE ONE Administration Ketorolac Tromethamine 15 mg 09/22/25 16:18 09/22/25 17:04 Ketorolac Tromethamine 15 Mg/Ml Vial IVPUSH 09/22/25 16:19 15 mg ONCE ONE Administration Metoclopramide HCl 10 mg 09/22/25 16:18 09/22/25 17:04 Metoclopramide Hcl 10 Mg/2 Ml Vial IVPUSH 09/22/25 16:19 10 mg ONCE ONE Administration Medical Decision Making Medical Decision Making MDM Narrative: This is a 44-year-old male, with a past medical history of Guillain-Phil[place], who presents emergency department with concerns of chronic right shoulder pain who presents emergency department with the acute onset headache and visual disturbances upon awakening this morning. Patient also reports that last night he does not recall having a headache or these visual disturbances however he is unable to recall the events that happened yesterday. Will obtain IV access, fluids, and pain medication as well as diagnostic imaging and labs. Differential diagnoses include migraine with aura due to acute onset of photophobia, visual disturbances bilaterally, and headache. Also consideration of meningitis and/or encephalitis however this is less likely given no fevers, neck stiffness, or altered mental status. Vascular event such as a TIA or stroke is less likely given no focal neurologic deficits on examination. Will obtain CT head and neck with IV contrast to rule out any acute vascular pathology although this is unlikely. We will also obtain a noncontrast head CT to rule out any acute intracranial hemorrhage. As for chronic right shoulder pain, patient has already been seen by Orthopedics, will treat with IV pain medication, and continue to follow-up with orthopedics. 3:20 PM 09/22/2025 (Franci Husain PA-C): Patient resting comfortably, asleep in room, awaiting scans. 4:18 PM 09/22/2025 (Franci Husain PA-C): CTA negative. We will medicate the patient with migraine cocktail. I discussed this case with my attending physician, he is in agreement with this plan. 5:10 PM 09/22/2025 (Franci Husain PA-C): Patient is now receiving migraine cocktail. I went to go reassess patient, patient was asleep in the bed, I awoke him, he states that his headache is feeling better however is reporting right shoulder pain. The Toradol should help with this. He is now reporting a 3/10 headache. 5:33 PM 09/22/2025 (Franci Husain PA-C): Nursing staff told me that patient's daughter called to inform us that patient was having hallucinations this morning, stating that patient was calling is daughter his aunt's name, appear to be very confused, not oriented, stated that he was transported into his room by a helicopter. And was confused as to why daughter was not in the room. And then was complaining about a headache with eye pain. Daughter reports that had only 1 other episode like this and states that this only happened when he was 1st diagnosed with Guillain-Phil[place], and was attributed to adverse medication reaction. Daughter expresses concerns that this is never happened to him before. Patient was seen last week and was diagnosed with a pneumonia, he has been on azithromycin and amoxicillin which they have been taking. Daughter also reports that patient was having some issues with a new catheter, states that they had to take this out and replaced multiple times. Daughter also reports that patient was complaining of some left lower abdominal pain last night, sharp, atypical of him. I discussed with daughter that his only presentation today was a headache with visual disturbances. This is likely due to migraine with aura. Patient reporting that he is still having shoulder pain, this is chronic for him, pain appreciated with palpation, and with movement. He has a known rotator cuff injury. He has no headache, or vision changes. He states that he is uncomfortable and pain however upon every assessment that I have had with him thus far he has been sleeping requiring me to awake him with my voice. I do not want to over medicate him with other pain medication cause patient appears to be visibly comfortable however upon wakening he appears to be uncomfortable complaining of right shoulder pain. He has no other symptoms. He has no fevers, chills, double vision, blurred vision, chest pain, shortness for breath, abdominal pain, nausea, vomiting or diarrhea. 8:11 PM 09/22/2025 (Franci Husain PA-C): Still awaiting urine to be processed at the lab. CXR revealing bibasilar atelectasis and/or infiltrates, left greater than right, not significantly changed since prior examination. Reviewed with my attending physician, appears to be atelectasis not pneumonia. Already on ABX, no need for further ABX. 9:15 PM 09/22/2025 (Franci Husain PA-C): UA appears to be mildly infected therefore blood cultures were ordered, vital signs within normal limits. Patient given 1st dose of antibiotic IV. Discharged on cefuroxime 500 mg b.i.d.. Patient stable for discharge. Differential Diagnosis Differential Diagnoses: The differential diagnosis associated with the presentation includes See above Admission/Observation Consideration of admission/observation: Escalation of care including admission/observation considered Lab Data MDM Lab Attestation statement: I reviewed the patient's lab results. 09/22/25 13:30 09/22/25 13:30 Labs: Lab Results 09/22/25 09/22/2509/22/25 Range/Units 13:30 14:33 18:43 WBC 9.0 (4.8-10.8) X10*3/uL RBC 5.23 (4.60-5.80) X10*6/uL Hgb 14.9 (14.0-18.0) g/dl Hct 45.6 (42.0-52.0) % MCV 87.2 (80.0-98.0) fL MCH 28.5 (27.0-33.0) pg MCHC 32.7 (31.0-36.0) g/dl RDW 13.4 (11.0-16.0) % Plt Count 202 (160-400) X10*3/uL MPV 9.8 (9.4-12.4) fL Immature Gran % (Auto) 0.2 (0.0-0.4) % Neut % (Auto) 66.4 (45-73) % Lymph % (Auto) 22.5 (20-40) % Fallon % (Auto) 6.5 (2-11) % Eos % (Auto) 3.5 (0-4) % Baso % (Auto) 0.9 (0-2) % Lymph # (Auto) 2.0 (1.2-4.9) X10*3/uL Fallon # (Auto) 0.6 (0.1-1.2) X10*3/uL Eos # (Auto) 0.3 (0.0-0.4) X10*3/uL Baso # (Auto) 0.1 (0.0-0.2) X10*3/uL Abs Immat Gran (auto) 0.02 (0.00-0.03) X10*3/uL Absolute Neuts (auto) 6.0 (2.0-8.3) x10*3/uL Absolute Nucleated RBC 0.000 (0.0-0.012) X10*3/uL Nucleated RBC % (auto) 0.0 (0.0-0.2) /100WBC Sodium 147 H (135-145) mmol/L Potassium 4.7 (3.3-5.1) mmol/L Chloride 109 H (96-108) mmol/L Carbon Dioxide 29 (22-29) mmol/L Anion Gap 14 (12-20) BUN 21 H (9-16) mg/dL Creatinine 1.20 (0.5-1.4) mg/dL Estim Creat Clear Calc 94.7 Estimated GFR > 60 Random Glucose 100 (60-115) mg/dL Calcium 9.6 (8.4-10.2) mg/dL Magnesium 2.5 (1.6-2.6) mg/dL Total Bilirubin 0.4 (0.0-1.0) mg/dL Direct Bilirubin 0.2 (0.0-0.5) mg/dL AST 29 (5-37) U/L ALT 63 H (0-40) U/L Alkaline Phosphatase 121 H (39-117) U/L Ammonia 33 (13-55) umol/L Total Protein 7.5 (6.5-8.0) g/dL Albumin 4.6 (3.5-5.0) g/dL Urine Color Urine Appearance Urine pH (5.0-9.0) Ur Specific Finley (1.005-1.025) Urine Protein (Neg-Trace) mg/dL Urine Glucose (UA) (Negative) mg/dL Urine Ketones (Negative) mg/dL Urine Blood (Negative) Urine Nitrite (Negative) Ur Leukocyte Esterase (Negative) Urine RBC (0-2) /HPF Urine WBC (0-5) /HPF Ur Squamous Epith Cells (0-2) /HPF Urine Bacteria (None Seen) Hyaline Casts (0-2) /LPF Urine Opiates Screen (Not Detect) Ur Buprenorphine Scrn (Not Detect) ng/mL Ur Oxycodone Screen (Not Detect) ng/mL Urine Methadone Screen (Not Detect) ng/mL Urine Fentanyl Screen (Not Detect) Ur Barbiturates Screen (Not Detect) Ur Phencyclidine Scrn (Not Detect) Ur Amphetamines Screen (Not Detect) U Benzodiazepines Scrn (Not Detect) Urine Cocaine Screen (Not Detect) U Marijuana (THC) Screen (Not Detect) Influenza Type A (PCR) NEGATIVE (Negative) Influenza Type B (PCR) NEGATIVE (Negative) RSV RNA Qual (PCR) NEGATIVE (Negative) SARS-CoV-2 RNA (RT-PCR) NEGATIVE (Negative) 09/22/25 Range/Units 20:11 WBC (4.8-10.8) X10*3/uL RBC (4.60-5.80) X10*6/uL Hgb (14.0-18.0) g/dl Hct (42.0-52.0) % MCV (80.0-98.0) fL MCH (27.0-33.0) pg MCHC (31.0-36.0) g/dl RDW (11.0-16.0) % Plt Count (160-400) X10*3/uL MPV (9.4-12.4) fL Immature Gran % (Auto) (0.0-0.4) % Neut % (Auto) (45-73) % Lymph % (Auto) (20-40) % Fallon % (Auto) (2-11) % Eos % (Auto) (0-4) % Baso % (Auto) (0-2) % Lymph # (Auto) (1.2-4.9) X10*3/uL Fallon # (Auto) (0.1-1.2) X10*3/uL Eos # (Auto) (0.0-0.4) X10*3/uL Baso # (Auto) (0.0-0.2) X10*3/uL Abs Immat Gran (auto) (0.00-0.03) X10*3/uL Absolute Neuts (auto) (2.0-8.3) x10*3/uL Absolute Nucleated RBC (0.0-0.012) X10*3/uL Nucleated RBC % (auto) (0.0-0.2) /100WBC Sodium (135-145) mmol/L Potassium (3.3-5.1) mmol/L Chloride (96-108) mmol/L Carbon Dioxide (22-29) mmol/L Anion Gap (12-20) BUN (9-16) mg/dL Creatinine (0.5-1.4) mg/dL Estim Creat Clear Calc Estimated GFR Random Glucose (60-115) mg/dL Calcium (8.4-10.2) mg/dL Magnesium (1.6-2.6) mg/dL Total Bilirubin (0.0-1.0) mg/dL Direct Bilirubin (0.0-0.5) mg/dL AST (5-37) U/L ALT (0-40) U/L Alkaline Phosphatase (39-117) U/L Ammonia (13-55) umol/L Total Protein (6.5-8.0) g/dL Albumin (3.5-5.0) g/dL Urine Color Yellow Urine Appearance Clear Urine pH 7.0 (5.0-9.0) Ur Specific Finley >= 1.030 H (1.005-1.025) Urine Protein Negative (Neg-Trace) mg/dL Urine Glucose (UA) Negative (Negative) mg/dL Urine Ketones Negative (Negative) mg/dL Urine Blood Negative (Negative) Urine Nitrite Negative (Negative) Ur Leukocyte Esterase Trace H (Negative) Urine RBC 0-2 (0-2) /HPF Urine WBC 6-10 H (0-5) /HPF Ur Squamous Epith Cells 0-2 (0-2) /HPF Urine Bacteria 4+ (None Seen) Hyaline Casts 0-2 (0-2) /LPF Urine Opiates Screen POSITIVE H (Not Detect) Ur Buprenorphine Scrn Not Detected (Not Detect) ng/mL Ur Oxycodone Screen Not Detected (Not Detect) ng/mL Urine Methadone Screen Not Detected (Not Detect) ng/mL Urine Fentanyl Screen Not Detected (Not Detect) Ur Barbiturates Screen Not Detected (Not Detect) Ur Phencyclidine Scrn Not Detected (Not Detect) Ur Amphetamines Screen Not Detected (Not Detect) U Benzodiazepines Scrn Not Detected (Not Detect) Urine Cocaine Screen Not Detected (Not Detect) U Marijuana (THC) Screen Not Detected (Not Detect) Influenza Type A (PCR) (Negative) Influenza Type B (PCR) (Negative) RSV RNA Qual (PCR) (Negative) SARS-CoV-2 RNA (RT-PCR) (Negative) Radiology Impression Discussion of test interpretation with radiology: I have reviewed the radiologist's reading. External Record Review External record reviewed: Inpatient record, Office record, Outpatient record, Prior outpatient labs, Prior outpatient radiology, Primary care record and Outside ED record Discharge Plan Discharge Clinical Impression: Migraine, Chronic pain in shoulder, Acute UTI Patient Disposition: Home, Self-Care Instructions: Urinary Tract Infection in Men (ED), Migraine Headache (ED), Shoulder Pain (ED) Additional Instructions: You were seen in the emergency department due to a headache. Your workup today was reassuring. Your CT of your head and neck do not show any acute abnormalities. Your urine does appear to be mildly infected therefore we are starting you on antibiotics. Finish the entire course even if your symptoms improve. We gave you a dose of IV antibiotics here in the emergency department. Please resume antibiotic tomorrow 09/23 You likely suffered something called a migraine with aura. This resolved after you were medicated with multiple medications including IV Tylenol, IV Toradol, Reglan and Benadryl. You continue to have right shoulder pain which is chronic for you. I am encouraging that you follow-up with the transmission specialist, call to make an appointment. Continue all at-home medications as prescribed. If any new or worsening symptoms occur including but not limited to changes in behavior, severe headache, dizziness, blurred vision, chest pain, shortness of breath, please seek emergent care. Prescriptions: No Action levetiracetam [Keppra] 500 mg Tablet 500 mg PO BID cyanocobalamin (vitamin B-12) [Vitamin B-12] 1,000 mcg Tablet 1,000 mcg PO DAILY quetiapine 100 mg Tablet 100 mg PO BEDTIME trazodone 100 mg Tablet 50 mg PO BEDTIME pantoprazole 40 mg Tablet,Delayed Release (Dr/Ec) 40 mg PO DAILY@0630 methimazole 5 mg Tablet 5 mg PO DAILY aspirin 81 mg Tablet 81 mg PO DAILY metoprolol succinate 25 mg Tablet Extended Release 24 Hr 25 mg PO DAILY lithium carbonate 300 mg Tablet 300 mg PO BID pyridoxine (vitamin B6) [Vitamin B-6] 500 mg Tablet 500 mg PO DAILY rosuvastatin 20 mg Tablet 20 mg PO BEDTIME pregabalin 300 mg Capsule 300 mg PO BID ticagrelor 90 mg Tablet 90 mg PO BID duloxetine 60 mg Capsule, Delayed Rel Sprinkle 60 mg PO DAILY Referrals: [facility] [place] Orthopedic Surgeons [Provider Group] Interventions: ED Discharge Assessment Last Done: 09/22/25 22:17 Discharge Date/Time: 09/22/25 22:18 Print Language: Lao
--- OUTSIDE RECORDS SUMMARY | 2025-09-22 12:31 | XMS_ITS | Encounter Summary ---
Author Organization [facility] Address [address] [place] [address] Care Team Providers Care Tea Tree Farmer Name Role Phone Angelique Agudelo PA-C Primary Care Provider [phone] Juan Mckinley MD Primary Care Provider [phone] Angelique Agudelo PA-C Unavailable Angelique Agudelo PA-C Unavailable [phone] Angelique Agudelo PA-C Unavailable Sarah Figueroa MD Primary Care Provider [phone] Encounter Details Date Type Department Care Team (Late st Contact Info) Description 10/05/2018 Historical Results Only [facility] Radiology Results [address] [place] [address] Angelique Agudelo PA-C [address] [phone] Social History Tobacco Use Types [...] EXAM: MRI 6170 THORACIC SPINE W/O CONTRAST [facility]#[id number] DATE & TIME EXAM COMPLETED: Oct 05 2018 7:11PM CPT:58808 REASON FOR EXAM: M54.14 radiculopathy cervical m54.12 radiculopathy thoracic Accession# : [id number] PT CL: O FINDINGS: The following MRI [...] EXAM: MRI 6170 THORACIC SPINE W/O CONTRAST [facility]#[id number] DATE & TIME EXAM COMPLETED: Oct 05 2018 7:11PM CPT:48296 REASON FOR EXAM: M54.14 radiculopathy cervical m54.12 radiculopathy thoracic Accession# : [id number] PT CL: O FINDINGS: The following MRI [...] EXAM: MRI 5025 C/S CANAL W/O CONTRAST [facility]#[id number] DATE & TIME EXAM COMPLETED: Oct 05 2018 7:11PM CPT:46040 REASON FOR EXAM: M54.14 radiculopathy cervical m54.12 radiculopathy thoracic Accession# : [id number] PT CL: O FINDINGS: The following MRI [...] EXAM: MRI 5025 C/S CANAL W/O CONTRAST [facility]#[id number] DATE & TIME EXAM COMPLETED: Oct 05 2018 7:11PM CPT:35046 REASON FOR EXAM: M54.14 radiculopathy cervical m54.12 radiculopathy thoracic Accession# : [id number] PT CL: O FINDINGS: The following MRI [...] documented as of this encounter Care Teams Tea Tree Farmer Relationship Specialty Start Date End Date Angelique Agudelo PA-C [address] [phone] PCP - General 01/10/16 07/16/22 Juan Mckinley MD [facility] [address] [place] [address] PCP - General 07/17/22 01/31/25 Sarah Figueroa MD [address] [place] [id number] PCP - General Internal Medicine - [facility] 02/01/25 Angelique Agudelo PA-C [address] [phone] Endocrinology, Diabetes and Metabolism 07/14/24 Angelique Agudelo PA-C [address] [phone] Endocrinology, Diabetes and Metabolism 08/23/24 Angelique Agudelo PA-C [address] [phone] Endocrinology, Diabetes and Metabolism 10/18/24 documented as of this encounter
--- OUTSIDE RECORDS SUMMARY | 2025-09-22 12:31 | XMS_ITS | Encounter Summary ---
Author Organization [facility] Address [address] [place] [address] Care Team Providers Care Berry Picker Name Role Phone Heena Oneill MD Primary Care Provider [phone] Reason for Visit * Reason Onset Date Comments ATI asking for OT to be added 09/06/2025 Encounter Details Date Type Department Care Team (Late st Contact Info) Description 09/06/2025 Telephone [facility] Primary Care [address] [place] [phone] Telephone Intake, Staff ATI asking for OT [...] have money to get more. Patient declined [facility] Utilities Answer Date Recorded In the [...] OT added as well and faxed to [facility] at [phone] documented in this encounter Plan of Treatment Upcoming Encounters Date Type Department Care Team (Late st Contact Info) Description 10/14/2025 4:20 PM EST Follow-Up [facility] [address] [place] [address] New Vehicle Sales Consultant: Maria Alejandra Gardiner MD [address] [place] [address] 04/25/2026 9:45 AM EDT Appointment [address] [address] documented as of this encounter Visit Diagnoses Not on filedocumented in this encounter Care Teams Berry Picker Relationship Specialty Start Date End Date Heena Oneill MD [address] [place] [address] PCP - General Family Medicine 06/22/25 documented as of this encounter
--- OUTSIDE RECORDS SUMMARY | 2025-09-22 12:31 | XMS_ITS | Encounter Summary ---
Author Organization [facility] Address [address] [place] [address] Care Team Providers Care Hold Worker Name Role Phone Angelique Agudelo PA-C Primary Care Provider [phone] Juan Mckinley MD Primary Care Provider [phone] Angelique Agudelo PA-C Unavailable Angelique Agudelo PA-C Unavailable [phone] Angelique Agudelo PA-C Unavailable Sarah Figueroa MD Primary Care Provider [phone] Encounter Details Date Type Department Care Team (Late st Contact Info) Description 09/03/2018 Historical Results Only [facility] - CVPH Radiology Results [address] [place] [address] Angelique Agudelo PA-C [address] [phone] Social History Tobacco Use Types [...] EXAM: RAD 1435 THORACIC SPINE 2 VIEWS CD#[id number] DATE & TIME EXAM COMPLETED: Sep 03 2018 12:38PM CPT:25653 REASON FOR EXAM: M54.2 Cervical pain M54.6 Thoracic pain Accession# : [id number] PT CL: O FINDINGS: AP and lateral views of the thoracic spine are obtained. There are no visible fractures and no focal bony abnormalities are identified. Alignment is anatomic. No paraspinal or soft tissue abnormality is seen. Disc spaces are well-maintained. IMPRESSION: Normal study. Comparison study 07/29/2013. Procedure Note Froilan Fisher MD - 07/31/2019 EXAM: RAD 1435 THORACIC SPINE 2 VIEWS CDM#[id number] DATE & TIME EXAM COMPLETED: Sep 03 2018 12:38PM CPT:95023 REASON FOR EXAM: M54.2 Cervical pain M54.6 Thoracic pain Accession# : [id number] PT CL: O FINDINGS: AP and lateral [...] RAD 1405 CERVICAL SPINE MIN 4 VIEWS [facility]#[id number] DATE & TIME EXAM COMPLETED: Sep 03 2018 12:38PM CPT:27077 REASON FOR EXAM: M54.2 Cervical pain M54.6 Thoracic pain Accession# : [id number] PT CL: O FINDINGS: Five views of [...] RAD 1405 CERVICAL SPINE MIN 4 VIEWS [facility]#[id number] DATE & TIME EXAM COMPLETED: Sep 03 2018 12:38PM CPT:65519 REASON FOR EXAM: M54.2 Cervical pain M54.6 Thoracic pain Accession# : [id number] PT CL: O FINDINGS: Five views of [...] documented as of this encounter Care Teams Hold Worker Relationship Specialty Start Date End Date Angelique Agudelo PA-C [address] [address] PCP - General 01/10/16 07/16/22 Juan Mckinley MD 158 [facility] 3 [place] [address] PCP - General 07/17/22 01/31/25 Sarha Figueroa MD [address] [place] [address] PCP - General Internal Medicine - [facility] 02/01/25 Angelique Agudelo PA-C [address] [phone] Endocrinology, Diabetes and Metabolism 07/14/24 Angelique Agudelo PA-C [address] [address] Endocrinology, Diabetes and Metabolism 08/23/24 Angelique Agudelo PA-C [address] [address] Endocrinology, Diabetes and Metabolism 10/18/24 documented as of this encounter
--- OUTSIDE RECORDS SUMMARY | 2025-09-22 12:31 | XMS_ITS | Encounter Summary ---
Author Organization [facility] Address [address] [place] [address] Care Team Providers Care Test Skein Winder Name Role Phone Juan Mckinley MD Primary Care Provider [phone] Angelique Agudelo-C Unavailable [phone] Angelique Agudelo-C Unavailable [phone] Angelique Agudelo-Idalia Unavailable [phone] Sarah Figueroa MD Primary Care Provider [phone] Reason for Visit * Reason Onset Date Comments Appointment Related 09/03/2022 Encounter Details Date Type Department Care Team ([facility] Contact Info) Description 09/03/2022 Telephone [facility] - [address] [phone] Lucas Reaves MD [address] [place] [address] Appointment Related Social History Tobacco Use [...] referring him to all these doctor's in [place] as he doesn't have transportation declined rescheduling [...] as of this encounter Care Teams Test Skein Winder Relationship Specialty Start Date End Date Juan Mckinley MD [address] [facility] [place] [address] PCP - General 07/17/22 01/31/25 Sarah Figureoa MD [address] [place] [address] PCP - General Internal Medicine - [facility] 02/01/25 Angelique Agudelo PA-C [address] [phone] Endocrinology, Diabetes and Metabolism 07/14/24 Angelique Agudelo PA-C [address] [phone] Endocrinology, Diabetes and Metabolism 08/23/24 Angelique Agudelo PA-C [address] [phone] Endocrinology, Diabetes and Metabolism 10/18/24 documented as of this encounter
--- OUTSIDE RECORDS SUMMARY | 2025-09-22 12:31 | XMS_ITS | Clinical Summary ---
Author Organization [facility] Address [address] [facility] [address] [place] [address] Phone Care Team Providers Care R&D Lab Technician Name Role Phone Pcp, Unknown Primary Care Provider Unavailabl e Encounters Date Type Department Care Team Description 08/01/2025 9:15 AM EDT - 08/01/2025 11:59 PM EDT Hospital Encounter [facility] - [address] [place] [address] Smion Maier MD Discharge Disposition: Home or Self Care 07/29/2025 Transcribe Orders Virtual Department [address] [place] [address] Simon Maier MD Other neuromuscular dysfunction of bladder (Primary Dx); Other retention of urine 06/24/2025 Orders Only [facility] [address] [place] [phone] Homehealth, Interface ProviderMD from Last 3 Months [...] is not well assessed Simon Maier MD [facility] Final Result from Last 3 Months Insurance MEDICARE PART A & [place] [id number] MEDICARE PART A & [facility] & [place] MEDICARE PART [place] MEDICARE PART A & B [facility] MEDICARE PART A & [place] [id number] Care Teams R&D Lab Technician Relationship Specialty Start Date End Date Pcp, Unknown PCP - General 07/29/25 Heena Oneill [address] [place] [address] [place] [address] Primary Care Physician 07/29/25 Additional Source Comments The information contained in this document represents components of the legal health record. It is not the complete legal health record.[facility]
--- OUTSIDE RECORDS SUMMARY | 2025-09-22 12:31 | XMS_ITS | Encounter Summary ---
Author Organization [facility] Address [address] [place] [address] Care Team Providers Care Wind Turbine Service Technician Name Role Phone Heena Oneill MD Primary Care Provider [phone] Encounter Details Date Type Department Care Team (Late st Contact Info) Description 09/13/2025 EnteroMed[employer]hart Message [facility] Primary Care [address] [place] [phone] Heena Oneill MD [address] [place], [place] [phone] Referral for Partial Rotator Cuff Tear Social [...] have money to get more. Patient declined [facility] Utilities Answer Date Recorded In the [...] Info) Description 10/14/2025 4:20 PM EST Follow-Up [facility] [address] [place] [address] Stopper Maker: Maria Alejandra Gardiner MD [address] [place] [address] 04/25/2026 9:45 AM EDT Appointment [address] [address] documented as of this encounter Visit Diagnoses Not on filedocumented in this encounter Care Teams Wind Turbine Service Technician Relationship Specialty Start Date End Date Heena Oneill MD [address] [place] [address] [place] [address] PCP - General Family Medicine 06/22/25 documented as of this encounter
--- OUTSIDE RECORDS SUMMARY | 2025-09-22 12:31 | XMS_ITS | Encounter Summary ---
Author Organization [facility] Address [address] [place] [address] Care Team Providers Care Waste Water Or Water Plant Operator Name Role Phone Angelique Agudelo PA-C Primary Care Provider [phone] Juan Mckinley MD Primary Care Provider [phone] Angelique Agudelo PA-C Unavailable [phone] Angelique Agduelo PA-C Unavailable [phone] Angelique Agudelo PA-C Unavailable [phone] Sarah Figueroa MD Primary Care Provider [phone] Reason for Visit * Reason Onset Date Comments Medications Refill 01/23/2018 Encounter Details Date Type Department Care Team (Late st Contact Info) Description 01/23/2018 Telephone [facility] Interventional Pain [address] [place] [address] Nydia Sotelo PA [address] [place] [phone] Medications Refill Social History Tobacco Use Types [...] fill the medication because patient is from [place] and it has a controlled substance in [...] documented as of this encounter Care Teams Waste Water Or Water Plant Operator Relationship Specialty Start Date End Date Angelique Agudelo PA-C [address] [place] [address] [place] [phone] PCP - General 01/10/16 07/16/22 Juan Mckinley MD [address] [facility] [place] [address] PCP - General 07/17/22 01/31/25 Sarah Figueroa MD [address] [place] [address] PCP - General Internal Medicine - [facility] 02/01/25 Angelique Agudelo PA-C [address] [phone] Endocrinology, Diabetes and Metabolism 07/14/24 Angelique Agudelo PA-C [address] [phone] Endocrinology, Diabetes and Metabolism 08/23/24 Angelique Agudelo PA-C [address] [phone] Endocrinology, Diabetes and Metabolism 10/18/24 documented as of this encounter
--- OUTSIDE RECORDS SUMMARY | 2025-09-22 12:31 | XMS_ITS | Encounter Summary ---
Author Organization [facility] Address [address] [place] [address] Care Team Providers Care Honing Machine Operator Production Name Role Phone Angelique Agudelo PA-C Primary Care Provider [phone] Juan Mckinley MD Primary Care Provider [phone] Angelique Agudelo PA-C Unavailable Angelique Agudelo PA-C Unavailable [phone] Angelique Agudelo-C Unavailable [phone] Sarah Figueroa MD Primary Care Provider [phone] Encounter Details Date Type Department Care Team (Late st Contact Info) Description 10/22/2016 Historical Results Only [facility] - CVPH Radiology Results [address] [place] [address] Kaz Munguia DO [address] [place] [address] [address] [place] [address] Social History Tobacco Use Types [...] RAD 1405 CERVICAL SPINE MIN 4 VIEWS CDM#[id number] DATE & TIME EXAM COMPLETED: Oct 22 2016 1:11PM CPT:07558 REASON FOR EXAM: M47.892 Cervical spondylosis Accession# : [id number] PT CL: {pt_class} FINDINGS: AP, lateral and [...] RAD 1405 CERVICAL SPINE MIN 4 VIEWS CDM#[id number] DATE & TIME EXAM COMPLETED: Oct 22 2016 1:11PM CPT:24106 REASON FOR EXAM: M47.892 Cervical spondylosis PT [...] documented as of this encounter Care Teams Honing Machine Operator Production Relationship Specialty Start Date End Date Angelique Agudelo PA-C [address] [phone] PCP - General 01/10/16 07/16/22 Juan Mckinley MD 158 [facility] 3 [place] [address] PCP - General 07/17/22 01/31/25 Sarah Figueroa MD [address] [place] [address] PCP - General Internal Medicine - [facility] Medicine 02/01/25 Angelique Agudelo PA-C [address] [phone] Endocrinology, Diabetes and Metabolism 07/14/24 Angelique Agudelo PA-C [address] [phone] Endocrinology, Diabetes and Metabolism 08/23/24 Angelique Agudelo PA-C [address] [place] [phone] Endocrinology, Diabetes and Metabolism 10/18/24 documented as of this encounter
--- OUTSIDE RECORDS SUMMARY | 2025-09-22 12:31 | XMS_ITS | Encounter Summary ---
Author Organization [facility] Address [address] [place] [address] Care Team Providers Care Hardware Assembler Name Role Phone Angelique Agudelo PA-C Primary Care Provider [phone] Juan Mckinley MD Primary Care Provider [phone] Angelique Agudelo PA-C Unavailable [phone] Angelique Agudelo-C Unavailable [phone] Angelique Agudelo-C Unavailable [phone] Sarah Figueroa MD Primary Care Provider [phone] Reason for Visit * Reason Comments Other Encounter Details Date Type Department Care Team (Late st Contact Info) Description 12/03/2020 [facility] [address] [place] [address] Connie Herrera, BUTTONHOLE FACER [address] [facility] [address] [place] [phone] Other Social History Tobacco Use Types Packs/Day [...] documented as of this encounter Care Teams Hardware Assembler Relationship Specialty Start Date End Date Angelique Agudelo PA-C 210 [facility] [address] [place] [address] PCP - General 01/10/16 07/16/22 Juan Mckinley MD [address] [place] [address] 3 [place] [address] PCP - General 07/17/22 01/31/25 Sarah Figueroa MD [address] [place] [address] PCP - General Internal Medicine - [facility] Medicine 02/01/25 Angelique Agudelo PA-C [address] [phone] Endocrinology, Diabetes and Metabolism 07/14/24 Angelique Agudelo PA-C [address] [phone] Endocrinology, Diabetes and Metabolism 08/23/24 Angelique Agudelo PA-C [address] [phone] Endocrinology, Diabetes and Metabolism 10/18/24 documented as of this encounter
--- OUTSIDE RECORDS SUMMARY | 2025-09-22 12:31 | XMS_ITS | Clinical Summary ---
Author Organization [facility] Address [address] [place] [address] Care Team Providers Care Junior Paralegal Name Role Phone Angelique Agudelo PA-C Unavailable Angelique Agudelo PA-C Unavailable Angelique Agudelo PA-C Unavailable Sarah Figueroa MD Primary Care Provider [phone] Allergies Active Allergy Reactions Criticality Noted Date [...] every 48 hours. 15 Tablet 5 Active ebxvyktm-skb-vh rrous gluconate 9 mg iron/ 15 mL [...] for pain. This was previously dispensed from [place] pharmacy in November just before initial hospitalization. [...] disease) 5 Depression 10/24/2015 Asthma 10/24/2015 Seizure ([facility]) 10/24/2015 last a few mon ths ago; he is not allowed to drive chronic back pain, gets injections Dr. Yaw Kang 07/09/2016 Anxiety Schizophrenia Heart murmur 09/28/2015 Had as child H/O ETOH abuse H/O drug abuse ([facility]) 10/27/2012 Quit- C ocaine, heroin, and [...] = 0.6 oz pur e alcohol) quit [facility] Utilities Answer Date Recorded In the past 12 months has th e [place], gas, oil, or water [employer] threatened to shut off services in your [...] time in the past 12 m [facility], were you homeless or living in a custodial (including now)? Patient unable to answer 12/03/2024 [facility] - Inadequate Housing Answer Date Re corded What is your living situation today? I have a [facility] place to live 12/26/[address] you li ve. Do you have problems with any of the following? Pests such as bugs, ants, or mice 12/26/2024 [facility] - Transportation Answer Date Record ed In the past 12 months, has l ack of reliable transportation kept you from medical appointments, meetings, work or from getting things needed for daily living? No 12/26/2024 [facility] - Personal Safety Answer Date Recor ded [...] C Antibody Negative Negative 12/06/2024 10:40 EST [facility] Blood VENOUS BLOOD / Unknown Venipuncture / Unknown 12/04/2024 5:22 EST 12/04/2024 5:26 EST us Diego Camacho MD CHEMISTRY & BLOOD GAS ORDERAB LES Final Result [facility] [address] [place] [address] from Last 3 Months or Most Recently Relevant to Health Maintenance Insurance [place] [address] [phone] MEDICARE Advance Directives For more information, please contact: [phone] Documents on File Type Date Recorded Patient Tanning Wheel Filler Expl anation Advance Directive 02/14/2025 21:04 Health Care Proxy Advance Directive 02/14/2025 20:54 Power of Maintainer Plant COLST/MOLST 01/31/2025 7:[address] pgs 1 & 2 Void COLST/MOLST 01/20/2025 12:36 H ealth Care Proxy COLST/MOLST 12/25/2024 8:48 MOLS T * Full Code (Latest Code Status on File) Date Activated Date Inactivated Comments 12/24/2024 23:57 01/27/2025 16:08 Question Answer Comments When the patient has NO PULSE: Full Code / CPR [facility]: Refer to current pap er/scanned MOLST for order details. * Full Code Date Activated Date Inactivated Comments 12/01/2024 6:21 12/24/2024 23:04 Question Answer Comments When the patient has NO PULSE: Full Code / CPR Who Made the Decision? Default/Not Discussed Care Teams Junior Paralegal Relationship Specialty Start Date End Date Sarah Figueroa MD [address] [place] [address] PCP - General Internal Medicine - [facility] 02/01/25 Angelique Agudelo PA-C [address] [phone] Endocrinology, Diabetes and Metabolism 07/14/24 Angelique Agudelo PA-C [address] [phone] Endocrinology, Diabetes and Metabolism 08/23/24 Angelique Agudelo PA-C [address] [phone] Endocrinology, Diabetes and Metabolism 10/18/24
--- OUTSIDE RECORDS SUMMARY | 2025-09-22 12:31 | XMS_ITS | Encounter Summary ---
Author Organization Health system Address [address] [place] [address] Care Team Providers Care Environment Artist Name Role Phone Angelique Agudelo PA-C Primary Care Provider [phone] Juan Mckinley MD Primary Care Provider [phone] Angelique Agudelo PA-C Unavailable Angelique Agudelo PA-C Unavailable [phone] Angelique Agudelo-C Unavailable [phone] Sarah Figueroa MD Primary Care Provider [phone] Encounter Details Date Type Department Care Team (Late st Contact Info) Description 07/01/2017 Historical Results Only [facility] - CVPH Radiology Results [address] [place] [address] Navarro Banks MD [address] [place] [phone] Social History Tobacco Use Types Packs/Day [...] RAD 1405 CERVICAL SPINE MIN 4 VIEWS [facility]#[id number] DATE & TIME EXAM COMPLETED: Jul 01 2017 9:20AM CPT:57587 REASON FOR EXAM: CERVICALGIA Accession# : [id number] PT CL: {pt_class} FINDINGS: AP, open mouth, [...] RAD 1405 CERVICAL SPINE MIN 4 VIEWS [facility]#[id number] DATE & TIME EXAM COMPLETED: Jul 01 2017 9:20AM CPT:45766 REASON FOR EXAM: CERVICALGIA Accession# : [id number] CL: {pt_class} FINDINGS: AP, open mouth, lateral, [...] documented as of this encounter Care Teams Environment Artist Relationship Specialty Start Date End Date Angelique Agudelo PA-C [address] [place] [address] [address] [place] [address] PCP - General 01/10/16 07/16/22 Juan Mckinley MD [address] [place] [address] [address] [place] [address] PCP - General 07/17/22 01/31/25 Sarah Figueroa MD [address] [place] [address] PCP - General Internal Medicine - Hospital Medicine 02/01/25 Angelique Agudelo PA-C [address] [phone] Endocrinology, Diabetes and Metabolism 07/14/24 Angelique Agudelo PA-C [address] [phone] Endocrinology, Diabetes and Metabolism 08/23/24 Angelique Agudelo PA-C [address] [phone] Endocrinology, Diabetes and Metabolism 10/18/24 documented as of this encounter
--- OUTSIDE RECORDS SUMMARY | 2025-09-22 12:31 | XMS_ITS | Encounter Summary ---
Author Organization [facility] Address [address] [place] [address] Care Team Providers Care Frit Mixer Name Role Phone Angelique Agudelo PA-C Primary Care Provider [phone] Juan Mckinley MD Primary Care Provider [phone] Angelique Agudelo PA-C Unavailable Angelique Agudelo-C Unavailable [phone] Angelique Agudelo-C Unavailable Sarah Figueroa MD Primary Care Provider [phone] Reason for Visit * Reason Comments Other Encounter Details Date Type Department Care Team (Late st Contact Info) Description 10/24/2018 [facility] Neurophysiology - [facility] ([facility]) [address] [place], [place] [address] [place] [address] [address] Other Social History Tobacco Use [...] here, possibly schedule with Dr Lindsey in [place]. Will forward to schedulers. I refilled rx [...] documented as of this encounter Care Teams Frit Mixer Relationship Specialty Start Date End Date Angelique Agudelo PA-C [address] [phone] PCP - General 01/10/16 07/16/22 Juan Mckinley MD [facility] 3 [place] [address] PCP - General 07/17/22 01/31/25 Sarah Figueroa MD [address] [place] [address] PCP - General Internal Medicine - [facility] Medicine 02/01/25 Angelique Agudelo PA-C [address] [phone] Endocrinology, Diabetes and Metabolism 07/14/24 Angelique Agudelo PA-C [address] [phone] Endocrinology, Diabetes and Metabolism 08/23/24 Angelique Agudelo PA-C [address] [phone] Endocrinology, Diabetes and Metabolism 10/18/24 documented as of this encounter
--- OUTSIDE RECORDS SUMMARY | 2025-09-22 12:31 | XMS_ITS | Clinical Summary ---
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 90 tablet 3 025 Active pyridoxine (VITAMIN B6) 50 mg tabletIndications :Wernicke encephalopathy Take 1 tablet (50 mg total) by mouth once a day. 90 tablet 3 025 Active nitroglycerin (NITROSTAT) 0.4 mg SL tabletIndications :Coronary artery disease of [place] artery of [place] heart with stable angina pectoris Dissolve 1 tablet under the tongue every 5 minutes for up to 3 doses as needed for chest pain. If no relief, dial 911. 90 tablet 3 025 Active metoprolol succinate XL (TOPROL XL) 25 mg tabletIndications :Coronary artery disease of [place] artery of [place] heart with stable angina pectoris Take 1 [...] hours as needed for pain. 90 tablet Active budesonide-formot Shayne (SYMBICORT) 160-4.5 mcg inhalerIndication s:Moderate persistent asthma without complication (HCC) Inhale 2 puffs by mouth 2 times a day. Rinse mouth with water after use. Do not swallow. 6 g Active capsaicin (ZOSTRIX-HP) 0.075% topical creamIndications: Chronic pain disorder Apply topically to the affected area 3 times a day. 57 g 3 Active polyethylene glycol 3350 (MIRALAX) 17 gram packet TAKE 1 PACKET (17 G TOTAL) BY MOUTH DAILY NEEDED FOR CONSTIPATION. 30 packet 2 025 Active traZODone (DESYREL) 100 mg tabletIndications :Schizoaffective disorder, unspecified type Take 0.5 tablets (50 mg total) by mouth at bed time. 30 tablet 025 Active aspirin 81 mg EC tabletIndications :Coronary artery disease of [place] artery of [place] heart with stable angina pectoris Take 1 [...] the skin every 24 hours. 30 patch Active pregabalin (LYRICA) 300 mg capsuleIndication s:Chronic pain disorder Take 1 capsule (300 mg total) by mouth 2 times a day. 90 capsule 025 Active cyanocobalamin (vitamin B-12) 1,000 mcg tabletIndications :Wernicke encephalopathy TAKE 1 TABLET BY MOUTH EVERY DAY 90 tablet Active QUEtiapine (SEROquel) 100 mg tabletIndications :Schizoaffective disorder, unspecified type Take 1 tablet (100 mg total) by mouth nightly. 30 tablet Active ticagrelor (BRILINTA) 90 mg tabletIndications :Coronary artery disease of [place] artery of [place] heart with stable angina pectoris Take 1 tablet (90 mg total) by mouth every 12 hours. 720 tablet [address] (PROTONIX) 40 mg tabletIndications :Gastroesophageal reflux disease without esophagitis Take 1 tablet (40 mg total) by mouth once a day. 30 tablet [address] (CYMBALTA) 60 mg capsuleIndication s:Chronic pain disorder,Schizoaf fective disorder, unspecified type Take 1 capsule (60 mg total) by mouth once a day. 30 capsule Active levETIRAcetam (KEPPRA) 500 mg tabletIndications :Seizure disorder Take 2 tablets (1,000 mg total) by mouth 2 times a day. 90 tablet 3 Active lithium 300 mg capsuleIndication s:Schizoaffective disorder, unspecified type Take 1 capsule (300 mg total) by mouth every 12 hours. 60 capsule 025 2024 Active cyanocobalamin (vitamin B-12) 1,000 [...] daughter D/t [facility] PT, OT, Physiatry in [facility] needed Need for home health; patient is total care 2 assist Orders: Ambulatory referral to Home Health; Future Assessment & Plan (06/30/2025 6:26 PM EDT): Neurologic exam slowly improving per patient and daughter D/t [facility] PT, OT, Physiatry in [facility] needed Need for home health; patient is [...] artery disease of n ative artery of [place] heart with stable angina pectoris 05/08/2025 Assessment [...] of note had a recent admission to [facility] secondary to similar with a largely [...] of note had a recent admission to [facility] secondary to similar with a largely [...] Patient was noted during prior admission at [facility] to have a positive urine culture [...] Plan (06/30/2025 6:26 PM EDT): Recently saw [facility] urology, passed voiding trial. However a few [...] Well controlled. Referral provided for neurologist in [facility]. -Avoid sodium channel blockers -Continue Keppra 500mg BID Orders: levETIRAcetam (KEPPRA) 500 mg tablet; Take 2 tablets (1,000 mg total) by mouth 2 times a day. 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 Well controlled. Needs neurologist in [facility]. 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 - Neuro consulted, appreciate recs: - Episodes [...] - Patient to follow-up with neurology at [facility] as an outpatient Assessment & Plan (03/27/2025 [...] - Patient to follow-up with neurology at [facility] as an outpatient Assessment & Plan (03/26/2025 [...] - Patient to follow-up with neurology at [facility] as an outpatient Assessment & Plan (03/25/2025 [...] - Patient to follow-up with neurology at [facility] as an outpatient Assessment & Plan (03/24/2025 [...] - Patient to follow-up with neurology at [facility] as an outpatient -no seizure like activity [...] - Patient to follow-up with neurology at [facility] as an outpatient -no seizure like activity [...] - Patient to follow-up with neurology at [facility] as an outpatient Assessment & Plan (03/21/2025 [...] - Patient to follow-up with neurology at [facility] as an outpatient Assessment & Plan (03/20/2025 [...] - Patient to follow-up with neurology at [facility] as an outpatient Assessment & Plan (03/19/2025 [...] precautions -Patient to follow-up with neurology at [facility] as an outpatient Assessment & Plan (03/18/2025 [...] precautions -Patient to follow-up with neurology at [facility] as an outpatient Assessment & Plan (03/17/2025 [...] precautions -Patient to follow-up with neurology at [facility] as an outpatient Assessment & Plan (03/16/2025 [...] precautions -Patient to follow-up with neurology at [facility] as an outpatient Neurogenic bladder 03/16/2025 Assessment [...] bladder and upper tracts. Needs urologist in [facility]. Orders: Ambulatory referral to Urology; Future Assessment [...] Patient had been a rehab facility in [place], but was discharged by the patient's daughter and transferred to [facility] on 03/16 by private ambulance due to concerns for poor care at the facility and to be closer to family. Ultimately his daughter would like to be his WILDLIFE PROTECTOR however she is homeless and needs to secure housing first. His healthcare proxy (daughter, Halina Payan) was previously activated on admissions. Currently HCP not activated as patient able to understand simple medical information and participate in discharge planning. He may require more support and shared decision making for more complex medical decisions. -Patient will need follow-up with neurology at [facility] as an outpatient - PT/OT, case management -> bed search for STR, currently being followed by [facility] and [facility]. Daughter and patient made aware that facilities [...] Patient had been a rehab facility in [place], but was discharged by the patient's daughter and transferred to [facility] on 03/16 by private ambulance due to concerns for poor care at the facility and to be closer to family. Ultimately his daughter would like to be his WILDLIFE PROTECTOR however she is homeless and needs to secure housing first. His healthcare proxy (daughter, Halina Payan) was previously activated on admissions. Currently HCP not activated as patient able to understand simple medical information and participate in discharge planning. He may require more support and shared decision making for more complex medical decisions. -Patient will need follow-up with neurology at [facility] as an outpatient - PT/OT, case management -> bed search for STR, currently being followed by [facility], and [facility]. Daughter and patient made aware that facilities [...] Patient had been a rehab facility in [place], but was discharged by the patient's daughter and transferred to [facility] on 03/16 by private ambulance due to concerns for poor care at the facility and to be closer to family. Ultimately his daughter would like to be his WILDLIFE PROTECTOR however she is homeless and needs to secure housing first. His healthcare proxy (daughter, Halina Payan) was previously activated on admissions. Currently HCP not activated as patient able to understand simple medical information and participate in discharge planning. He may require more support and shared decision making for more complex medical decisions. -Patient will need follow-up with neurology at [facility] as an outpatient - PT/OT, case management -> bed search for STR, currently being followed by [facility], and [facility]. Daughter and patient made aware that facilities [...] Patient had been a rehab facility in [place], but was discharged by the patient's daughter and transferred to [facility] on 03/16 by private ambulance due to concerns for poor care at the facility and to be closer to family. Ultimately his daughter would like to be his WILDLIFE PROTECTOR however she is homeless and needs to secure housing first. His healthcare proxy (daughter, Halina Payan) was previously activated on admissions. Currently HCP not activated as patient able to understand simple medical information and participate in discharge planning. He may require more support and shared decision making for more complex medical decisions. -Patient will need follow-up with neurology at [facility] as an outpatient - PT/OT, case management -> bed search for STR, currently being followed by [facility], and [facility]. Daughter and patient made aware that facilities [...] Patient has been a rehab facility in [place], but was discharged by the patient's daughter and transferred to [facility] by private ambulance due to concerns for poor care at the facility. Also to be closer to family. -Patient will need follow-up with neurology at [facility] as an outpatient - PT/OT, case management [...] Patient has been a rehab facility in [place], but was discharged by the patient's daughter and transferred to [facility] by private ambulance due to concerns for poor care at the facility. Also to be closer to family. -Patient will need follow-up with neurology at [facility] as an outpatient - PT/OT, case management [...] Patient has been a rehab facility [place], but was discharged by the patient's daughter and transferred to [facility] by private ambulance due to concerns for poor care at the facility. Also to be closer to family. Patient asked when the G-tube can be removed. We will check first with dietitian for assessment before deciding on G-tube removal. -Patient will need follow-up with neurology at [facility] as an outpatient - PT/OT, case management [...] Patient has been a rehab facility [place], but was discharged by the patient's daughter and transferred to [facility] by private ambulance due to concerns for poor care at the facility. Also to be closer to family. Patient asked when the G-tube can be removed. We will check first with dietitian for assessment before deciding on G-tube removal. -Patient will need follow-up with neurology at [facility] as an outpatient - PT/OT, case management [...] Patient has been a rehab facility [place], but was discharged by the patient's daughter and transferred to [facility] by private ambulance due to concerns for poor care at the facility. Also to be closer to family. Patient asked when the G-tube can be removed. We will check first with dietitian for assessment before deciding on G-tube removal. -Patient will need follow-up with neurology at [facility] as an outpatient - PT/OT, case management [...] Patient has been a rehab facility [place], but was discharged by the patient's daughter and transferred to [facility] by private ambulance due to concerns for poor care at the facility. Also to be closer to family. -Patient will need follow-up with neurology at [facility] as an outpatient - PT/OT, case management [...] Patient has been a rehab facility [place], but was discharged by the patient's daughter and transferred to [facility] by private ambulance due to concerns for poor care at the facility. Also to be closer to family. -Patient will need follow-up with neurology at [facility] as an outpatient - PT/OT, case management [...] Patient has been a rehab facility [place], but was discharged by the patient's daughter and transferred to [facility] by private ambulance due to concerns for poor care at the facility. Also to be closer to family. -Patient will need follow-up with neurology at [facility] as an outpatient - PT/OT, case management [...] Patient has been a rehab facility [place], but was discharged by the patient's daughter and transferred to [facility] by private ambulance due to concerns for poor care at the facility. Also to be closer to family. 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 cEEG not available in [facility] so will obtain spot EEG. Rapid response called 05/09 for altered mental status, code stroke activated, CT head completed. Per Telestroke attending, patient to have cEEG completed at [facility]. - Neuro consulted, appreciate recs: - Episodes [...] Patient had been a rehab facility [place], but was discharged by the patient's daughter and transferred to [facility] on 03/16 by private ambulance due to concerns for poor care at the facility and to be closer to family. Ultimately his daughter would like to be his WILDLIFE PROTECTOR however she is homeless and needs to secure housing first. His healthcare proxy (daughter, Halina Payan) was previously activated on admissions. Currently HCP not activated as patient able to understand simple medical information and participate in discharge planning. He may require more support and shared decision making for more complex medical decisions. -Patient will need follow-up with neurology at [facility] as an outpatient - PT/OT, case management -> bed search for STR, currently being followed by [facility], and [facility]. Daughter and patient made aware that facilities [...] Patient had been a rehab facility [place], but was discharged by the patient's daughter and transferred to [facility] on 03/16 by private ambulance due to concerns for poor care at the facility and to be closer to family. Ultimately his daughter would like to be his WILDLIFE PROTECTOR however she is homeless and needs to secure housing first. His healthcare proxy (daughter, Halina Payan) was previously activated on admissions. Currently HCP not activated as patient able to understand simple medical information and participate in discharge planning. He may require more support and shared decision making for more complex medical decisions. -Patient will need follow-up with neurology at [facility] as an outpatient - PT/OT, case management -> bed search for STR, currently being followed [facility], and [facility]. Daughter and patient made [...] Patient had been a rehab facility [place], but was discharged by the patient's daughter and transferred to [facility] on 03/16 by private ambulance due to concerns for poor care at the facility and to be closer to family. Ultimately his daughter would like to be his WILDLIFE PROTECTOR however she is homeless and needs to secure housing first. His healthcare proxy (daughter, Halina Payan) was previously activated on admissions. Currently HCP not activated as patient able to understand simple medical information and participate in discharge planning. He may require more support and shared decision making for more complex medical decisions. -Patient will need follow-up with neurology at [facility] as an outpatient - PT/OT, case management -> bed search for STR, currently being [facility] Daughter and patient made aware that [...] Patient had been a rehab facility [place], but was discharged by the patient's daughter and transferred to [facility] on 03/16 by private ambulance due to concerns for poor care at the facility and to be closer to family. Ultimately his daughter would like to be his WILDLIFE PROTECTOR however she is homeless and needs to secure housing first. His healthcare proxy (daughter, Halina Payan) was previously activated on admissions. Currently HCP not activated as patient able to understand simple medical information and participate in discharge planning. He may require more support and shared decision making for more complex medical decisions. -Patient will need follow-up with neurology at [facility] as an outpatient - PT/OT, case management -> bed search for STR, currently being [facility], and [facility]. Daughter and patient made aware that facilities [...] Patient has been a rehab facility [place], but was discharged by the patient's daughter and transferred to [facility] by private ambulance due to concerns for poor care at the facility. Also to be closer to family. -Patient will need follow-up with neurology at [facility] as an outpatient - PT/OT, case management [...] Patient has been a rehab facility [place], but was discharged by the patient's daughter and transferred to [facility] by private ambulance due to concerns for poor care at the facility. Also to be closer to family. -Patient will need follow-up with neurology at [facility] as an outpatient - PT/OT, case management [...] Patient has been a rehab facility [place], but was discharged by the patient's daughter and transferred to [facility] by private ambulance due to concerns for poor care at the facility. Also to be closer to family. Patient asked when the G-tube can be removed. We will check first with dietitian for assessment before deciding on G-tube removal. -Patient will need follow-up with neurology at [facility] as an outpatient - PT/OT, case management [...] Patient has been a rehab facility [place], but was discharged by the patient's daughter and transferred to [facility] by private ambulance due to concerns for poor care at the facility. Also to be closer to family. Patient asked when the G-tube can be removed. We will check first with dietitian for assessment before deciding on G-tube removal. -Patient will need follow-up with neurology at [facility] as an outpatient - PT/OT, case management [...] Patient has been a rehab facility [place], but was discharged by the patient's daughter and transferred to [facility] by private ambulance due to concerns for poor care at the facility. Also to be closer to family. Patient asked when the G-tube can be removed. We will check first with dietitian for assessment before deciding on G-tube removal. -Patient will need follow-up with neurology at [facility] as an outpatient - PT/OT, case management [...] Patient has been a rehab facility [place], but was discharged by the patient's daughter and transferred to [facility] by private ambulance due to concerns for poor care at the facility. Also to be closer to family. -Patient will need follow-up with neurology at [facility] as an outpatient - PT/OT, case management [...] Patient has been a rehab facility [place], but was discharged by the patient's daughter and transferred to [facility] by private ambulance due to concerns for poor care at the facility. Also to be closer to family. -Patient will need follow-up with neurology at [facility] as an outpatient - PT/OT, case management [...] Patient has been a rehab facility [place], but was discharged by the patient's daughter and transferred to [facility] by private ambulance due to concerns for poor care at the facility. Also to be closer to family. -Patient will need follow-up with neurology at [facility] as an outpatient - PT/OT, case management [...] Patient has been a rehab facility [place], but was discharged by the patient's daughter and transferred to [facility] by private ambulance due to concerns for poor care at the facility. Also to be closer to family. -Patient will need follow-up with neurology at [facility] as an outpatient - PT/OT, case management [...] today. PT/OT referral placed. Patient moved to [place]. Holter lift at home. Patient needs help getting set up with home health in [facility]. Daughter is caring for him at home by herself currently. Needs neurologist, PT, PM&R, OT in [facility]. Also needs home nursing to exchange lezama 1x/month for neurogenic bladder Assessment & Plan (06/30/2025 6:26 PM EDT): Intubated in [facility] nov 2024 for resp failure. S/p plex, IVIG. Gradually improved neurologic function. 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 PT/OT referral placed. Patient moved to [place]. Holter lift at home. Patient needs help getting set up with home health in [facility]. Daughter is caring for him at home by herself currently. Needs neurologist, PT, PM&R, OT in [facility]. 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 cEEG not available in [facility] so will obtain spot EEG. Rapid response called 05/09 for altered mental status, code stroke activated, CT head completed. Per Telest[facility] attending, patient to have cEEG completed at [facility]. - Neuro consulted, appreciate recs: - Episodes [...] Patient had been a rehab facility in [place], but was discharged by the patient's daughter and transferred to [facility] on 03/16 by private ambulance due to concerns for poor care at the facility and to be closer to family. Ultimately his daughter would like to be his WILDLIFE PROTECTOR however she is homeless and needs to secure housing first. His healthcare proxy (daughter, Halina Payan) was previously activated on admissions. Currently HCP not activated as patient able to understand simple medical information and participate in discharge planning. He may require more support and shared decision making for more complex medical decisions. -Patient will need follow-up with neurology at [facility] as an outpatient - PT/OT, case management -> bed search for STR, currently [facility]. Daughter and patient made aware that [...] Patient had been a rehab facility in [place], but was discharged by the patient's daughter and transferred to [facility] on 03/16 by private ambulance due to concerns for poor care at the facility and to be closer to family. Ultimately his daughter would like to be his WILDLIFE PROTECTOR however she is homeless and needs to secure housing first. His healthcare proxy (daughter, Halina Payan) was previously activated on admissions. Currently HCP not activated as patient able to understand simple medical information and participate in discharge planning. He may require more support and shared decision making for more complex medical decisions. -Patient will need follow-up with neurology at [facility] as an outpatient - PT/OT, case management -> bed search for STR, [facility] and [facility]. Daughter and patient made aware that facilities [...] Patient had been a rehab facility in [place], but was discharged by the patient's daughter and transferred to [facility] on 03/16 by private ambulance due to concerns for poor care at the facility and to be closer to family. Ultimately his daughter would like to be his WILDLIFE PROTECTOR however she is homeless and needs to secure housing first. His healthcare proxy (daughter, Halina Payan) was previously activated on admissions. Currently HCP not activated as patient able to understand simple medical information and participate in discharge planning. He may require more support and shared decision making for more complex medical decisions. -Patient will need follow-up with neurology at [facility] as an outpatient - PT/OT, case management -> bed search for STR, currently [facility]. Daughter and patient made aware that facilities [...] Patient had been a rehab facility in [place], but was discharged by the patient's daughter and transferred to [facility] on 03/16 by private ambulance due to concerns for poor care at the facility and to be closer to family. Ultimately his daughter would like to be his WILDLIFE PROTECTOR however she is homeless and needs to secure housing first. His healthcare proxy (daughter, Halina Payan) was previously activated on admissions. Currently HCP not activated as patient able to understand simple medical information and participate in discharge planning. He may require more support and shared decision making for more complex medical decisions. -Patient will need follow-up with neurology at [facility] as an outpatient - PT/OT, case management -> bed search for STR, currently being followed by [facility], and [facility]. Daughter and patient made aware that facilities [...] Patient has been a rehab facility in [place], but was discharged by the patient's daughter and transferred to [facility] by private ambulance due to concerns for poor care at the facility. Also to be closer to family. -Patient will need follow-up with neurology at [facility] as an outpatient - PT/OT, case management [...] Patient has been a rehab facility in [place], but was discharged by the patient's daughter and transferred to [facility] by private ambulance due to concerns for poor care at the facility. Also to be closer to family. -Patient will need follow-up with neurology at [facility] as an outpatient - PT/OT, case management [...] Patient has been a rehab facility in [place], but was discharged by the patient's daughter and transferred to [facility] by private ambulance due to concerns for poor care at the facility. Also to be closer to family. Patient asked when the G-tube can be removed. We will check first with dietitian for assessment before deciding on G-tube removal. -Patient will need follow-up with neurology at [facility] as an outpatient - PT/OT, case management [...] Patient has been a rehab facility [place], but was discharged by the patient's daughter and transferred to [facility] by private ambulance due to concerns for poor care at the facility. Also to be closer to family. Patient asked when the G-tube can be removed. We will check first with dietitian for assessment before deciding on G-tube removal. -Patient will need follow-up with neurology at [facility] as an outpatient - PT/OT, case management [...] Patient has been a rehab facility in [place], but was discharged by the patient's daughter and transferred to [facility] by private ambulance due to concerns for poor care at the facility. Also to be closer to family. Patient asked when the G-tube can be removed. We will check first with dietitian for assessment before deciding on G-tube removal. -Patient will need follow-up with neurology at [facility] as an outpatient - PT/OT, case management [...] Patient has been a rehab facility [place], but was discharged by the patient's daughter and transferred to [facility] by private ambulance due to concerns for poor care at the facility. Also to be closer to family. -Patient will need follow-up with neurology at [facility] as an outpatient - PT/OT, case management [...] Patient has been a rehab facility [place], but was discharged by the patient's daughter and transferred to [facility] by private ambulance due to concerns for poor care at the facility. Also to be closer to family. -Patient will need follow-up with neurology at [facility] as an outpatient - PT/OT, case management [...] Patient has been a rehab facility [place], but was discharged by the patient's daughter and transferred to [facility] by private ambulance due to concerns for poor care at the facility. Also to be closer to family. -Patient will need follow-up with neurology at [facility] as an outpatient - PT/OT, case management [...] Patient has been a rehab facility in [place], but was discharged by the patient's daughter and transferred to [facility] by private ambulance due to concerns for poor care at the facility. Also to be closer to family. -Patient will need follow-up with neurology at [facility] as an outpatient - PT/OT, case management [...] trazodone dose due to sedation Home medications: Mccracken 300mg BID, Trazodone 100mg -> 50 mg [...] coordinate followup for this patient. Home medications: M[place]racken 300mg BID, Trazodone 100mg at bedtime, Seroquel [...] Plan (06/20/2025 1:32 PM EDT): Home medications: M[place]racken 300mg BID, Trazodone 100mg at bedtime, Seroquel 100mg at bedtime, Lyrica 300mg BID, Duloxetine 60mg QD -Continue all home medications Assessment & Plan (06/19/2025 7:25 AM EDT): Home medications: M[place]racken 300mg BID, Trazodone 100mg at bedtime, Seroquel 100mg at bedtime, Lyrica 300mg BID, Duloxetine 60mg QD -Continue all home medications Assessment & Plan (06/18/2025 8:10 PM EDT): Home medications: M[place]racken 300mg BID, Trazodone 100mg at bedtime, Seroquel [...] pain on 03/25 Patient would benefit from oim architect visit however service not available inpatient, consider [...] pain on 03/25 Patient would benefit from oim architect visit however service not available inpatient, consider [...] pain on 03/25 Patient would benefit from oim architect visit however service not available inpatient, consider [...] pain on 03/25 Patient would benefit from oim architect visit however service not available inpatient, consider [...] for mild pain Patient would benefit from oim architect visit however service not available inpatient, consider [...] for mild pain Patient would benefit from oim architect visit however service not available inpatient, consider [...] appointment was canceled for unclear reason. - SECURITY COORDINATOR and MBS completed. -Continued on modified diet: [...] appointment was canceled for unclear reason. - SECURITY COORDINATOR and MBS completed. -Continued on modified diet: [...] appointment was canceled for unclear reason. - SECURITY COORDINATOR and MBS completed. -Continued on modified diet: [...] appointment was canceled for unclear reason. - SECURITY COORDINATOR and MBS completed. -Continued on modified diet: [...] appointment was canceled for unclear reason. - SECURITY COORDINATOR and MBS completed. -Continued on modified diet: [...] appointment was canceled for unclear reason. - SECURITY COORDINATOR and MBS completed. Continued on modified diet: [...] appointment was canceled for unclear reason. - SECURITY COORDINATOR and MBS completed. Continued on modified diet: [...] appointment was canceled for unclear reason. - SECURITY COORDINATOR and MBS completed. Continued on modified diet: [...] for unclear reason. -Continued on modified diet: [place] thickened liquids, soft and bite-size solids - SECURITY COORDINATOR and MBS completed. Patient cleared for regular [...] for unclear reason. -Continued on modified diet: [place] thickened liquids, soft and bite-size solids - SECURITY COORDINATOR and MBS completed. Patient cleared for regular [...] for unclear reason. -Continued on modified diet: [place] thickened liquids, soft and bite-size solids - SECURITY COORDINATOR and MBS completed. Patient cleared for regular [...] for unclear reason. -Continued on modified diet: [place] thickened liquids, soft and bite-size solids - SECURITY COORDINATOR and MBS completed. Patient cleared for regular [...] for unclear reason. -Continued on modified diet: [place] thickened liquids, soft and bite-size solids - SECURITY COORDINATOR consult - Patient will need to be [...] without acute intracranial process. Staff at the [facility] was called for collateral information; there was [...] management is usual approach for partial tear. [facility] outpatient ortho appointment if pain not resolving. [...] without acute intracranial process. Staff at the [facility] was called for collateral information; there was [...] without acute intracranial process. Staff at the [facility] was called for collateral information; there was [...] without acute intracranial process. Staff at the [facility] was called for collateral information; there was [...] without acute intracranial process. Staff at the [facility] was called for collateral information; there was [...] without acute intracranial process. Staff at the [facility] was called for collateral information; there was [...] without acute intracranial process. Staff at the [facility] was called for collateral information; there was [...] without acute intracranial process. Staff at the [facility] was called for collateral information; there was [...] without acute intracranial process. Staff at the [facility] was called for collateral information; there was [...] without acute intracranial process. Staff at the [facility] was called for collateral information; there was [...] without acute intracranial process. Staff at the [facility] was called for collateral information; there was [...] without acute intracranial process. Staff at the [facility] was called for collateral information; there was [...] without acute intracranial process. Staff at the [facility] was called for collateral information; there was [...] organization. Date Type Department Care Team Description 09/21/2025 Telephone [facility] [address] [place] [address] [phone] Telephone Intake, Staff PAC General Info 09/19/2025 Refill [facility] [address] [place] [address] [phone] Jose Finney MD Schizoaffective disorder, unspecified type 09/19/2025 Refill [facility] [address] [place] [address] [phone] Jose Finney MD Seizure disorder 09/18/2025 Refill [facility] [address] [place] [address] [phone] Heena Oneill MD Chronic pain disorder; Schizoaffective disorder, unspecified type 09/13/2025 myChart Message [facility] Care [address] [place] [address] [phone] Heena Oneill MD Referral for Partial Rotator Cuff Tear 09/12/2025 Results Follow-Up [facility] 4th [address] [place] [phone] Tool Grinder Operator: Mae Vaca PA 09/12/2025 Refill [facility] [address] [place] [address] [phone] Heena Oneill MD Gastroesophageal reflux disease without esophagitis 09/06/2025 Telephone [facility] [address] [place] [phone] Telephone Intake, Staff ATI asking for OT to be added 09/05/2025 1:30 PM EST Office Visit [facility] 4th Floor [address] [place] [phone] Tool Grinder Operator: Mae Vaca PA Nail dystrophy (Primary Dx) 09/05/2025 Refill [facility] [address] [place] [address] [phone] Heena Oneill MD Coronary artery disease of [place] artery of [place] heart with stable angina pectoris 09/05/2025 Refill [facility] [address] [place] [address] [phone] Brian Smith MD Schizoaffective disorder, unspecified type 08/30/2025 Refill [facility] [address] [place] [address] [phone] Laila Tobias MD Wernicke encephalopathy 08/29/2025 Refill [facility] [address] [place] [address] [phone] Heena Oneill MD Chronic pain disorder 08/29/2025 Refill [facility] [address] [place] [address] [phone] Heena Oneill MD Seizure disorder 08/29/2025 myChart Message [facility] [address] [place] [address] [phone] Heena Oneill MD Referral 08/26/2025 Telephone [facility] [address] [place] [address] [phone] Telephone Intake, Staff notes and medication list needed 08/24/2025 Refill [facility] [address] [place] [address] [phone] Jose Finney MD Wernicke encephalopathy 08/23/2025 Refill [facility] [address] [place] [address] [phone] Heena Oneill MD Schizoaffective disorder, unspecified type ; Wernicke encephalopathy 08/23/2025 Telephone [facility] [address] [place] [address] [phone] Telephone Intake, Staff JENNIFER, auth form 08/11/2025 Refill [facility] [address] [place] [address] [phone] Heena Oneill MD Schizoaffective disorder, unspecified type 08/11/2025 Refill [facility] [address] [place] [address] [phone] Heena Oneill MD Tobacco use disorder 08/01/2025 Refill [facility] Care [address] [place] [address] [phone] Heena Oneill MD Chronic pain disorder 07/29/2025 3:30 PM EDT Clinical Support [facility] [address] [place] [phone] Tool Grinder Operator: Anneliese Jernigan LPN Urinary retention (Primary Dx) 07/28/2025 2:45 PM EDT Follow-Up [facility] Care [address] [place] [address] [phone] Heena Oneill MD Quadriparesis (Primary Dx); Schizoaffective disorder, unspecified type ; Seizure disorder ; Coronary artery disease of [place] artery of [place] heart with stable angina pectoris; Chronic pain disorder; Acne vulgaris; Guillain Darnell syndrome (HCC); Wernicke encephalopathy; Neurogenic bladder; Lezama catheter present; Onychomycosis 07/27/2025 Refill [facility] [address] [place] [address] [phone] Heena Oneill MD Schizoaffective disorder, unspecified type 07/25/2025 Refill [facility] [address] [place] [address] [phone] Heena Oneill MD Coronary artery disease of [place] artery of [place] heart with stable angina pectoris 07/21/2025 Telephone [facility] [address] [place] [phone] Telephone Intake, Staff would like referral resent to [facility] urology 07/14/2025 Telephone [facility] [address] [place] [phone] Telephone Intake, Staff 4 referrals faxed 07/14/2025 myChart Message [facility] [address] [place] [phone] Heena Oneill MD Referrals 07/11/2025 myChart Message [facility] [address] [place] [phone] Corrina Hdz, [facility] Appointment and Community Resources 07/06/2025 Telephone [facility] [address] [place] [phone] Telephone Intake, Staff AT asking for call back 07/05/2025 Telephone [facility]iology at [facility] [address] [facility] [address] [place] [address] Deanne Drake NP 07/04/2025 Refill [facility] [address] [place] [phone] Heena Oneill MD Schizoaffective disorder, unspecified type (HCC) 07/04/2025 Telephone [facility] [address] [place] [phone] Telephone Intake, Staff meds / WILDLIFE PROTECTOR hours 07/01/2025 4:00 PM EDT Office Visit [facility] 4th floor Cardiology Medicine [address] [place] [address] [phone] Tool Grinder Operator: Lucas Robles MD Coronary artery disease of [place] artery of [place] heart with stable angina pectoris (Primary Dx); Mixed hyperlipidemia; Tobacco use disorder 07/01/2025 Results Follow-Up [facility] [address] [place] [phone] Wilton Myers MD 07/01/2025 Refill [facility] [address] [place] [phone] Jose Finney MD 06/30/2025 2:00 PM EDT Office Visit [facility] [address] [place] [phone] Heena Oneill MD Guillain Darnell syndrome (HCC) (Primary Dx); Seizure disorder (HCC); Chronic pain disorder; Wernicke encephalopathy; Moderate persistent asthma without complication (HCC); Mixed hyperlipidemia; Schizoaffective disorder, unspecified type (HCC); Diabetes insipidus (HCC); Coronary artery disease of [place] artery of [place] heart with stable angina pectoris; Hyperthyroidism; Vitamin D deficiency; Pyelonephritis of right kidney; Gastroesophageal reflux disease without esophagitis; Lezama catheter present; Neurogenic bladder; Chronic constipation; Onychomycosis; Quadriparesis (HCC); Tobacco use disorder 06/30/2025 Refill [facility] [address] [place] [phone] Heena Oneill MD 06/29/2025 10:00 AM EDT Office Visit [facility] [address] [place] [address] Jun Agudelo MD Guillain Darnell syndrome (HCC) (Primary Dx); Quadriparesis (HCC); Neurogenic bladder; Polysubstance use disorder; Other schizoaffective disorders (HCC) 06/22/2025 6:31 PM EDT - 06/23/2025 5:08 AM EDT Emergency [facility] Emergency Department [address] [place] [phone] Jonas Stanley MD Lieu, Amanda, MD Chest wall pain (Primary Dx) Discharge Disposition: Home or Self Care (01) 06/22/2025 11:00 AM EDT Office Visit [facility] [address] [place] [phone] Tool Grinder Operator: Ester Marcelino NP Urinary retention (Primary Dx) 06/22/2025 Telephone [facility] [address] [place] [phone] Ronda Springer NP from Last 3 Months Immunizations Immunization Administration [...] have money to get more. Patient declined [facility] Utilities Answer Date Recorded In the [...] Info) Description 10/14/2025 4:20 PM EST Follow-Up [facility] [address] [place] [phone] Tool Grinder Operator: Maria Alejandra Gardiner MD [address] [place] [phone] 04/25/2026 9:45 [place] [address] Health Maintenance Due Date Last Done Comments [...] history exists Medical Devices Implanted Type Area Reprographics Technician Device Identifier Shelf Expiration Date Model / Serial / Lot Stent Coronary Drug Eluting Sirolimus Rapid Exchange Biolute Probio Coating Cocr [id number] [facility] S00 - [id number] Implanted:Qty: 1 on 06/20/2025 by Jone Oliver MD at [facility] Stent N/A: Coronary Biotronik [id number] 02/21/2028 [id number] / 00 / [id number] Procedures * Due to [place] state law, this organization might not be sharing negative HIV tests. Procedure Name Priority Date/Time Associated Diagnosis Comments FUNGUS CULTURE W/STAIN, SKIN/HAIR/NAILS Routine 09/05/2025 2:56 PM EST Nail dystrophy HC 101041 BAG SECURITY CONTOURED LAEG 600ML Routine 07/29/2025 3:30 PM EDT Urinary retention HC 389526 BARD CATHETER TRAY Routine 07/29/2025 3:30 PM EDT Urinary retention HC 467052 CATHETER LEZAMA BARD 16 FR 5 CC [...] EDT Mixed hyperlipidemia Coronary artery disease of [place] artery of [place] heart with stable angina pectoris TROPONIN T [...] retention HEART & VASCULAR - SCANNED 06/22/2025 CT ABDOMEN PELVIS W CONTRAST STAT 04/18/2025 8:52 PM EDT from Last 3 Months or Most Recently Relevant to Health Maintenance Results * Due to [place] state law, this organization might not be sharing negative HIV tests. * HC INSERTION OF TEMPORARY INDWELLING BLADDER CATHETER SIM[place], [place] 399442 CATHETER LEZAMA BARD 16 FR 5CC, HC 704760 BARD CATHETER TRAY, [place] 008960 BAG SECURITY CONTOURED LAEG 600ML (07/29/2025 3:30 PM EDT) Anneliese Robison, POWERHOUSE MECHANIC - 07/29/2025 3:30 PM EDT Anneliese Huffman [...] that they are also being followed at [facility] urology. Pt had catheter changed today and is flushed and aspirated with return of clear yellow urine. Pt will return in 1 month on FATOU Norris schedule to determine if patient can have another TOV. Pt d/c from clinic Supplies: HC 712199 Catheter Lezama Bard 16 Fr 5 cc HC 560368 Bard Catheter Tray HC 321608 Bag Security Contoured LAEG 600 ml us Ester Norris NP UROLOGY ORDERABLES Final Res ult * ECG 12 lead (07/01/2025 4:06 PM EDT) Only the most recent of2 resultswithin the time period is included. Ventricular Rate EKG 71 BPM MUSE EKG Atrial Rate 71 BPM MUSE EKG NJ Interval 182 ms MUSE EKG QRS Interval 96 ms MUSE EKG QT Interval 386 ms MUSE EKG QTC Interval 419 ms MUSE EKG P Mcclure 31 degrees MUSE EKG R Mcclure 26 degrees MUSE EKG T Wave Mcclure 55 degrees MUSE EKG 07/01/2025 4:06 PM EDT 07/06/2025 6:32 AM EDT Impressions MUSE EKG - 07/06/2025 6:32 AM EDT NORMAL SINUS RHYTHM RSR' OR QR PATTERN IN V1 SUGGESTS RIGHT VENTRICULAR CONDUCTION DELAY WHEN COMPARED WITH ECG OF 22-Jun-2025 20:30, NO SIGNIFICANT CHANGE WAS FOUND Confirmed by Jone Soto ([id number]) on 07/06/2025 6:32:55 AM Narrative Procedure Note Jone Soto MD - 07/06/2025 IMPRESSION: NORMAL SINUS RHYTHM RSR' OR QR PATTERN IN V1 SUGGESTS RIGHT VENTRICULAR CONDUCTION DELAY WHEN COMPARED WITH ECG OF 22-Jun-2025 20:30, NO SIGNIFICANT CHANGE WAS FOUND Confirmed by Jone Soto ([id number]) on 07/06/2025 6:32:55 AM us Lucas Jordan MD ECG ORDERABLES Final Resu lt Performing Organization Address City/[facility]/ZIP Co de Phone Number MUSE EKG * TSH Reflex Free T4 (06/30/2025 4:07 PM EDT) TSH 2.750 0.280 - 3.890 uIU/mL 06/30/2025 9:34 PM EDT [facility] Blood Structure of peripheral vein / Unknown Venipuncture / Unknown 06/30/2025 4:07 PM EDT 06/30/2025 4:07 PM EDT us Wilton Myers MD LAB BLOOD ORDERABLES Final Re sult [facility] [address] [place] [address], * Vitamin D 25 hydroxy (06/30/2025 4:07 PM EDT) Calcidiol+ercalc idiol 36 30 - 100 ng/mL 07/01/2025 1:15 AM EDT [employer] Comment: Vitamin D Status 25-OH Vitamin D: Deficiency: <20 ng/mL Insufficiency: 20 - 29 ng/mL Optimal: > or = 30 ng/mL For 25-OH Vitamin D testing on patients on D2-supplementation and patients for whom quantitation of D2 and D3 fractions is required, the QuestAssureD(TM) 25-OH VIT D, (D2,D3), LC/MS/MS is recommended: order code 27567 (patients >2yrs). See Note 1 Note 1 For additional information, please refer to http://education.[employer]/faq/HTV784 (This link is being provided for informational/ educational purposes only.) Blood Structure of peripheral vein / Unknown Venipuncture / Unknown 06/30/2025 4:07 PM EDT 06/30/2025 4:07 PM EDT Narrative [facility] JEROMY - 07/01/2025 1:15 AM EDT [facility] Received Date: Wilton Myers MD LAB BLOOD ORDERABLES Final Re sult [facility] [address] [facility] 3rd Floor, [place] [address], [facility] [address] [facility] [address] Floor, [place] [address], * (ABNORMAL) Vitamin B1 (Thiamine), Plasma (06/30/2025 4:07 PM EDT) [facility] Vitamin B1, LCMSMS 134(H) 8 - 30 nmol/L 07/04/2025 11:38 AM EDT [facility] ([facility]AS[facility]) Comment: Vitamin supplementation within 24 hours prior to blood draw may affect the accuracy of the results. This test was developed and its analytical performance characteristics have been determined by [employer] [place], [place]. It has not been cleared or approved by the U.S. Food and Drug Administration. This assay has been validated pursuant to the CLIA regulations and is used for clinical purposes. Blood Structure of peripheral vein / Unknown Venipuncture / Unknown 06/30/2025 4:07 PM EDT 06/30/2025 4:07 PM EDT Narrative [facility] [place]) - 07/04/2025 11:38 AM EDT [facility] Received Date: us Wilton Myers MD LAB BLOOD ORDERABLES [place]) [id number] [place], [place] , [place] * (ABNORMAL) Lipid panel (06/30/2025 4:07 PM EDT) Cholesterol 156 <=199 mg/dL 06/30/2025 9:37 PM EDT [facility] Triglycerides 411(H) <=149 mg/dL 06/30/2025 9:37 PM EDT [facility] Cholesterol, HDL 43 40 - 59 mg/dL 06/30/2025 9:37 PM EDT [facility] Cholesterol, Non-HDL 113 mg/dL 06/30/2025 9:37 PM EDT [facility] LDL Cholesterol [facility] 06/30/2025 9:37 PM EDT [facility] Comment: Unable to calculate due to elevated Triglycerides LDL-C is calculated using the [place] calculation. VLDL [facility] 06/30/2025 9:37 PM EDT [facility] Comment: Unable to calculate due to elevated Triglycerides Cholesterol/HDL Ratio 3.6 [facility] 06/30/2025 9:37 PM EDT [facility] Blood Structure of peripheral vein / Unknown Venipuncture / Unknown 06/30/2025 4:07 PM EDT 06/30/2025 4:07 PM EDT Narrative [facility] - 06/30/2025 9:37 PM [...] Desirable <110 Borderline High 110-129 High >=130 Wilton Myers MD LAB BLOOD ORDERABLES Final Re sult [facility] [address] [place] [address], [place] * (ABNORMAL) Repeat Troponin #1 (06/22/2025 9:43 PM EDT) Only the most recent of2 resultswithin the time period is included. Troponin T High Sensitivity 103(HH) <=21 ng/L 06/22/2025 10:48 PM EDT [facility] Comment: Wu-Sckeawxl-V level of 52 ng/L or higher at [...] be evaluated in line with the 4th [place] Definition of AMI. Troponin baseline and serial [...] 9:43 PM EDT 06/22/2025 9:43 PM EDT Jonas Stanley MD LAB BLOOD ORDERABLES Final [facility] [address] [place] [address], [place] * XR Chest 1 vw (06/22/2025 [...] to obtain the completed interpretation. Workstation ID: [id number] Narrative 06/22/2025 9:32 PM EDT COMPARISON: 06/17/2025. FINDINGS: There is no consolidation. Stable chronic atelectasis or scar at the bilateral lung bases. The cardiac silhouette and mediastinal contours are unremarkable. No pleural effusion or CHF is identified. There is no pneumothorax. Resulting Agency Comment [id number] Procedure Note Reymundo Jerome MD - 06/22/2025 [...] possible to obtain thecompleted interpretation. Workstation ID: [id number] Jonas Stanley MD IMG XR PROCEDURES Final Resul t * (ABNORMAL) CBC Auto Differential (06/22/2025 8:00 PM EDT) WBC 9.3 3.8 - 10.8 10*3/uL 06/22/2025 8:10 PM EDT [facility] RBC 4.75 4.20 - 5.80 10*6/uL 06/22/2025 8:10 PM EDT [facility] Hemoglobin 13.6 13.2 - 17.1 g/dL 06/22/2025 8:10 PM EDT [facility] Hematocrit 42.2 38.5 - 50.0 % 06/22/2025 8:10 PM EDT [facility] MCV 88.8 80.0 - 100.0 fL 06/22/2025 8:10 PM EDT [facility] MCH 28.6 27.0 - 33.0 pg 06/22/2025 8:10 PM EDT [facility] MCHC 32.2 32.0 - 36.0 g/dL 06/22/2025 8:10 PM EDT [facility] RDW 13.5 11.0 - 15.0 % 06/22/2025 8:10 PM EDT [facility] Platelets 250 140 - 400 10*3/uL 06/22/2025 8:10 PM EDT [facility] MPV 10.0 7.5 - 12.5 fL 06/22/2025 8:10 PM EDT [facility] Neutrophil % 64.2 % 06/22/2025 8:10 PM EDT [facility] Immature Grans % 1.3(H) 0.0 - 0.9 % 06/22/2025 8:10 PM EDT [facility] Lymphocyte % 22.9 % 06/22/2025 8:10 PM EDT [facility] Monocyte % 7.8 % 06/22/2025 8:10 PM EDT [facility] Eosinophil % 2.9 % 06/22/2025 8:10 PM EDT [facility] Basophil % 0.9 % 06/22/2025 8:10 PM EDT [facility] Neutrophil # 5.99 1.50 - 7.80 10*3/uL 06/22/2025 8:10 PM EDT [facility] Immature Grans # 0.12(H) <=0.03 10*3/uL 06/22/2025 8:10 PM EDT [email or web address] Lymphocyte # 2.10 0.85 - 3.90 10*3/uL 06/22/2025 8:10 PM EDT [facility] Monocyte # 0.70 0.20 - 0.95 10*3/uL 06/22/2025 8:10 PM EDT [facility] Eosinophil # 0.30 0.02 - 0.50 10*3/uL 06/22/2025 8:10 PM EDT [facility] Basophil # 0.10 0.00 - 0.20 10*3/uL 06/22/2025 8:10 PM EDT [facility] nRBC % 0.0 /100 WBCs 06/22/2025 8:10 PM EDT [facility] nRBC # <0.01 <0.01 10*3/uL 06/22/2025 8:10 PM EDT [facility] Blood Structure of peripheral vein / Unknown Venipuncture / Unknown 06/22/2025 8:00 PM EDT 06/22/2025 8:00 PM EDT us Jonas Stanley MD LAB BLOOD ORDERABLES Final Re s[facility] [address] [place] [address], [place] * (ABNORMAL) CMP - Comprehensive Metabolic Panel (06/22/2025 8:00 PM EDT) NA 141 135 - 145 mmol/L 06/22/2025 8:40 PM EDT [facility] K 4.2 3.5 - 5.3 mmol/L 06/22/2025 8:40 PM EDT [facility] Cl 103 98 - 107 mmol/L 06/22/2025 8:40 PM EDT [facility] CO2 24 22 - 32 mmol/L 06/22/2025 8:40 PM EDT [facility] Anion Gap 14 5 - 15 06/22/2025 8:40 PM EDT [facility] Glucose 78 65 - 99 mg/dL 06/22/2025 8:40 PM EDT [facility] Creatinine 1.25 0.60 - 1.30 mg/dL 06/22/2025 8:40 PM EDT [facility] Calcium 9.2 8.6 - 10.5 mg/dL 06/22/2025 8:40 PM EDT [facility] Total Protein 7.7 6.0 - 8.0 g/dL 06/22/2025 8:40 PM EDT [facility] Albumin 4.1 3.5 - 5.2 g/dL 06/22/2025 8:40 PM EDT [facility] Bilirubin, Total 0.2 0.2 - 1.2 mg/dL 06/22/2025 8:40 PM EDT [facility] Alkaline Phosphatase 92 35 - 129 U/L 06/22/2025 8:40 PM EDT [facility] AST 21 10 - 40 U/L 06/22/2025 8:40 PM EDT [facility] ALT 18 10 - 40 U/L 06/22/2025 8:40 PM EDT [facility] BUN 13 7 - 23 mg/dL 06/22/2025 8:40 PM EDT [facility] eGFR 73 >=60 mL/min/1. 73m2 06/22/2025 8:40 PM EDT [facility] Comment:The estimated glomer ular [...] - 4.2 g/dL 06/22/2025 8:40 PM EDT [facility] A/G Ratio 1.1(L) 1.5 - 3.0 06/22/2025 8:40 PM EDT [facility] Blood Structure of peripheral vein / Unknown Venipuncture / Unknown 06/22/2025 8:00 PM EDT 06/22/2025 8:00 PM EDT us Jonas Stanley MD LAB BLOOD ORDERABLES Final Re sult [facility] [address] [place] [address], * Bladder Catheterization (06/22/2025 11:00 AM EDT) [...] complication. Patient voided 200 ml, us Ester Severino Norris IMMUNOLOGY TEACHER UROLOGY ORDERABLES Final Res ult * HEART & VASCULAR - SCANNED (06/22/2025) Anatomical Region Laterality Modality Other us Onbase Scan Kedar SCANNED PROCEDURES Final Resu lt * CT Abd Pelvis W Contrast (04/18/2025 [...] to obtain the completed interpretation. Workstation ID: [id number] Up-to-date CT equipment and radiation dose reduction [...] AND SOFT TISSUES: Unremarkable. Resulting Agency Comment [id number] Procedure Note Fredi Stockton MD - 04/18/2025 [...] possible to obtain thecompleted interpretation. Workstation ID: [id number] Up-to-date CT equipment and radiation dose reduction techniques wereemployed. CTDIvol: 17.3 mGy. DLP: 1080 mGy-cm. us Ameer Alberto Kendall MD IMHorace CT PROCEDURES Final Resu lt from Last 3 Months or Most Recently Relevant to Health Maintenance Insurance MEDICARE [facility] MEDICARE [facility] Advance Directives Documents on File Type Date Recorded Patient Lead Maintenance Technician Expl anation Health Care Proxy 05/08/2025 4:00 [...] Relationship Healthcare Agent Relationshi p Communication [facility] Care Agent Care Teams Flying Squad Salesperson Relationship Specialty Start Date End Date Heena Oneill MD [address] [place] [address] [place] [address] PCP - General Family Medicine 06/22/25
--- OUTSIDE RECORDS SUMMARY | 2025-09-22 12:31 | XMS_ITS | Encounter Summary ---
Author Organization [facility] Address [address] [place] [address] Care Team Providers Care Conduit Reamer Operator Name Role Phone Angelique Agudelo PA-C Primary Care Provider [phone] Juan Mckinley MD Primary Care Provider [phone] Angelique Agudelo PA-C Unavailable Angelique Agudelo-C Unavailable [phone] Angelique Agudelo-C Unavailable Sarah Figueroa MD Primary Care Provider [phone] Reason for Visit * Reason Comments Other Encounter Details Date Type Department Care Team (Late st Contact Info) Description 09/28/2018 [facility] Neurophysiology - [facility] ([facility]al 5) [address] [place], [place] [id number] [place] [address] [address] Other Social History Tobacco Use [...] days with no refills. Message forwarded to eligibility clerk to contact pt and schedule visit documented [...] documented as of this encounter Care Teams Conduit Reamer Operator Relationship Specialty Start Date End Date Angelique Agudelo PA-C [address] [phone] PCP - General 01/10/16 07/16/22 Juan Mckinley MD [address] [facility] 3 [place] [address] PCP - General 07/17/22 01/31/25 Sarah Figueroa MD [address] [place] [address] PCP - General Internal Medicine - [facility] Medicine 02/01/25 Angelique Agudelo PA-C [address] [phone] Endocrinology, Diabetes and Metabolism 07/14/24 Angelique Agudelo PA-C [address] [address] Endocrinology, Diabetes and Metabolism 08/23/24 Angelique Agudelo PA-C [address] [address] Endocrinology, Diabetes and Metabolism 10/18/24 documented as of this encounter
--- OUTSIDE RECORDS SUMMARY | 2025-09-22 12:31 | XMS_ITS | Encounter Summary ---
Author Organization [facility] Address [address] [place] [address] Care Team Providers Care Security Intelligence Analyst Name Role Phone Angelique Agudelo PA-C Primary Care Provider [phone] Juan Mckinley MD Primary Care Provider [phone] Angelique Agudelo PA-C Unavailable Angelique Agudelo PA-C Unavailable [phone] Angelique Agudelo-C Unavailable [phone] Sarah Figueroa MD Primary Care Provider [phone] Encounter Details Date Type Department Care Team (Late st Contact Info) Description 12/19/[address] [facility] - [facility] Radiology Results [address] [place] [address] Kaz Munguia DO [address] [place] [address] [address] [place] [address] Social History Tobacco Use Types [...] MRI 5055 L/S SPINE CANAL W/O CONTRAST [facility]#[id number] DATE & TIME EXAM COMPLETED: Dec 19 2016 9:07AM CPT:01113 REASON FOR EXAM: Lumbar Radiculopathy Accession# : [id number] PT CL: {pt_class} FINDINGS: Sagittal T1, T2 [...] MRI 5055 L/S SPINE CANAL W/O CONTRAST [facility]#[id number] DATE & TIME EXAM COMPLETED: Dec 19 2016 9:07AM CPT:30258 REASON FOR EXAM: Lumbar Radiculopathy PT CL: [...] documented as of this encounter Care Teams Security Intelligence Analyst Relationship Specialty Start Date End Date Angelique Agudelo PA-C [address] [place] [phone] PCP - General 01/10/16 07/16/22 Juan Mckinley MD [address] [place] [address] 3 [place] [address] PCP - General 07/17/22 01/31/25 Sarah Figueroa MD [address] [place] [address] PCP - General Internal Medicine - [facility] Medicine 02/01/25 Angelique Agudelo PA-C [address] [phone] Endocrinology, Diabetes and Metabolism 07/14/24 Angelique Agudelo PA-C [address] [phone] Endocrinology, Diabetes and Metabolism 08/23/24 Angelique Agudelo PA-C [address] [address] Endocrinology, Diabetes and Metabolism 10/18/24 documented as of this encounter
--- OUTSIDE RECORDS SUMMARY | 2025-09-22 12:31 | XMS_ITS | Encounter Summary ---
Author Organization [facility] Address [address] [place] [address] Care Team Providers Care Table Cover Folder Name Role Phone Angelique Agudelo PA-C Primary Care Provider [phone] Juan Mckinley MD Primary Care Provider [phone] Angelique Agudelo PA-C Unavailable [phone] Angelique Agudelo PA-C Unavailable [phone] Angelique Agudelo-C Unavailable [phone] Sarah Figueroa MD Primary Care Provider [phone] Encounter Details Date Type Department Care Team (Late st Contact Info) Description 01/23/2022 Lab Requisition [facility] Pathology & Laboratory Medicine - [facility] [address] [place], [place] [address] Outr Resulting Lab, Provider Social History Tobacco [...] A1c 5.4 <5.7 % 01/24/2022 14:23 EDT [facility] Comment: Glycemic Status References: Normal: <5.7% Pre-Diabetes: 5.7% - 6.4% Diagnostic of Diabetes: > or = 6.5% (if confirmed) Est Avg Glucose 108 mg/dL 14:23 EDT [facility] Comment:The eAG represents t he A1c result expressed as average glucose in mg/dL. Blood VENOUS BLOOD / Unknown 01/23/2022 12:44 EDT 01/24/2022 8:57 EDT us Provider Outr Resulting Lab CHEMISTRY & BLOOD GA S ORDERABLES Final Result [facility] [address] [place] [address] documented in this encounter Visit Diagnoses Not on filedocumented in this encounter Additional Health Concerns Infection Onset Date Last Indicated Resolved Time R/O COVID-19 11/30/2024 11/30/2024 12/01/2024 1:04 EST R/O COVID-19 12/08/2024 12/08/2024 12/08/2024 14:1 9 EST R/O COVID-19 12/29/2024 12/29/2024 12/29/2024 23:5 5 EST documented as of this encounter Care Teams Table Cover Folder Relationship Specialty Start Date End Date Angelique Agudelo PA-C [address] [address] PCP - General 01/10/16 07/16/22 Juan Mckinley MD [address] [place] [address] 3 [place] [address] PCP - General 07/17/22 01/31/25 Sarah Figueroa MD [address] [place] [address] PCP - General Internal Medicine - [facility] 02/01/25 Angelique Agudelo PA-C [address] [address] Endocrinology, Diabetes and Metabolism 07/14/24 Angelique Agudelo PA-C [address] [address] Endocrinology, Diabetes and Metabolism 08/23/24 Angelique Agudelo PA-C [address] [address] Endocrinology, Diabetes and Metabolism 10/18/24 documented as of this encounter
--- OUTSIDE RECORDS SUMMARY | 2025-09-22 12:31 | XMS_ITS | Encounter Summary ---
Author Organization [facility] Address [address] [place] [address] Care Team Providers Care Scudding Inspector Name Role Phone Angelique Agudelo PA-C Primary Care Provider + [phone] Juan Mckinley MD Primary Care Provider [phone] Angelique Agudelo PA-C Unavailable Angelique Agudelo PA-C Unavailable [phone] Angelique Agudelo PA-C Unavailable Sarah Figueroa MD Primary Care Provider [phone] Encounter Details Date Type Department Care Team (Late st Contact Info) Description 05/20/[address] [facility] - [facility] Radiology Results [address] [place] [address] Angelique Agudelo PA-C [address] [phone] Social History Tobacco Use Types [...] MRI 5055 L/S SPINE CANAL W/O CONTRAST [facility]#[id number] DATE & TIME EXAM COMPLETED: May 20 2018 10:35AM CPT:83848 REASON FOR EXAM: G83.10 M54.16 R53, WEAKNESS, LUMBAR RADICULOPATHY Accession# : [id number] PT CL: O FINDINGS: Multiplanar multi sequential [...] MRI 5055 L/S SPINE CANAL W/O CONTRAST [facility]#[id number] DATE & TIME EXAM COMPLETED: May 20 2018 10:35AM CPT:22634 REASON FOR EXAM: G83.10 M54.16 R53, WEAKNESS, LUMBAR RADICULOPATHY Accession# : [id number] PT CL: O FINDINGS: Multiplanar multi sequential [...] documented as of this encounter Care Teams Scudding Inspector Relationship Specialty Start Date End Date Angelique Agudelo PA-C [address] [phone] PCP - General 01/10/16 07/16/22 Juan Mckinley MD [address] 3 [place] [address] PCP - General 07/17/22 01/31/25 Sarah Figueroa MD [address] [place] [address] PCP - General Internal Medicine - [facility] Medicine 02/01/25 Angelique Agudelo PA-C [address] [address] Endocrinology, Diabetes and Metabolism 07/14/24 Angelique Agudelo PA-C [address] [phone] Endocrinology, Diabetes and Metabolism 08/23/24 Angelique Agudelo PA-C [address] [address] Endocrinology, Diabetes and Metabolism 10/18/24 documented as of this encounter
--- OUTSIDE RECORDS SUMMARY | 2025-09-22 12:31 | XMS_ITS | Encounter Summary ---
Author Organization [facility] Address [address] [place] [address] Care Team Providers Care Cargo Service Supervisor Name Role Phone Angelique Agudelo PA-C Primary Care Provider [phone] Juan Mckinley MD Primary Care Provider [phone] Angelique Agudelo PA-C Unavailable [phone] Angelique Agudelo-Idalia Unavailable [phone] Angelique Agudelo-C Unavailable [phone] Sarah Figueroa MD Primary Care Provider [phone] Reason for Visit * Reason Comments Other Encounter Details Date Type Department Care Team (Late st Contact Info) Description 05/07/2020 [facility] Family Medicine Center [address] [place] [address] Connie Herrera, CAUSTIC PLANT WORKER [address] [facility] [address] [place] [phone] Other Social History Tobacco Use Types Packs/Day [...] documented as of this encounter Care Teams Cargo Service Supervisor Relationship Specialty Start Date End Date Angelique Agudelo PAYeimyC [address] [place] [address] [place] [phone] PCP - General 01/10/16 07/16/22 Juan Mckinley MD [address] [place] [address] 3 [place] [address] PCP - General 07/17/22 01/31/25 Sarah Figueroa MD [address] [place] [address] PCP - General Internal Medicine - [facility] Medicine 02/01/25 Angelique Agudelo PA-C [address] [phone] Endocrinology, Diabetes and Metabolism 07/14/24 Angelique Agudelo PA-C [address] [phone] Endocrinology, Diabetes and Metabolism 08/23/24 Angelique Agudelo PA-C [address] [phone] Endocrinology, Diabetes and Metabolism 10/18/24 documented as of this encounter
--- OUTSIDE RECORDS SUMMARY | 2025-09-22 12:31 | XMS_ITS | Encounter Summary ---
Author Organization [facility] Address [address] [place] [address] Care Team Providers Care Environmental Compliance Technician Name Role Phone Angelique Agudelo PA-C Primary Care Provider [phone] Juan Mckinley MD Primary Care Provider [phone] Angelique Agudelo PA-C Unavailable [phone] Angelique Agudelo PA-C Unavailable [phone] Angelique Agudelo-C Unavailable [phone] Sarah Figueroa MD Primary Care Provider [phone] Reason for Visit * Reason Onset Date Comments Appointment Related 02/13/2018 Encounter Details Date Type Department Care Team (Late st Contact Info) Description 02/13/2018 Telephone [facility] Interventional Pain [address] [place] [address] Nydia Sotelo PA [address] [place] [phone] Appointment Related Social History Tobacco Use Types [...] Telephone Encounter - Sonam Reddy - 02/13/2018 1430 EDT PER NYDIA MONTES He has had success with TPI and RFA through the [facility]. We will obtain records and schedule these [...] documented as of this encounter Care Teams Environmental Compliance Technician Relationship Specialty Start Date End Date Angelique Agudelo PA-C [address] [place] [phone] PCP - General 01/10/16 07/16/22 Juan Mckinley MD [address] [place] [address] PCP - General 07/17/22 01/31/25 Sarah Figueroa MD [address] [place] [address] PCP - General Internal Medicine - [facility] Medicine 02/01/25 Angelique Agudelo PA-C [address] [phone] Endocrinology, Diabetes and Metabolism 07/14/24 Angelique Agudelo PA-C [address] [phone] Endocrinology, Diabetes and Metabolism 08/23/24 Angelique Agudelo PA-C [address] [phone] Endocrinology, Diabetes and Metabolism 10/18/24 documented as of this encounter
--- OUTSIDE RECORDS SUMMARY | 2025-09-22 12:32 | XMS_ITS | Encounter Summary ---
Author Organization [facility] Address [address] [place] [address] Care Team Providers Care Tourist Information Officer Name Role Phone Juan Mckinley MD Primary Care Provider [phone] Angelique Agudelo PA-C Unavailable [phone] Angelique Agudelo PA-C Unavailable [phone] Angelique Agudelo PA-C Unavailable [phone] Sarah Figueroa MD Primary Care Provider [phone] Reason for Visit * Reason Comments Medications Refill Encounter Details Date Type Department Care Team (Late st Contact Info) Description 07/21/2023 Refill [facility] - [facility] Endocrinology [address] [place] [address] Angelique Agudelo PA-C 210 [facility] [address] [place] [phone] Medications Refill Social History Tobacco Use Types [...] as of this encounter Care Teams Tourist Information Officer Relationship Specialty Start Date End Date Juan Mckinley MD [address],[facility] 3 [place] [address] PCP - General 07/17/22 01/31/25 Sarah Figueroa MD [address] [place] [address] PCP - General Internal Medicine - [facility] Medicine 02/01/25 Angelique Agudelo PA-C [address] [phone] Endocrinology, Diabetes and Metabolism 07/14/24 Angelique Agudelo PA-C [address] [address] Endocrinology, Diabetes and Metabolism 08/23/24 Angelique Agudelo PA-C [address] [phone] Endocrinology, Diabetes and Metabolism 10/18/24 documented as of this encounter
--- OUTSIDE RECORDS SUMMARY | 2025-09-22 12:32 | XMS_ITS | Encounter Summary ---
Author Organization [facility] Address [address] [place] [address] Care Team Providers Care Paddle Dyeing Machine Operator Name Role Phone Juan Mckinley MD Primary Care Provider [phone] Angelique Agudelo-Idalia Unavailable [phone] Angelique Agudelo-Idalia Unavailable [phone] Angelique Agudelo PA-C Unavailable [phone] Sarah Figueroa MD Primary Care Provider [phone] Reason for Visit * Reason Onset Date Comments Medications Refill 02/03/2023 Encounter Details Date Type Department Care Team (Late st Contact Info) Description 02/03/2023 Refill [facility] - [facility] Endocrinology 210 [place] [address] Jodee Mott, TAMARA Medications Refill Social History [...] documented as of this encounter Care Teams Paddle Dyeing Machine Operator Relationship Specialty Start Date End Date Juan Mckinley MD [address],[facility] 3 [place] [address] PCP - General 07/17/22 01/31/25 Sarah Figueroa MD [address] [place] [address] PCP - General Internal Medicine - [facility] Medicine 02/01/25 Angelique Agudelo PA-C [address] [phone] Endocrinology, Diabetes and Metabolism 07/14/24 Angelique Agudelo PA-C [address] [phone] Endocrinology, Diabetes and Metabolism 08/23/24 Angelique Agudelo PA-C [address] [address] Endocrinology, Diabetes and Metabolism 10/18/24 documented as of this encounter
--- OUTSIDE RECORDS SUMMARY | 2025-09-22 12:32 | XMS_ITS | Encounter Summary ---
Author Organization [facility] Address [address] [place] [address] Care Team Providers Care Field Horticultural Specialty Grower Name Role Phone Juan Mckinley MD Primary Care Provider [phone] Angelique Agudelo PA-C Unavailable [phone] Angeilque Agudelo PA-C Unavailable [phone] Angelique Agudelo PA-C Unavailable [phone] Sarah Figueroa MD Primary Care Provider [phone] Reason for Visit * Reason Onset Date Comments Medications Refill 08/27/2024 Encounter Details Date Type Department Care Team (Late st Contact Info) Description 08/27/2024 Refill [facility] - [facility] Endocrinology 210 [place] [address] Yesy Ruby, TAMARA Medications Refill Social History [...] documented as of this encounter Care Teams Field Horticultural Specialty Grower Relationship Specialty Start Date End Date Juan Mckinley MD [address],[facility] 3 [place] [address] PCP - General 07/17/22 01/31/25 Sarah Figueroa MD [address] [place] [address] PCP - General Internal Medicine - [facility] 02/01/25 Angelique Agudelo PA-C [address] [phone] Endocrinology, Diabetes and Metabolism 07/14/24 Angelique Agudelo PA-C [address] [phone] Endocrinology, Diabetes and Metabolism 08/23/24 Angelique Agudelo PA-C [address] [phone] Endocrinology, Diabetes and Metabolism 10/18/24 documented as of this encounter
--- OUTSIDE RECORDS SUMMARY | 2025-09-22 12:32 | XMS_ITS | Encounter Summary ---
Author Organization [facility] Address [address] [place] [address] Care Team Providers Care Press Machine Operator Name Role Phone Angelique Agudelo PA-C Primary Care Provider [phone] Juan Mckinley MD Primary Care Provider [phone] Angelique Agudelo PA-C Unavailable Angelique Agudelo-C Unavailable [phone] Angelique Agudelo-C Unavailable Sarah Figueroa MD Primary Care Provider [phone] Reason for Visit * Reason Onset Date Comments Other 05/21/2022 Encounter Details Date Type Department Care Team (Late st Contact Info) Description 05/21/2022 Telephone [facility] [place] 1 [place], [place] [id number] Ochoa Mcguire MD 1 [facility], Level 2 [place] [address] Other Social History Tobacco Use [...] Bermudez - 05/21/2022 1442 EDT Call to MINER HELPER Anneliese. She shares that pt struggles with [...] low dose of lithium if cleared by indexer. Med List (prescribed by Anneliese) Latuda 60 mg Duloxetine 30 mg Trazadone 100 mg HS Hydraxazine 50 mg TID PRN for anxiety (by PCP) Hydrocodone Marce Burrell Routing message to Dr. Mcguire for review prior to pt's appt 05/27. * Telephone Encounter - Peggy Torres - 05/21/2022 1310 EDT Anneliese Stoney MINER HELPER referred Pt here and would like to speak with someone about her concerns before his appt next week. Please call her at [phone] ext [phone] leave a msg if she [...] as of this encounter Care Teams Press Machine Operator Relationship Specialty Start Date End Date Angelique Agudelo PA-C [address] [phone] PCP - General 01/10/16 07/16/22 Juan Mckinley MD [address] [place] [address] 3 [place] [address] PCP - General 07/17/22 01/31/25 Sarah Figueroa MD [address] [place] [address] PCP - General Internal Medicine - [facility] 02/01/25 Angelique Agudelo PA-C [address] [place] [phone] Endocrinology, Diabetes and Metabolism 07/14/24 Angelique Agudelo PA-C [address] [place] [phone] Endocrinology, Diabetes and Metabolism 08/23/24 Angelique Agudelo PA-C 210 [facility] 303 [place] [phone] Endocrinology, Diabetes and Metabolism 10/18/24 documented as of this encounter
--- OUTSIDE RECORDS SUMMARY | 2025-09-22 12:32 | XMS_ITS | Encounter Summary ---
Author Organization [facility] Address [address] [place] [address] Care Team Providers Care Latin Dancer Name Role Phone Juan Mckinley MD Primary Care Provider [phone] Angelique Agudelo-Idalia Unavailable [phone] Angelique Agudelo-Idalia Unavailable [phone] Angelique Agudelo-Idalia Unavailable [phone] Sarah Figueroa MD Primary Care Provider [phone] Encounter Details Date Type Department Care Team (Late st Contact Info) Description 09/12/2022 Refill [facility] - [facility] Endocrinology 210 [place] [address] Roselyn Morales, TAMARA Social History Tobacco Use [...] pharmacy. [facility] documented in this encounter Plan of [...] documented as of this encounter Care Teams Latin Dancer Relationship Specialty Start Date End Date Juan Mckinley MD 158 [facility] 3 [place] [address] PCP - General 07/17/22 01/31/25 Sarah Figueroa MD [address] [place] [address] PCP - General Internal Medicine - [facility] 02/01/25 Angelique Agudelo PA-C [address] [phone] Endocrinology, Diabetes and Metabolism 07/14/24 Angelique Agudelo PA-C [address] [phone] Endocrinology, Diabetes and Metabolism 08/23/24 Angelique Agudelo PA-C [address] [phone] Endocrinology, Diabetes and Metabolism 10/18/24 documented as of this encounter
--- OUTSIDE RECORDS SUMMARY | 2025-09-22 12:32 | XMS_ITS | Encounter Summary ---
Author Organization [facility] Address [address] [place] [address] Care Team Providers Care Tiedown Operator Name Role Phone Juan Mckinley MD Primary Care Provider [phone] Angelique Agudelo PA-C Unavailable [phone] Angelique Agudelo PA-C Unavailable [phone] Angelique Agudelo PA-C Unavailable [phone] Sarah Figueroa MD Primary Care Provider [phone] Reason for Visit * Reason Onset Date Comments Erroneous Encounter 10/17/2022 Encounter Details Date Type Department Care Team (Late Contact Info) Description 10/17/2022 Refill [facility] - [facility] Endocrinology 210 [place] [address] Angelique Agudelo PA-C 210 [facility] [address] [place] [phone] Erroneous Encounter Social History Tobacco Use Types [...] Encounter - Jodee Mott RN - 10/18/2022 0804 EST Pharmacy requesting refills on behalf of [...] documented as of this encounter Care Teams Tiedown Operator Relationship Specialty Start Date End Date Juan Mckinley MD 158 [facility] 3 [place] [address] PCP - General 07/17/22 01/31/25 Sarah Figueroa MD [address] [place] [address] PCP - General Internal Medicine - [facility] Medicine 02/01/25 Angelique Agudelo PA-C [address] [phone] Endocrinology, Diabetes and Metabolism 07/14/24 Angelique Agudelo PA-C [address] [phone] Endocrinology, Diabetes and Metabolism 08/23/24 Angelique Agudelo PA-C [address] [phone] Endocrinology, Diabetes and Metabolism 10/18/24 documented as of this encounter
--- OUTSIDE RECORDS SUMMARY | 2025-09-22 12:32 | XMS_ITS | Encounter Summary ---
Author Organization [facility] Address [address] [place] [address] Care Team Providers Care Cannery Worker Name Role Phone Juan Mckinley MD Primary Care Provider [phone] Angelique Agudelo PA-C Unavailable [phone] Angelique Agudelo PA-C Unavailable [phone] Angelique Agudelo-C Unavailable [phone] Sarah Figueroa MD Primary Care Provider [phone] Reason for Visit * Reason Onset Date Comments Appointment Related 09/07/2024 Encounter Details Date Type Department Care Team (Late st Contact Info) Description 09/07/2024 Telephone [facility] Nephrology - [address] [address] Humberto Shabazz MD [address] [place] [address] Rehab, Level 2 [place] [address] Appointment Related Social History Tobacco [...] documented as of this encounter Care Teams Cannery Worker Relationship Specialty Start Date End Date Juan Mckinley MD 158 [facility] [place] [address] PCP - General 07/17/22 01/31/25 Sarah Figueroa MD [address] [place] [address] PCP - General Internal Medicine - Hospital [facility] 02/01/25 Angelique Agudelo PA-C [address] [place] [phone] Endocrinology, Diabetes and Metabolism 07/14/24 Angelique Agudelo PA-C [address] [place] [phone] Endocrinology, Diabetes and Metabolism 08/23/24 Angelique Agudelo PA-C [address] [place] [phone] Endocrinology, Diabetes and Metabolism 10/18/24 documented as of this encounter
--- OUTSIDE RECORDS SUMMARY | 2025-09-22 12:32 | XMS_ITS | Encounter Summary ---
Author Organization [facility] Address [address] [place] [address] Care Team Providers Care Associate Partner Name Role Phone Heena Oneill MD Primary Care Provider [phone] Reason for Visit * Reason Onset Date Comments Med Refill 09/19/2025 Encounter Details Date Type Department Care Team (Late st Contact Info) Description 09/19/2025 Refill [facility] Primary Care [address] [place] [address] Jose Finney MD [address] [place], [place] [phone] Seizure disorder Social History Tobacco Use Types Packs/Day Years [...] have money to get more. Patient declined [facility] Utilities Answer Date Recorded In the past 12 months has [employer], gas, oil, or water [employer] threatened to shut off services in your [...] Info) Description 10/14/2025 4:20 PM EST Follow-Up [facility] Endocrinology Clinic [address] [place] [address] Milk Pickup Truck Driver: Maria Alejandra Gardiner MD [address] [place] [address] 04/25/2026 9:45 AM EDT Appointment [address] [address] documented as of this encounter Visit Diagnoses Diagnosis Seizure disorder Unspecified epilepsy without mention of intractable epilepsy documented in this encounter Care Teams Associate Partner Relationship Specialty Start Date End Date Heena Oneill MD [address] [place] [address] PCP - General Family Medicine 06/22/25 documented as of this encounter
--- OUTSIDE RECORDS SUMMARY | 2025-09-22 12:32 | XMS_ITS | Encounter Summary ---
Author Organization [facility] Address [address] [place] [address] Care Team Providers Care In Shop Service Technician Name Role Phone Heena Oneill MD Primary Care Provider [phone] Reason for Visit * Reason Onset Date Comments FYI, auth form 08/23/2025 Encounter Details Date Type Department Care Team (Late st Contact Info) Description 08/23/2025 Telephone [facility] Primary Care [address] [place] [address] Telephone Intake, Staff FYI, auth [...] have money to get more. Patient declined [facility] Utilities Answer Date Recorded In the [...] called today regarding an authorization form for dental scheduler services that she will be refaxing to us momentarily as apparently they did not send it to the correct fax number the first time back on 08/05/25. Please have provider sign and fax back at [phone] documented in this encounter Plan of Treatment Upcoming Encounters Date Type Department Care Team (Late st Contact Info) Description 10/14/2025 4:20 PM EST Follow-Up [facility] Endocrinology Clinic [address] [place] [address] Maintenance Craftsman: Maria Alejandra Gardiner MD [address] [place] [address] 04/25/2026 9:45 AM EDT Appointment [address] [address] documented as of this encounter Visit Diagnoses Not on filedocumented in this encounter Care Teams In Shop Service Technician Relationship Specialty Start Date End Date Heena Oneill MD [address] [place] [address] PCP - General Family Medicine 06/22/25 documented as of this encounter
--- OUTSIDE RECORDS SUMMARY | 2025-09-22 12:32 | XMS_ITS | Encounter Summary ---
Author Organization [facility] Address [address] [place] [address] Care Team Providers Care Manager Qa Name Role Phone Angelique Agudelo PA-C Primary Care Provider [phone] Juan Mckinley MD Primary Care Provider [phone] Angelique Agudelo PA-C Unavailable Angelique Agudelo PA-C Unavailable [phone] Angelique Agudelo-C Unavailable Sarah Figueroa MD Primary Care Provider [phone] Encounter Details Date Type Department Care Team (Late st Contact Info) Description 01/24/[address] [facility] - CVPH Radiology Results [address] [place] [address] Omaira Barahona MD [address] [place] [phone] Social History Tobacco Use Types Packs/Day Years [...] CTS 3468 ABDOMEN AND PELVIS W/IV CONTRAST [facility]#[id number] DATE & TIME EXAM COMPLETED: Jan 24 2016 8:18PM CPT:20873 REASON FOR EXAM: Abdominal Pain Accession# : [id number] PT CL: {pt_class} FINDINGS: This exam was [...] CTS 3468 ABDOMEN AND PELVIS W/IV CONTRAST CD#[id number] DATE & TIME EXAM COMPLETED: Jan 24 2016 8:18PM CPT:98339 REASON FOR EXAM: Abdominal Pain Accession# : [id number] CL: {pt_class} FINDINGS: This exam was specifically [...] documented as of this encounter Care Teams Manager Qa Relationship Specialty Start Date End Date Angelique Agudelo PA-C [address] [phone] PCP - General 01/10/16 07/16/22 Juan Mckinley MD [address],[facility] 3 [place] [address] PCP - General 07/17/22 01/31/25 Sarah Figueroa MD [address] [place] [address] PCP - General Internal Medicine - [facility] Medicine 02/01/25 Angelique Agudelo PA-C [address] [phone] Endocrinology, Diabetes and Metabolism 07/14/24 Angelique Agudelo PA-C [address] [phone] Endocrinology, Diabetes and Metabolism 08/23/24 Angelique Agudelo PA-C [address] [phone] Endocrinology, Diabetes and Metabolism 10/18/24 documented as of this encounter
--- OUTSIDE RECORDS SUMMARY | 2025-09-22 12:32 | XMS_ITS | Encounter Summary ---
Author Organization [facility] Address [address] [place] [address] Care Team Providers Care Physical Therapy Professor Name Role Phone Juan Mckinley MD Primary Care Provider [phone] Angelique Agudelo PA-C Unavailable [phone] Angelique Agudelo PA-C Unavailable [phone] Angelique Agudelo PA-C Unavailable [phone] Sarah Figueroa MD Primary Care Provider [phone] Reason for Visit * Reason Comments Medications Refill Encounter Details Date Type Department Care Team (Late st Contact Info) Description 03/29/2024 Refill [facility] - [facility] Endocrinology [address] [place] [address] Angelique Agudelo PA-C 210 [facility] [address] [place] [phone] Medications Refill Social History Tobacco Use Types [...] documented as of this encounter Care Teams Physical Therapy Professor Relationship Specialty Start Date End Date Juan Mckinley MD [address],[facility] 3 [place] [address] PCP - General 07/17/22 01/31/25 Sarah Figueroa MD [address] [place] [address] PCP - General Internal Medicine - [facility] Medicine 02/01/25 Angelique Agudelo PA-C [address] [phone] Endocrinology, Diabetes and Metabolism 07/14/24 Angelique Agudelo PA-C [address] [phone] Endocrinology, Diabetes and Metabolism 08/23/24 Angelique Agudelo PA-C [address] [phone] Endocrinology, Diabetes and Metabolism 10/18/24 documented as of this encounter
--- OUTSIDE RECORDS SUMMARY | 2025-09-22 12:32 | XMS_ITS | Encounter Summary ---
Author Organization [facility] Address [address] [place] [address] Care Team Providers Care Kick Plate Installer Name Role Phone Juan Mckinley MD Primary Care Provider [phone] Angelique Agudelo PA-C Unavailable [phone] Angelique Agudelo PA-C Unavailable [phone] Angelique Agudelo PA-C Unavailable [phone] Sarah Figueroa MD Primary Care Provider [phone] Reason for Visit * Reason Comments Medications Refill Encounter Details Date Type Department Care Team (Late st Contact Info) Description 11/26/2022 Refill [facility] - CVPH Endocrinology 210 [place] [address] Angelique Agudelo PA-C 210 [facility] [address] [place] [phone] Medications Refill Social History Tobacco Use Types [...] Encounter - Jodee Mott RN - 11/26/2022 5792 EST .Pharmacy requesting refills on behalf of [...] documented as of this encounter Care Teams Kick Plate Installer Relationship Specialty Start Date End Date Juan Mckinley MD [address],[facility] 3 [place] [address] PCP - General 07/17/22 01/31/25 Sarah Figueroa MD [address] [place] [address] PCP - General Internal Medicine - [facility] 02/01/25 Angelique Agudelo PA-C [address] [phone] Endocrinology, Diabetes and Metabolism 07/14/24 Angelique Agudelo PA-C [address] [phone] Endocrinology, Diabetes and Metabolism 08/23/24 Angelique Agudelo PA-C [address] [place] [phone] Endocrinology, Diabetes and Metabolism 10/18/24 documented as of this encounter
--- OUTSIDE RECORDS SUMMARY | 2025-09-22 12:32 | XMS_ITS | Encounter Summary ---
Author Organization [facility] Address [address] [place] [address] Care Team Providers Care Livestock Agent Name Role Phone Juan Mckinley MD Primary Care Provider [phone] Angelique Agudelo PA-C Unavailable [phone] Angelique Agudelo-C Unavailable [phone] Angelique Agudelo-Idalia Unavailable [phone] Sarah Figueroa MD Primary Care Provider [phone] Reason for Visit * Reason Onset Date Comments Appointment Related 03/17/2024 Encounter Details Date Type Department Care Team ([facility] Contact Info) Description 03/17/2024 Telephone [facility] Nephrology [address] [address] Unknown, Provider, Appointment Related Social History Tobacco [...] documented as of this encounter Care Teams Livestock Agent Relationship Specialty Start Date End Date Juan Mckinley MD 158 [facility] [place] [address] PCP - General 07/17/22 01/31/25 Sarah Figueroa MD [address] [place] [address] PCP - General Internal Medicine - [facility] Medicine 02/01/25 Angelique Agudelo PA-C [address] [phone] Endocrinology, Diabetes and Metabolism 07/14/24 Angelique Agudelo PA-C [address] [phone] Endocrinology, Diabetes and Metabolism 08/23/24 Angelique Agudelo PA-C [address] [phone] Endocrinology, Diabetes and Metabolism 10/18/24 documented as of this encounter
--- OUTSIDE RECORDS SUMMARY | 2025-09-22 12:32 | XMS_ITS | Encounter Summary ---
Author Organization [facility] Address [address] [place] [address] Care Team Providers Care Industrial Sales Manager Name Role Phone Heena Oneill MD Primary Care Provider [phone] Reason for Visit * Reason Onset Date Comments Med Refill 09/19/2025 Encounter Details Date Type Department Care Team (Late st Contact Info) Description 09/18/2025 Refill [facility] Primary Care [address] [place] [address] Heena Oneill MD [address] [place] [address] Chronic pain disorder; Schizoaffective disorder, unspecified type Social History Tobacco Use Types Packs/Day Years [...] have money to get more. Patient declined [facility] Utilities Answer Date Recorded In [...] Info) Description 10/14/2025 4:20 PM EST Follow-Up [facility] Endocrinology Clinic [address] [place] [address] Rn Neonatal: Maria Alejandra Gardiner MD [address] [place] [address] 04/25/2026 9:45 AM EDT Appointment [address] [address] documented as of this encounter Visit Diagnoses Diagnosis Chronic pain disorder Chronic pain syndrome Schizoaffective disorder, unspecified type documented in this encounter Care Teams Industrial Sales Manager Relationship Specialty Start Date End Date Heena Oneill MD [address] [place] [address] PCP - General Family Medicine 06/22/25 documented as of this encounter
--- OUTSIDE RECORDS SUMMARY | 2025-09-22 12:32 | XMS_ITS | Encounter Summary ---
Author Organization [facility] Address [address] [place] [address] Care Team Providers Care Supervisor Commercial Fish Hatchery Name Role Phone Heena Oneill MD Primary Care Provider [phone] Reason for Visit * Reason Comments PAC General Info Encounter Details Date Type Department Care Team (Late st Contact Info) Description 09/21/2025 Telephone [facility] Primary Care [address] [place] [address] Telephone Intake, Staff PAC General Info Social History Tobacco Use Types Packs/Day Years [...] have money to get more. Patient declined [facility] Utilities Answer Date Recorded In the past 12 months has th [employer] electric, gas, oil, or water company threatened [...] encounter Miscellaneous Notes * Telephone Encounter - Florinda Souza - 09/21/2025 1:53 PM EST Copied from [facility] #[id number]. Topic: Request - Durable Medical Equipment >> Sep 21, 2025 1:24 PM Angelique Guerrero wrote: What type of equipment is it? (Toilet commode, diapers, ensure, cane, walker, oxygen tank) soft hand and wrist neutral positioning -orthosis Business where equipment is to be purchased: Jazmin Jacy from [facility] requesting DMe equipment for patient Any questions [phone] >> Sep 21, 2025 1:31 PM Angelique Guerrero wrote: [employer] [place] [address] [place] [address] documented in this encounter Plan of Treatment Upcoming Encounters Date Type Department Care Team (Late st Contact Info) Description 10/14/2025 4:20 PM EST Follow-Up [facility] [address] [place] [address] [place]: Maria Alejandra Gardiner MD [address] [place] [address] 04/25/2026 9:45 AM EDT Appointment [address] [address] documented as of this encounter Visit Diagnoses Not on filedocumented in this encounter Care Teams Supervisor Commercial Fish Hatchery Relationship Specialty Start Date End Date Heena Oneill MD [address] [place] [address] PCP - General Family Medicine 06/22/25 documented as of this encounter
--- OUTSIDE RECORDS SUMMARY | 2025-09-22 12:32 | XMS_ITS | Encounter Summary ---
Author Organization [facility] Address [address] [place] [address] Care Team Providers Care Instrument Installer Name Role Phone Heena Oneill MD Primary Care Provider [phone] Reason for Visit * Reason Onset Date Comments Med Refill 09/19/2025 Encounter Details Date Type Department Care Team (Late st Contact Info) Description 09/19/2025 Refill [facility] Primary Care [address] [place] [address] Jose Finney MD [address] [place], [place] [id number] Schizoaffective disorder, unspecified type Social History Tobacco [...] have money to get more. Patient declined [facility] Utilities Answer Date Recorded In the [...] Info) Description 10/14/2025 4:20 PM EST Follow-Up [facility] [address] [place] [address] Film Recordist: Maria Alejandra Gardiner MD [address] [place] [address] 04/25/2026 9:45 AM EDT Appointment [address] [address] documented as of this encounter Visit Diagnoses Diagnosis Schizoaffective disorder, unspecified type documented in this encounter Care Teams Instrument Installer Relationship Specialty Start Date End Date Heena Oneill MD [address] [place] [address] PCP - General Family Medicine 06/22/25 documented as of this encounter
--- OUTSIDE RECORDS SUMMARY | 2025-09-22 12:32 | XMS_ITS | Encounter Summary ---
Author Organization [facility] Address [address] [place] [address] Care Team Providers Care Grinding Wheel Inspector Name Role Phone Juan Mckinley MD Primary Care Provider [phone] Angelique Agudelo-Idalia Unavailable [phone] Angelique Agudelo-Idalia Unavailable [phone] Angelique Agudelo-Idalia Unavailable [phone] Sarah Figueroa MD Primary Care Provider [phone] Reason for Visit * Reason Onset Date Comments Medications Refill 10/22/2024 Encounter Details Date Type Department Care Team (Late st Contact Info) Description 10/22/2024 Refill [facility] Endocrinology [address] [place] [address] Fely Martin, TAMARA Medications Refill Social History [...] documented as of this encounter Care Teams Grinding Wheel Inspector Relationship Specialty Start Date End Date Juan Mckinley MD [address] [place] [address] PCP - General 07/17/22 01/31/25 Sarah Figueroa MD [address] [place] [address] PCP - General Internal Medicine - [facility] Medicine 02/01/25 Angelique Agudelo PA-C [address] [phone] Endocrinology, Diabetes and Metabolism 07/14/24 Angelique Agudelo PA-C [address] [phone] Endocrinology, Diabetes and Metabolism 08/23/24 Angelique Agudelo PA-C [address] [phone] Endocrinology, Diabetes and Metabolism 10/18/24 documented as of this encounter
--- OUTSIDE RECORDS SUMMARY | 2025-09-22 12:32 | XMS_ITS | Encounter Summary ---
Author Organization [facility] Address [address] [place] [address] Care Team Providers Care Venetian Blind Maker Name Role Phone Juan Mckinley MD Primary Care Provider [phone] Angelique Agudelo-C Unavailable [phone] Angelique Agudelo-C Unavailable [phone] Angelique Agudelo-Idalia Unavailable [phone] Sarah Figueroa MD Primary Care Provider [phone] Reason for Visit * Reason Onset Date Comments Medication Questions 02/18/2023 Encounter Details Date Type Department Care Team ([facility] Contact Info) Description 02/18/[address] [facility] Endocrinology [address] [place] [address] Roselyn Morales, implementation engineer Questions Social History Tobacco Use Types Packs/Day [...] Encounter - Roselyn Morales RN - 02/18/2023 6106 EDT Spoke with patients significant other. She states they mad an appointment with [facility] for next . She is [...] Also started taking Imitrex again for migraines. Perfume And Toilet Water Maker advised him to call his pcp to [...] documented as of this encounter Care Teams Venetian Blind Maker Relationship Specialty Start Date End Date Juan Mckinley MD [address] [place] [address] PCP - General 07/17/22 01/31/25 Sarah Figueroa MD [address] [place] [address] PCP - General Internal Medicine - [facility] 02/01/25 Angelique Agudelo PA-C [address] [phone] Endocrinology, Diabetes and Metabolism 07/14/24 Angelique Agudelo PA-C [address] [phone] Endocrinology, Diabetes and Metabolism 08/23/24 Angelique Agudelo PA-C [address] [phone] Endocrinology, Diabetes and Metabolism 10/18/24 documented as of this encounter
--- OUTSIDE RECORDS SUMMARY | 2025-09-22 12:32 | XMS_ITS | Encounter Summary ---
Author Organization [facility] Address [address] [place] [address] Care Team Providers Care Supervisor Fish Bait Processing Name Role Phone Juan Mckinley MD Primary Care Provider [phone] Angelique Agudelo PA-C Unavailable [phone] Angelique Agudelo PA-C Unavailable [phone] Angelique Agudelo PA-C Unavailable [phone] Sarah Figueroa MD Primary Care Provider [phone] Reason for Visit * Reason Comments Medications Refill Encounter Details Date Type Department Care Team (Late st Contact Info) Description 04/04/2023 Refill [facility] Endocrinology [address] [place] [address] Angelique Agudelo PA-C 210 [facility] [address] [place] [phone] Medications Refill Social History Tobacco Use Types [...] documented as of this encounter Care Teams Supervisor Fish Bait Processing Relationship Specialty Start Date End Date Juan Mckinley MD [address] [place] [address] 3 [place] [address] PCP - General 07/17/22 01/31/25 Sarah Figueroa MD [address] [place] [address] PCP - General Internal Medicine - [facility] Medicine 02/01/25 Angelique Agudelo, LATOSHAC [address] [place] [address] [address] [place] [phone] Endocrinology, Diabetes and Metabolism 07/14/24 Angelique Agudelo PA-C [address] [phone] Endocrinology, Diabetes and Metabolism 08/23/24 Angelique Agudelo PA-C [address] [phone] Endocrinology, Diabetes and Metabolism 10/18/24 documented as of this encounter
--- OUTSIDE RECORDS SUMMARY | 2025-09-22 12:32 | XMS_ITS | Encounter Summary ---
Author Organization [facility] Address [address] [place] [address] Care Team Providers Care New Car Get Ready Mechanic Name Role Phone Angelique Agudelo PA-C Primary Care Provider [phone] Juan Mckinley MD Primary Care Provider [phone] Angelique Agudelo PA-C Unavailable Angelique Agudelo PA-C Unavailable [phone] Angelique Agudelo-C Unavailable [phone] Sarah Figueroa MD Primary Care Provider [phone] Encounter Details Date Type Department Care Team (Late st Contact Info) Description 03/19/2016 Historical Results Only [facility] - [facility] Radiology Results [address] [place] [address] Navarro Banks MD [address] [place] [address] Social History Tobacco Use Types Packs/Day [...] EXAM: MRI 6170 THORACIC SPINE W/O CONTRAST [facility]#[id number] DATE & TIME EXAM COMPLETED: Mar 19 2016 6:24PM CPT:86648 REASON FOR EXAM: THORACIC DISCOGENIC PAIN Accession# : [id number] PT CL: {pt_class} FINDINGS: A multiplanar, multi [...] EXAM: MRI 6170 THORACIC SPINE W/O CONTRAST [facility]#[id number] DATE & TIME EXAM COMPLETED: Mar 19 2016 6:24PM CPT:14323 REASON FOR EXAM: THORACIC DISCOGENIC PAIN Accession# : [id number] PT CL: {pt_class} FINDINGS: A multiplanar, multi [...] documented as of this encounter Care Teams New Car Get Ready Mechanic Relationship Specialty Start Date End Date Angelique Agudelo PA-C 210 [facility] [address] [place] [address] PCP - General 01/10/16 07/16/22 Juan Mckinley MD [address] [place] [address] 3 [place], [place] [phone] PCP - General 07/17/22 01/31/25 Sarah Figueroa MD [address] [place] [address] PCP - General Internal Medicine - [facility] Medicine 02/01/25 Angelique Agudelo PA-C [address] [address] Endocrinology, Diabetes and Metabolism 07/14/24 Angelique Agudelo PA-C [address] [address] Endocrinology, Diabetes and Metabolism 08/23/24 Angelique Agudelo PA-C [address] [address] Endocrinology, Diabetes and Metabolism 10/18/24 documented as of this encounter
--- OUTSIDE RECORDS SUMMARY | 2025-09-22 12:32 | XMS_ITS | Encounter Summary ---
Author Organization [facility] Address [address] [place] [address] Care Team Providers Care Dispute Coordinator Name Role Phone Juan Mckinley MD Primary Care Provider [phone] Angelique Agudelo PA-C Unavailable [phone] Angelique Agudelo PA-C Unavailable [phone] Angelique Agudelo PA-C Unavailable [phone] Sarah Figueroa MD Primary Care Provider [phone] Reason for Visit * Reason Comments Medications Refill Encounter Details Date Type Department Care Team (Late st Contact Info) Description 01/27/2023 Refill [facility] Endocrinology [address] [place] [address] Angelique Agudelo PA-C 210 [facility] [address] [place] [phone] Medications Refill Social History Tobacco Use Types [...] documented as of this encounter Care Teams Dispute Coordinator Relationship Specialty Start Date End Date Juan Mckinley MD [address] [place] [address] PCP - General 07/17/22 01/31/25 Sarah Figueroa MD [address] [place] [address] PCP - General Internal Medicine - [facility] 02/01/25 Angelique Agudelo PA-C [address] [phone] Endocrinology, Diabetes and Metabolism 07/14/24 Angelique Agudelo PA-C [address] [phone] Endocrinology, Diabetes and Metabolism 08/23/24 Aneglique Agudelo PA-C [address] [place] [phone] Endocrinology, Diabetes and Metabolism 10/18/24 documented as of this encounter
--- OUTSIDE RECORDS SUMMARY | 2025-09-22 12:32 | XMS_ITS | Encounter Summary ---
Author Organization [facility] Address [address] [place] [address] Care Team Providers Care Concrete Pipe Machine Operator Name Role Phone Juan Mckinley MD Primary Care Provider [phone] Angelique Agudelo PA-C Unavailable [phone] Angelique Agudelo PA-C Unavailable [phone] Angelique Agudelo PA-C Unavailable [phone] Sarah Figueroa MD Primary Care Provider [phone] Reason for Visit * Reason Onset Date Comments Appointment Related 05/10/2024 Encounter Details Date Type Department Care Team (Late st Contact Info) Description 05/10/2024 Telephone [facility] Nephrology - [address] [address] Madeline Genao MD [address] [place] [address] Rehab, Level 2 [place] [address] Appointment Related Social History Tobacco [...] documented as of this encounter Care Teams Concrete Pipe Machine Operator Relationship Specialty Start Date End Date Juan Mckinley MD [address] [facility] [place] [address] PCP - General 07/17/22 01/31/25 Sarah Figueroa MD [address] [place] [address] PCP - General Internal Medicine - Hospital Medicine 02/01/25 Angelique Agudelo PA-C [address] [address] Endocrinology, Diabetes and Metabolism 07/14/24 Angelique Agudelo PA-C [address] [phone] Endocrinology, Diabetes and Metabolism 08/23/24 Angelique Agudelo PA-C [address] [place] [phone] Endocrinology, Diabetes and Metabolism 10/18/24 documented as of this encounter
--- OUTSIDE RECORDS SUMMARY | 2025-09-22 12:32 | XMS_ITS | Encounter Summary ---
Author Organization [facility] Address [address] [place] [address] Care Team Providers Care Greens Cutter Name Role Phone Juan Mckinley MD Primary Care Provider [phone] Angelique Agudelo PA-C Unavailable [phone] Angelique Agudelo PA-C Unavailable [phone] Angelique Agudelo PA-C Unavailable [phone] Sarah Figueroa MD Primary Care Provider [phone] Reason for Visit * Reason Comments Medications Refill Encounter Details Date Type Department Care Team (Late st Contact Info) Description 02/12/2023 Refill [facility] Endocrinology [address] [place] [address] Angelique Agudelo PA-C 210 [facility] [address] [place] [phone] Medications Refill Social History Tobacco Use Types [...] documented as of this encounter Care Teams Greens Cutter Relationship Specialty Start Date End Date Juan Mckinley MD [address],[facility] 3 [place] [address] PCP - General 07/17/22 01/31/25 Sarah Figueroa MD [address] [place] [address] PCP - General Internal Medicine - [facility] 02/01/25 Angelique Agudelo PA-C [address] [phone] Endocrinology, Diabetes and Metabolism 07/14/24 Angelique Agudelo PA-C [address] [phone] Endocrinology, Diabetes and Metabolism 08/23/24 Angelique Agudelo PA-C [address] [phone] Endocrinology, Diabetes and Metabolism 10/18/24 documented as of this encounter
[2025-09-22 13:33] LABS: MANUAL DIFF FLAG NO
[2025-09-22 13:39] LABS: Hematocrit 45.6 % (42.0-52.0); Hemoglobin 14.9 g/dl (14.0-18.0); Imm Gran Abs Auto 0.02 X10*3/uL (0.00-0.03); Imm Gran Pct Auto 0.2 % (0.0-0.4); Lymphocytes Absolute Auto 2.0 X10*3/uL (1.2-4.9); Mean Corpuscular HGB Conc 32.7 g/dl (31.0-36.0); Mean Corpuscular Hemoglobin 28.5 pg (27.0-33.0); Mean Corpuscular Volume 87.2 fL (80.0-98.0); NRBC Abs Auto 0.000 X10*3/uL (0.0-0.012); NRBC Pct Auto 0.0 /100WBC (0.0-0.2); Platelet Count 202 X10*3/uL (160-400); Red Blood Count 5.23 X10*6/uL (4.60-5.80); White Blood Count 9.0 X10*3/uL (4.8-10.8)
[2025-09-22 13:59] VITALS: BP 105/63; PULSE 61; RESP 16; TEMP 36.9; O2SAT 96
[2025-09-22 14:00] LABS: Alanine Aminotransferase 63 U/L (0-40); Albumin Level 4.6 g/dL (3.5-5.0); Alkaline Phosphatase 121 U/L (39-117); Anion Gap 14 (12-20); Aspartate Amino Transferase 29 U/L (5-37); Blood Urea Nitrogen 21 mg/dL (9-16); Calcium 9.6 mg/dL (8.4-10.2); Carbon Dioxide 29 mmol/L (22-29); Chloride 109 mmol/L (96-108); Creatinine Clr Calc Pharmacy 94.7; Estimated Glomerular Filt Rate > 60; Magnesium 2.5 mg/dL (1.6-2.6); Potassium 4.7 mmol/L (3.3-5.1); Sodium 147 mmol/L (135-145); Total Protein 7.5 g/dL (6.5-8.0)
[2025-09-22] MEDS: iohexoL 350 MG/ML 100 ML INFUS..BTL IV (14:39)
[2025-09-22 15:21] LABS: Resp Syncy Virus RNA Qual PCR NEGATIVE (Negative); SARS COV2 PCR INHOUSE NEGATIVE (Negative)
--- NOTE | 2025-09-22 15:24 | PC.NURSE ---
Pt had been requesting morphine for pain but now is sleeping.
--- NOTE | 2025-09-22 16:07 | PC.NURSE ---
Daughter, Halina, states that Pt was confused this am, couldn't remember who she was. reported hallucinations about daughter before actually seeing her. fell 1 week ago trying to get out of recliner. had MRI of pelvis after and was negative. C/O left sided abd pain last night.
[2025-09-22 17:30] VITALS: BP 96/55; PULSE 57; RESP 14; TEMP 36.4; O2SAT 97
[2025-09-22 19:06] LABS: Ammonia 33 umol/L (13-55)
[2025-09-22 20:27] LABS: Appearance Urine Clear; Glucose Urine UA Negative (Negative); PH 7.0 (5.0-9.0); Specific Gravity - Urine >= 1.030 (1.005-1.025); UMIC TRIGGER UACC YES
[2025-09-22 20:38] LABS: Cannabinoid Screen Urine Not Detected (Not Detect)
[2025-09-22 21:07] LABS: UACC Culture Trigger YES
[2025-09-22 21:49] VITALS: BP 102/68; PULSE 62; RESP 18; TEMP 36.3; O2SAT 97
[2025-09-22 22:17] VITALS: BP 102/68; PULSE 62; RESP 18; TEMP 36.3; O2SAT 97
== END 2025-09-22 22:18 | disposition home or self-care (01) ==
PROVIDERS: Physician Assistant Medical; Emergency Provider Emergency Medicine
DX: G43.909 Migraine, unspecified, not intractable, without status migrainosus (principal); N39.0 Urinary tract infection, site not specified; M25.511 Pain in right shoulder; G89.29 Other chronic pain; J18.9 Pneumonia, unspecified organism; G83.9 Paralytic syndrome, unspecified; G65.0 Sequelae of Guillain-Barre syndrome; Z88.8 Allergy status to other drugs, medicaments and biological substances
CPT/HCPCS: 36415; 70496; 70498; 71045; 80048; 80076; 80307; 81001; 82140; 83735; 85025; 87040; 87086; 87637; 96361; 96365; 96375; 99284; 99285; J0131; J0696; J1200; J1885; J2765; Q9967

== ENCOUNTER → 2025-09-22 12:26 | Outpatient (BNV) | payer MEDICARE, MEDICAID, SELFPAY | PROVIDERS: Emergency Provider Emergency Medicine; Visit Provider Radiology Diagnostic Radiology | DX: R51.9 Headache, unspecified (principal); H53.8 Other visual disturbances; J18.9 Pneumonia, unspecified organism | CPT/HCPCS: 70496; 70498; 71045 ==

== ENCOUNTER 2025-09-25 17:11 | Inpatient (IN) | payer MEDICARE, MEDICAID, SELFPAY ==
--- OUTSIDE RECORDS SUMMARY | 2025-09-24 23:59 | XMS_ITS | Continuity of Care Document ---
Author Organization [facility] Address [address] [facility] [address] [place] [address]- Care Team Providers Care Senior Medical Director Name Role Phone Wilton Myers MD Primary Care Physician Encounter [facility] Date(s): 08/25/25 - 09/24/25 [facility] 21 [facility] [address] [place] [address]- Attending Physician: Eugene Gannon Admitting Physician: Eugene Gannon Referring Physician: AdmtrEugene Encounter Type: Triage Allergies, Adverse Reactions, Alerts No Known Medication Allergies Problem List Condition Confirmation Course Effective Dates Status H ealth Status Informant Asthma Confirmed Active CAD (coronary artery disease) Confirmed Active 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 Hyperlipidemia Confirmed Active Hyperthyroidism Confirmed Active Neuropathy, lower extremity Confirmed Active Schizoaffective disorder Confirmed Active Dravet syndrome Confirmed Active Tobacco use disorder Confirmed Active Social History Social History Type Response Sex Sex Representation Male (finding) Patient Care team information Care Team Personnel Name: Wilton Myers MD Position: Reference Physician Member Role: PCP Address: [address] [place] [phone]- Telecom: Insurance Providers Guarantor name: LAYLA Health Plan Information #: 1 Payer: [employer] CUSTOMER SERVICE Payer Identifier: LAYLA Member Number: [id number] Group Number: [id number] Subscriber Identifier: LAYLA Relationship to Subscriber: self Coverage Type: MEDICAID Coverage Verification Date: LAYLA Telecom: LAYLA Address:
--- OUTSIDE RECORDS SUMMARY | 2025-09-24 23:59 | XMS_ITS | Continuity of Care Document ---
Author Organization [facility] Address [address] [facility] [address] [place] [address]- Care Team Providers Care Waitstaff Captain Name Role Phone Wilton Myers MD Primary Care Physician [facility] [facility] [place]s): 07/12/25 - 09/24/25 [facility] 21 [facility] [address] [place] [address]- Attending Physician: Pedro Byrd MD Referring Physician: Not on Staff, Referring MD Encounter Type: Pre Office Visit Allergies, Adverse Reactions, Alerts No Known Medication Allergies Problem List Condition Confirmation Course Effective Dates Status H ealth Status Informant Asthma Confirmed Active CAD (coronary artery disease) Confirmed Active 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 Hyperlipidemia Confirmed Active Hyperthyroidism Confirmed Active Neuropathy, lower extremity Confirmed Active Schizoaffective disorder Confirmed Active Dravet syndrome Confirmed Active Tobacco use disorder Confirmed Active Social History Social History Type Response Sex Sex Representation Male (finding) Patient Care team information Care Team Personnel Name: Wilton Myers MD Position: Reference Physician Member Role: PCP Address: [address] [place] [address]- Telecom: Insurance Providers Guarantor name: LAYLA Health Plan Information #: 1 Payer: [employer] CUSTOMER SERVICE Payer Identifier: LAYLA Member Number: [id number] Group Number: [id number] Subscriber Identifier: [id number] Relationship to Subscriber: self Coverage Type: MEDICAID Coverage Verification Date: LAYLA Telecom: LAYLA Address:
--- NOTE | ~2025-09-25 | CT_ITS ---
CLINICAL HISTORY: abd pain CT abdomen and pelvis with contrast Comparison: CT - CT ABDOMEN PELVIS W IV CON - 09/25/25 22:39 EST Findings: Partial atelectasis both lung bases. Trace bilateral pleural fluid. Subtle dependent density in the gallbladder. Subtle gallbladder wall thickening. No bowel obstruction, pneumoperitoneum, or pneumatosis. Small umbilical hernia contains fat without induration. Mesenteric vessels are patent. Previous bilateral inguinal hernia repairs. No recurrence. Tineo catheter decompresses urinary bladder. Multilevel small Schmorl's nodes. No acute fracture. IMPRESSION: 1. Indeterminate appearance of the gallbladder. Possible gallbladder wall thickening and stones. Correlate with any signs or symptoms of cholecystitis. 2. Additional nonacute findings as above. This document has been electronically signed by: Micah Chaudhari MD on 09/26/2025 00:01:18
--- NOTE | ~2025-09-25 | US_ITS ---
EXAMINATION: US ABDOMEN LIMITED CLINICAL INFORMATION: Right upper quadrant abdominal pain.. COMPARISON: Correlated to CT dated September 25, 2025. TECHNIQUE: Real-time ultrasound of the right upper quadrant abdomen, gallbladder using grayscale technique. Limited. FINDINGS: Gallbladder is contracted. Multiple intraluminal hyperechoic abnormalities with posterior shadowing layering in the gallbladder lumen. Gallbladder wall measures 6 mm. Small volume pericholecystic fluid. Common bile duct measures 3 mm. US/US abdomen limited IMPRESSION: Contracted gallbladder. Concerning acute calculus cholecystitis in the correct clinical settings. Electronically signed by: Júnior Saenz MD 09/26/2025 08:07 AM EST
--- NOTE | ~2025-09-25 | NM_ITS ---
CLINICAL HISTORY: NO CCK GIVEN NM HIDA Scan Comparison: US/SR - US ABDOMEN LIMITED - 09/26/25 07:[address]/SR - CT ABDOMEN PELVIS W IV CON - 09/25/25 22:59 EST Technique: NO CCK GIVEN (Hx) / Dynamic 0-60 MIN (DICOM Hx) (DICOM Hx) Findings: Normal liver uptake, distribution, and excretion. Gallbladder appears 40 minutes. Central bile ducts appear at 10 minutes. Duodenum visualized at 12 minutes. No enterogastric reflux of radiotracer. IMPRESSION: No evidence of acute cholecystitis. Gallbladder is visualized. This document has been electronically signed by: Shelli Boyd MD on 09/26/2025 18:27:47
--- NOTE | ~2025-09-25 | MR_ITS ---
EXAMINATION: MR BRAIN WITHOUT CONTRAST CLINICAL INFORMATION: Seizures. COMPARISON: Correlated to CT dated September 18, 2025. TECHNIQUE: MRI of the brain was obtained using routine sequences without contrast. FINDINGS: No restricted diffusion. No acute intracranial hemorrhage, mass effect, midline shift, hydrocephalus or herniation. Manzano-white matter differentiation is normal. The hippocampi demonstrated no signal abnormality or restricted diffusion nor volume loss. Sellar/suprasellar region is normal. Craniocervical junction demonstrates normal position of the cerebellar tonsils. Flow-void signal within the main cerebral vessels is normal. Prominence of the extra-axial CSF spaces cerebral sulci involving mostly the bifrontal lobes. Edentulous.. MR/MR head/brain wo con IMPRESSION: No acute stroke. No acute intradural hemorrhage or acute brain abnormality. Bifrontal lobe atrophy, mild to moderate. Electronically signed by: Júnior Saenz MD 09/27/2025 03:40 PM EST
[2025-09-25 17:26] VITALS: BP 108/58; PULSE 64; O2SAT 95
[2025-09-25 17:30] VITALS: BP 126/86; PULSE 66; RESP 18; TEMP 36.7; O2SAT 97; BMI 31.2
--- OUTSIDE RECORDS SUMMARY | 2025-09-25 17:52 | XMS_ITS | Encounter Summary ---
Author Organization [facility] Address [address] [place] [address] Care Team Providers Care Stock Trader Name Role Phone Angelique Agudelo PA-C Primary Care Provider [phone] Juan Mckinley MD Primary Care Provider [phone] Angelique Agudelo PA-C Unavailable Angelique Agudelo PA-C Unavailable [phone] Angelique Agudelo PA-C Unavailable Sarah Figueroa MD Primary Care Provider [phone] Encounter Details Date Type Department Care Team (Late st Contact Info) Description 05/20/2018 Historical Results Only [facility] - [facility] Radiology Results [address] [place] [address] Angelique Agudelo PA-C [address] [phone] Social History Tobacco Use Types [...] MRI 5055 L/S SPINE CANAL W/O CONTRAST [facility]#[id number] DATE & TIME EXAM COMPLETED: May 20 2018 10:35AM CPT:90213 REASON FOR EXAM: G83.10 M54.16 R53, WEAKNESS, LUMBAR RADICULOPATHY Accession# : [id number] PT CL: O FINDINGS: Multiplanar multi sequential [...] MRI 5055 L/S SPINE CANAL W/O CONTRAST [facility]#[id number] DATE & TIME EXAM COMPLETED: May 20 2018 10:35AM CPT:24773 REASON FOR EXAM: G83.10 M54.16 R53, WEAKNESS, LUMBAR RADICULOPATHY Accession# : [id number] PT CL: O FINDINGS: Multiplanar multi sequential [...] documented as of this encounter Care Teams Stock Trader Relationship Specialty Start Date End Date Angelique Agudelo PA-C [address] [phone] PCP - General 01/10/16 07/16/22 Juan Mckinley MD [address],[facility] 3 [place] [address] PCP - General 07/17/22 01/31/25 Sarah Figueroa MD [address] [place] [address] PCP - General Internal Medicine - [facility] Medicine 02/01/25 Angelique Agudelo PA-C [address] [phone] Endocrinology, Diabetes and Metabolism 07/14/24 Angelique Agudelo PA-C [address] [address] Endocrinology, Diabetes and Metabolism 08/23/24 Angelique Agudelo PA-C [address] [address] Endocrinology, Diabetes and Metabolism 10/18/24 documented as of this encounter
--- OUTSIDE RECORDS SUMMARY | 2025-09-25 17:52 | XMS_ITS | Encounter Summary ---
Author Organization [facility] Address [address] [place] [address] Care Team Providers Care Hospital Cna Name Role Phone Angelique Agudelo PA-C Primary Care Provider [phone] Juan Mckinley MD Primary Care Provider [phone] Angelique Agudelo PA-C Unavailable [phone] Angelique Agudelo PA-C Unavailable [phone] Angelique Agudelo-C Unavailable [phone] Sarah Figueroa MD Primary Care Provider [phone] Reason for Visit * Reason Onset Date Comments Appointment Related 02/13/2018 Encounter Details Date Type Department Care Team (Late st Contact Info) Description 02/13/2018 Telephone [facility] Interventional Pain [address] [place] [address] Nydia Sotelo PA [address] [place] [address] [phone] Appointment Related Social History Tobacco Use Types [...] Telephone Encounter - Sonam Reddy - 02/13/2018 1431 EDT PER NYDIA MONTES He has had success with TPI and RFA through the [facility]. We will obtain records and schedule these [...] documented as of this encounter Care Teams Hospital Cna Relationship Specialty Start Date End Date Angelique Agudelo PA-C [address] [place] [phone] PCP - General 01/10/16 07/16/22 Juan Mckinley MD [address] [place] [address] PCP - General 07/17/22 01/31/25 Sarah Figueroa MD [address] [place] [address] PCP - General Internal Medicine - [facility] Medicine 02/01/25 Angelique Agudelo PA-C [address] [phone] Endocrinology, Diabetes and Metabolism 07/14/24 Angelique Agudelo PA-C [address] [address] Endocrinology, Diabetes and Metabolism 08/23/24 Angelique Agudelo PA-C [address] [address] Endocrinology, Diabetes and Metabolism 10/18/24 documented as of this encounter
--- OUTSIDE RECORDS SUMMARY | 2025-09-25 17:52 | XMS_ITS | Clinical Summary ---
Author Organization [facility] Address [address] [facility] [address] [place] [address] Phone Care Team Providers Care Bark Spudder Name Role Phone Pcp, Unknown Primary Care Provider Unavailabl e Encounters Date Type Department Care Team Description 08/01/2025 9:15 AM EDT - 08/01/2025 11:59 PM EDT Hospital Encounter [facility] - [address] [place] [address] Simon Maier MD Discharge Disposition: Home or Self Care 07/29/2025 Transcribe Orders Virtual Department [address] [place] [address] Simon Maier MD Other neuromuscular dysfunction of bladder (Primary Dx); Other retention of urine from Last 3 Months Social History Tobacco [...] is not well assessed Simon Maier MD [facility] RENAL Final Result from Last 3 Months Insurance MEDICARE PART A & [place] MED[place] A & B [facility] [place] [place] [id number] MEDICARE PART A & B [facility] MEDIC[facility] PART A & B [facility] MEDIC[facility] PART A & B [facility] MEDICARE PART A & B [facility] Care Teams Bark Spudder Relationship Specialty Start Date End Date Pcp, Unknown PCP - General 07/29/25 Heena Oneill [address] [place] [address] Primary Care Physician 07/29/25 Additional Source Comments The information contained in this document represents components of the legal health record. It is not the complete legal health record.[facility]
--- OUTSIDE RECORDS SUMMARY | 2025-09-25 17:52 | XMS_ITS | Encounter Summary ---
Author Organization [facility] Address [address] [place] [address] Care Team Providers Care Sugarcane Planter Name Role Phone Angelique Agudelo PA-C Primary Care Provider [phone] Juan Mckinley MD Primary Care Provider [phone] Angelique Agudelo PA-C Unavailable Angelique Agudelo PA-C Unavailable [phone] Angelique Agudelo-C Unavailable [phone] Sarah Figueroa MD Primary Care Provider [phone] Encounter Details Date Type Department Care Team (Late st Contact Info) Description 07/01/2017 Historical Results Only [facility] - CVPH Radiology Results [address] [place] [address] Navarro Banks MD [address] [place] [phone] Social History Tobacco Use Types Packs/Day [...] CERVICAL SPINE MIN 4 VIEWS [facility]#[id number] DATE & TIME EXAM COMPLETED: Jul 01 2017 9:20AM CPT:87458 REASON FOR EXAM: CERVICALGIA Accession# : [id number] PT CL: {pt_class} FINDINGS: AP, open mouth, [...] CERVICAL SPINE MIN 4 VIEWS [facility]#[id number] DATE & TIME EXAM COMPLETED: Jul 01 2017 9:20AM CPT:95278 REASON FOR EXAM: CERVICALGIA Accession# : [id number] CL: {pt_class} FINDINGS: AP, open mouth, lateral, [...] documented as of this encounter Care Teams Sugarcane Planter Relationship Specialty Start Date End Date Angelique Agudelo PA-C [address] [place] [address] [address] [place] [address] PCP - General 01/10/16 07/16/22 Juan Mckinley MD [address] [place] [address] 3 [place] [address] PCP - General 07/17/22 01/31/25 Sarah Figueroa MD [address] [place] [address] PCP - General Internal Medicine - Hospital Medicine 02/01/25 Angelique Agudelo PA-C [address] [phone] Endocrinology, Diabetes and Metabolism 07/14/24 Angelique Agudelo PA-C [address] [address] Endocrinology, Diabetes and Metabolism 08/23/24 Angelique Agudelo PA-C [address] [phone] Endocrinology, Diabetes and Metabolism 10/18/24 documented as of this encounter
--- OUTSIDE RECORDS SUMMARY | 2025-09-25 17:52 | XMS_ITS | Encounter Summary ---
Author Organization [facility] Address [address] [place] [address] Care Team Providers Care Demolition Expert Name Role Phone Angelique Agudelo PA-C Primary Care Provider [phone] Juan Mckinley MD Primary Care Provider [phone] Angelique Agudelo PA-C Unavailable Angelique Agudelo PA-C Unavailable [phone] Angelique Agudelo-C Unavailable [phone] Sarah Figueroa MD Primary Care Provider [phone] Encounter Details Date Type Department Care Team (Late st Contact Info) Description 12/19/2016 Historical Results Only [facility] - CVPH Radiology Results 75 [place] [address] Kaz Munguia DO [address] [place] [address] [address] [place] [address] Social History Tobacco Use Types [...] MRI 5055 L/S SPINE CANAL W/O CONTRAST [facility]#[id number] DATE & TIME EXAM COMPLETED: Dec 19 2016 9:07AM CPT:75713 REASON FOR EXAM: Lumbar Radiculopathy Accession# : [id number] PT CL: {pt_class} FINDINGS: Sagittal T1, T2 [...] MRI 5055 L/S SPINE CANAL W/O CONTRAST [facility]#[id number] DATE & TIME EXAM COMPLETED: Dec 19 2016 9:07AM CPT:73344 REASON FOR EXAM: Lumbar Radiculopathy PT CL: [...] documented as of this encounter Care Teams Demolition Expert Relationship Specialty Start Date End Date Angelique Agudelo PA-C [address] [place] [phone] PCP - General 01/10/16 07/16/22 Juan Mckinley MD [address] [place] [address] 3 [place] [address] PCP - General 07/17/22 01/31/25 Sarah Figueroa MD [address] [place] [address] PCP - General Internal Medicine - [facility] Medicine 02/01/25 Angelique Agudelo PA-C [address] [phone] Endocrinology, Diabetes and Metabolism 07/14/24 Angelique Agudelo PA-C [address] [phone] Endocrinology, Diabetes and Metabolism 08/23/24 Angelique Agudelo PA-C [address] [phone] Endocrinology, Diabetes and Metabolism 10/18/24 documented as of this encounter
--- OUTSIDE RECORDS SUMMARY | 2025-09-25 17:52 | XMS_ITS | Encounter Summary ---
Author Organization [facility] Address [address] [place] [address] Care Team Providers Care Manager Room Name Role Phone Angelique Agudelo PA-C Primary Care Provider [phone] Juan Mckinley MD Primary Care Provider [phone] Angelique Agudelo PA-C Unavailable [phone] Angelique Agudelo PA-C Unavailable [phone] Angelique Agudelo PA-C Unavailable [phone] Sarah Figueroa MD Primary Care Provider [phone] Reason for Visit * Reason Onset Date Comments Medications Refill 01/23/2018 Encounter Details Date Type Department Care Team (Late st Contact Info) Description 01/23/2018 Telephone [facility] Interventional Pain [address] [place] [address] Nydia Sotelo PA [address] [place] [phone] Medications Refill Social History Tobacco Use Types [...] fill the medication because patient is from [place] and it has a controlled substance in [...] as of this encounter Care Teams Manager Room Relationship Specialty Start Date End Date Angelique Agudelo PA-C [address] [place] [address] [place] [phone] PCP - General 01/10/16 07/16/22 Juan Mckinley MD [address] [facility] 3 [place] [address] PCP - General 07/17/22 01/31/25 Sarah Figueroa MD [address] [place] [address] PCP - General Internal Medicine - [facility] 02/01/25 Angelique Agudelo PA-C [address] [phone] Endocrinology, Diabetes and Metabolism 07/14/24 Angelique Agudelo PA-C [address] [phone] Endocrinology, Diabetes and Metabolism 08/23/24 Angelique Agudelo PA-C [address] [phone] Endocrinology, Diabetes and Metabolism 10/18/24 documented as of this encounter
--- OUTSIDE RECORDS SUMMARY | 2025-09-25 17:52 | XMS_ITS | Encounter Summary ---
Author Organization [facility] Address [address] [place] [address] Care Team Providers Care Services Delivery Driver Name Role Phone Angelique Agudelo PA-C Primary Care Provider [phone] Juan Mckinley MD Primary Care Provider [phone] Angelique Agudelo PA-C Unavailable Angelique Agudelo PA-C Unavailable [phone] Angelique Agudelo-C Unavailable Sarah Figueroa MD Primary Care Provider [phone] Encounter Details Date Type Department Care Team (Late st Contact Info) Description 10/22/2016 Historical Results Only [facility] - CVPH Radiology Results 75 [place] [address] Kaz Munguia DO [address] [place] [address] [address] [place] [address] Social History Tobacco Use Types [...] RAD 1405 CERVICAL SPINE MIN 4 VIEWS [facility]#[id number] DATE & TIME EXAM COMPLETED: Oct 22 2016 1:11PM CPT:23344 REASON FOR EXAM: M47.892 Cervical spondylosis Accession# : [id number] PT CL: {pt_class} FINDINGS: AP, lateral and [...] RAD 1405 CERVICAL SPINE MIN 4 VIEWS [facility]#[id number] DATE & TIME EXAM COMPLETED: Oct 22 2016 1:11PM CPT:93621 REASON FOR EXAM: M47.892 Cervical spondylosis PT [...] documented as of this encounter Care Teams Services Delivery Driver Relationship Specialty Start Date End Date Angelique Agudelo PA-C [address] [phone] PCP - General 01/10/16 07/16/22 Juan Mckinley MD [address] [facility] 3 [place] [address] PCP - General 07/17/22 01/31/25 Sarah Figueroa MD [address] [place] [address] PCP - General Internal Medicine - [facility] Medicine 02/01/25 Angelique Agudelo PA-C [address] [phone] Endocrinology, Diabetes and Metabolism 07/14/24 Angelique Agudelo PA-C [address] [phone] Endocrinology, Diabetes and Metabolism 08/23/24 Angelique Agudelo PA-C [address] [place] [phone] Endocrinology, Diabetes and Metabolism 10/18/24 documented as of this encounter
--- OUTSIDE RECORDS SUMMARY | 2025-09-25 17:53 | XMS_ITS | Encounter Summary ---
Author Organization [facility] Address [address] [place] [address] Care Team Providers Care Casing Material Weigher Name Role Phone Heena Oneill MD Primary Care Provider [phone] Reason for Visit * Reason Onset Date Comments ATI asking for OT to be added 09/06/2025 Encounter Details Date Type Department Care Team (Late st Contact Info) Description 09/06/2025 Telephone [facility] Primary Care [address] [place] [phone] Telephone Intake, Staff ATI asking for OT [...] money to get more. Patient declined [facility] Utilities Answer Date Recorded In the [...] OT added as well and faxed to [facility] at [phone] documented in this encounter Plan of Treatment Upcoming Encounters Date Type Department Care Team (Late st Contact Info) Description 10/14/2025 4:20 PM EST Follow-Up [facility] End[facility]ology [facility] [address] [place] [address] Travelers' Aid Worker: Maria Alejandra Gardiner MD [address] [place] [address] 04/25/2026 9:45 AM EDT Appointment [address] [address] documented as of this encounter Visit Diagnoses Not on filedocumented in this encounter Care Teams Casing Material Weigher Relationship Specialty Start Date End Date Heena Oneill MD [address] [place] [address] PCP - General Family Medicine 06/22/25 documented as of this encounter
--- OUTSIDE RECORDS SUMMARY | 2025-09-25 17:53 | XMS_ITS | Encounter Summary ---
Author Organization [facility] Address [address] [place] [address] Care Team Providers Care Regulator Inspector Name Role Phone Juan Mckinley MD Primary Care Provider [phone] Angelique Agudelo-C Unavailable [phone] Angelique Agudelo-C Unavailable [phone] Angelique Agudelo-C Unavailable [phone] Sarah Figueroa MD Primary Care Provider [phone] Reason for Visit * Reason Onset Date Comments Appointment Related 09/03/2022 Encounter Details Date Type Department Care Team ([facility] Contact Info) Description 09/03/2022 Telephone [facility] Nephrology - [address] [address] Lucas Reaves MD [address] [place] [phone] Appointment Related Social History Tobacco Use [...] referring him to all these doctor's in [place] as he doesn't have transportation declined rescheduling [...] documented as of this encounter Care Teams Regulator Inspector Relationship Specialty Start Date End Date Juan Mckinley MD [address] [facility] [place] [address] PCP - General 07/17/22 01/31/25 Sarah Figueroa MD [address] [place] [address] PCP - General Internal Medicine - [facility] Medicine 02/01/25 Angleique Agudelo PA-C [address] [phone] Endocrinology, Diabetes and Metabolism 07/14/24 Angelique Agudelo PA-C [address] [phone] Endocrinology, Diabetes and Metabolism 08/23/24 Angelique Agudelo PA-C [address] [phone] Endocrinology, Diabetes and Metabolism 10/18/24 documented as of this encounter
--- OUTSIDE RECORDS SUMMARY | 2025-09-25 17:53 | XMS_ITS | Encounter Summary ---
Author Organization [facility] Address [address] [place] [address] Care Team Providers Care Turkey Pinner Name Role Phone Angelique Agudelo PA-C Primary Care Provider [phone] Juan Mckinley MD Primary Care Provider [phone] Angelique Agudelo PA-C Unavailable Angelique Agudelo PA-C Unavailable [phone] Angelique Agudelo PA-C Unavailable Sarah Figueroa MD Primary Care Provider [phone] Encounter Details Date Type Department Care Team (Late st Contact Info) Description 09/03/2018 Historical Results Only [facility] - CVPH Radiology Results 75 [place] [address] Angelique Agudelo PA-C [address] [phone] Social History Tobacco Use Types [...] EXAM: RAD 1435 THORACIC SPINE 2 VIEWS CD#[id number] DATE & TIME EXAM COMPLETED: Sep 03 2018 12:38PM CPT:52427 REASON FOR EXAM: M54.2 Cervical pain M54.6 Thoracic pain Accession# : [id number] PT CL: O FINDINGS: AP and lateral views of the thoracic spine are obtained. There are no visible fractures and no focal bony abnormalities are identified. Alignment is anatomic. No paraspinal or soft tissue abnormality is seen. Disc spaces are well-maintained. IMPRESSION: Normal study. Comparison study 07/29/2013. Procedure Note Froilan Fisher MD - 07/31/2019 EXAM: RAD 1435 THORACIC SPINE 2 VIEWS [facility]#[id number] DATE & TIME EXAM COMPLETED: Sep 03 2018 12:38PM CPT:83833 REASON FOR EXAM: M54.2 Cervical pain M54.6 Thoracic pain Accession# : [id number] PT CL: O FINDINGS: AP and lateral [...] RAD 1405 CERVICAL SPINE MIN 4 VIEWS [facility]#[id number] DATE & TIME EXAM COMPLETED: Sep 03 2018 12:38PM CPT:46480 REASON FOR EXAM: M54.2 Cervical pain M54.6 Thoracic pain Accession# : [id number] PT CL: O FINDINGS: Five views of [...] RAD 1405 CERVICAL SPINE MIN 4 VIEWS [facility]#[id number] DATE & TIME EXAM COMPLETED: Sep 03 2018 12:38PM CPT:18492 REASON FOR EXAM: M54.2 Cervical pain M54.6 Thoracic pain Accession# : [id number] PT CL: O FINDINGS: Five views of [...] documented as of this encounter Care Teams Turkey Pinner Relationship Specialty Start Date End Date Angelique Agudelo PA-C [address] [phone] PCP - General 01/10/16 07/16/22 Juan Mckinley MD 158 [facility] 3 [place] [address] PCP - General 07/17/22 01/31/25 Sarah Figueroa MD [address] [place] [address] PCP - General Internal Medicine - [facility] Medicine 02/01/25 Angelique Agudelo PA-C [address] [phone] Endocrinology, Diabetes and Metabolism 07/14/24 Angelique Agudelo PA-C [address] [phone] Endocrinology, Diabetes and Metabolism 08/23/24 Angelique Agudelo PA-C [address] [phone] Endocrinology, Diabetes and Metabolism 10/18/24 documented as of this encounter
--- OUTSIDE RECORDS SUMMARY | 2025-09-25 17:53 | XMS_ITS | Encounter Summary ---
Author Organization [facility] Address [address] [place] [address] Care Team Providers Care Brim Pouncer Name Role Phone Angelique Agudelo PA-C Primary Care Provider [phone] Juan Mckinley MD Primary Care Provider [phone] Angelique Agudelo PA-C Unavailable Angelique Agudelo-C Unavailable [phone] Angelique Agudelo-C Unavailable Sarah Figueroa MD Primary Care Provider [phone] Reason for Visit * Reason Onset Date Comments Other 05/21/2022 Encounter Details Date Type Department Care Team (Late st Contact Info) Description 05/21/[address] [facility] Transplant - [address] [place], [place] [phone] Ochoa Mcguire MD 1 [facility], Level 2 [place] [address] Other Social History Tobacco Use [...] Bermudez - 05/21/2022 1442 EDT Call to TAXICAB DISPATCHER Anneliese. She shares that pt struggles with [...] low dose of lithium if cleared by motorcycle service technician. Med List (prescribed by Anneliese) Latuda 60 mg Duloxetine 30 mg Trazadone 100 mg HS Hydraxazine 50 mg TID PRN for anxiety (by PCP) Hydrocodone Marce Burrell Routing message to Dr. Mcguire for review prior to pt's appt 05/27. * Telephone Encounter - Peggy Torres - 05/21/2022 1310 EDT Anneliese Stoney TAXICAB DISPATCHER referred Pt here and would like to speak with someone about her concerns before his appt next week. Please call her at [phone] ext [phone] leave a msg if she [...] documented as of this encounter Care Teams Brim Pouncer Relationship Specialty Start Date End Date Angelique Agudelo PA-C [address] [phone] PCP - General 01/10/16 07/16/22 Juan Mckinley MD [address] [place] [address] 3 [place] [address] PCP - General 07/17/22 01/31/25 Sarah Figueroa MD [address] [place] [address] PCP - General Internal Medicine - [facility] 02/01/25 Angelique Agudelo PA-C [address] [place] [phone] Endocrinology, Diabetes and Metabolism 07/14/24 Angelique Agudelo PA-C [address] [place] [phone] Endocrinology, Diabetes and Metabolism 08/23/24 Angelique Agudelo PA-C 210 [facility] [address] [place] [phone] Endocrinology, Diabetes and Metabolism 10/18/24 documented as of this encounter
--- OUTSIDE RECORDS SUMMARY | 2025-09-25 17:53 | XMS_ITS | Encounter Summary ---
Author Organization [facility] Address [address] [place] [address] Care Team Providers Care Electrical Unit Rebuilder Name Role Phone Juan Mckinley MD Primary Care Provider [phone] Angelique Agudelo PA-C Unavailable [phone] Angelique Agudelo PA-C Unavailable [phone] Angelique Agudelo PA-C Unavailable [phone] Sarah Figueroa MD Primary Care Provider [phone] Reason for Visit * Reason Onset Date Comments Medications Refill 08/27/2024 Encounter Details Date Type Department Care Team (Late st Contact Info) Description 08/27/2024 Refill [facility] - CVPH Endocrinology [address] [place] [address] Yesy Ruby, TAMARA Medications Refill Social History [...] documented as of this encounter Care Teams Electrical Unit Rebuilder Relationship Specialty Start Date End Date Juan Mckinley MD [address] 3 [place] [address] PCP - General 07/17/22 01/31/25 Sarah Figueroa MD [address] [place] [address] PCP - General Internal Medicine - [facility] 02/01/25 Angelique Agudelo PA-C [address] [phone] Endocrinology, Diabetes and Metabolism 07/14/24 Angelique Agudelo PA-C [address] [phone] Endocrinology, Diabetes and Metabolism 08/23/24 Angelique Agudelo PA-C [address] [phone] Endocrinology, Diabetes and Metabolism 10/18/24 documented as of this encounter
--- OUTSIDE RECORDS SUMMARY | 2025-09-25 17:53 | XMS_ITS | Encounter Summary ---
Author Organization [facility] Address [address] [place] [address] Care Team Providers Care Cost Consultant Name Role Phone Angelique Agudelo PA-C Primary Care Provider [phone] Juan Mckinley MD Primary Care Provider [phone] Angelique Agudelo PA-C Unavailable [phone] Angelique Agudelo-Idalia Unavailable [phone] Angelique Agudelo-C Unavailable [phone] Sarah Figueroa MD Primary Care Provider [phone] Reason for Visit * Reason Comments Other Encounter Details Date Type Department Care Team (Late st Contact Info) Description [facility]/07[facility] Family Medicine Center [address] [place] [address] Connie Herrera, CARE GIVER 159 [facility] [address] [place] [phone] Other Social History Tobacco Use Types Packs/Day [...] as of this encounter Care Teams Cost Consultant Relationship Specialty Start Date End Date Angelique Agudelo PAYeimyC [address] [place] [address] [place] [phone] PCP - General 01/10/16 07/16/22 Juan Mckinley MD [address] [place] [address] 3 [place] [address] PCP - General 07/17/22 01/31/25 Sarah Figueroa MD [address] [place] [address] PCP - General Internal Medicine - [facility] Medicine 02/01/25 Angelique Agudelo PA-C [address] [phone] Endocrinology, Diabetes and Metabolism 07/14/24 Angelique Agudelo PA-C [address] [phone] Endocrinology, Diabetes and Metabolism 08/23/24 Angelique Agudelo PA-C [address] [phone] Endocrinology, Diabetes and Metabolism 10/18/24 documented as of this encounter
--- OUTSIDE RECORDS SUMMARY | 2025-09-25 17:53 | XMS_ITS | Encounter Summary ---
Author Organization [facility] Address [address] [place] [address] Care Team Providers Care Control Electrician Name Role Phone Angelique Agudelo PA-C Primary Care Provider + [phone] Juan Mckinley MD Primary Care Provider [phone] Angelique Agudelo PA-C Unavailable Angelique Agudelo PA-C Unavailable [phone] Angelique Agudelo PA-C Unavailable Sarah Figueroa MD Primary Care Provider [phone] Encounter Details Date Type Department Care Team (Late st Contact Info) Description 10/05/2018 Historical Results Only [facility] - CVPH Radiology Results [address] [place] [address] Angelique Agudelo PA-C [address] [address] Social History Tobacco Use Types [...] EXAM: MRI 6170 THORACIC SPINE W/O CONTRAST [facility]#[id number] DATE & TIME EXAM COMPLETED: Oct 05 2018 7:11PM CPT:32593 REASON FOR EXAM: M54.14 radiculopathy cervical m54.12 radiculopathy thoracic Accession# : [id number] PT CL: O FINDINGS: The following MRI [...] EXAM: MRI 6170 THORACIC SPINE W/O CONTRAST [facility]#[id number] DATE & TIME EXAM COMPLETED: Oct 05 2018 7:11PM CPT:17754 REASON FOR EXAM: M54.14 radiculopathy cervical m54.12 radiculopathy thoracic Accession# : [id number] PT CL: O FINDINGS: The following MRI [...] EXAM: MRI 5025 C/S CANAL W/O CONTRAST CD#[id number] DATE & TIME EXAM COMPLETED: Oct 05 2018 7:11PM CPT:17545 REASON FOR EXAM: M54.14 radiculopathy cervical m54.12 radiculopathy thoracic Accession# : [id number] PT CL: O FINDINGS: The following MRI [...] EXAM: MRI 5025 C/S CANAL W/O CONTRAST CD#[id number] DATE & TIME EXAM COMPLETED: Oct 05 2018 7:11PM CPT:32755 REASON FOR EXAM: M54.14 radiculopathy cervical m54.12 radiculopathy thoracic Accession# : [id number] PT CL: O FINDINGS: The following MRI [...] documented as of this encounter Care Teams Control Electrician Relationship Specialty Start Date End Date Angelique Agudelo PA-C [address] [address] PCP - General 01/10/16 07/16/22 Juan Mckinley MD [facility] [address] [place] [address] PCP - General 07/17/22 01/31/25 Sarah Figueroa MD [address] [place] [address] PCP - General Internal Medicine - [facility] 02/01/25 Angelique Agudelo PA-C [address] [phone] Endocrinology, Diabetes and Metabolism 07/14/24 Angelique Agudelo PA-C [address] [phone] Endocrinology, Diabetes and Metabolism 08/23/24 Angelique Agudelo PA-C [address] [address] Endocrinology, Diabetes and Metabolism 10/18/24 documented as of this encounter
--- OUTSIDE RECORDS SUMMARY | 2025-09-25 17:53 | XMS_ITS | Encounter Summary ---
Author Organization [facility] Address [address] [place] [address] Care Team Providers Care Coating Operator Name Role Phone Juan Mckinley MD Primary Care Provider [phone] Angelique Agudelo PA-C Unavailable [phone] Angelique Agudelo PA-C Unavailable [phone] Angelique Agudelo PA-C Unavailable [phone] Sarah Figueroa MD Primary Care Provider [phone] Reason for Visit * Reason Comments Medications Refill Encounter Details Date Type Department Care Team (Late st Contact Info) Description 04/04/2023 Refill [facility] - CVPH Endocrinology [address] [place] [address] Angelique Agudelo PA-C 210 [facility] [address] [place] [phone] Medications Refill Social History Tobacco Use Types [...] documented as of this encounter Care Teams Coating Operator Relationship Specialty Start Date End Date Juan Mckinley MD [address] [place] [address] 3 [place] [address] PCP - General 07/17/22 01/31/25 Sarah Figueroa MD [address] [place] [address] PCP - General Internal Medicine - [facility] Medicine 02/01/25 Angelique Agudelo, LATOSHAC [address] [place] [address] [address] [place] [phone] Endocrinology, Diabetes and Metabolism 07/14/24 Angelique Agudelo PA-C [address] [phone] Endocrinology, Diabetes and Metabolism 08/23/24 Angelique Agudelo PA-C [address] [phone] Endocrinology, Diabetes and Metabolism 10/18/24 documented as of this encounter
--- OUTSIDE RECORDS SUMMARY | 2025-09-25 17:53 | XMS_ITS | Encounter Summary ---
Author Organization [facility] Address [address] [place] [address] Care Team Providers Care Clinical Specialty Rep Name Role Phone Juan Mckinley MD Primary Care Provider [phone] Angelique Agudelo PA-C Unavailable [phone] Angelique Agudelo PA-C Unavailable [phone] Angelique Agudelo PA-C Unavailable [phone] Sarah Figueroa MD Primary Care Provider [phone] Reason for Visit * Reason Comments Medications Refill Encounter Details Date Type Department Care Team (Late st Contact Info) Description 11/26/2022 Refill [facility] - CVPH Endocrinology [address] [place] [address] Angelique Agudelo PA-C 210 [facility] [address] [place] [phone] Medications Refill Social History Tobacco Use Types [...] Encounter - Jodee Mott RN - 11/26/2022 5242 EST .Pharmacy requesting refills on behalf of [...] documented as of this encounter Care Teams Clinical Specialty Rep Relationship Specialty Start Date End Date Juan Mckinley MD [address] 3 [place] [address] PCP - General 07/17/22 01/31/25 Sarah Figueroa MD [address] [place] [address] PCP - General Internal Medicine - [facility] 02/01/25 Angelique Agudelo PA-C [address] [phone] Endocrinology, Diabetes and Metabolism 07/14/24 Angelique Agudelo PA-C [address] [phone] Endocrinology, Diabetes and Metabolism 08/23/24 Angelique Agudelo PA-C [address] [place] [phone] Endocrinology, Diabetes and Metabolism 10/18/24 documented as of this encounter
--- OUTSIDE RECORDS SUMMARY | 2025-09-25 17:53 | XMS_ITS | Encounter Summary ---
Author Organization [facility] Address [address] [place] [address] Care Team Providers Care Eyeglass Cutter Name Role Phone Heena Oneill MD Primary Care Provider [phone] Reason for Visit * Reason Onset Date Comments FYI, auth form 08/23/2025 Encounter Details Date Type Department Care Team (Late st Contact Info) Description 08/23/2025 Telephone [facility] Primary Care [address] [place] [address] Telephone Intake, Staff FYI, auth [...] to get more. Patient declined [facility] Utilities Answer Date Recorded In the [...] called today regarding an authorization form for agricultural inspector services that she will be refaxing to us momentarily as apparently they did not send it to the correct fax number the first time back on 08/05/25. Please have provider sign and fax back at [phone] documented in this encounter Plan of Treatment Upcoming Encounters Date Type Department Care Team (Late st Contact Info) Description 10/14/2025 4:20 PM EST Follow-Up [facility] [address] [place] [address] Retail Sales Vitamin Consultant: Maria Alejandra Gardiner MD [address] [place] [address] 04/25/2026 9:45 AM EDT Appointment [address] [address] documented as of this encounter Visit Diagnoses Not on filedocumented in this encounter Care Teams Eyeglass Cutter Relationship Specialty Start Date End Date Heena Oneill MD [address] [place] [address] PCP - General Family Medicine 06/22/25 documented as of this encounter
--- OUTSIDE RECORDS SUMMARY | 2025-09-25 17:53 | XMS_ITS | Encounter Summary ---
Author Organization [facility] Address [address] [place] [address] Care Team Providers Care Family Day Carer Name Role Phone Juan Mckinley MD Primary Care Provider [phone] Angelique Agudelo PA-C Unavailable [phone] Angelique Agudelo PA-C Unavailable [phone] Angelique Agudelo PA-C Unavailable [phone] Sarah Figueroa MD Primary Care Provider [phone] Reason for Visit * Reason Comments Medications Refill Encounter Details Date Type Department Care Team (Late st Contact Info) Description 01/27/2023 Refill [facility] - [facility] Endocrinology [address] [place] [address] Angelique Agudelo PA-C 210 [facility] [address] [place] [phone] Medications Refill Social History Tobacco Use Types [...] documented as of this encounter Care Teams Family Day Carer Relationship Specialty Start Date End Date Juan Mckinley MD [address] [place] [address] PCP - General 07/17/22 01/31/25 Sarah Figueroa MD [address] [place] [address] PCP - General Internal Medicine - [facility] 02/01/25 Angelique Agudelo PA-C [address] [phone] Endocrinology, Diabetes and Metabolism 07/14/24 Angelique Agudelo PA-C [address] [phone] Endocrinology, Diabetes and Metabolism 08/23/24 Angelique Agudelo PA-C [address] [place] [phone] Endocrinology, Diabetes and Metabolism 10/18/24 documented as of this encounter
--- OUTSIDE RECORDS SUMMARY | 2025-09-25 17:53 | XMS_ITS | Encounter Summary ---
Author Organization [facility] Address [address] [place] [address] Care Team Providers Care Police Pilot Name Role Phone Juan Mckinley MD Primary Care Provider [phone] Angelique Agudelo-C Unavailable [phone] Angelique Agudelo-C Unavailable [phone] Angelique Agudelo-Idalia Unavailable [phone] Sarah Figueroa MD Primary Care Provider [phone] Reason for Visit * Reason Onset Date Comments Medication Questions 02/18/2023 Encounter Details Date Type Department Care Team ([facility] Contact Info) Description 02/18/2023 Telephone [facility] - CV[facility] Endocrinology [address] [place] [address] Roselyn Morales, detention sergeant Questions Social History Tobacco Use Types Packs/Day [...] Encounter - Roselyn Morales RN - 02/18/2023 9496 EDT Spoke with patients significant other. She states they mad an appointment with [facility] for next . She is aware that either imitrex or lithium could be the cause of his mood. Roselyn Morales RN 02/18/2023 13:59 * Telephone Encounter - Roselyn Morales RN - 02/18/2023 1058 EDT Patient states that since he cut back on his methimazole he has been short tempered and doesn't feel like himself. Pt. Also started taking Imitrex again for migraines. Shearer Screen Measurer And Trimmer advised him to call his pcp to [...] documented as of this encounter Care Teams Police Pilot Relationship Specialty Start Date End Date Juan Mckinley MD [address] [place] [address] PCP - General 07/17/22 01/31/25 Sarah Figueroa MD [address] [place] [address] PCP - General Internal Medicine - [facility] 02/01/25 Angelique Agudelo PA-C [address] [phone] Endocrinology, Diabetes and Metabolism 07/14/24 Angelique Agudelo PA-C [address] [phone] Endocrinology, Diabetes and Metabolism 08/23/24 Angelique Agudelo PA-C [address] [phone] Endocrinology, Diabetes and Metabolism 10/18/24 documented as of this encounter
--- OUTSIDE RECORDS SUMMARY | 2025-09-25 17:53 | XMS_ITS | Encounter Summary ---
Author Organization [facility] Address [address] [place] [address] Care Team Providers Care Special Education Paraprofessional Name Role Phone Juan Mckinley MD Primary Care Provider [phone] Angelique Agudelo PA-C Unavailable [phone] Angelique Agudelo PA-C Unavailable [phone] Angelique Agudelo PA-C Unavailable [phone] Sarah Figueroa MD Primary Care Provider [phone] Reason for Visit * Reason Onset Date Comments Appointment Related 05/10/2024 Encounter Details Date Type Department Care Team (Late st Contact Info) Description 05/10/2024 Telephone [facility] Nephrology - [address] [address] Madeline Genao MD [address] [place] [address] Rehab, Level 2 [place] [address] Appointment Related Social History Tobacco [...] documented as of this encounter Care Teams Special Education Paraprofessional Relationship Specialty Start Date End Date Juan Mckinley MD [address] [facility] [place] [address] PCP - General 07/17/22 01/31/25 Sarah Figueroa MD [address] [place] [address] PCP - General Internal Medicine - [facility] 02/01/25 Angelique Agudelo PA-C [address] [phone] Endocrinology, Diabetes and Metabolism 07/14/24 Angelique Agudelo PA-C [address] [phone] Endocrinology, Diabetes and Metabolism 08/23/24 Angelique Agudelo PA-C [address] [place] [phone] Endocrinology, Diabetes and Metabolism 10/18/24 documented as of this encounter
--- OUTSIDE RECORDS SUMMARY | 2025-09-25 17:53 | XMS_ITS | Encounter Summary ---
Author Organization [facility] Address [address] [place] [address] Care Team Providers Care Adoption Manager Name Role Phone Juan Mckinley MD Primary Care Provider [phone] Angelique Agudelo PA-C Unavailable [phone] Angelique Agudelo PA-C Unavailable [phone] Angelique Agudelo PA-C Unavailable [phone] Sarah Figueroa MD Primary Care Provider [phone] Reason for Visit * Reason Comments Medications Refill Encounter Details Date Type Department Care Team (Late st Contact Info) Description 02/12/2023 Refill [facility] - CVPH Endocrinology [address] [place] [address] Angelique Agudelo PA-C 210 [facility] [address] [place] [phone] Medications Refill Social History Tobacco Use Types [...] documented as of this encounter Care Teams Adoption Manager Relationship Specialty Start Date End Date Juan Mckinley MD [address],[facility] 3 [place] [address] PCP - General 07/17/22 01/31/25 Sarah Figueroa MD [address] [place] [address] PCP - General Internal Medicine - [facility] 02/01/25 Angelique Agudelo PA-C [address] [phone] Endocrinology, Diabetes and Metabolism 07/14/24 Angelique Agudelo PA-C [address] [phone] Endocrinology, Diabetes and Metabolism 08/23/24 Angelique Agudelo PA-C [address] [phone] Endocrinology, Diabetes and Metabolism 10/18/24 documented as of this encounter
--- OUTSIDE RECORDS SUMMARY | 2025-09-25 17:53 | XMS_ITS | Encounter Summary ---
Author Organization [facility] Address [address] [place] [address] Care Team Providers Care Claim Investigator Name Role Phone Angelique Agudelo PA-C Primary Care Provider [phone] Juan Mckinley MD Primary Care Provider [phone] Angelique Agudelo PA-C Unavailable [phone] Angelique Agudelo-C Unavailable [phone] Angelique Agudelo-C Unavailable [phone] Sarah Figueroa MD Primary Care Provider [phone] Reason for Visit * Reason Comments Other Encounter Details Date Type Department Care Team (Late st Contact Info) Description [facility] [address] [place] [address] Connie Herrera, DIGITAL SALES PLANNER 159 [facility] [address] [place] [phone] Other Social History Tobacco Use Types Packs/Day [...] documented as of this encounter Care Teams Claim Investigator Relationship Specialty Start Date End Date Angelique Agudelo PA-C 210 [facility] [address] [place] [address] PCP - General 01/10/16 07/16/22 Juan Mckinley MD [address] [place] [address] 3 [place] [address] PCP - General 07/17/22 01/31/25 Sarah Figueroa MD [address] [place] [address] PCP - General Internal Medicine - [facility] Medicine 02/01/25 Angelique Agudelo PA-C [address] [phone] Endocrinology, Diabetes and Metabolism 07/14/24 Angelique Agudelo PA-C [address] [phone] Endocrinology, Diabetes and Metabolism 08/23/24 Angelique Agudelo PA-C [address] [phone] Endocrinology, Diabetes and Metabolism 10/18/24 documented as of this encounter
--- OUTSIDE RECORDS SUMMARY | 2025-09-25 17:53 | XMS_ITS | Encounter Summary ---
Author Organization [facility] Address [address] [place] [address] Care Team Providers Care Block Saw Operator Name Role Phone Angelique Agudelo PA-C Primary Care Provider [phone] Juan Mckinley MD Primary Care Provider [phone] Angelique Agudelo PA-C Unavailable Angelique Agudelo-C Unavailable [phone] Angelique Agudelo-C Unavailable Sarah Figueroa MD Primary Care Provider [phone] Reason for Visit * Reason Comments Other Encounter Details Date Type Department Care Team (Late st Contact Info) Description 09/28/2018 [facility] Neurophysiology - [facility]) [address] [place], [place] [address] [place] [address] [address] Other Social History Tobacco Use [...] days with no refills. Message forwarded to production planner scheduler to contact pt and schedule visit [...] documented as of this encounter Care Teams Block Saw Operator Relationship Specialty Start Date End Date Angelique Agudelo PA-C [address] [address] PCP - General 01/10/16 07/16/22 Juan Mckinley MD 158 [facility] 3 [place] [address] PCP - General 07/17/22 01/31/25 Sarah Figueroa MD [address] [address] PCP - General Internal Medicine - [facility] Medicine 02/01/25 Angelique Agudelo PA-C [address] [phone] Endocrinology, Diabetes and Metabolism 07/14/24 Angelique Agudelo PA-C [address] [phone] Endocrinology, Diabetes and Metabolism 08/23/24 Angelique Agudelo PA-C [address] [phone] Endocrinology, Diabetes and Metabolism 10/18/24 documented as of this encounter
--- OUTSIDE RECORDS SUMMARY | 2025-09-25 17:53 | XMS_ITS | Encounter Summary ---
Author Organization [facility] Address [address] [place] [address] Care Team Providers Care Butt Welder Name Role Phone Heena Oneill MD Primary Care Provider [phone] Encounter Details Date Type Department Care Team (Late st Contact Info) Description 09/13/2025 [email or web address] Message [facility] Primary Care [address] [place] [phone] Heena Oneill MD [address] [place], [place] [phone] Referral for Partial Rotator Cuff Tear Social [...] to get more. Patient declined [facility] Utilities Answer Date Recorded In the [...] Info) Description 10/14/2025 4:20 PM EST Follow-Up [facility] Endocrinology [facility] [address] [place] [address] Batch Plant Operator: Maria Alejandra Gardiner MD [address] [place] [address] 04/25/2026 9:45 AM EDT Appointment [address] [address] documented as of this encounter Visit Diagnoses Not on filedocumented in this encounter Care Teams Butt Welder Relationship Specialty Start Date End Date Heena Oneill MD [address] [place] [address] [place] [address] PCP - General Family Medicine 06/22/25 documented as of this encounter
--- OUTSIDE RECORDS SUMMARY | 2025-09-25 17:53 | XMS_ITS | Clinical Summary ---
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 90 tablet 3 025 Active pyridoxine (VITAMIN B6) 50 mg tabletIndications :Wernicke encephalopathy Take 1 tablet (50 mg total) by mouth once a day. 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 If no relief, dial 911. 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 However a [...] Well controlled. Referral provided for neurologist in [facility]. -Avoid sodium channel blockers -Continue Keppra 500mg BID Orders: levETIRAcetam (KEPPRA) 500 mg tablet; Take 2 tablets (1,000 mg total) by mouth 2 times a day. 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 Well controlled. Needs neurologist in [facility]. 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 - Neuro consulted, appreciate recs: - Episodes [...] - Patient to follow-up with neurology at [facility] as an outpatient Assessment & Plan [...] - Patient to follow-up with neurology at [facility] as an outpatient Assessment & Plan [...] - Patient to follow-up with neurology at [facility] as an outpatient Assessment & Plan [...] - Patient to follow-up with neurology at [facility] as an outpatient Assessment & Plan [...] - Patient to follow-up with neurology at [facility] as an outpatient -no seizure like [...] - Patient to follow-up with neurology at [facility] as an outpatient -no seizure like [...] - Patient to follow-up with neurology at [facility] as an outpatient Assessment & Plan [...] - Patient to follow-up with neurology at [facility] as an outpatient Assessment & Plan [...] - Patient to follow-up with neurology at [facility] as an outpatient Assessment & Plan [...] precautions -Patient to follow-up with neurology at [facility] as an outpatient Assessment & Plan [...] precautions -Patient to follow-up with neurology at [facility] as an outpatient Assessment & Plan [...] precautions -Patient to follow-up with neurology at [facility] as an outpatient Assessment & Plan [...] precautions -Patient to follow-up with neurology at [facility] as an outpatient Neurogenic bladder 03/16/2025 [...] bladder and upper tracts. Needs urologist in [facility]. Orders: Ambulatory referral to Urology; [...] Patient had been a rehab facility in [place], but was discharged by the patient's daughter and transferred to [facility] on 03/16 by private ambulance due to concerns for poor care at the facility and to be closer to family. Ultimately his daughter would like to be his [employer]AR[employer]ACHINE [employer]EDER however she is homeless and needs to secure housing first. His healthcare proxy (daughter, Halina Payan) was previously activated on admissions. Currently HCP not activated as patient able to understand simple medical information and participate in discharge planning. He may require more support and shared decision making for more complex medical decisions. -Patient will need follow-up with neurology at [facility] as an outpatient - PT/OT, case management -> bed search for STR, currently being followed by [facility], and [facility]. Daughter and patient made aware that [...] Patient had been a rehab facility in [place], but was discharged by the patient's daughter and transferred to [facility] on 03/16 by private ambulance due to concerns for poor care at the facility and to be closer to family. Ultimately his daughter would like to be his SHEARING MACHINE FEEDER however she is homeless and needs to secure housing first. His healthcare proxy (daughter, Halina Payan) was previously activated on admissions. Currently HCP not activated as patient able to understand simple medical information and participate in discharge planning. He may require more support and shared decision making for more complex medical decisions. -Patient will need follow-up with neurology at [facility] as an outpatient - PT/OT, case management -> bed search for STR, currently being followed by [facility], and [facility]. Daughter and patient made aware that [...] extremitites L>R, neurogenic bladder (with chronic indwelling Lezaam). He also has cognitive impairment, which may be multifactorial. He is alert and oriented x 3, which is his current baseline. Patient had been a rehab facility in [place], but was discharged by the patient's daughter and transferred to [facility] on 03/16 by private ambulance due to concerns for poor care at the facility and to be closer to family. Ultimately his daughter would like to be his SHEARING MACHINE FEEDER however she is homeless and needs to secure housing first. His healthcare proxy (daughter, Halina Payan) was previously activated on admissions. Currently HCP not activated as patient able to understand simple medical information and participate in discharge planning. He may require more support and shared decision making for more complex medical decisions. -Patient will need follow-up with neurology at [facility] as an outpatient - PT/OT, case management -> bed search for STR, currently being followed by [facility], and [facility]. Daughter and patient made aware that [...] Patient had been a rehab facility in [place], but was discharged by the patient's daughter and transferred to [facility] on 03/16 by private ambulance due to concerns for poor care at the facility and to be closer to family. Ultimately his daughter would like to be his SHEARING MACHINE FEEDER however she is homeless and needs to secure housing first. His healthcare proxy (daughter, Halina Payan) was previously activated on admissions. Currently HCP not activated as patient able to understand simple medical information and participate in discharge planning. He may require more support and shared decision making for more complex medical decisions. -Patient will need follow-up with neurology at [facility] as an outpatient - PT/OT, case management -> bed search for STR, currently being followed by [facility], and [facility]. Daughter and patient made aware that [...] Patient has been a rehab facility in [place], but was discharged by the patient's daughter and transferred to [facility] by private ambulance due to concerns for poor care at the facility. Also to be closer to family. -Patient will need follow-up with neurology at [facility] as an outpatient - PT/OT, case [...] Patient has been a rehab facility in [place], but was discharged by the patient's daughter and transferred to [facility] by private ambulance due to concerns for poor care at the facility. Also to be closer to family. -Patient will need follow-up with neurology at [facility] as an outpatient - PT/OT, case [...] Patient has been a rehab facility in [place], but was discharged by the patient's daughter and transferred to [facility] by private ambulance due to concerns for poor care at the facility. Also to be closer to family. Patient asked when the G-tube can be removed. We will check first with dietitian for assessment before deciding on G-tube removal. -Patient will need follow-up with neurology at [facility] as an outpatient - PT/OT, case [...] Patient has been a rehab facility in [place], but was discharged by the patient's daughter and transferred to [facility] by private ambulance due to concerns for poor care at the facility. Also to be closer to family. Patient asked when the G-tube can be removed. We will check first with dietitian for assessment before deciding on G-tube removal. -Patient will need follow-up with neurology at [facility] as an outpatient - PT/OT, case [...] Patient has been a rehab facility in [place], but was discharged by the patient's daughter and transferred to [facility] by private ambulance due to concerns for poor care at the facility. Also to be closer to family. Patient asked when the G-tube can be removed. We will check first with dietitian for assessment before deciding on G-tube removal. -Patient will need follow-up with neurology at [facility] as an outpatient - PT/OT, case [...] Patient has been a rehab facility in [place], but was discharged by the patient's daughter and transferred to [facility] by private ambulance due to concerns for poor care at the facility. Also to be closer to family. -Patient will need follow-up with neurology at [facility] as an outpatient - PT/OT, case [...] Patient has been a rehab facility in [place], but was discharged by the patient's daughter and transferred to [facility] by private ambulance due to concerns for poor care at the facility. Also to be closer to family. -Patient will need follow-up with neurology at [facility] as an outpatient - PT/OT, case [...] Patient has been a rehab facility in [place], but was discharged by the patient's daughter and transferred to [facility] by private ambulance due to concerns for poor care at the facility. Also to be closer to family. -Patient will need follow-up with neurology at [facility] as an outpatient - PT/OT, case [...] Patient has been a rehab facility in [place], but was discharged by the patient's daughter and transferred to [facility] by private ambulance due to concerns for poor care at the facility. Also to be closer to family. 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 cEEG not available in [facility] so will obtain spot EEG. Rapid response called 05/09 for altered mental status, code stroke activated, CT head completed. Per Telestroke attending, patient to have cEEG completed at [facility]. - Neuro consulted, appreciate recs: - Episodes [...] Patient had been a rehab facility in [place], but was discharged by the patient's daughter and transferred to [facility] on 03/16 by private ambulance due to concerns for poor care at the facility and to be closer to family. Ultimately his daughter would like to be his SHEARING MACHINE FEEDER however she is homeless and needs to secure housing first. His healthcare proxy (daughter, Halina Payan) was previously activated on admissions. Currently HCP not activated as patient able to understand simple medical information and participate in discharge planning. He may require more support and shared decision making for more complex medical decisions. -Patient will need follow-up with neurology at [facility] as an outpatient - PT/OT, case management -> bed search for STR, currently being followed by [facility], and [facility]. Daughter and patient made aware that [...] Patient had been a rehab facility in [place], but was discharged by the patient's daughter and transferred to [facility] on 03/16 by private ambulance due to concerns for poor care at the facility and to be closer to family. Ultimately his daughter would like to be his SHEARING MACHINE FEEDER however she is homeless and needs to secure housing first. His healthcare proxy (daughter, Halina Payan) was previously activated on admissions. Currently HCP not activated as patient able to understand simple medical information and participate in discharge planning. He may require more support and shared decision making for more complex medical decisions. -Patient will need follow-up with neurology at [facility] as an outpatient - PT/OT, case management -> bed search for STR, currently being followed by [facility], and [facility]. Daughter and patient made aware that [...] Patient had been a rehab facility in [place], but was discharged by the patient's daughter and transferred to [facility] on 03/16 by private ambulance due to concerns for poor care at the facility and to be closer to family. Ultimately his daughter would like to be his SHEARING MACHINE FEEDER however she is homeless and needs to secure housing first. His healthcare proxy (daughter, Halina Payan) was previously activated on admissions. Currently HCP not activated as patient able to understand simple medical information and participate in discharge planning. He may require more support and shared decision making for more complex medical decisions. -Patient will need follow-up with neurology at [facility] as an outpatient - PT/OT, case management -> bed search for STR, currently being followed by [facility], and [facility]. Daughter and patient made aware that [...] Patient had been a rehab facility in [place], but was discharged by the patient's daughter and transferred to [facility] on 03/16 by private ambulance due to concerns for poor care at the facility and to be closer to family. Ultimately his daughter would like to be his SHEARING MACHINE FEEDER however she is homeless and needs to secure housing first. His healthcare proxy (daughter, Halina Payan) was previously activated on admissions. Currently HCP not activated as patient able to understand simple medical information and participate in discharge planning. He may require more support and shared decision making for more complex medical decisions. -Patient will need follow-up with neurology at [facility] as an outpatient - PT/OT, case management -> bed search for STR, currently being followed by [facility], and [facility]. Daughter and patient made aware that [...] Patient has been a rehab facility in [place], but was discharged by the patient's daughter and transferred to [facility] by private ambulance due to concerns for poor care at the facility. Also to be closer to family. -Patient will need follow-up with neurology at [facility] as an outpatient - PT/OT, case [...] Patient has been a rehab facility in [place], but was discharged by the patient's daughter and transferred to [facility] by private ambulance due to concerns for poor care at the facility. Also to be closer to family. -Patient will need follow-up with neurology at [facility] as an outpatient - PT/OT, case management -G-tube removed 03/23 -HCP activated on banner but no documentation in chart of activation and patient marked as full capacity. Prior notes indicate plan reviewed with patient and no concerns for capacity. Removed HCP activation . Will perform formal capacity assessment in am. [...] Patient has been a rehab facility in [place], but was discharged by the patient's daughter and transferred to [facility] by private ambulance due to concerns for poor care at the facility. Also to be closer to family. Patient asked when the G-tube can be removed. We will check first with dietitian for assessment before deciding on G-tube removal. -Patient will need follow-up with neurology at [facility] as an outpatient - PT/OT, case [...] Patient has been a rehab facility in [place], but was discharged by the patient's daughter and transferred to [facility] by private ambulance due to concerns for poor care at the facility. Also to be closer to family. Patient asked when the G-tube can be removed. We will check first with dietitian for assessment before deciding on G-tube removal. -Patient will need follow-up with neurology at [facility] as an outpatient - PT/OT, case [...] Patient has been a rehab facility in [place], but was discharged by the patient's daughter and transferred to [facility] by private ambulance due to concerns for poor care at the facility. Also to be closer to family. Patient asked when the G-tube can be removed. We will check first with dietitian for assessment before deciding on G-tube removal. -Patient will need follow-up with neurology at [facility] as an outpatient - PT/OT, case [...] Patient has been a rehab facility in [place], but was discharged by the patient's daughter and transferred to [facility] by private ambulance due to concerns for poor care at the facility. Also to be closer to family. -Patient will need follow-up with neurology at [facility] as an outpatient - PT/OT, case [...] Patient has been a rehab facility in [place], but was discharged by the patient's daughter and transferred to [facility] by private ambulance due to concerns for poor care at the facility. Also to be closer to family. -Patient will need follow-up with neurology at [facility] as an outpatient - PT/OT, case [...] Patient has been a rehab facility in [place], but was discharged by the patient's daughter and transferred to [facility] by private ambulance due to concerns for poor care at the facility. Also to be closer to family. -Patient will need follow-up with neurology at [facility] as an outpatient - PT/OT, case [...] Patient has been a rehab facility in [place], but was discharged by the patient's daughter and transferred to [facility] by private ambulance due to concerns for poor care at the facility. Also to be closer to family. -Patient will need follow-up with neurology at [facility] as an outpatient - PT/OT, case [...] today. PT/OT referral placed. Patient moved to [place]. Holter lift at home. Patient needs help getting set up with home health in [facility]. Daughter is caring for him at home by herself currently. Needs neurologist, PT, PM&R, OT in [facility]. Also needs home nursing to exchange lezama 1x/month for neurogenic bladder Assessment & Plan (06/30/2025 6:26 PM EDT): Intubated in [facility] nov 2024 for resp failure. S/p plex, IVIG. Gradually improved neurologic function. 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 PT/OT referral placed. Patient moved to [place]. Holter lift at home. Patient needs help getting set up with home health in [facility]. Daughter is caring for him at home by herself currently. Needs neurologist, PT, PM&R, OT in [facility]. 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 cEEG not available in [facility] so will obtain spot EEG. Rapid response called 05/09 for altered mental status, code stroke activated, CT head completed. Per Telestroke attending, patient to have cEEG completed at [facility]. - Neuro consulted, appreciate recs: - Episodes [...] Patient had been a rehab facility in [place], but was discharged by the patient's daughter and transferred to [facility] on 03/16 by private ambulance due to concerns for poor care at the facility and to be closer to family. Ultimately his daughter would like to be his SHEARING MACHINE FEEDER however she is homeless and needs to secure housing first. His healthcare proxy (daughter, Halina Payan) was previously activated on admissions. Currently HCP not activated as patient able to understand simple medical information and participate in discharge planning. He may require more support and shared decision making for more complex medical decisions. -Patient will need follow-up with neurology at [facility] as an outpatient - PT/OT, case management -> bed search for STR, currently being followed by [facility], and [facility]. Daughter and patient made aware that [...] Patient [place] been a rehab facility [place], but was discharged by the patient's daughter and [facility] [place] [facility] [facility] due to concerns for poor care at the facility and to be closer to family. Ultimately his daughter would like to be his SHEARING MACHINE FEEDER however she is homeless and needs to secure housing first. His healthcare proxy (daughter, Halina Payan) was previously activated on admissions. Currently HCP not activated as patient able to understand simple medical information and participate in discharge planning. He may require more support and shared decision making for more complex medical decisions. -Patient will need follow-up with neurology at [facility] as an outpatient - PT/OT, case management -> bed search for STR, currently being followed by [facility], and [facility]. Daughter and patient made aware that [...] Patient had been a rehab facility in [place], but was discharged by the patient's daughter and transferred to [facility] on 03/16 by private ambulance due to concerns for poor care at the facility and to be closer to family. Ultimately his daughter would like to be his SHEARING MACHINE FEEDER however she is homeless and needs to secure housing first. His healthcare proxy (daughter, Halina Payan) was previously activated on admissions. Currently HCP not activated as patient able to understand simple medical information and participate in discharge planning. He may require more support and shared decision making for more complex medical decisions. -Patient will need follow-up with neurology at [facility] as an outpatient - PT/OT, case management -> bed search for STR, currently being followed by [facility], and [facility]. Daughter and patient made aware that [...] Patient had been a rehab facility in [place], but was discharged by the patient's daughter and transferred to [facility] on 03/16 by private ambulance due to concerns for poor care at the facility and to be closer to family. Ultimately his daughter would like to be his SHEARING MACHINE FEEDER however she is homeless and needs to secure housing first. His healthcare proxy (daughter, Halina Payan) was previously activated on admissions. Currently HCP not activated as patient able to understand simple medical information and participate in discharge planning. He may require more support and shared decision making for more complex medical decisions. -Patient will need follow-up with neurology at [facility] as an outpatient - PT/OT, case management -> bed search for STR, currently being [facility], [facility] Daughter and patient made aware that [...] Patient has been a rehab facility in [place], but was discharged by the patient's daughter and transferred to [facility] by private ambulance due to concerns for poor care at the facility. Also to be closer to family. -Patient will need follow-up with neurology at [facility] as an outpatient - PT/OT, case [...] Patient has been a rehab facility in [place], but was discharged by the patient's daughter and transferred to [facility] by private ambulance due to concerns for poor care at the facility. Also to be closer to family. -Patient will need follow-up with neurology at [facility] as an outpatient - PT/OT, case [...] Patient has been a rehab facility in [place], but was discharged by the patient's daughter and transferred to [facility] by private ambulance due to concerns for poor care at the facility. Also to be closer to family. Patient asked when the G-tube can be removed. We will check first with dietitian for assessment before deciding on G-tube removal. -Patient will need follow-up with neurology at [facility] as an outpatient - PT/OT, case [...] Patient has been a rehab facility [place], but was discharged by the patient's daughter and transferred to [facility] by private ambulance due to concerns for poor care at the facility. Also to be closer to family. Patient asked when the G-tube can be removed. We will check first with dietitian for assessment before deciding on G-tube removal. -Patient will need follow-up with neurology at [facility] as an outpatient - PT/OT, case [...] Patient has been a rehab facility in [place], but was discharged by the patient's daughter and transferred to [facility] by private ambulance due to concerns for poor care at the facility. Also to be closer to family. Patient asked when the G-tube can be removed. We will check first with dietitian for assessment before deciding on G-tube removal. -Patient will need follow-up with neurology at [facility] as an outpatient - PT/OT, case [...] Patient has been a rehab facility [place], but was discharged by the patient's daughter and transferred to [facility] by private ambulance due to concerns for poor care at the facility. Also to be closer to family. -Patient will need follow-up with neurology at [facility] as an outpatient - PT/OT, case [...] Patient has been a rehab facility [place], but was discharged by the patient's daughter and transferred to [facility] by private ambulance due to concerns for poor care at the facility. Also to be closer to family. -Patient will need follow-up with neurology at [facility] as an outpatient - PT/OT, case [...] Patient has been a rehab facility [place], but was discharged by the patient's daughter and transferred to [facility] by private ambulance due to concerns for poor care at the facility. Also to be closer to family. -Patient will need follow-up with neurology at [facility] as an outpatient - PT/OT, case [...] Patient has been a rehab facility in [place], but was discharged by the patient's daughter and transferred to [facility] by private ambulance due to concerns for poor care at the facility. Also to be closer to family. -Patient will need follow-up with neurology at [facility] as an outpatient - PT/OT, case [...] trazodone dose due to sedation Home medications: [place] 300mg BID, Trazodone 100mg -> 50 mg [...] coordinate followup for this patient. Home medications: [place] 300mg BID, Trazodone 100mg at bedtime, Seroquel [...] Plan (06/20/2025 1:32 PM EDT): Home medications: [place] 300mg BID, Trazodone 100mg at bedtime, Seroquel 100mg at bedtime, Lyrica 300mg BID, Duloxetine 60mg QD -Continue all home medications Assessment & Plan (06/19/2025 7:25 AM EDT): Home medications: [place] 300mg BID, Trazodone 100mg at bedtime, Seroquel 100mg at bedtime, Lyrica 300mg BID, Duloxetine 60mg QD -Continue all home medications Assessment & Plan (06/18/2025 8:10 PM EDT): Home medications: [place] 300mg BID, Trazodone 100mg at bedtime, Seroquel [...] pain on 03/25 Patient would benefit from industrial roof plumber visit however service not available inpatient, consider [...] pain on 03/25 Patient would benefit from industrial roof plumber visit however service not available inpatient, consider [...] pain on 03/25 Patient would benefit from industrial roof plumber visit however service not available inpatient, consider [...] pain on 03/25 Patient would benefit from industrial roof plumber visit however service not available inpatient, consider [...] for mild pain Patient would benefit from industrial roof plumber visit however service not available inpatient, consider [...] for mild pain Patient would benefit from industrial roof plumber visit however service not available inpatient, consider [...] 1:32 PM EDT): Troponin level elevated 05/02/2025 08/2 03/2025 Assessment & Plan (06/20/2025 1:32 PM EDT): [...] appointment was canceled for unclear reason. - SENIOR LINUX SYSTEMS ENGINEER and MBS completed. -Continued on modified diet: [...] appointment was canceled for unclear reason. - SENIOR LINUX SYSTEMS ENGINEER and MBS completed. -Continued on modified diet: [...] appointment was canceled for unclear reason. - SENIOR LINUX SYSTEMS ENGINEER and MBS completed. -Continued on modified diet: [...] appointment was canceled for unclear reason. - SENIOR LINUX SYSTEMS ENGINEER and MBS completed. -Continued on modified diet: [...] appointment was canceled for unclear reason. - SENIOR LINUX SYSTEMS ENGINEER and MBS completed. -Continued on modified diet: [...] appointment was canceled for unclear reason. - SENIOR LINUX SYSTEMS ENGINEER and MBS completed. Continued on modified diet: [...] appointment was canceled for unclear reason. - SENIOR LINUX SYSTEMS ENGINEER and MBS completed. Continued on modified diet: [...] appointment was canceled for unclear reason. - SENIOR LINUX SYSTEMS ENGINEER and MBS completed. Continued on modified diet: [...] for unclear reason. -Continued on modified diet: [place] thickened liquids, soft and bite-size solids - SENIOR LINUX SYSTEMS ENGINEER and MBS completed. Patient cleared for regular [...] for unclear reason. -Continued on modified diet: [place] thickened liquids, soft and bite-size solids - SENIOR LINUX SYSTEMS ENGINEER and MBS completed. Patient cleared for regular [...] for unclear reason. -Continued on modified diet: [place] thickened liquids, soft and bite-size solids - SENIOR LINUX SYSTEMS ENGINEER and MBS completed. Patient cleared for regular [...] for unclear reason. -Continued on modified diet: [place] thickened liquids, soft and bite-size solids - SENIOR LINUX SYSTEMS ENGINEER and MBS completed. Patient cleared for regular [...] for unclear reason. -Continued on modified diet: [place] thickened liquids, soft and bite-size solids - SENIOR LINUX SYSTEMS ENGINEER consult - Patient will need to be [...] without acute intracranial process. Staff at the [facility] was called for collateral information; there was [...] management is usual approach for partial tear. [facility] outpatient ortho appointment if pain not [...] without acute intracranial process. Staff at the [facility] was called for collateral information; there was [...] management is usual approach for partial tear. [facility] outpatient ortho appointment if pain not [...] without acute intracranial process. Staff at the [facility] was called for collateral information; there was [...] without acute intracranial process. Staff at the [facility] was called for collateral information; there was [...] without acute intracranial process. Staff at the [facility] was called for collateral information; there was [...] without acute intracranial process. Staff at the [facility] was called for collateral information; there was [...] without acute intracranial process. Staff at the [facility] was called for collateral information; there was [...] without acute intracranial process. Staff at the [facility] was called for collateral information; there was [...] without acute intracranial process. Staff at the [facility] was called for collateral information; there was [...] without acute intracranial process. Staff at the [facility] was called for collateral information; there was [...] without acute intracranial process. Staff at the [facility] was called for collateral information; there was [...] without acute intracranial process. Staff at the [facility] was called for collateral information; there was [...] without acute intracranial process. Staff at the [facility] was called for collateral information; there was [...] Type Department Care Team Description 09/21/2025 Telephone [facility] [address] [place] [address] [phone] Telephone Intake, Staff PAC General Info 09/19/2025 Refill [facility] [address] [place] [phone] Jose Finney MD Schizoaffective disorder, unspecified type 09/19/2025 Refill [facility] [address] [place] [phone] Jose Finney MD Seizure disorder 09/18/2025 Refill [facility] [address] [place] [address] [phone] Heena Oneill MD Chronic pain disorder; Schizoaffective disorder, unspecified type 09/13/2025 myChart Message [facility] [address] [place] [address] [phone] Heena Oneill MD Referral for Partial Rotator Cuff Tear 09/12/2025 Results Follow-Up [facility] 4th [address] [place] [address], [place] [phone] Cloth Edge Singer: Mae Vaca PA 09/12/2025 Refill [facility] [address] [place] [phone] Heena Oneill MD Gastroesophageal reflux disease without esophagitis 09/06/2025 Telephone [facility] [address] [place] [address] [phone] Telephone Intake, Staff AT asking for OT to be added 09/05/2025 1:30 PM EST Office Visit [facility] 4th Floor [address] [place] [address], [place] [phone] Cloth Edge Singer: Mae Vaca PA Nail dystrophy (Primary Dx) 09/05/2025 Refill [facility] [address] [place] [phone] Heena Oneill MD 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 09/05/2025 Refill [facility] [address] [place] [phone] Brian Smith MD Schizoaffective disorder, unspecified type 08/30/2025 Refill [facility] [address] [place] [phone] Laila Tobias MD Wernicke encephalopathy 08/29/2025 Refill [facility] [address] [place] [phone] Heena Oneill MD Chronic pain disorder 08/29/2025 Refill [facility] [address] [place] [phone] Heena Oneill MD Seizure disorder 08/29/2025 myChart Message [facility] [address] [place] [address] [phone] Heena Oneill MD Referral 08/26/2025 Telephone [facility] [address] [place] [address] [phone] Telephone Intake, Staff notes and medication list needed 08/24/2025 Refill [facility] [address] [place] [phone] Jose Finney MD Wernicke encephalopathy 08/23/2025 Refill [facility] [address] [place] [address] [phone] Heena Oneill MD Schizoaffective disorder, unspecified type ; Wernicke encephalopathy 08/23/2025 Telephone [facility] [address] [place] [address] [phone] Telephone Intake, Staff FYShanthi, auth form 08/11/2025 Refill [facility] [address] [place] [address] [phone] Heena Oneill MD Schizoaffective disorder, unspecified type 08/11/2025 Refill [facility] [address] [place] [address] [phone] Heena Oneill MD Tobacco use disorder 08/01/2025 Refill [facility] [address] [place] [address] [phone] Heena Oneill MD Chronic pain disorder 07/29/2025 3:30 PM EDT Clinical Support [facility] [address] [place] [phone] Cloth Edge Singer: Anneliese Jernigan LPN Urinary retention (Primary Dx) 07/28/2025 2:45 PM EDT Follow-Up [facility] [address] [place] [address] [phone] Heena Oneill MD Quadriparesis (Primary Dx); Schizoaffective disorder, unspecified type ; Seizure disorder ; 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; Chronic pain disorder; Acne vulgaris; Guillain Darnell syndrome (HCC); Wernicke encephalopathy; Neurogenic bladder; Lezama catheter present; Onychomycosis 07/27/2025 Refill [facility] [address] [place] [address] [phone] Heena Oneill MD Schizoaffective disorder, unspecified type 07/25/2025 Refill [facility] [address] [place] [phone] Heena Oneill MD 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 07/21/2025 Telephone [facility] [address] [place] [phone] Telephone Intake, Staff would like referral resent to [facility] urology 07/14/2025 Telephone [facility] [address] [place] [phone] Telephone Intake, Staff 4 referrals faxed 07/14/2025 myChart Message [facility] [address] [place] [address] [phone] Heena Oneill MD Referrals 07/11/2025 myChart Message [facility] [address] [place] [phone] Corrina Hdz, [facility] Appointment and Community Resources 07/06/2025 Telephone [facility] [address] [place] [phone] Telephone Intake, Staff ATI asking for call back 07/05/2025 Telephone [facility] at [facility] [address] [place] [address] Deanne Drake NP 07/04/2025 Refill [facility] [address] [place] [address] [phone] Heena Oneill MD Schizoaffective disorder, unspecified type (HCC) 07/04/2025 Telephone [facility] [address] [place] [address] [phone] Telephone Intake, Staff meds / SHEARING MACHINE FEEDER hours 07/01/2025 4:00 PM EDT Office Visit [facility] 4th floor Cardiology Medicine [address] [place] [phone] Cloth Edge Singer: Lucas Robles MD 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 (Primary Dx); Mixed hyperlipidemia; Tobacco use disorder 07/01/2025 Results Follow-Up [address] [address] Wilton Myers MD 07/01/2025 Refill [facility] [address] [place] [phone] Jose Finney MD 06/30/2025 2:00 PM EDT Office Visit [facility] [address] [place] [phone] Henea Oneill MD Guillain Darnell syndrome (HCC) (Primary Dx); Seizure disorder (HCC); Chronic pain disorder; Wernicke encephalopathy; Moderate persistent asthma without complication (HCC); Mixed hyperlipidemia; Schizoaffective disorder, unspecified type (HCC); Diabetes insipidus (HCC); 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; Hyperthyroidism; Vitamin D deficiency; Pyelonephritis of right kidney; Gastroesophageal reflux disease without esophagitis; Lezama catheter present; Neurogenic bladder; Chronic constipation; Onychomycosis; Quadriparesis (HCC); Tobacco use disorder 06/30/2025 Refill [facility] [address] [place] [phone] Heena Oneill MD 06/29/2025 10:00 AM EDT Office Visit [facility] [address] [place] [address] Jun Agudelo MD Guillain Darnell syndrome (HCC) (Primary Dx); Quadriparesis (HCC); Neurogenic bladder; Polysubstance use disorder; Other schizoaffective disorders (HCC) from Last 3 Months Immunizations Immunization Administration [...] have money to get more. Patient declined [facility] Utilities Answer Date Recorded In the [...] Info) Description 10/14/2025 4:20 PM EST Follow-Up [facility] [address] [place] [address] Cloth Edge Singer: Maria Alejandra Gardiner MD [address] [place] [address] [phone] 04/25/2026 9:45 AM EDT Appointment [address] [address] Health Maintenance Due Date Last Done Comments [...] history exists Medical Devices Implanted Type Area Tank Pumper Panelboard Device Identifier Shelf Expiration Date Model / Serial / Lot Stent Coronary Drug Eluting Sirolimus Rapid Exchange Biolute Probio Coating Cocr 2.46uvn77an [facility] - S00 - [id number] Implanted:Qty: 1 on 06/20/2025 by Jone Oliver MD at [facility] Stent N/A: Coronary Biotronik [id number] 02/21/2028 [id number] / 00 / [id number] Procedures * Due to [place] Puz[place] law, this organization might not be sharing negative HIV tests. Procedure Name Priority Date/Time Associated Diagnosis Comments FUNGUS CULTURE W/STAIN, SKIN/HAIR/NAILS Routine 09/05/2025 2:56 PM EST Nail dystrophy HC 343226 BAG SECURITY CONTOURED LAEG 600ML Routine 07/29/2025 3:30 PM EDT Urinary retention HC 015384 BARD CATHETER TRAY Routine 07/29/2025 3:30 PM EDT Urinary retention HC 993945 CATHETER LEZAMA BARD 16 FR 5 CC [...] EDT Mixed hyperlipidemia 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 COMPREHENSIVE METABOLIC PANEL STAT 06/22/2025 8:[address] ABDOMEN PELVIS W CONTRAST STAT 04/18/2025 8:52 PM EDT from Last 3 Months or Most Recently Relevant to Health Maintenance Results * Due to [place] state law, this organization might not be sharing negative HIV tests. * HC INSERTION OF TEMPORARY INDWELLING BLADDER CATHETER [place], [place] 267626 CATHETER LEZAMA BARD 16 FR 5CC, HC 531505 BARD CATHETER TRAY, [place] 850854 BAG SECURITY CONTOURED LAEG 600ML (07/29/2025 3:30 [...] that they are also being followed at [facility] urology. Pt had catheter changed today and is flushed and aspirated with return of clear yellow urine. Pt will return in 1 month on FATOU Norris schedule to determine if patient can have another TOV. Pt d/c from clinic Supplies: HC 824180 Catheter Lezama Bard 16 Fr 5 cc HC 252622 Bard Catheter Tray HC 303866 Bag Security Contoured LAEG 600 ml us Ester Norris NP UROLOGY ORDERABLES Final Res ult * ECG 12 lead (07/01/2025 4:06 PM EDT) Ventricular Rate EKG 71 BPM MUSE EKG Atrial Rate 71 BPM MUSE EKG WY Interval 182 ms MUSE EKG QRS Interval 96 ms MUSE EKG QT Interval 386 ms MUSE EKG QTC Interval 419 ms MUSE EKG P [place] 31 degrees MUSE EKG R [place] 26 degrees MUSE EKG T Wave [place] 55 degrees MUSE EKG 07/01/2025 4:06 PM EDT 07/06/2025 6:32 AM EDT Impressions MUSE EKG - 07/06/2025 6:32 AM EDT NORMAL SINUS RHYTHM RSR' OR QR PATTERN IN V1 SUGGESTS RIGHT VENTRICULAR CONDUCTION DELAY WHEN COMPARED WITH ECG OF 22-Jun-2025 20:30, NO SIGNIFICANT CHANGE WAS FOUND Confirmed by Jone Soto ([id number]) on 07/06/2025 6:32:55 AM Narrative Procedure Note Jone Soto MD - 07/06/2025 IMPRESSION: NORMAL SINUS RHYTHM RSR' OR QR PATTERN IN V1 SUGGESTS RIGHT VENTRICULAR CONDUCTION DELAY WHEN COMPARED WITH ECG OF 22-Jun-2025 20:30, NO SIGNIFICANT CHANGE WAS FOUND Confirmed by Jone Soto ([id number]) on 07/06/2025 6:32:55 AM us Lucas Jordan MD ECG ORDERABLES Final Resu lt MUSE EKG * TSH Reflex Free T4 (06/30/2025 4:07 PM EDT) Pathologist [facility] TSH 2.750 0.280 - 3.890 uIU/mL 06/30/2025 9:34 PM EDT [facility] Blood Structure of peripheral vein / Unknown Venipuncture / Unknown 06/30/2025 4:07 PM EDT 06/30/2025 4:07 PM EDT us Wilton Myers MD LAB BLOOD ORDERABLES Final Re sult [facility] [address] [place] [address], * Vitamin D 25 hydroxy (06/30/2025 4:07 PM EDT) Pathologist [facility] Calcidiol+ercalc idiol 36 30 - 100 ng/mL 07/01/2025 1:15 AM EDT [facility] Comment: Vitamin D Status 25-OH Vitamin D: Deficiency: <20 ng/mL Insufficiency: 20 - 29 ng/mL Optimal: > or = 30 ng/mL For 25-OH Vitamin D testing on patients on D2-supplementation and patients for whom quantitation of D2 and D3 fractions is required, the QuestAssureD(TM) 25-OH VIT D, (D2,D3), LC/MS/MS is recommended: order code 30257 (patients >2yrs). See Note 1 Note 1 For additional information, please refer to http://education.Securus/faq/UCI349 (This link is being provided for informational/ educational purposes only.) Blood Structure of peripheral vein / Unknown Venipuncture / Unknown 06/30/2025 4:07 PM EDT 06/30/2025 4:07 PM EDT Narrative [facility] - 07/01/2025 1:15 AM EDT [facility] Received Date: us Wilton Myers MD LAB BLOOD ORDERABLES Final Re sult [facility] [address] [facility] 3rd Floor, [place] [address], [place] [phone] [facility] [address] [facility] 3rd Floor, [place] [address], * (ABNORMAL) Vitamin B1 (Thiamine), Plasma (06/30/2025 4:07 PM EDT) Pathologist [facility] Vitamin B1, LCMSMS 134(H) 8 - 30 nmol/L 07/04/2025 11:38 AM EDT [place]) Comment: Vitamin supplementation within 24 hours prior to blood draw may affect the accuracy of the results. This test was developed and its analytical performance characteristics have been determined by [employer] [place], [place]. It has not been cleared or [...] BLOOD ORDERAB[place]) [address] [place], [place] , [place] * (ABNORMAL) Lipid panel (06/30/2025 4:07 PM EDT) Cholesterol 156 <=199 mg/dL 06/30/2025 9:37 PM EDT [facility] Triglycerides 411(H) <=149 mg/dL 06/30/2025 9:37 PM EDT [facility] Cholesterol, HDL 43 40 - 59 mg/dL 06/30/2025 9:37 PM EDT [facility] Cholesterol, Non-HDL 113 mg/dL 06/30/2025 9:37 PM EDT [facility] LDL Cholesterol [facility] MANUAL 06/30/2025 9:37 PM EDT [facility] Comment: Unable to calculate due to elevated Triglycerides LDL-C is calculated using the Friedewald calculation. VLDL [facility] 06/30/2025 9:37 PM EDT [facility] Comment: Unable to calculate due to elevated Triglycerides Cholesterol/HDL Ratio 3.6 [facility] MANUAL 06/30/2025 9:37 PM EDT [facility] Blood Structure of peripheral vein / Unknown Venipuncture / Unknown 06/30/2025 4:07 PM EDT 06/30/2025 4:07 PM EDT Narrative [facility] - 06/30/2025 9:37 PM [...] MD LAB BLOOD ORDERABLES Final Re sult [facility] [address] [place] [address], * (ABNORMAL) CMP - Comprehensive Metabolic Panel (06/22/2025 8:00 PM EDT) NA 141 135 - 145 mmol/L 06/22/2025 8:40 PM EDT [facility] K 4.2 3.5 - 5.3 mmol/L 06/22/2025 8:40 PM EDT [facility] Cl 103 98 - 107 mmol/L 06/22/2025 8:40 PM EDT [facility] CO2 24 22 - 32 mmol/L 06/22/2025 8:40 PM EDT [facility] Anion Gap 14 5 - 15 06/22/2025 8:40 PM EDT [facility] Glucose 78 65 - 99 mg/dL 06/22/2025 8:40 PM EDT [facility] Creatinine 1.25 0.60 - 1.30 mg/dL 06/22/2025 8:40 PM EDT [facility] Calcium 9.2 8.6 - 10.5 mg/dL 06/22/2025 8:40 PM EDT [facility] Total Protein 7.7 6.0 - 8.0 g/dL 06/22/2025 8:40 PM EDT [facility] [employer] [facility] Albumin 4.1 3.5 - 5.2 g/dL 06/22/2025 8:40 PM EDT [facility]yeTechCareSUM[facility] [facility] Bilirubin, Total 0.2 0.2 - 1.2 mg/dL 06/22/2025 8:40 PM EDT [facility]EREyeTechCareSUM[facility] Alkaline Phosphatase 92 35 - 129 U/L 06/22/2025 8:40 PM EDT [facility]ial[facility] [employer] [facility] AST 21 10 - 40 U/L 06/22/2025 8:40 PM EDT [facility]EREyeTechCareSAM[facility]IT[facility] [facility] ALT 18 10 - 40 U/L 06/22/2025 8:40 PM EDT [facility] BUN 13 7 - 23 mg/dL 06/22/2025 8:40 PM EDT [facility]EREyeTechCareSAMARITAN [facility] eGFR 73 >=60 mL/min/1. 73m2 06/22/2025 8:40 PM EDT [facility]PAEyeTechCareSAMARIT[facility] Comment:The estimated glomer ular [...] 2.1 - 4.2 g/dL 06/22/2025 8:40 PM T [facility] [employer] [facility] A/G Ratio 1.1(L) 1.5 - 3.0 06/22/2025 8:40 PM T [facility]rSOUTHEAST M[facility] CENTERA[facility] [employer] [employer] [facility] Blood Structure of peripheral vein / Unknown Venipuncture / Unknown 06/22/2025 8:00 PM EDT 06/22/2025 8:00 PM EDT us Jonas Stanley MD LAB BLOOD ORDERABLES Final Re sult [facility] [address] [place] [address], [place] * CT Abd Pelvis W Contrast (04/18/2025 [...] to obtain the completed interpretation. Workstation ID: [id number] Up-to-date CT equipment and radiation dose reduction [...] AND SOFT TISSUES: Unremarkable. Resulting Agency Comment [id number] Procedure Note Fredi Stockton MD - 04/18/2025 [...] possible to obtain thecompleted interpretation. Workstation ID: [id number] Up-to-date CT equipment and radiation dose reduction techniques wereemployed. CTDIvol: 17.3 mGy. DLP: 1080 mGy-cm. El Kendall MD IM CT PROCEDURES Final Resu lt from Last 3 Months or Most Recently Relevant to Health Maintenance Insurance MEDICARE [facility] MEDICARE Advance Directives Documents on File Type Date Recorded Patient Oim Consultant Expl anation Health Care Proxy 05/08/2025 4:00 PM Healt h Care Proxy Health Care Proxy 05/08/2025 12:22 AM 04/21 Health Care Proxy 03/24/2025 4:07 PM 03-24 MOLST/POLST 03/23/2025 10:36 AM 5 * Full Code (Latest Code Status on [...] Agents on File Name Relationship Healthcare Agent [facility] Communication [facility] Care Agent Care Teams Test Man Relationship Specialty Start Date End Date Heena Oneill MD [address] [place] [address] [place] [address] PCP - General Family Medicine 06/22/25
--- OUTSIDE RECORDS SUMMARY | 2025-09-25 17:53 | XMS_ITS | Encounter Summary ---
Author Organization [facility] Address [address] [place] [address] Care Team Providers Care Social Media Campaign Manager Name Role Phone Juan Mckinley MD Primary Care Provider [phone] Angelique Agudelo PA-C Unavailable [phone] Angelique Agudelo PA-C Unavailable [phone] Angelique Agudelo PA-C Unavailable [phone] Sarah Figueroa MD Primary Care Provider [phone] Reason for Visit * Reason Comments Medications Refill Encounter Details Date Type Department Care Team (Late st Contact Info) Description 07/21/2023 Refill [facility] Endocrinology [address] [place] [address] Angelique Agudelo PA-C [address] [facility] [address] [place] [id number] Medications Refill Social History Tobacco Use Types [...] documented as of this encounter Care Teams Social Media Campaign Manager Relationship Specialty Start Date End Date Juan Mckinley MD [address],[facility] 3 [place] [address] PCP - General 07/17/22 01/31/25 Sarah Figueroa MD [address] [place] [address] PCP - General Internal Medicine - [facility] Medicine 02/01/25 Angelique Agudelo PA-C [address] [address] Endocrinology, Diabetes and Metabolism 07/14/24 Angelique Agudelo PA-C [address] [address] Endocrinology, Diabetes and Metabolism 08/23/24 Angelique Agudelo PA-C [address] [phone] Endocrinology, Diabetes and Metabolism 10/18/24 documented as of this encounter
--- OUTSIDE RECORDS SUMMARY | 2025-09-25 17:53 | XMS_ITS | Encounter Summary ---
Author Organization [facility] Address [address] [place] [address] Care Team Providers Care Veterinary Practitioner Name Role Phone Angelique Agudelo PA-C Primary Care Provider [phone] Juan Mckinley MD Primary Care Provider [phone] Angelique Agudelo PA-C Unavailable Angelique Agudelo-C Unavailable [phone] Angelique Agudelo-C Unavailable Sarah Figueroa MD Primary Care Provider [phone] Reason for Visit * Reason Comments Other Encounter Details Date Type Department Care Team (Late st Contact Info) Description 10/24/2018 [facility] Neurophysiology - [facility] (M[address]al [address]) [address] [place], [place] [address] [place] [address] [address] Other Social History Tobacco Use [...] here, possibly schedule with Dr Lindsey in [place]. Will forward to schedulers. I refilled rx [...] documented as of this encounter Care Teams Veterinary Practitioner Relationship Specialty Start Date End Date Angelique Agudelo PA-C [address] [address] PCP - General 01/10/16 07/16/22 Juan Mckinley MD [facility] [address] [place] [address] PCP - General 07/17/22 01/31/25 Sarah Figueroa MD [address] [place] [address] PCP - General Internal Medicine - [facility] Medicine 02/01/25 Angelique Agudelo PA-C [address] [address] Endocrinology, Diabetes and Metabolism 07/14/24 Angelique Agudelo PA-C [address] [address] Endocrinology, Diabetes and Metabolism 08/23/24 Angelique Agudelo PA-C [address] [address] Endocrinology, Diabetes and Metabolism 10/18/24 documented as of this encounter
--- OUTSIDE RECORDS SUMMARY | 2025-09-25 17:53 | XMS_ITS | Encounter Summary ---
Author Organization [facility] Address [address] [place] [address] Care Team Providers Care Innovation Manager Name Role Phone Heena Oneill MD Primary Care Provider [phone] Reason for Visit * Reason Comments PAC General Info Encounter Details Date Type Department Care Team (Late st Contact Info) Description 09/21/2025 Telephone [facility] Primary Care [address] [place] [address] Telephone Intake, Staff PAC General [...] have money to get more. Patient declined [facility] Utilities Answer Date Recorded In the past 12 months has th [employer] electric, gas, oil, or water company threatened [...] encounter Miscellaneous Notes * Telephone Encounter - Jia Browne MA - 09/23/2025 11:32 AM EST Left message for Jacy for clarification for order. * Telephone Encounter - Florinda Souza - 09/21/2025 1:53 PM EST Copied from [facility] #[id number]. Topic: Request - Durable Medical Equipment >> Sep 21, 2025 1:24 PM Angelique Guerrero wrote: What type of equipment is it? (Toilet commode, diapers, ensure, cane, walker, oxygen tank) soft hand and wrist neutral positioning -orthosis Business where equipment is to be purchased: Jazmin Jacy from [facility] requesting DMe equipment for patient Any questions [phone] >> Sep 21, 2025 1:31 PM Angelique Guerrero wrote: [facility] [address] [place] [address] documented in this encounter Plan of Treatment Upcoming Encounters Date Type Department Care Team (Late st Contact Info) Description 10/14/2025 4:20 PM EST Follow-Up [facility] [address] [place] [address] Stamping Mill Tender: Maria Alejandra Gardiner MD [address] [place] [address] 04/25/2026 9:45 AM EDT Appointment [address] [address] documented as of this encounter Visit Diagnoses Not on filedocumented in this encounter Care Teams Innovation Manager Relationship Specialty Start Date End Date Heena Oneill MD [address] [place] [address] [place] [address] PCP - General Family Medicine 06/22/25 documented as of this encounter
--- OUTSIDE RECORDS SUMMARY | 2025-09-25 17:53 | XMS_ITS | Encounter Summary ---
Author Organization [facility] Address [address] [place] [address] Care Team Providers Care Diesel Mechanic Name Role Phone Angelique Agudelo PA-C Primary Care Provider [phone] Juan Mckinley MD Primary Care Provider [phone] Angelique Agudelo PA-C Unavailable [phone] Angelique Agudelo PA-C Unavailable [phone] Angelique Agudelo-C Unavailable [phone] Sarah Figueroa MD Primary Care Provider [phone] Encounter Details Date Type Department Care Team (Late st Contact Info) Description 01/23/2022 [facility] Pathology & Laboratory Medicine - [facility] [address] [place], [place] [address] Outr Resulting Lab, Provider Social History Tobacco [...] A1c 5.4 <5.7 % 01/24/2022 14:23 EDT [facility] Comment: Glycemic Status References: Normal: <5.7% Pre-Diabetes: 5.7% - 6.4% Diagnostic of Diabetes: > or = 6.5% (if confirmed) Est Avg Glucose 108 mg/dL 14:23 EDT [facility] Comment:The eAG represents t he A1c result expressed as average glucose in mg/dL. Blood VENOUS BLOOD / Unknown 01/23/2022 12:44 EDT 01/24/2022 8:57 EDT us Provider Outr Resulting Lab CHEMISTRY & BLOOD GA S ORDERABLES Final Result [facility] [address] [place] [address] documented in this encounter Visit Diagnoses Not on filedocumented in this encounter Additional Health Concerns Infection Onset Date Last Indicated Resolved Time R/O COVID-19 11/30/2024 11/30/2024 12/01/2024 1:04 EST R/O COVID-19 12/08/2024 12/08/2024 12/08/2024 14:1 9 EST R/O COVID-19 12/29/2024 12/29/2024 12/29/2024 23:5 5 EST documented as of this encounter Care Teams Diesel Mechanic Relationship Specialty Start Date End Date Angelique Agudelo PA-C [address] [address] PCP - General 01/10/16 07/16/22 Juan Mckinley MD [address] [place] [address] [address] [place] [address] PCP - General 07/17/22 01/31/25 Sarah Figueroa MD [address] [place] [address] PCP - General Internal Medicine - [facility] 02/01/25 Angelique Agudelo PA-C [address] [address] Endocrinology, Diabetes and Metabolism 07/14/24 Angelique Agudelo PA-C [address] [address] Endocrinology, Diabetes and Metabolism 08/23/24 Angelique Agudelo PA-C [address] [address] Endocrinology, Diabetes and Metabolism 10/18/24 documented as of this encounter
--- OUTSIDE RECORDS SUMMARY | 2025-09-25 17:53 | XMS_ITS | Encounter Summary ---
Author Organization [facility] Address [address] [place] [address] Care Team Providers Care Hide Inspector And Sorter Name Role Phone Juan Mckinley MD Primary Care Provider [phone] Angelique Agudelo-Idalia Unavailable [phone] Angelique Agudelo-Idalia Unavailable [phone] Angelique Agudelo-Idalia Unavailable [phone] Sarah Figueroa MD Primary Care Provider [phone] Encounter Details Date Type Department Care Team (Late st Contact Info) Description 09/12/2022 Refill [facility] Endocrinology [address] [place] [address] Roselyn Morales, TAMARA Social History Tobacco Use [...] pharmacy. [facility] documented in this encounter Plan of [...] documented as of this encounter Care Teams Hide Inspector And Sorter Relationship Specialty Start Date End Date Juan Mckinley MD [address] [facility] 3 [place] [address] PCP - General 07/17/22 01/31/25 Sarah Figueroa MD [address] [place] [address] PCP - General Internal Medicine - [facility] 02/01/25 Angelique Agudelo PA-C [address] [phone] Endocrinology, Diabetes and Metabolism 07/14/24 Angelique Agudelo PA-C [address] [address] Endocrinology, Diabetes and Metabolism 08/23/24 Angelique Agudelo PA-C [address] [address] Endocrinology, Diabetes and Metabolism 10/18/24 documented as of this encounter
--- OUTSIDE RECORDS SUMMARY | 2025-09-25 17:53 | XMS_ITS | Encounter Summary ---
Author Organization [facility] Address [address] [place] [address] Care Team Providers Care Group Work Program Aide Name Role Phone Juan Mckinley MD Primary Care Provider [phone] Angelique Agudelo-Idalia Unavailable [phone] Angelique Agudelo-Idalia Unavailable [phone] Angelique Agudelo PA-C Unavailable [phone] Sarah Figueroa MD Primary Care Provider [phone] Reason for Visit * Reason Onset Date Comments Medications Refill 02/03/2023 Encounter Details Date Type Department Care Team (Late st Contact Info) Description 02/03/2023 Refill [facility] Endocrinology [address] [place] [address] Jodee Mott, TAMARA Medications Refill Social History [...] documented as of this encounter Care Teams Group Work Program Aide Relationship Specialty Start Date End Date Juan Mckinley MD [address],[facility] 3 [place] [address] PCP - General 07/17/22 01/31/25 Sarah Figueroa MD [address] [place] [address] PCP - General Internal Medicine - [facility] Medicine 02/01/25 Angelique Agudelo PA-C [address] [address] Endocrinology, Diabetes and Metabolism 07/14/24 Angelique Agudelo PA-C [address] [phone] Endocrinology, Diabetes and Metabolism 08/23/24 Angelique Agudelo PA-C [address] [address] Endocrinology, Diabetes and Metabolism 10/18/24 documented as of this encounter
--- OUTSIDE RECORDS SUMMARY | 2025-09-25 17:53 | XMS_ITS | Clinical Summary ---
Author Organization [facility] Address [address] [place] [address] Care Team Providers Care Basin Operator Name Role Phone Angelique Agudelo PA-C Unavailable Angelique Agudelo PA-C Unavailable Angelique Agudelo PA-C Unavailable Sarah Figueroa MD Primary Care Provider [phone] Allergies Active Allergy Reactions Criticality Noted Date [...] every 48 hours. 15 Tablet 5 Active ltotpztq-avk-ci rrous gluconate 9 mg iron/ 15 mL [...] for pain. This was previously dispensed from [facility] in November just before initial hospitalization. [...] disease) 5 Depression 10/24/2015 Asthma 10/24/2015 Seizure ([facility]) 10/24/2015 last a few mon ths ago; he is not allowed to drive chronic back pain, gets injections Dr. Yaw Kang 07/09/2016 Anxiety Schizophrenia Heart murmur 09/28/2015 Had as child H/O ETOH abuse H/O drug abuse ([facility]) 10/27/2012 Quit- C ocaine, heroin, and speedball [...] = 0.6 oz pur e alcohol) quit [facility] Utilities Answer Date Recorded In the past 12 months has th e [employer], gas, oil, or water [employer] threatened to shut off services in your [...] any time in the past 12 m [facility], were you homeless or living in a skilled nursing (including now)? Patient unable to answer 12/03/2024 [facility] - Inadequate Housing Answer Date Re corded What is your living situation today? I have a [facility] place to live 12/26/[address] you li ve. Do you have problems with any of the following? Pests such as bugs, ants, or mice 12/26/2024 [facility] - Transportation Answer Date Record ed In the past 12 months, has l ack of reliable transportation kept you from medical appointments, meetings, work or from getting things needed for daily living? No 12/26/2024 [facility] - Personal Safety Answer Date Recor [...] C Antibody Negative Negative 12/06/2024 10:40 EST [facility] Blood VENOUS BLOOD / Unknown Venipuncture / Unknown 12/04/2024 5:22 EST 12/04/2024 5:26 EST us Diego Camacho MD CHEMISTRY & BLOOD GAS ORDERAB LES Final Result [facility] [address] [place] [address] from Last 3 Months or Most Recently Relevant to Health Maintenance Insurance [place] Advance Directives For more information, please contact: [phone] Documents on File Type Date Recorded Patient Head Irrigator Expl anation Advance Directive 02/14/2025 21:04 Health Care Proxy Advance Directive 02/14/2025 20:54 Power of Traveling Storekeeper COLST/MOLST 01/31/2025 7:[address] pgs 1 & 2 Void COLST/MOLST 01/20/2025 12:36 H ealth Care Proxy COLST/MOLST 12/25/2024 8:48 MOLS T * Full Code (Latest Code Status on File) Date Activated Date Inactivated Comments 12/24/2024 23:57 01/27/2025 16:08 Question Answer Comments When the patient has NO PULSE: Full Code / CPR [facility]: Refer to current pap er/scanned MOLST for order details. * Full Code Date Activated Date Inactivated Comments 12/01/2024 6:21 12/24/2024 23:04 Question Answer Comments When the patient has NO PULSE: Full Code / CPR Who Made the Decision? Default/Not Discussed Care Teams Basin Operator Relationship Specialty Start Date End Date Sarah Figueroa MD [address] [place] [address] PCP - General Internal Medicine - [facility] Medicine 02/01/25 Angelique Agudelo PA-C [address] [phone] Endocrinology, Diabetes and Metabolism 07/14/24 Angelique Agudelo PA-C [address] [address] Endocrinology, Diabetes and Metabolism 08/23/24 Angelique Agudelo PA-C [address] [address] Endocrinology, Diabetes and Metabolism 10/18/24
--- OUTSIDE RECORDS SUMMARY | 2025-09-25 17:53 | XMS_ITS | Encounter Summary ---
Author Organization [facility] Address [address] [place] [address] Care Team Providers Care Power Plant Operator Apprentice Name Role Phone Juan Mckinley MD Primary Care Provider [phone] Angelique Agudelo PA-C Unavailable [phone] Angelique Agudelo-C Unavailable [phone] Angelique Agudelo-Idalia Unavailable [phone] Sarah Figueroa MD Primary Care Provider [phone] Reason for Visit * Reason Onset Date Comments Appointment Related 03/17/2024 Encounter Details Date Type Department Care Team ([facility] Contact Info) Description 03/17/2024 Telephone [facility] Nephrology [address] [phone] Unknown, Provider, Appointment Related Social History Tobacco [...] documented as of this encounter Care Teams Power Plant Operator Apprentice Relationship Specialty Start Date End Date Juan Mckinley MD [address] [facility] [place] [address] PCP - General 07/17/22 01/31/25 Sarah Figueroa MD [address] [place] [address] PCP - General Internal Medicine - [facility] Medicine 02/01/25 Angelique Agudelo PA-C [address] [phone] Endocrinology, Diabetes and Metabolism 07/14/24 Angelique Agudelo PA-C [address] [phone] Endocrinology, Diabetes and Metabolism 08/23/24 Angelique Agudelo PA-C [address] [phone] Endocrinology, Diabetes and Metabolism 10/18/24 documented as of this encounter
--- OUTSIDE RECORDS SUMMARY | 2025-09-25 17:53 | XMS_ITS | Encounter Summary ---
Author Organization [facility] Address [address] [place] [address] Care Team Providers Care Digital Asset Coordinator Name Role Phone Juan Mckinley MD Primary Care Provider [phone] Angelique Agudelo PA-C Unavailable [phone] Angelique Agudelo PA-C Unavailable [phone] Angelique Agudelo PA-C Unavailable [phone] Sarah Figueroa MD Primary Care Provider [phone] Reason for Visit * Reason Comments Medications Refill Encounter Details Date Type Department Care Team (Late st Contact Info) Description 03/29/2024 Refill [facility] - [facility] Endocrinology [address] [place] [address] Angelique Agudelo PA-C 210 [facility] [address] [place] [phone] Medications Refill Social History Tobacco Use Types [...] documented as of this encounter Care Teams Digital Asset Coordinator Relationship Specialty Start Date End Date Juan Mckinley MD [address],[facility] 3 [place] [address] PCP - General 07/17/22 01/31/25 Sarah Figueroa MD [address] [place] [address] PCP - General Internal Medicine - [facility] Medicine 02/01/25 Angelique Agudelo PA-C [address] [phone] Endocrinology, Diabetes and Metabolism 07/14/24 Angelique Agudelo PA-C [address] [phone] Endocrinology, Diabetes and Metabolism 08/23/24 Angelique Agudelo PA-C [address] [phone] Endocrinology, Diabetes and Metabolism 10/18/24 documented as of this encounter
--- OUTSIDE RECORDS SUMMARY | 2025-09-25 17:53 | XMS_ITS | Encounter Summary ---
Author Organization [facility] Address [address] [place] [address] Care Team Providers Care Prom Burn Off Operator Name Role Phone Juan Mckinley MD Primary Care Provider [phone] Angelique Agudelo PA-C Unavailable [phone] Angelique Agudelo PA-C Unavailable [phone] Angelique Agudelo PA-C Unavailable [phone] Sarah Figueroa MD Primary Care Provider [phone] Reason for Visit * Reason Onset Date Comments Erroneous Encounter 10/17/2022 Encounter Details Date Type Department Care Team (Late st Contact Info) Description 10/17/2022 Refill [facility] - [facility] Endocrinology [address] [place] [address] Angelique Agudelo PA-C 210 [facility] [address] [place] [phone] Erroneous Encounter Social History Tobacco Use Types [...] Encounter - Jodee Mott RN - 10/18/2022 0837 EST Pharmacy requesting refills on behalf of [...] documented as of this encounter Care Teams Prom Burn Off Operator Relationship Specialty Start Date End Date Juan Mckinley MD [address] [facility] 3 [place] [address] PCP - General 07/17/22 01/31/25 Sarah Figueroa MD [address] [place] [address] PCP - General Internal Medicine - [facility] Medicine 02/01/25 Angelique Agudelo PA-C [address] [phone] Endocrinology, Diabetes and Metabolism 07/14/24 Angelique Agudelo PA-C [address] [phone] Endocrinology, Diabetes and Metabolism 08/23/24 Angelique Agudelo PA-C [address] [address] Endocrinology, Diabetes and Metabolism 10/18/24 documented as of this encounter
--- OUTSIDE RECORDS SUMMARY | 2025-09-25 17:54 | XMS_ITS | Encounter Summary ---
Author Organization [facility] Address [address] [place] [address] Care Team Providers Care Language Arts Teacher Name Role Phone Angelique Agudelo PA-C Primary Care Provider [phone] Juan Mckinley MD Primary Care Provider [phone] Angelique Agudelo PA-C Unavailable Angelique Agudelo PA-C Unavailable [phone] Angelique Agudelo-C Unavailable Sarah Figueroa MD Primary Care Provider [phone] Encounter Details Date Type Department Care Team (Late st Contact Info) Description 01/24/2016 Historical Results Only [facility] - [facility] Radiology Results [address] [place] [address] Omaira Barahona MD [address] [place] [phone] Social History Tobacco Use Types Packs/Day Years [...] CTS 3468 ABDOMEN AND PELVIS W/IV CONTRAST [facility]#[id number] DATE & TIME EXAM COMPLETED: Jan 24 2016 8:18PM CPT:04492 REASON FOR EXAM: Abdominal Pain Accession# : [id number] PT CL: {pt_class} FINDINGS: This exam was [...] CTS 3468 ABDOMEN AND PELVIS W/IV CONTRAST [facility]#[id number] DATE & TIME EXAM COMPLETED: Jan 24 2016 8:18PM CPT:35276 REASON FOR EXAM: Abdominal Pain Accession# : [id number] CL: {pt_class} FINDINGS: This exam was specifically [...] documented as of this encounter Care Teams Language Arts Teacher Relationship Specialty Start Date End Date Angelique Agudelo PA-C [address] [phone] PCP - General 01/10/16 07/16/22 Juan Mckinley MD [address],[facility] 3 [place] [address] PCP - General 07/17/22 01/31/25 Sarah Figueroa MD [address] [place] [address] PCP - General Internal Medicine - [facility] Medicine 02/01/25 Angelique Agudelo PA-C [address] [phone] Endocrinology, Diabetes and Metabolism 07/14/24 Angelique Agudelo PA-C [address] [address] Endocrinology, Diabetes and Metabolism 08/23/24 Angelique Agudelo PA-C [address] [phone] Endocrinology, Diabetes and Metabolism 10/18/24 documented as of this encounter
--- OUTSIDE RECORDS SUMMARY | 2025-09-25 17:54 | XMS_ITS | Encounter Summary ---
Author Organization [facility] Address [address] [place] [address] Care Team Providers Care Road Freight Conductor Name Role Phone Angelique Agudelo PA-C Primary Care Provider [phone] Juan Mckinley MD Primary Care Provider [phone] Angelique Agudelo PA-C Unavailable Angelique Agudelo PA-C Unavailable [phone] Angelique Agudelo-C Unavailable Sarah Figueroa MD Primary Care Provider [phone] Encounter Details Date Type Department Care Team (Late st Contact Info) Description 03/19/2016 Historical Results Only [facility] - [facility] Radiology Results [address] [place] [address] Navarro Banks MD [address] [place] [phone] Social History Tobacco Use Types Packs/Day [...] EXAM: MRI 6170 THORACIC SPINE W/O CONTRAST [facility]#[id number] DATE & TIME EXAM COMPLETED: Mar 19 2016 6:24PM CPT:78811 REASON FOR EXAM: THORACIC DISCOGENIC PAIN Accession# : [id number] PT CL: {pt_class} FINDINGS: A multiplanar, multi [...] EXAM: MRI 6170 THORACIC SPINE W/O CONTRAST [facility]#[id number] DATE & TIME EXAM COMPLETED: Mar 19 2016 6:24PM CPT:76835 REASON FOR EXAM: THORACIC DISCOGENIC PAIN Accession# : [id number] PT CL: {pt_class} FINDINGS: A multiplanar, multi [...] documented as of this encounter Care Teams Road Freight Conductor Relationship Specialty Start Date End Date Angelique Agudelo PA-C [address] [facility] [address] [place] [address] PCP - General 01/10/16 07/16/22 Juan Mckinley MD [address] [place] [address] 3 [place], [place] [phone] PCP - General 07/17/22 01/31/25 Sarah Figueroa MD [address] [place] [address] PCP - General Internal Medicine - [facility] Medicine 02/01/25 Angelique Agudelo PA-C [address] [phone] Endocrinology, Diabetes and Metabolism 07/14/24 Angelique Agudelo PA-C [address] [address] Endocrinology, Diabetes and Metabolism 08/23/24 Angelique Agudelo PA-C [address] [phone] Endocrinology, Diabetes and Metabolism 10/18/24 documented as of this encounter
--- OUTSIDE RECORDS SUMMARY | 2025-09-25 17:54 | XMS_ITS | Encounter Summary ---
Author Organization [facility] Address [address] [place] [address] Care Team Providers Care Racecar Driver Name Role Phone Juan Mckinley MD Primary Care Provider [phone] Angelique Agudelo PA-C Unavailable [phone] Angelique Agudelo PA-C Unavailable [phone] Angelique Agudelo-C Unavailable [phone] Sarah Figueroa MD Primary Care Provider [phone] Reason for Visit * Reason Onset Date Comments Appointment Related 09/07/2024 Encounter Details Date Type Department Care Team (Late st Contact Info) Description 09/07/2024 Telephone [facility] Nephrology - [address] [address] Humberto Shabazz MD [address] [place] [address] Rehab, Level 2 [place] [address] Appointment Related Social History Tobacco [...] documented as of this encounter Care Teams Racecar Driver Relationship Specialty Start Date End Date Juan Mckinley MD [address] [facility] [place] [address] PCP - General 07/17/22 01/31/25 Sarah Figueroa MD [address] [place] [address] PCP - General Internal Medicine - Hospital Medicine 02/01/25 Angelique Agudelo PA-C [address] [place] [phone] Endocrinology, Diabetes and Metabolism 07/14/24 Angelique Agudelo PA-C [address] [place] [phone] Endocrinology, Diabetes and Metabolism 08/23/24 Angelique Agudelo PA-C [address] [place] [phone] Endocrinology, Diabetes and Metabolism 10/18/24 documented as of this encounter
--- OUTSIDE RECORDS SUMMARY | 2025-09-25 17:54 | XMS_ITS | Encounter Summary ---
Author Organization [facility] Address [address] [place] [address] Care Team Providers Care Brand Mgr Name Role Phone Juan Mckinley MD Primary Care Provider [phone] Angelique Agudelo-Idalia Unavailable [phone] Angelique Agudelo-Idalia Unavailable [phone] Angelique Agudelo-Idalia Unavailable [phone] Sarah Figueroa MD Primary Care Provider [phone] Reason for Visit * Reason Onset Date Comments Medications Refill 10/22/2024 Encounter Details Date Type Department Care Team (Late st Contact Info) Description 10/22/2024 Refill [facility] - [facility] Endocrinology [address] [place] [address] Fely Martin, TAMARA Medications Refill Social History [...] encounter Miscellaneous Notes * Telephone Encounter - Feyl Martin RN - 10/22/2024 1346 EST JANE [...] documented as of this encounter Care Teams Brand Mgr Relationship Specialty Start Date End Date Juan Mckinley MD [address] [place] [address] PCP - General 07/17/22 01/31/25 Sarah Figueroa MD [address] [place] [address] PCP - General Internal Medicine - [facility] Medicine 02/01/25 Angelique Agudelo PA-C [address] [phone] Endocrinology, Diabetes and Metabolism 07/14/24 Angelique Agudelo PA-C [address] [phone] Endocrinology, Diabetes and Metabolism 08/23/24 Angelique Agudelo PA-C [address] [phone] Endocrinology, Diabetes and Metabolism 10/18/24 documented as of this encounter
--- NOTE | 2025-09-25 19:12 | ED_ITS ---
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 History of chronic indwelling Tineo. History of lower abdominal pain. Pain to the right shoulder that is chronic. Has a history of rotator cuff pain. Patient states that he is due for surgery. Noticing increasing pain to the lower abdomen. There is no change in bowel movement. No nausea no vomiting. There is no fever no chills. No history of abdominal surgery in the past. Patient from home. Related Data Previous Rx's ?Medication ?Instructions ?Recorded acetaminophen 500 mg tablet 1,000 mg (2 x 500 mg) PO Q 6H PRN 09/18/25 (Tylenol Extra Strength) pain #20 tabs amoxicillin 500 mg capsule 1,000 mg (2 x 500 mg) PO TI D 5 09/18/25 days #30 caps azithromycin 250 mg tablet See Rx Instructions PO .COM PLEX #6 09/18/25 (Zithromax Z-Robert) tabs ibuprofen 400 mg tablet 400 mg PO TID PRN fever or p ain 09/18/25 #30 tabs morphine 15 mg immediate release 15 mg PO Q6H PRN pain #14 tabs 09/18/25 tablet cefuroxime axetil 500 mg tablet 500 mg PO BID 7 days # 14 tabs 09/22/25 Allergies Allergy/AdvReac Type Severity Reaction Status Date / Time amitriptyline Allergy Anaphylaxis Verified 09/25/25 17:32 divalproex sodium (From Allergy Anaphylaxis Verified 09/25/25 17:32 Depakote) gabapentin Allergy Anaphylaxis Verified 09/25/25 17:32 Review of Systems Review of Systems Positive lower abdominal pain Yes all other systems are reviewed and are negative PMFSH Past Medical History Attestation statement: The following information was validated with the patient. Social History Social History Smoked in Last 30 Days: Yes Use of substances other than those prescribed or required for medical reasons: No Substance Use Type: Marijuana Advance Directives: Yes Advance Directives Information Provided: No Advance Directives on File: No Physical Exam ED Exam Exam: Appearance: Alert. Oriented X3. No acute distress. Eyes: Pupils equal, round and reactive to light. ENT: Pharynx normal. Neck: Normal inspection. Neck supple. No lymph nodes noted. No crepitus CVS: Normal heart rate and rhythm. Pulses normal. Normal S1 and S2 Respiratory: No respiratory distress. Breath sounds normal. No Wheezing. No rales Abdomen: Soft and nontender. No rigidity. No distention. good BS x4. Chronic indwelling Tineo in place. Skin: Skin warm and dry. Normal skin color. Normal skin turgor. Extremities: No lower extremity edema. Neurovascular intact to all extremities. No Lacerations. No Rash Neuro: Awake alert oriented bilateral lower extremity weakness. Patient has symmetric movements in the hands. Vital Signs: Vital Signs - 24 hr 09/25/25 17:30 09/26/25 00:13 Temperature 98.1 F Pulse Rate 66 69 Respiratory Rate 18 14 Blood Pressure 126/86 108/71 Pulse Oximetry 97 96 Oxygen Delivery Method Room Air Room Air BMI result Body Mass Index 31.2 Procedures EJ/Peripheral Line Arm L: Skin Cleansed in Sterile Fashion: Yes Size (gauge): 20 IV Secured and Dressing Applied: Yes Patient Tolerated Procedure: well and no complications Additional Comments: IV placed using ultrasound guidance by parallel/longitudinal approach. Vein demonstrated complete compression prior to IV placement. Placement confirmed by direct visualization on ultrasound, drawback, and intravascular flash on ultrasound upon flushing. IV secured and RN informed. Medical Decision Making Medical Decision Making MDM Narrative: Patient presented with diffuse abdominal pain. Has a history of known UTI. Currently on oral antibiotics. Patient has been compliant as on day 3 of the antibiotic. Presents today with having diffuse abdominal pain still. There is no fever no chills. Not associated with eating. Patient is from home. No chest pain or diaphoresis. No coughing or congestion or upper respiratory symptoms. Patient is from home. Has a history of rotator cuff tear. We did a CT scan of the abdomen pelvis. The CT abdomen pelvis showed question cholecystitis. Very subtle findings. Patient's white count is normal. He does have pain diffuse over the entire abdomen. Patient's urine showed partially treated UTI. Patient's LFTs are normal. Lipase 110 showed no evidence of pancreatitis in light of CT scan showing no evidence for pancreatitis. Patient case discussed with him. Will get ultrasound in the morning. Likely can be discharged if it is negative. Patient's vital signs have been stable Differential Diagnosis Differential Diagnoses: The differential diagnosis associated with the presentation includes Cholecystitis, appendicitis, UTI, abdominal pain, rotator cuff issues, obstruction Admission/Observation Consideration of admission/observation: Escalation of care including admission/observation considered Lab Data MDM Lab Attestation statement: I reviewed the patient's lab results. 09/25/25 19:17 09/25/25 19:17 Labs: Lab Results 09/25/25 Range/Units 19:17 WBC 9.2 (4.8-10.8) X10*3/uL RBC 5.27 (4.60-5.80) X10*6/uL Hgb 15.1 (14.0-18.0) g/dl Hct 46.7 (42.0-52.0) % MCV 88.6 (80.0-98.0) fL MCH 28.7 (27.0-33.0) pg MCHC 32.3 (31.0-36.0) g/dl RDW 13.6 (11.0-16.0) % Plt Count 197 (160-400) X10*3/uL MPV 9.9 (9.4-12.4) fL Immature Gran % (Auto) 0.4 (0.0-0.4) % Neut % (Auto) 64.0 (45-73) % Lymph % (Auto) 25.3 (20-40) % [place] % (Auto) 6.3 (2-11) % Eos % (Auto) 2.9 (0-4) % Baso % (Auto) 1.1 (0-2) % Lymph # (Auto) 2.3 (1.2-4.9) X10*3/uL [place] # (Auto) 0.6 (0.1-1.2) X10*3/uL Eos # (Auto) 0.3 (0.0-0.4) X10*3/uL Baso # (Auto) 0.1 (0.0-0.2) X10*3/uL Abs Immat Gran (auto) 0.04 H (0.00-0.03) X10*3/uL Absolute Neuts (auto) 5.9 (2.0-8.3) x10*3/uL Absolute Nucleated RBC 0.000 (0.0-0.012) X10*3/uL Nucleated RBC % (auto) 0.0 (0.0-0.2) /100WBC Sodium 145 (135-145) mmol/L Potassium 4.1 (3.3-5.1) mmol/L Chloride 113 H (96-108) mmol/L Carbon Dioxide 25 (22-29) mmol/L Anion Gap 11 L (12-20) BUN 19 H (9-16) mg/dL Creatinine 1.11 (0.5-1.4) mg/dL Estim Creat Clear Calc 104.1 Estimated GFR > 60 Random Glucose 95 (60-115) mg/dL Calcium 9.4 (8.4-10.2) mg/dL Total Bilirubin 0.3 (0.0-1.0) mg/dL Direct Bilirubin 0.1 (0.0-0.5) mg/dL AST 32 (5-37) U/L ALT 63 H (0-40) U/L Alkaline Phosphatase 113 (39-117) U/L Total Protein 7.8 (6.5-8.0) g/dL Albumin 4.7 (3.5-5.0) g/dL Lipase 110 H (8-78) U/L Urine Color Yellow Urine Appearance Clear Urine pH 6.5 (5.0-9.0) Ur Specific [place] <= 1.005 (1.005-1.025) Urine Protein Negative (Neg-Trace) mg/dL Urine Glucose (UA) Negative (Negative) mg/dL Urine Ketones Negative (Negative) mg/dL Urine Blood Negative (Negative) Urine Nitrite Positive H (Negative) Ur Leukocyte Esterase Small (1+) H (Negative) Urine RBC 0-2 (0-2) /HPF Urine WBC 6-10 H (0-5) /HPF Ur Squamous Epith Cells 0-2 (0-2) /HPF Urine Bacteria 4+ (None Seen) Hyaline Casts 0-2 (0-2) /LPF Independent Interpretation I performed an independent interpretation of an: CT Scan (No obvious obstruction) Radiology Impression Discussion of test interpretation with radiology: I have reviewed the radiologist's reading. Chronic Conditions History of abdominal pain history of UTI Social Determinants Patient?s care significantly limited by Social Determinants of Health including: Alcoholism and drug addiction in family and Problems related to primary support group Medications Administered Discontinued Medications Generic Name Dose Route Start Last Admin Trade Name Freq PRN Reason Stop Dose Admin Sodium Chloride 1,000 mls @ 999 mls/hr 09/25/25 18:45 09/25/25 21:40 Ns IV 09/25/25 19:45 Infused .Q1H1M RIRI Infusion Sodium Chloride 1,000 mls @ 999 mls/hr 09/25/25 18:45 09/25/25 21:45 Ns IV 09/25/25 19:45 Infused .Q1H1M RIRI Infusion Iohexol 85 ml 09/25/25 23:09 09/25/25 23:14 Iohexol 350 Mg/Ml 100 Ml Infus..Btl IV 09/25/25 23:10 85 ml ONCE ONE Administration Ketorolac Tromethamine 15 mg 09/26/25 00:04 09/26/25 00:13 Ketorolac Tromethamine 15 Mg/Ml Vial IVPUSH 09/26/25 00:05 15 mg ONCE ONE Administration Discharge Plan Discharge Clinical Impression: Abdominal pain Instructions: Abdominal Pain (ED) Prescriptions: No Action amoxicillin 500 mg capsule 1,000 mg PO TID 5 Days Qty: 30 0RF azithromycin [Zithromax Z-Robert] 250 mg tablet See Rx Instructions .ROUTE .COMPLEX Qty: 6 0RF Rx Instructions: take 500 mg today (day 1), then 250 mg for 4 days (days 2-5) acetaminophen [Tylenol Extra Strength] 500 mg tablet 1,000 mg PO Q6H PRN (Reason: pain) Qty: 20 0RF ibuprofen 400 mg tablet 400 mg PO TID PRN (Reason: fever or pain) Qty: 30 0RF morphine 15 mg tablet 15 mg PO Q6H PRN (Reason: pain) Qty: 14 0RF Rx Instructions: Patient may request partial fill; Partial Fill upon patient request. cefuroxime axetil 500 mg tablet 500 mg PO BID 7 Days Qty: 14 0RF Referrals: Physician,Unknown J [Primary Care Provider, Medical] - 09/27/25 Print Language: Tajik
[2025-09-25 19:21] LABS: MANUAL DIFF FLAG NO
[2025-09-25 19:24] LABS: Hematocrit 46.7 % (42.0-52.0); Hemoglobin 15.1 g/dl (14.0-18.0); Imm Gran Abs Auto 0.04 X10*3/uL (0.00-0.03); Imm Gran Pct Auto 0.4 % (0.0-0.4); Lymphocytes Absolute Auto 2.3 X10*3/uL (1.2-4.9); Mean Corpuscular HGB Conc 32.3 g/dl (31.0-36.0); Mean Corpuscular Hemoglobin 28.7 pg (27.0-33.0); Mean Corpuscular Volume 88.6 fL (80.0-98.0); NRBC Abs Auto 0.000 X10*3/uL (0.0-0.012); NRBC Pct Auto 0.0 /100WBC (0.0-0.2); Platelet Count 197 X10*3/uL (160-400); Red Blood Count 5.27 X10*6/uL (4.60-5.80); White Blood Count 9.2 X10*3/uL (4.8-10.8)
[2025-09-25 19:41] LABS: Alanine Aminotransferase 63 U/L (0-40); Albumin Level 4.7 g/dL (3.5-5.0); Alkaline Phosphatase 113 U/L (39-117); Anion Gap 11 (12-20); Aspartate Amino Transferase 32 U/L (5-37); Blood Urea Nitrogen 19 mg/dL (9-16); Calcium 9.4 mg/dL (8.4-10.2); Carbon Dioxide 25 mmol/L (22-29); Chloride 113 mmol/L (96-108); Creatinine Clr Calc Pharmacy 104.1; Estimated Glomerular Filt Rate > 60; Lipase 110 U/L (8-78); Potassium 4.1 mmol/L (3.3-5.1); Sodium 145 mmol/L (135-145); Total Protein 7.8 g/dL (6.5-8.0)
--- NOTE | 2025-09-25 19:55 | PC.NURSE ---
This RN assumed pt care@ 1900. Pt a&0x4, no signs of distress Pt reports chronic body / pain Medication admin late due to iv access difficult UA collected and sent Plan of care ongoing.
--- NOTE | 2025-09-25 20:02 | PC.NURSE ---
Tineo bag emptied of 2500 of urine Plan of care ongoing.
[2025-09-25 20:31] LABS: Appearance Urine Clear; Glucose Urine UA Negative (Negative); PH 6.5 (5.0-9.0); Specific Gravity - Urine <= 1.005 (1.005-1.025); UMIC TRIGGER UACC YES
--- NOTE | 2025-09-25 20:36 | PC.NURSE ---
US guided IV access obtained by ED provider Pt medicated per dec Bladder scan completed and empty Plan of care ongoing.
[2025-09-25 20:37] LABS: UACC Culture Trigger YES
--- NOTE | 2025-09-25 21:48 | PC.NURSE ---
This RN spoke with pts daughter wyatt @ [phone]. Per pt ok to give daughter an update. Plan of care ongoing.
[2025-09-25] MEDS: iohexoL 350 MG/ML 100 ML INFUS..BTL 85 ML IV (23:14)
[2025-09-26] VITALS (13 sets, daily range): BP systolic 107–160; BP diastolic 65–90; PULSE 52–69; RESP 14–18; TEMP 36.2–36.7; O2SAT 93–97; BMI 29.3
--- NOTE | 2025-09-26 08:35 | PC.NURSE ---
Patient requesting pain medication, MD ordered. This RN attempted to administer IV pain medication, IV not flushing. New IV placed by ultrasound guidance by TAMARA Blackburn. IV pain medication administered without difficulty. IV patent and flushing well. 800mL of urine drained from ferrell bag. Patient resting quietly at this time.
--- NOTE | 2025-09-26 10:26 | PC.NURSE ---
Patient endorsing new onset stabbing 10/10 abdominal pain. Patient states it feels like someone is stabbing me over and over . Patient pointing to right upper quadrant. Patient states it began when he sat up in the bed. made aware.
--- NOTE | 2025-09-26 12:18 | PM.IMHP ---
History of Present Illness Date of Service: 09/26/25 Chief Complaint: Abdominal pain 44-year-old man presented to the ER with complaints of sudden, constant, stabbing, right lower quadrant pain that started last night. He has been taking antibiotics for urinary tract infection. No leukocytosis or fever noted. Lipase 110. UA positive, has chronic Ferrell catheter secondary to Guillain-[place]. CT abdomen showed concern for gallstones and gallbladder thickening, ultrasound revealed contracted gallbladder with thickening. Patient was treated with Toradol, morphine. Plan will be to admit patient for acute cholecystitis. Review of Systems Review of Systems: Denies any recent fever chills or decrease in appetite respiratory denies any shortness of breath or cough cardiovascular denied chest pain gastrointestinal denies any dysphagia abdominal pain nausea vomiting or diarrhea genitourinary denies any dysuria frequency or hematuria musculoskeletal denies any joint pain or swelling neuropsych denies any weakness or seizures all other systems reviewed are negative PMFSH Social History Household Members: Children Housing: Apartment Do you presently have visiting nurse or other home services: Yes Patient Tobacco Use Status: Current everyday Tobacco user Tobacco use type: Cigarette Smoked in Last 30 Days: Yes Use of substances other than those prescribed or required for medical reasons: No Substance Use Type: Marijuana Have you been hit, kicked, punched, or otherwise hurt by someone within the past year? If so, by whom?: No Is there a partner from a previous relationship who is making you feel unsafe now?: No Are you made to feel afraid or neglected: No Advance Directives: Yes Advance Directives Information Provided: Yes Advance Directives on File: No Advance Directives Date on File: 09/26/25 Recently lost weight without trying: No Meds Allergies Allergy/AdvReac Type Severity Reaction Status Date / Time amitriptyline Allergy Anaphylaxis Verified 09/25/25 17:32 divalproex sodium (From Allergy Anaphylaxis Verified 09/25/25 17:32 Depakote) gabapentin Allergy Anaphylaxis Verified 09/25/25 17:32 Active Medications: Current Medications Sodium Chloride (Ns) 1,000 mls @ 125 mls/hr IV .Q8H STA Stop: 09/26/25 20:05 Home Medications ?Medication ?Instructions ?Recorded ?Confirmed ?Last Taken ?Type aspirin 81 mg tablet 81 mg PO DAILY 09/26/25 09/26/25 09/25/25 History cyanocobalamin (vitamin B-12) 1,000 mcg PO DAILY 09/26/25 09/26/25 09/25/25 History 1,000 mcg tablet (Vitamin B-12) duloxetine 60 mg capsule,delayed 60 mg PO DAILY 09/26/25 09/26/25 09/25/25 History release sprinkle levetiracetam 500 mg tablet 500 mg PO BID 09/26/25 09/26/25 09/25/25 History (Keppra) lithium carbonate 300 mg tablet 300 mg PO BID 09/26/25 09/26/25 09/25/25 History methimazole 5 mg tablet 5 mg PO DAILY 09/26/25 09/26/25 09/25/25 History metoprolol succinate 25 mg 25 mg PO DAILY 09/26/25 09/26/25 09/25/25 History tablet,extended release 24 hr pantoprazole 40 mg tablet,delayed 40 mg PO DAILY@0630 09/26/25 09/26/25 09/25/25 History release pregabalin 300 mg capsule 300 mg PO BID 09/26/25 09/26/25 09/25/25 History pyridoxine (vitamin B6) 500 mg 500 mg PO DAILY 09/26/25 09/26/25 09/25/25 History tablet quetiapine 100 mg tablet 100 mg PO BEDTIME 09/26/25 09/26/25 09/24/25 History rosuvastatin 20 mg tablet 20 mg PO BEDTIME 09/26/25 09/26/25 09/24/25 History ticagrelor 90 mg tablet 90 mg PO BID 09/26/25 09/26/25 09/25/25 History trazodone 100 mg tablet 50 mg PO BEDTIME 09/26/25 09/26/25 09/24/25 History Physical Exam Vital Signs and Narrative: Vital Signs: Last Vital Signs Temp 97.3 F 09/26/25 10:30 Pulse 58 09/26/25 11:52 Resp 16 09/26/25 11:52 BP 107/65 09/26/25 11:52 Pulse Ox 94 09/26/25 11:52 O2 Del Method Room Air 09/26/25 11:52 BMI result Body Mass Index 31.2 Very labile mood head is normocephalic atraumatic eyes pupils are PERRLA sclera is anicteric mouth throat mucous membranes are intact and moist neck is supple no lymphadenopathy, no JVD noted lung sounds are clear to auscultation heart regular rate rhythm, clear S1, S2 positive bowel sounds, abdomen is soft, nontender neuro patient is alert x3, no focal deficits Bruising to arms Results Labs 09/25/25 19:17 09/25/25 19:17 Labs: Laboratory Results - last 24 hr 09/25/25 19:17 MCV 88.6 MCH 28.7 MCHC 32.3 RDW 13.6 Plt Count 197 MPV 9.9 Immature Gran % (Auto) 0.4 Neut % (Auto) 64.0 Lymph % (Auto) 25.3 [place] % (Auto) 6.3 Eos % (Auto) 2.9 Baso % (Auto) 1.1 Lymph # (Auto) 2.3 [place] # (Auto) 0.6 Eos # (Auto) 0.3 Baso # (Auto) 0.1 Abs Immat Gran (auto) 0.04 H Absolute Neuts (auto) 5.9 Absolute Nucleated RBC 0.000 Nucleated RBC % (auto) 0.0 Anion Gap 11 L Estim Creat Clear Calc 104.1 Estimated GFR > 60 Random Glucose 95 Calcium 9.4 Total Bilirubin 0.3 Direct Bilirubin 0.1 AST 32 ALT 63 H Alkaline Phosphatase 113 Total Protein 7.8 Albumin 4.7 Lipase 110 H Urine Color Yellow Urine Appearance Clear Urine pH 6.5 Ur Specific [place] <= 1.005 Urine Protein Negative Urine Glucose (UA) Negative Urine Ketones Negative Urine Blood Negative Urine Nitrite Positive H Ur Leukocyte Esterase Small (1+) H Urine RBC 0-2 Urine WBC 6-10 H Ur Squamous Epith Cells 0-2 Urine Bacteria 4+ Hyaline Casts 0-2 Imaging Radiologist's Impressions: Impressions Abdomen Ultrasound 09/26/25 07:18 IMPRESSION: Contracted gallbladder. Concerning acute calculus cholecystitis in the correct clinical settings. Electronically signed by: Júnior Saenz MD 09/26/2025 08:07 AM [facility] Assessment and Plan (1) Abdominal pain: Qualifiers: Abdominal location: right upper quadrant Qualified Code(s): R10.11 - Right upper quadrant pain Status: Acute Plan 44 year old man admitted with presumed acute acalculous cholecystitis Acute acalculous cholecystitis IV zosyn General surgery consultation IV fluids clears for now and npo after midnight Pain management UTI recently treated for UTI, failed po, also has chronic ferrell catheter IV zosyn follow final urine cx. CAD hx of stent placement, [facility] 05/2025 on asa, BB, ticagrelor cardiac consult for risk stratification for possible surgery Chronic urinary retention secondary to history of [place] Ferrell catheter Schizophrenia/bipolar Continue home medications Seizure precautions Continue Keppra Monitor for seizure activity Smoker NRT DVT prophylaxis with heparin Full code Quality Stroke Does the patient have a stroke diagnosis?: No VTE Prior VTE?: No VTE Risk Level:: Medical - moderate - high VTE Device Contraindication: Treatment Not Indicated VTE Drug Contraindication: N/A - Med Ordered
--- NOTE | 2025-09-26 13:41 | PM.CNGS ---
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 Patient reports a 1 day history of right upper quadrant pain that has been worsening throughout the day. He was recently seen in the ED on September 22 diagnosed with UTI and discharged home. He presented with no white count although this may be skewed by his recent antibiotic use. Patient had CT showing concern for cholecystitis. Showing a flaccid gallbladder with possible wall thickening. Right upper quadrant ultrasound was ordered showing again and nondistended gallbladder with thickened wall of the 6 mm. He is currently denying any nausea or vomiting. Reports subjective fevers. Abdominal history significant for PEG tube placement and removal. Umbilical hernia repair. He does endorse daily cigarette use, 4 cigarettes per day. Occasional marijuana use. Denies alcohol or other drug use. Review of Systems Review of Systems: Yes all other systems are reviewed and are negative [facility] Social History Social History Smoked in Last 30 Days: Yes Use of substances other than those prescribed or required for medical reasons: No Substance Use Type: Marijuana Advance Directives: Yes Advance Directives Information Provided: No Advance Directives on File: No Meds Allergies Allergy/AdvReac Type Severity Reaction Status Date / Time amitriptyline Allergy Anaphylaxis Verified 09/25/25 17:32 divalproex sodium (From Allergy Anaphylaxis Verified 09/25/25 17:32 Depakote) gabapentin Allergy Anaphylaxis Verified 09/25/25 17:32 Active Medications: Current Medications Sodium Chloride (Ns) 1,000 mls @ 125 mls/hr IV .Q8H STA Stop: 09/26/25 20:05 Last Admin: 09/26/25 12:37 Dose: 125 mls/hr Morphine Sulfate (Morphine Sulfate 4 Mg/Ml Cartridge) 2 mg IVPUSH Q4H PRN; Protocol PRN Reason: Pain, Severe (Pain Scale 7-10) Physical Exam Vital Signs: Vital Signs: Last Vital Signs Temp 97.3 F 09/26/25 10:30 Pulse 58 09/26/25 11:52 Resp 16 09/26/25 12:36 BP 107/65 09/26/25 11:52 Pulse Ox 94 09/26/25 11:52 O2 Del Method Room Air 09/26/25 11:52 BMI result Body Mass Index 31.2 Const: General: comfortable and no acute distress Orientation/consciousness: patient oriented x3 Resp: Effort & Inspection: normal respiratory effort and able to speak in complete sentences GI: Inspection: No distended Palpation (GI): Soft to palpation, Tenderness to palpation present (GI) (Exquisitely tender to light touch) in the RLQ and in the RUQ and Guarding due to palpation present (GI) (Voluntary) in the RLQ and in the RUQ Abdomen image:  1. Previous PEG site Neuro: General: patient oriented x3 Results Labs 09/25/25 19:17 09/25/25 19:17 Labs: Abnormal lab results 09/25/25 Range/Units 19:17 Abs Immat Gran (auto) 0.04 H (0.00-0.03) X10*3/uL Chloride 113 H (96-108) mmol/L Anion Gap 11 L (12-20) BUN 19 H (9-16) mg/dL ALT 63 H (0-40) U/L Lipase 110 H (8-78) U/L Urine Nitrite Positive H (Negative) Ur Leukocyte Esterase Small (1+) H (Negative) Urine WBC 6-10 H (0-5) /HPF Short CBC 09/25/25 Range/Units 19:17 WBC 9.2 (4.8-10.8) X10*3/uL Hgb 15.1 (14.0-18.0) g/dl Hct 46.7 (42.0-52.0) % Plt Count 197 (160-400) X10*3/uL BMP 09/25/25 19:17 Sodium 145 Potassium 4.1 Chloride 113 H Carbon Dioxide 25 BUN 19 H Creatinine 1.11 Calcium 9.4 Liver Function 09/25/25 Range/Units 19:17 Total Bilirubin 0.3 (0.0-1.0) mg/dL Direct Bilirubin 0.1 (0.0-0.5) mg/dL AST 32 (5-37) U/L ALT 63 H (0-40) U/L Alkaline Phosphatase 113 (39-117) U/L Albumin 4.7 (3.5-5.0) g/dL Urine 09/25/25 Range/Units 19:17 Urine Color Yellow Urine Appearance Clear Urine pH 6.5 (5.0-9.0) Ur Specific [place] <= 1.005 (1.005-1.025) Urine Protein Negative (Neg-Trace) mg/dL Urine Glucose (UA) Negative (Negative) mg/dL All other labs normal. 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 Patient reports a 1 day history of right upper quadrant pain that has been worsening throughout the day. Imaging studies were suggestive of acute cholecystitis however on CT there was a nondistended gallbladder with a possibly thickened wall, right upper quadrant ultrasound showing 6 mm thickened wall, nondistended gallbladder some mild pericholecystic fluid. This would be unlikely to see a contracted gallbladder in the setting of acute cholecystitis, recommending HIDA scan to confirm diagnosis. Additionally had no white count but this may be skewed by antibiotic use for UTI for which patient was seen in the ED on 09/22. On exam he is exquisitely tender on the right side of the abdomen but is not specific to the right upper quadrant. Both the right upper and right lower quadrants were very tender to light palpation with voluntary guarding. Will be admitted to medical service, hida scan pending, if positive will have discussion with patient about plan going forward HIDA scan pending Recommend trial of CLD antibiotics per medicine will continue to follow Procedures Date of Service Date of Service: 09/26/25
--- NOTE | 2025-09-26 14:50 | PHA.MEDREC ---
Addendum entered by Brianne Portillo RPh 09/26/25 15:25: MED REC REVIEWED BY [facility] Original Note: Pharmacy Consult ? Medication Reconciliation Pharmacy has completed the medication reconciliation. Spoke with pt and he confirmed his medications. Pt confirmed he takes a bunch of medications that his daughter takes care of for him. Called pt daughter Halina ([phone]) and she confirmed pt taking Vitamin B-6 500mg QD, Vitamin B-12 1000mg QD, Duloxetine 60mg QD, Aspirin 81mg QD, Methimazole 5mg QD, Metoprolol 25mg QD, Pantoprazole 40mg QD, Pregabalin 300mg BID, Keppra 500mg BID, Ticagrelor 90mg BID, [place] carbonate 300mg BID, Trazodone 50mg at bedtime, Rosuvastatin 20mg at bedtime and Quetiapine 100mg at bedtime and fills these all at [facility] on [address]; Spoke with [facility] and they confirmed those medications are active in their system and recently filled for the pt. Pt just discharged with us 09/18 & 09/22 and got some scrips sent to [facility] on [address]; called [facility] and they state those meds are still ready to be picked up from their facility.
[2025-09-26] MEDS: diazePAM 10 MG/2 ML CARTRIDGE 2.5 MG IVPUSH (21:03)
--- NOTE | 2025-09-26 21:05 | PM.EVENT ---
Event Note Date of Service: 09/27/25 Event Note: nurse reported seizure at 9pm. pt's daughter is bedside who states that his eyes flutter and he has flapping hand movements with his seizures. changed keppra 500mg to IV and ordered valium 2.5mg IV stat with improvement. neuro consult placed. pt seen bedside with Dr Terrell. Time Spent With Patient Time: Total time managing care of this patient today ____ minutes.
[2025-09-26] MEDS: levETIRAcetam in NaCl (iso-os) 500 MG/100 ML PIGGYBACK 400 MG IV (21:22)
--- NOTE | 2025-09-27 | EEG_ITS ---
History: H/O seizures - last seizure over a year ago- H/O gerd, bipolar, hld- pt had witnessed seizure at home family reported eyes fluttering back, hands flopping followed by LOC - pt does not recall the event- pt presently has UTI from chronic ferrell secondary to Guillain-[place] Medication:keppra, lithium, methimazole, heparin, atorvastatin calcium, asa Technical Description Photic Stimulation: completed Hyperventilation: omitted Behavioral State: cooperative State of Consciousness: awake and drowsy Skull Defect: no Sedation: no Handedness: Right Duration: 26 min 45 secs Description: The waking background activity consists of a moderate voltage diffuse 6 hertz theta intermixed with frequent bifrontal 1-2 hertz moderate to high voltage delta. Photic stimulation is without activation. Hyperventilation was omitted. Impression: This is an abnormal EEG due to diffuse background slowing with a frontal accentuation consistent with a diffuse encephalopathic process. No clearly epileptiform discharges are seen MTDD
--- NOTE | 2025-09-27 02:30 | PC.NURSE ---
at 2030 pts Daughter requested to transfer pt to [facility] because his doctor is there and familiar surroundings per Daughter. After pt's daughter was spoken to by Dr. Terrell, she was told that a transfer was not possible at this time. Nursing physical testing supervisor made aware. Pt's daughter then went home and called 911 from home and asked them to come to the hospital and transport him to [facility]. [place] called here first and spoke with RN and then came to the building to follow up and spoke with daughter who was told once again that her father would not be transported to [facility] agnes.
--- NOTE | 2025-09-27 03:52 | PC.NURSE ---
at 2100 this Rn was called to room pt is having seizure ; eyes fluttering per Daughter his seizure looked like and some hands movements . Md notified order for vallium 2.5 mg ivp and keppra iv 500mg given as ordered . it lasted for few min.
[2025-09-27 04:00] VITALS: BP 105/67; PULSE 64; RESP 18; TEMP 36.3; O2SAT 96
--- NOTE | 2025-09-27 07:58 | PM.PNGS ---
Subjective Subjective Date of Service: 09/27/25 Interval history: continues to complain of right sided abdominal pain. unchanged from yesterday. endorses some mild nausea. Per nursing staff last night, patient had a seizure, was treated per protocol and has been stable since. Apparently the patients daughter who is HCP was requesting transfer to [place]. Physical Exam Vital Signs: Vital Signs: Last Vital Signs Temp 97.3 F 09/27/25 04:00 Pulse 64 09/27/25 04:00 Resp 18 09/27/25 04:00 BP 105/67 09/27/25 04:00 Pulse Ox 96 09/27/25 04:00 O2 Del Method Room Air 09/27/25 04:00 BMI result Body Mass Index 29.3 Const: General: comfortable and no acute distress Orientation/consciousness: patient oriented x3 Resp: Effort & Inspection: normal respiratory effort and able to speak in complete sentences GI: Inspection: No distended Palpation (GI): Soft to palpation, Tenderness to palpation present (GI) (tender on right side, RLQ is most tender) and Guarding due to palpation present (GI) Neuro: General: patient oriented x3 Objective Data Active Medications Aspirin (Aspirin Enteric Coated 81 Mg Tablet.) 81 mg PO DAILY [facility] Atorvastatin Calcium (Atorvastatin Calcium 80 Mg Tablet) 80 mg PO BEDTIME [facility] Last Admin: 09/26/25 22:10 Dose: 80 mg Documented By: EDDIE Cyanocobalamin (Cyanocobalamin (Vitamin B-12) 1,000 Mcg Tablet) 1,000 mcg PO DAILY [facility] Duloxetine HCl (Duloxetine Hcl 60 Mg Capsule.) 60 mg PO DAILY [facility] Last Admin: 09/26/25 19:23 Dose: Not Given Documented By: PJ Non-Admin Reason: Patient Refused Heparin Sodium (Porcine) (Heparin Sodium,Porcine 5,000 Unit/Ml Vial) 5,000 unit SUBCUT Q12H [facility] Last Admin: 09/27/25 06:31 Dose: 5,000 unit Documented By: EDDIE Piperacillin Sod/Tazobactam (Sod 4.5 gm/ Sodium Chloride) 100 mls @ 200 mls/hr IV Q8H [facility] Last Infusion: 09/27/25 06:26 Dose: Infused Documented By: EDDIE Levetiracetam (Keppra) 500 mg in 100 mls @ 400 mls/hr IV Q12H [facility] Last Infusion: 09/26/25 22:58 Dose: Infused Documented By: EDDIE Levetiracetam (Levetiracetam 500 Mg Tablet) 500 mg PO BID [facility] On Hold: 09/26/25 21:02 Last Admin: 09/26/25 21:09 Dose: Not Given Documented By: EDDIE Non-Admin Reason: iv med ordered [place] Carbonate ([place] Carbonate 300 Mg Capsule) 300 mg PO BID [facility] Last Admin: 09/26/25 22:09 Dose: 300 mg Documented By: EDDEI Comments: per day RN to give meds AT 10 pm because morphine was given at 6 pm Methimazole (Methimazole 5 Mg Tablet) 5 mg PO DAILY [facility] Metoprolol Succinate (Metoprolol Succinate Er 25 Mg Tab.Er.24h) 25 mg PO DAILY [facility]; Protocol Nicotine Polacrilex (Nicotine Polacrilex 2 Mg Gum) 2 mg BUCCAL Q2H PRN PRN Reason: Nicotine Cravings Pantoprazole Sodium (Pantoprazole Sodium 20 Mg Tablet.) 40 mg PO DAILY@0630 [facility] Last Admin: 09/27/25 05:47 Dose: 40 mg Documented By: EDDIE Pregabalin (Pregabalin 150 Mg Capsule) 300 mg PO BID [facility] Last Admin: 09/26/25 22:09 Dose: 300 mg Documented By: EDDIE Quetiapine Fumarate (Quetiapine Fumarate 100 Mg Tablet) 100 mg PO BEDTIME [facility] Last Admin: 09/26/25 22:09 Dose: 100 mg Documented By: EDDIE Ticagrelor (Ticagrelor 90 Mg Tablet) 90 mg PO BID [facility] Last Admin: 09/26/25 22:09 Dose: 90 mg Documented By: EDDIE Trazodone HCl (Trazodone Hcl 50 Mg Tablet) 50 mg PO BEDTIME [facility] Last Admin: 09/26/25 22:09 Dose: 50 mg Documented By: EDDIE Labs 09/25/25 19:17 09/25/25 19:17 Microbiology Microbiology Results: Microbiology 09/25/25 Unknown Urine Culture - Preliminary Urine clean catch - Clean Catch Midstream Culture too young to evaluate. 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 he is largely unchanged from yesterday. continues to have pain in the right side of the abdomen, primarily in the RLQ but also in the RUQ. he did have a seizure last night which was treated at bedside. no reports of seizure activity since. Patient had hida scan yesterday as previous imaging was not highly suggestive of acute cholecystitis. Hida scan appears negative for acute cholecystitis at this point. On exam his abdomen is soft, very tender along the right side but appears to be most tender in the RLQ. It does not seem at this point that the source of his pain is acute cholecystitis, would recommend further workup for his source of pain. Additionally given pateints medical and surgical history, he is a poor surgical candidate. Would continue abx for now in the case that there is an infectious process related to GB. We will continue to follow during admission. Time Spent With Patient Time: Total time managing care of this patient today ____ minutes. Quality Stroke Does the patient have a stroke diagnosis?: No VTE Prior VTE?: No VTE Risk Level:: Medical - moderate - high VTE Device Contraindication: Treatment Not Indicated VTE Drug Contraindication: N/A - Med Ordered
[2025-09-27 08:00] VITALS: BP 108/55; PULSE 63; RESP 20; TEMP 36.7; O2SAT 92
[2025-09-27 09:10] LABS: Alanine Aminotransferase 48 U/L (0-40); Albumin Level 4.1 g/dL (3.5-5.0); Alkaline Phosphatase 109 U/L (39-117); Anion Gap 11 (12-20); Aspartate Amino Transferase 28 U/L (5-37); Blood Urea Nitrogen 10 mg/dL (9-16); Calcium 9.0 mg/dL (8.4-10.2); Carbon Dioxide 24 mmol/L (22-29); Chloride 114 mmol/L (96-108); Creatinine Clr Calc Pharmacy 100.1; Estimated Glomerular Filt Rate > 60; Potassium 3.6 mmol/L (3.3-5.1); Sodium 145 mmol/L (135-145); Total Protein 6.7 g/dL (6.5-8.0)
[2025-09-27] MEDS: Aspirin Enteric Coated 81 MG TABLET.DR PO (09:34)
[2025-09-27] MEDS: Metoprolol Succinate ER 25 MG TAB.ER.24H PO (09:35)
[2025-09-27] MEDS: levETIRAcetam in NaCl (iso-os) 500 MG/100 ML PIGGYBACK 400 MG IV ×2 (09:38→22:42)
--- NOTE | 2025-09-27 09:40 | PM.NEUROCN ---
History of Present Illness Data of Consult Service Date: 09/27/25 Primary Care Provider: Unknown Physician HPI Reason for consult: Seizure 44-year-old man with h/o Sz disorder for several years. He does not know the cause of his seizures. He said that he takes Keppra 250 mg b.i.d. and takes it faithfully with good control. He reports that he had not had a seizure in over a year till the seizure this morning. His daughter reported that his eyes were fluttering in his hands were flopping and he was unresponsive. 500 mg of Keppra IV was administered. The seizure stopped and he is back to his baseline. He has a history of bipolar disorder GERD, HLD presented to the ER with complaints of sudden, constant, stabbing, right lower quadrant pain that started last night. He has been taking antibiotics for urinary tract infection. No leukocytosis or fever noted. Lipase 110. UA positive, has chronic Tineo catheter secondary to [place]. CT abdomen showed concern for gallstones and gallbladder thickening, ultrasound revealed contracted gallbladder with thickening. Patient was treated with Toradol, morphine. [facility] Social History Social History Household Members: Children Housing: Apartment Do you presently have visiting nurse or other home services: Yes Comment: pt is not able to walk Patient Tobacco Use Status: Current everyday Tobacco user Tobacco use type: Cigarette Smoked in Last 30 Days: Yes Use of substances other than those prescribed or required for medical reasons: No Substance Use Type: Marijuana Currently Displaying Signs/Symptoms of Drug Intoxication Withdrawal: No Have you been hit, kicked, punched, or otherwise hurt by someone within the past year? If so, by whom?: No Is there a partner from a previous relationship who is making you feel unsafe now?: No Are you made to feel afraid or neglected: No Advance Directives: Yes Advance Directives Information Provided: Yes Advance Directives on File: No Advance Directives Date on File: 09/26/25 Recently lost weight without trying: No Meds Allergies Allergy/AdvReac Type Severity Reaction Status Date / Time amitriptyline Allergy Anaphylaxis Verified 09/25/25 17:32 divalproex sodium (From Allergy Anaphylaxis Verified 09/25/25 17:32 Depakote) gabapentin Allergy Anaphylaxis Verified 09/25/25 17:32 Active Medications: Current Medications Aspirin (Aspirin Enteric Coated 81 Mg Tablet.) 81 mg PO DAILY [facility] Last Admin: 09/27/25 09:34 Dose: 81 mg Atorvastatin Calcium (Atorvastatin Calcium 80 Mg Tablet) 80 mg PO BEDTIME [facility] Last Admin: 09/26/25 22:10 Dose: 80 mg Cyanocobalamin (Cyanocobalamin (Vitamin B-12) 1,000 Mcg Tablet) 1,000 mcg PO DAILY [facility] Last Admin: 09/27/25 09:34 Dose: 1,000 mcg Duloxetine HCl (Duloxetine Hcl 60 Mg Capsule.) 60 mg PO DAILY [facility] Last Admin: 09/27/25 09:35 Dose: 60 mg Heparin Sodium (Porcine) (Heparin Sodium,Porcine 5,000 Unit/Ml Vial) 5,000 unit SUBCUT Q12H [facility] Last Admin: 09/27/25 06:31 Dose: 5,000 unit Piperacillin Sod/Tazobactam (Sod 4.5 gm/ Sodium Chloride) 100 mls @ 200 mls/hr IV Q8H [facility] Last Infusion: 09/27/25 06:26 Dose: Infused Levetiracetam (Keppra) 500 mg in 100 mls @ 400 mls/hr IV Q12H [facility] Last Infusion: 09/26/25 22:58 Dose: Infused Levetiracetam (Levetiracetam 500 Mg Tablet) 500 mg PO BID [facility] On Hold: 09/26/25 21:02 Last Admin: 09/26/25 21:09 Dose: Not Given Amonate Carbonate (Amonate Carbonate 300 Mg Capsule) 300 mg PO BID [facility] Last Admin: 09/27/25 09:35 Dose: 300 mg Methimazole (Methimazole 5 Mg Tablet) 5 mg PO DAILY [facility] Last Admin: 09/27/25 09:35 Dose: 5 mg Metoprolol Succinate (Metoprolol Succinate Er 25 Mg Tab.Er.24h) 25 mg PO DAILY [facility]; Protocol Last Admin: 09/27/25 09:35 Dose: 25 mg Nicotine Polacrilex (Nicotine Polacrilex 2 Mg Gum) 2 mg BUCCAL Q2H PRN PRN Reason: Nicotine Cravings Pantoprazole Sodium (Pantoprazole Sodium 20 Mg Tablet.) 40 mg PO DAILY@0630 [facility] Last Admin: 09/27/25 05:47 Dose: 40 mg Pregabalin (Pregabalin 150 Mg Capsule) 300 mg PO BID [facility] Last Admin: 09/27/25 09:35 Dose: 300 mg Quetiapine Fumarate (Quetiapine Fumarate 100 Mg Tablet) 100 mg PO BEDTIME [facility] Last Admin: 09/26/25 22:09 Dose: 100 mg Ticagrelor (Ticagrelor 90 Mg Tablet) 90 mg PO BID [facility] Last Admin: 09/27/25 09:35 Dose: 90 mg Trazodone HCl (Trazodone Hcl 50 Mg Tablet) 50 mg PO BEDTIME [facility] Last Admin: 09/26/25 22:09 Dose: 50 mg Home Medications ?Medication ?Instructions ?Recorded ?Confirmed ?Last Taken ?Type aspirin 81 mg tablet 81 mg PO DAILY 09/26/25 09/26/25 09/25/25 History cyanocobalamin (vitamin B-12) 1,000 mcg PO DAILY 09/26/25 09/26/25 09/25/25 History 1,000 mcg tablet (Vitamin B-12) duloxetine 60 mg capsule,delayed 60 mg PO DAILY 09/26/25 09/26/25 09/25/25 History release sprinkle levetiracetam 500 mg tablet 500 mg PO BID 09/26/25 09/26/25 09/25/25 History (Keppra) lithium carbonate 300 mg tablet 300 mg PO BID 09/26/25 09/26/25 09/25/25 History methimazole 5 mg tablet 5 mg PO DAILY 09/26/25 09/26/25 09/25/25 History metoprolol succinate 25 mg 25 mg PO DAILY 09/26/25 09/26/25 09/25/25 History tablet,extended release 24 hr pantoprazole 40 mg tablet,delayed 40 mg PO DAILY@0630 09/26/25 09/26/25 09/25/25 History release pregabalin 300 mg capsule 300 mg PO BID 09/26/25 09/26/25 09/25/25 History pyridoxine (vitamin B6) 500 mg 500 mg PO DAILY 09/26/25 09/26/25 09/25/25 History tablet quetiapine 100 mg tablet 100 mg PO BEDTIME 09/26/25 09/26/25 09/24/25 History rosuvastatin 20 mg tablet 20 mg PO BEDTIME 09/26/25 09/26/25 09/24/25 History ticagrelor 90 mg tablet 90 mg PO BID 09/26/25 09/26/25 09/25/25 History trazodone 100 mg tablet 50 mg PO BEDTIME 09/26/25 09/26/25 09/24/25 History Physical Exam Vital Signs: Vital Signs: Last Vital Signs Temp 98.1 F 09/27/25 08:00 Pulse 63 09/27/25 08:00 Resp 20 09/27/25 08:00 BP 108/55 L 09/27/25 08:00 Pulse Ox 92 09/27/25 08:00 O2 Del Method Room Air 09/27/25 08:00 BMI result Body Mass Index 29.3 Neuro: Other: He is Alert and oriented with normal cranial nerves 2-12. Muscle tone and strength are normal. Deep tendon reflexes are hypoactive plantar responses are flexor. Results Labs 09/25/25 19:17 09/27/25 08:35 Labs: BMP 09/27/25 08:35 Sodium 145 Potassium 3.6 Chloride 114 H Carbon Dioxide 24 BUN 10 Creatinine 1.12 Calcium 9.0 Liver Function 09/27/25 Range/Units 08:35 Total Bilirubin 1.0 (0.0-1.0) mg/dL AST 28 (5-37) U/L ALT 48 H (0-40) U/L Alkaline Phosphatase 109 (39-117) U/L Albumin 4.1 (3.5-5.0) g/dL Microbiology Microbiology Results: Microbiology 09/25/25 Unknown Urine clean catch - Clean Catch Midstream Urine Culture - Preliminary Gram negative rosmery Assessment and Plan (1) Epilepsy: Status: Acute Plan He appears to have history of idiopathic epilepsy for many years previously controlled with Keppra 250 b.i.d.. Recommendations: MRI of the brain, EEG, increase Keppra to 500 mg b.i.d. Procedures Date of Service Date of Service: 09/27/25
--- NOTE | 2025-09-27 13:21 | PC.NURSE ---
Daughter confirmed that she wants patient sent to [facility] [place] in [place] MD SUNDAR notified and given Phone number.
--- NOTE | 2025-09-27 14:13 | PC.NURSE ---
MD Calling [facility] to see if they will accept the patient.
--- NOTE | 2025-09-27 14:35 | PC.NURSE ---
Per MD: [id number] spoke [facility] Not sure they will take him , no beds yet Waiting for hospitalist to call Also spoke to his daughter all set
--- NOTE | 2025-09-27 14:47 | MHC.CM.PN ---
Addendum entered by Deanne Paula RN 09/27/25 14:58: IMM delivered. Original Note: Patient lives in an apt w/ daughter, Halina. Halina is also patient's HCP and motion and time study teacher caregiver/SCREW MACHINE TOOL SETTER. Currently approved for 45.5 SCREW MACHINE TOOL SETTER hrs and have requested an increase. Patient is total care. Darrell lift xfer to wheelchair. Also has a shower chair and sit to stand. Active w/ [facility] for PT/OT/SN. Patient's daughter has a chair van and transports to app as needed. PCP Heena Oneill MD Copy of HCP received from [facility]. DP: return home w/ established services/support via BLS. Of note, daughter has requested transfer to [facility]. is aware of request. Daughter is aware the transfer request has not been initiated by the MD/hospital, not medically necessary. She is considering driving patient to [facility] herself and is aware dc would be considered AMA. aware.
[2025-09-27 15:57] VITALS: BP 132/76; PULSE 66; RESP 18; TEMP 36.5; O2SAT 97
--- NOTE | 2025-09-27 16:38 | P.PNIM_ITS ---
Subjective Subjective Date of Service: 09/27/25 Interval History: has abd pain Review of Systems still says abd pain overnight events noted, no new seizure event today. Physical Exam 2 Exam: Exam: eyes pupils are PERRLA sclera is anicteric lung sounds are clear to auscultation heart regular rate rhythm, clear S1, S2 positive bowel sounds, abdomen is soft, ruq pain neuro patient is alert x3, no focal deficits Vital Signs: Vital Signs: Last Vital Signs Temp 97.7 F 09/27/25 15:57 Pulse 66 09/27/25 15:57 Resp 18 09/27/25 15:57 BP 132/76 09/27/25 15:57 Pulse Ox 97 09/27/25 15:57 O2 Del Method Room Air 09/27/25 15:57 BMI result Body Mass Index 29.3 Objective Data Active Medications Acetaminophen (Acetaminophen 325 Mg Tablet) 975 mg PO Q6H [facility] Aspirin (Aspirin Enteric Coated 81 Mg Tablet.) 81 mg PO DAILY [facility] Last Admin: 09/27/25 09:34 Dose: 81 mg Documented By: PJ Atorvastatin Calcium (Atorvastatin Calcium 80 Mg Tablet) 80 mg PO BEDTIME [facility] Last Admin: 09/26/25 22:10 Dose: 80 mg Documented By: EDDIE Cyanocobalamin (Cyanocobalamin (Vitamin B-12) 1,000 Mcg Tablet) 1,000 mcg PO DAILY [facility] Last Admin: 09/27/25 09:34 Dose: 1,000 mcg Documented By: PJ Docusate Sodium (Docusate Sodium 100 Mg Capsule) 100 mg PO BID PRN PRN Reason: Constipation Duloxetine HCl (Duloxetine Hcl 60 Mg Capsule.) 60 mg PO DAILY [facility] Last Admin: 09/27/25 09:35 Dose: 60 mg Documented By: PJ Heparin Sodium (Porcine) (Heparin Sodium,Porcine 5,000 Unit/Ml Vial) 5,000 unit SUBCUT Q12H [facility] Last Admin: 09/27/25 06:31 Dose: 5,000 unit Documented By: EDDIE Piperacillin Sod/Tazobactam (Sod 4.5 gm/ Sodium Chloride) 100 mls @ 200 mls/hr IV Q8H [facility] Last Infusion: 09/27/25 06:26 Dose: Infused Documented By: EDDIE Levetiracetam (Keppra) 500 mg in 100 mls @ 400 mls/hr IV Q12H [facility] Last Infusion: 09/27/25 09:57 Dose: Infused Documented By: PJ Levetiracetam (Levetiracetam 500 Mg Tablet) 500 mg PO BID [facility] On Hold: 09/26/25 21:02 Last Admin: 09/26/25 21:09 Dose: Not Given Documented By: EDDIE Non-Admin Reason: iv med ordered Lidocaine (Lidocaine 4 % Patch Adh..Patch) 1 patch TRANSDERMA DAILY [facility]; Protocol [place] Carbonate ([place] Carbonate 300 Mg Capsule) 300 mg PO BID [facility] Last Admin: 09/27/25 09:35 Dose: 300 mg Documented By: PJ Methimazole (Methimazole 5 Mg Tablet) 5 mg PO DAILY [facility] Last Admin: 09/27/25 09:35 Dose: 5 mg Documented By: PJ Metoprolol Succinate (Metoprolol Succinate Er 25 Mg Tab.Er.24h) 25 mg PO DAILY [facility]; Protocol Last Admin: 09/27/25 09:35 Dose: 25 mg Documented By: PJ Nicotine Polacrilex (Nicotine Polacrilex 2 Mg Gum) 2 mg BUCCAL Q2H PRN PRN Reason: Nicotine Cravings Pantoprazole Sodium (Pantoprazole Sodium 20 Mg Tablet.) 40 mg PO DAILY@0630 [facility] On Hold: 09/27/25 14:22 Last Admin: 09/27/25 05:47 Dose: 40 mg Documented By: EDDIE Pantoprazole Sodium (Pantoprazole Sodium 40 Mg/10 Ml Vial) 40 mg IVPUSH BID@0630,1630 [facility] Pregabalin (Pregabalin 150 Mg Capsule) 300 mg PO BID [facility] Last Admin: 09/27/25 09:35 Dose: 300 mg Documented By: PJ Quetiapine Fumarate (Quetiapine Fumarate 100 Mg Tablet) 100 mg PO BEDTIME [facility] Last Admin: 09/26/25 22:09 Dose: 100 mg Documented By: EDDIE Senna (Sennosides 8.6 Mg Tablet) 17.2 mg PO BEDTIME PRN PRN Reason: Constipation Ticagrelor (Ticagrelor 90 Mg Tablet) 90 mg PO BID [facility] Last Admin: 09/27/25 09:35 Dose: 90 mg Documented By: PJ Trazodone HCl (Trazodone Hcl 50 Mg Tablet) 50 mg PO BEDTIME [facility] Last Admin: 09/26/25 22:09 Dose: 50 mg Documented By: EDDIE Labs 09/25/25 19:17 09/27/25 08:35 Labs: Laboratory Results - last 24 hr 09/27/25 08:35 Anion Gap 11 L Estim Creat Clear Calc 100.1 Estimated GFR > 60 Random Glucose 92 Calcium 9.0 Total Bilirubin 1.0 AST 28 ALT 48 H Alkaline Phosphatase 109 Total Protein 6.7 Albumin 4.1 Microbiology Microbiology Results: Microbiology 09/25/25 Unknown Urine Culture - Preliminary Urine clean catch - Clean Catch Midstream Gram negative rosmery Assessment and Plan (1) Abdominal pain: Status: Acute (2) Epilepsy: Status: Acute Assessment and Plan: 44 year old man admitted with presumed acute acalculous cholecystitis Acute acalculous cholecystitis ct abd ,abd us -done ? acute cholecytitis ,hida negative plan: general surgery following Continue supportive care. In addition patient was seen by GI: Started clears,, ppi, possible EGD in the morning, NPO past midnight. Pain management UTI recently treated for UTI, failed po, also has chronic ferrell catheter IV zosyn follow final urine cx. CAD hx of stent placement, [facility] 05/2025 on asa, BB, ticagrelor cardiac consult for risk stratification for possible surgery Chronic urinary retention secondary to history of [place] Ferrell catheter Schizophrenia/bipolar Continue home medications Seizure episode last night Continue Keppra 500 mg iv bid Monitor for seizure activity aspiration and seizure precautions Seen by Neurology: Recommended MRI, EEG Smoker NRT DVT prophylaxis with heparin Full code Quality Stroke Does the patient have a stroke diagnosis?: No VTE Prior VTE?: No VTE Risk Level:: Medical - moderate - high VTE Device Contraindication: Treatment Not Indicated VTE Drug Contraindication: N/A - Med Ordered
[2025-09-27] MEDS: Lidocaine 4 % Patch ADH..PATCH 1 PATCH TRANSDERMA (16:45)
[2025-09-27 20:00] VITALS: BP 96/56; PULSE 62; RESP 16; TEMP 36.9; O2SAT 94
--- NOTE | 2025-09-27 20:18 | PM.GICN ---
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 Patient notes 2 weeks of constant stabbing pain in RUQ going into epigastrium which is worse with palpation and food and associated with nausea and clear emesis. He also has chronic constipation and thinks he has had on and off black stools with fresh blood as well. He does suffer severe gerd which is helped with PPI. He takes nsaid but only occasionally for rotator cuff pain. He had imaging which was initially concerning for cholecystitis, but HIDA was negative. LABS with mild ALT elevation and lipase elevation. Review of Systems Review of Systems: Constitutional : No Weight loss, No Fever, No Chills ENT/Mouth : No sore throat, No Rhinorrhea Eyes: No Swelling, No Redness Cardiovascular : No Chest Pain, No SOB, No Edema Respiratory : No Cough, No Sputum, No Wheezing Gastrointestinal : see HPI Genitourinary : NO Dysuria, No Urinary Frequency, No Hematuria, No Urgency Musculoskeletal : + joint pain, No Myalgias, No Joint Swelling Skin : No Skin Lesions, No rash Neuro : + Weakness, No Numbness, No Dizziness, No Headache Psych : No Anxiety/Panic, No Depression Heme/Lymph: No Bruising, No Lymphadenopathy Endocrine : No Polyuria, No Polydipsia All other systems reviewed and are negative. 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 Seizures Family History Pertinent family history: no [facility] Surgical History Surgical History (Updated 09/28/25 @ 13:28 by Roselyn Lemos RN) Hx of umbilical hernia repair Hx of heart artery stent Social History Social History Household Members: Children Housing: Apartment Do you presently have visiting nurse or other home services: Yes Comment: pt is not able to walk Patient Tobacco Use Status: Current everyday Tobacco user Tobacco use type: Cigarette Cigarettes Per Day: 4 Smoked in Last 30 Days: Yes Use of substances other than those prescribed or required for medical reasons: Yes Substance Use Type: Marijuana Substance Use Type Other:: LD 4-5 days ago Substance Use Frequency: Occasionally Currently Displaying Signs/Symptoms of Drug Intoxication Withdrawal: No Have you been hit, kicked, punched, or otherwise hurt by someone within the past year? If so, by whom?: No Is there a partner from a previous relationship who is making you feel unsafe now?: No Are you made to feel afraid or neglected: No Are you DNR?: No Advance Directives: Yes Advance Directives Information Provided: Yes Advance Directives on File: No Advance Directives Date on File: 09/26/25 Recently lost weight without trying: No service: No Meds Allergies Allergy/AdvReac Type Severity Reaction Status Date / Time amitriptyline Allergy Anaphylaxis Verified 09/25/25 17:32 divalproex sodium (From Allergy Anaphylaxis Verified 09/25/25 17:32 Depakote) gabapentin Allergy Anaphylaxis Verified 09/25/25 17:32 Active Medications: Current Medications Acetaminophen (Acetaminophen 325 Mg Tablet) 975 mg PO Q6H [facility] Last Admin: 09/27/25 16:48 Dose: 975 mg Aspirin (Aspirin Enteric Coated 81 Mg Tablet.) 81 mg PO DAILY [facility] Last Admin: 09/27/25 09:34 Dose: 81 mg Atorvastatin Calcium (Atorvastatin Calcium 80 Mg Tablet) 80 mg PO BEDTIME [facility] Last Admin: 09/27/25 20:17 Dose: 80 mg Cyanocobalamin (Cyanocobalamin (Vitamin B-12) 1,000 Mcg Tablet) 1,000 mcg PO DAILY [facility] Last Admin: 09/27/25 09:34 Dose: 1,000 mcg Docusate Sodium (Docusate Sodium 100 Mg Capsule) 100 mg PO BID PRN PRN Reason: Constipation Duloxetine HCl (Duloxetine Hcl 60 Mg Capsule.) 60 mg PO DAILY [facility] Last Admin: 09/27/25 09:35 Dose: 60 mg Heparin Sodium (Porcine) (Heparin Sodium,Porcine 5,000 Unit/Ml Vial) 5,000 unit SUBCUT Q12H [facility] Last Admin: 09/27/25 20:17 Dose: 5,000 unit Piperacillin Sod/Tazobactam (Sod 4.5 gm/ Sodium Chloride) 100 mls @ 200 mls/hr IV Q8H [facility] Last Infusion: 09/27/25 17:56 Dose: Infused Levetiracetam (Keppra) 500 mg in 100 mls @ 400 mls/hr IV Q12H [facility] Last Infusion: 09/27/25 09:57 Dose: Infused Dextrose/Sodium Chloride (D5ns) 1,000 mls @ 80 mls/hr IVCONT .[id number] [facility] Last Admin: 09/27/25 18:11 Dose: 80 mls/hr Levetiracetam (Levetiracetam 500 Mg Tablet) 500 mg PO BID [facility] On Hold: 09/26/25 21:02 Last Admin: 09/26/25 21:09 Dose: Not Given Lidocaine (Lidocaine 4 % Patch Adh..Patch) 1 patch TRANSDERMA DAILY [facility]; Protocol Last Admin: 09/27/25 16:45 Dose: 1 patch [place] Carbonate ([place] Carbonate 300 Mg Capsule) 300 mg PO BID [facility] Last Admin: 09/27/25 20:17 Dose: 300 mg Methimazole (Methimazole 5 Mg Tablet) 5 mg PO DAILY [facility] Last Admin: 09/27/25 09:35 Dose: 5 mg Metoprolol Succinate (Metoprolol Succinate Er 25 Mg Tab.Er.24h) 25 mg PO DAILY [facility]; Protocol Last Admin: 09/27/25 09:35 Dose: 25 mg Nicotine Polacrilex (Nicotine Polacrilex 2 Mg Gum) 2 mg BUCCAL Q2H PRN PRN Reason: Nicotine Cravings Pantoprazole Sodium (Pantoprazole Sodium 20 Mg Tablet.Dr) 40 mg PO DAILY@0630 [facility] On Hold: 09/27/25 14:22 Last Admin: 09/27/25 05:47 Dose: 40 mg Pantoprazole Sodium (Pantoprazole Sodium 40 Mg/10 Ml Vial) 40 mg IVPUSH BID@0630,1630 [facility] Last Admin: 09/27/25 16:45 Dose: 40 mg Pregabalin (Pregabalin 150 Mg Capsule) 300 mg PO BID [facility] Last Admin: 09/27/25 20:17 Dose: 300 mg Quetiapine Fumarate (Quetiapine Fumarate 100 Mg Tablet) 100 mg PO BEDTIME [facility] Last Admin: 09/27/25 20:18 Dose: 100 mg Senna (Sennosides 8.6 Mg Tablet) 17.2 mg PO BEDTIME PRN PRN Reason: Constipation Ticagrelor (Ticagrelor 90 Mg Tablet) 90 mg PO BID [facility] Last Admin: 09/27/25 20:17 Dose: 90 mg Trazodone HCl (Trazodone Hcl 50 Mg Tablet) 50 mg PO BEDTIME [facility] Last Admin: 09/27/25 20:18 Dose: 50 mg Home Medications ?Medication ?Instructions ?Recorded ?Confirmed ?Last Taken ?Type aspirin 81 mg tablet 81 mg PO DAILY 09/26/25 09/26/25 09/25/25 History cyanocobalamin (vitamin B-12) 1,000 mcg PO DAILY 09/26/25 09/26/25 09/25/25 History 1,000 mcg tablet (Vitamin B-12) duloxetine 60 mg capsule,delayed 60 mg PO DAILY 09/26/25 09/26/25 09/25/25 History release sprinkle levetiracetam 500 mg tablet 500 mg PO BID 09/26/25 09/26/25 09/25/25 History (Keppra) lithium carbonate 300 mg tablet 300 mg PO BID 09/26/25 09/26/25 09/25/25 History methimazole 5 mg tablet 5 mg PO DAILY 09/26/25 09/26/25 09/25/25 History metoprolol succinate 25 mg 25 mg PO DAILY 09/26/25 09/26/25 09/25/25 History tablet,extended release 24 hr pantoprazole 40 mg tablet,delayed 40 mg PO DAILY@0630 09/26/25 09/26/25 09/25/25 History release pregabalin 300 mg capsule 300 mg PO BID 09/26/25 09/26/25 09/25/25 History pyridoxine (vitamin B6) 500 mg 500 mg PO DAILY 09/26/25 09/26/25 09/25/25 History tablet quetiapine 100 mg tablet 100 mg PO BEDTIME 09/26/25 09/26/25 09/24/25 History rosuvastatin 20 mg tablet 20 mg PO BEDTIME 09/26/25 09/26/25 09/24/25 History ticagrelor 90 mg tablet 90 mg PO BID 09/26/25 09/26/25 09/25/25 History trazodone 100 mg tablet 50 mg PO BEDTIME 09/26/25 09/26/25 09/24/25 History Physical Exam Exam: Exam: EXAM: GENERAL: The patient is well developed and nontoxic. VITAL SIGNS:see workflow HEENT: Nonicteric sclerae, PERRLA, EOMI. Oropharynx clear. Moist mucous membranes. Conjunctivae appear well perfused. No thyroid mass. CHEST: Chest wall is nontender. HEART: Regular rate and rhythm without murmurs. LUNGS: Clear to auscultation bilaterally. ABDOMEN: Soft, positive bowel sounds, tender epigastrium and RUQ, no organomegaly.no flank tenderness SKIN: No rash, no excessive bruising, petechiae, or purpura. NEUROLOGIC: Cranial nerves II-XII intact without motor/sensory deficit. no power lower limbs, ferrell noted Psych: normal affect Vital Signs: Vital Signs: Last Vital Signs Temp 97.7 F 09/27/25 15:57 Pulse 66 09/27/25 15:57 Resp 18 09/27/25 15:57 BP 132/76 09/27/25 15:57 Pulse Ox 97 09/27/25 15:57 O2 Del Method Room Air 09/27/25 15:57 BMI result Body Mass Index 29.3 Results Labs 09/25/25 19:17 09/27/25 08:35 Labs: BMP 09/27/25 08:35 Sodium 145 Potassium 3.6 Chloride 114 H Carbon Dioxide 24 BUN 10 Creatinine 1.12 Calcium 9.0 Liver Function 09/27/25 Range/Units 08:35 Total Bilirubin 1.0 (0.0-1.0) mg/dL AST 28 (5-37) U/L ALT 48 H (0-40) U/L Alkaline Phosphatase 109 (39-117) U/L Albumin 4.1 (3.5-5.0) g/dL Microbiology Microbiology Results: Microbiology 09/25/25 Unknown Urine clean catch - Clean Catch Midstream Urine Culture - Preliminary Gram negative rosmery Assessment and Plan (1) Abdominal pain: Qualifiers: Abdominal location: right upper quadrant Qualified Code(s): R10.11 - Right upper quadrant pain Status: Acute Plan 1/ RUQ pain with abn stools per his report, uncertain if upper GI etiology, could also be radiculopathy from his spine PLAN: 1/ EGD and sigmodioscopy for further assessment Procedures Date of Service Date of Service: 09/28/25
[2025-09-28 03:56] VITALS: BP 118/73; PULSE 50; RESP 16; TEMP 36.6; O2SAT 95
[2025-09-28 07:49] VITALS: BP 109/65; PULSE 56; RESP 15; TEMP 36.3; O2SAT 96
--- NOTE | 2025-09-28 08:17 | HO.ANESPROP2 ---
Documented by User: Lyudmila Valdez NP 09/28/25 12:39 HPI - Anesthesia Eval Consult details Narrative: 44 yr old male for EGD, flexible sigmoidoscopy RUQ pain with ?black stools: H/H normal 15.1/Hct 46.7 CAD -hx of stent placement, [facility] 05/2025, *records requested but not yet reeceived. -on asa, BB, ticagrelor -Per hospitalist, cardiology consult was cancelled because surgery team stated surgery was not needed. 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 Seen by neuro, brain MRI done, EEG done 09/28/25 showing abnormal EEG due to diffuse background slowing with a frontal accentuation consistent with a diffuse encephalopathic process. No clearly epileptiform discharges are seen . 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 Seizures Surgical History Surgical History (Updated 09/28/25 @ 13:28 by Roselyn Lemos RN) Hx of umbilical hernia repair Hx of heart artery stent Social History Social History Household Members: Children Housing: Apartment Do you presently have visiting nurse or other home services: Yes Comment: pt is not able to walk Patient Tobacco Use Status: Current everyday Tobacco user Tobacco use type: Cigarette Cigarettes Per Day: 4 Smoked in Last 30 Days: Yes Use of substances other than those prescribed or required for medical reasons: Yes Substance Use Type: Marijuana Substance Use Type Other:: LD 4-5 days ago Substance Use Frequency: Occasionally Currently Displaying Signs/Symptoms of Drug Intoxication Withdrawal: No Have you been hit, kicked, punched, or otherwise hurt by someone within the past year? If so, by whom?: No Is there a partner from a previous relationship who is making you feel unsafe now?: No Are you made to feel afraid or neglected: No Are you DNR?: No Advance Directives: Yes Advance Directives Information Provided: Yes Advance Directives on File: No Advance Directives Date on File: 09/26/25 Recently lost weight without trying: No service: No Meds Allergies Allergy/AdvReac Type Severity Reaction Status Date / Time amitriptyline Allergy Anaphylaxis Verified 09/25/25 17:32 divalproex sodium (From Allergy Anaphylaxis Verified 09/25/25 17:32 Depakote) gabapentin Allergy Anaphylaxis Verified 09/25/25 17:32 Active Medications: Current Medications Acetaminophen (Acetaminophen 325 Mg Tablet) 975 mg PO Q6H [facility] Last Admin: 09/28/25 05:30 Dose: 975 mg Aspirin (Aspirin Enteric Coated 81 Mg Tablet.) 81 mg PO DAILY [facility] Last Admin: 09/27/25 09:34 Dose: 81 mg Atorvastatin Calcium (Atorvastatin Calcium 80 Mg Tablet) 80 mg PO BEDTIME [facility] Last Admin: 09/27/25 20:17 Dose: 80 mg Cyanocobalamin (Cyanocobalamin (Vitamin B-12) 1,000 Mcg Tablet) 1,000 mcg PO DAILY [facility] Last Admin: 09/27/25 09:34 Dose: 1,000 mcg Docusate Sodium (Docusate Sodium 100 Mg Capsule) 100 mg PO BID PRN PRN Reason: Constipation Duloxetine HCl (Duloxetine Hcl 60 Mg Capsule.) 60 mg PO DAILY [facility] Last Admin: 09/27/25 09:35 Dose: 60 mg Heparin Sodium (Porcine) (Heparin Sodium,Porcine 5,000 Unit/Ml Vial) 5,000 unit SUBCUT Q12H [facility] Last Admin: 09/28/25 07:11 Dose: 5,000 unit Piperacillin Sod/Tazobactam (Sod 4.5 gm/ Sodium Chloride) 100 mls @ 200 mls/hr IV Q8H [facility] Last Infusion: 09/28/25 06:33 Dose: Infused Levetiracetam (Keppra) 500 mg in 100 mls @ 400 mls/hr IV Q12H [facility] Last Infusion: 09/27/25 23:06 Dose: Infused Dextrose/Sodium Chloride (D5ns) 1,000 mls @ 80 mls/hr IVCONT .[id number] [facility] Last Admin: 09/28/25 05:32 Dose: 80 mls/hr Levetiracetam (Levetiracetam 500 Mg Tablet) 500 mg PO BID [facility] On Hold: 09/26/25 21:02 Last Admin: 09/26/25 21:09 Dose: Not Given Lidocaine (Lidocaine 4 % Patch Adh..Patch) 1 patch TRANSDERMA DAILY [facility]; Protocol Last Admin: 09/27/25 16:45 Dose: 1 patch [place] Carbonate ([place] Carbonate 300 Mg Capsule) 300 mg PO BID [facility] Last Admin: 09/27/25 20:17 Dose: 300 mg Methimazole (Methimazole 5 Mg Tablet) 5 mg PO DAILY [facility] Last Admin: 09/27/25 09:35 Dose: 5 mg Metoprolol Succinate (Metoprolol Succinate Er 25 Mg Tab.Er.24h) 25 mg PO DAILY [facility]; Protocol Last Admin: 09/27/25 09:35 Dose: 25 mg Nicotine Polacrilex (Nicotine Polacrilex 2 Mg Gum) 2 mg BUCCAL Q2H PRN PRN Reason: Nicotine Cravings Pantoprazole Sodium (Pantoprazole Sodium 20 Mg Tablet.Dr) 40 mg PO DAILY@0630 [facility] On Hold: 09/27/25 14:22 Last Admin: 09/27/25 05:47 Dose: 40 mg Pantoprazole Sodium (Pantoprazole Sodium 40 Mg/10 Ml Vial) 40 mg IVPUSH BID@0630,1630 [facility] Last Admin: 09/28/25 05:32 Dose: 40 mg Pregabalin (Pregabalin 150 Mg Capsule) 300 mg PO BID [facility] Last Admin: 09/27/25 20:17 Dose: 300 mg Quetiapine Fumarate (Quetiapine Fumarate 100 Mg Tablet) 100 mg PO BEDTIME [facility] Last Admin: 09/27/25 20:18 Dose: 100 mg Senna (Sennosides 8.6 Mg Tablet) 17.2 mg PO BEDTIME PRN PRN Reason: Constipation Ticagrelor (Ticagrelor 90 Mg Tablet) 90 mg PO BID [facility] Last Admin: 09/27/25 20:17 Dose: 90 mg Trazodone HCl (Trazodone Hcl 50 Mg Tablet) 50 mg PO BEDTIME [facility] Last Admin: 09/27/25 20:18 Dose: 50 mg Home Medications ?Medication ?Instructions ?Recorded ?Confirmed ?Last Taken ?Type aspirin 81 mg tablet 81 mg PO DAILY 09/26/25 09/26/25 09/25/25 History cyanocobalamin (vitamin B-12) 1,000 mcg PO DAILY 09/26/25 09/26/25 09/25/25 History 1,000 mcg tablet (Vitamin B-12) duloxetine 60 mg capsule,delayed 60 mg PO DAILY 09/26/25 09/26/25 09/25/25 History release sprinkle levetiracetam 500 mg tablet 500 mg PO BID 09/26/25 09/26/25 09/25/25 History (Keppra) lithium carbonate 300 mg tablet 300 mg PO BID 09/26/25 09/26/25 09/25/25 History methimazole 5 mg tablet 5 mg PO DAILY 09/26/25 09/26/25 09/25/25 History metoprolol succinate 25 mg 25 mg PO DAILY 09/26/25 09/26/25 09/25/25 History tablet,extended release 24 hr pantoprazole 40 mg tablet,delayed 40 mg PO DAILY@0630 09/26/25 09/26/25 09/25/25 History release pregabalin 300 mg capsule 300 mg PO BID 09/26/25 09/26/25 09/25/25 History pyridoxine (vitamin B6) 500 mg 500 mg PO DAILY 09/26/25 09/26/25 09/25/25 History tablet quetiapine 100 mg tablet 100 mg PO BEDTIME 09/26/25 09/26/25 09/24/25 History rosuvastatin 20 mg tablet 20 mg PO BEDTIME 09/26/25 09/26/25 09/24/25 History ticagrelor 90 mg tablet 90 mg PO BID 09/26/25 09/26/25 09/25/25 History trazodone 100 mg tablet 50 mg PO BEDTIME 09/26/25 09/26/25 09/24/25 History Exam Height,Weight and Vital Signs: Height 5 ft 11 in Weight 95.2 kg Last Vital Signs Temp 97.4 F 09/28/25 07:49 Pulse 56 09/28/25 07:49 Resp 15 09/28/25 07:49 BP 109/65 09/28/25 07:49 Pulse Ox 96 09/28/25 07:49 O2 Del Method Room Air 09/28/25 07:49 Pertinent Lab Results Pertinent Lab Results: Laboratory Tests 09/25/25 09/27/25 19:17 08:35 WBC 9.2 RBC 5.27 Hgb 15.1 Hct 46.7 MCV 88.6 MCH 28.7 MCHC 32.3 RDW 13.6 Plt Count 197 MPV 9.9 Immature Gran % (Auto) 0.4 Neut % (Auto) 64.0 Lymph % (Auto) 25.3 Hunt % (Auto) 6.3 Eos % (Auto) 2.9 Baso % (Auto) 1.1 Lymph # (Auto) 2.3 Hunt # (Auto) 0.6 Eos # (Auto) 0.3 Baso # (Auto) 0.1 Abs Immat Gran (auto) 0.04 H Absolute Neuts (auto) 5.9 Absolute Nucleated RBC 0.000 Nucleated RBC % (auto) 0.0 Sodium 145 145 Potassium 4.1 3.6 Chloride 113 H 114 H Carbon Dioxide 25 24 Anion Gap 11 L 11 L BUN 19 H 10 Creatinine 1.11 1.12 Estim Creat Clear Calc 104.1 100.1 Estimated GFR > 60 > 60 Random Glucose 95 92 Calcium 9.4 9.0 Total Bilirubin 0.3 1.0 Direct Bilirubin 0.1 AST 32 28 ALT 63 H 48 H Alkaline Phosphatase 113 109 Total Protein 7.8 6.7 Albumin 4.7 4.1 Lipase 110 H Urine Color Yellow Urine Appearance Clear Urine pH 6.5 Ur Specific [place] <= 1.005 Urine Protein Negative Urine Glucose (UA) Negative Urine Ketones Negative Urine Blood Negative Urine Nitrite Positive H Ur Leukocyte Esterase Small (1+) H Urine RBC 0-2 Urine WBC 6-10 H Ur Squamous Epith Cells 0-2 Urine Bacteria 4+ Hyaline Casts 0-2 Narrative Narrative: Brain MRI 09/27/25 IMPRESSION: No acute stroke. No acute intradural hemorrhage or acute brain abnormality. Bifrontal lobe atrophy, mild to moderate. Documented by User: Winifred Tijerina MD 09/28/25 13:58 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 Seizures Family History Family history of problems with anesthesia: No Surgical History Surgical History (Updated 09/28/25 @ 13:28 by Roselyn Lemos RN) Hx of umbilical hernia repair Hx of heart artery stent History of Problems with Anesthesia: No Social History Social History Household Members: Children Housing: Apartment Do you presently have visiting nurse or other home services: Yes Comment: pt is not able to walk Patient Tobacco Use Status: Current everyday Tobacco user Tobacco use type: Cigarette Cigarettes Per Day: 4 Smoked in Last 30 Days: Yes Use of substances other than those prescribed or required for medical reasons: Yes Substance Use Type: Marijuana Substance Use Type Other:: LD 4-5 days ago Substance Use Frequency: Occasionally Currently Displaying Signs/Symptoms of Drug Intoxication Withdrawal: No Have you been hit, kicked, punched, or otherwise hurt by someone within the past year? If so, by whom?: No Is there a partner from a previous relationship who is making you feel unsafe now?: No Are you made to feel afraid or neglected: No Are you DNR?: No Advance Directives: Yes Advance Directives Information Provided: Yes Advance Directives on File: No Advance Directives Date on File: 09/26/25 Recently lost weight without trying: No service: No Meds Allergies Allergy/AdvReac Type Severity Reaction Status Date / Time amitriptyline Allergy Anaphylaxis Verified 09/25/25 17:32 divalproex sodium (From Allergy Anaphylaxis Verified 09/25/25 17:32 Depakote) gabapentin Allergy Anaphylaxis Verified 09/25/25 17:32 Home Medications ?Medication ?Instructions ?Recorded ?Confirmed ?Last Taken ?Type aspirin 81 mg tablet 81 mg PO DAILY 09/26/25 09/26/25 09/25/25 History cyanocobalamin (vitamin B-12) 1,000 mcg PO DAILY 09/26/25 09/26/25 09/25/25 History 1,000 mcg tablet (Vitamin B-12) duloxetine 60 mg capsule,delayed 60 mg PO DAILY 09/26/25 09/26/25 09/25/25 History release sprinkle levetiracetam 500 mg tablet 500 mg PO BID 09/26/25 09/26/25 09/25/25 History (Keppra) lithium carbonate 300 mg tablet 300 mg PO BID 09/26/25 09/26/2509/25/25 History methimazole 5 mg tablet 5 mg PO DAILY 09/26/25 09/26/25 09/25/25 History metoprolol succinate 25 mg 25 mg PO DAILY 09/26/25 09/26/25 09/25/25 History tablet,extended release 24 hr pantoprazole 40 mg tablet,delayed 40 mg PO DAILY@0630 09/26/25 09/26/25 09/25/25 History release pregabalin 300 mg capsule 300 mg PO BID 09/26/25 09/26/25 09/25/25 History pyridoxine (vitamin B6) 500 mg 500 mg PO DAILY 09/26/25 09/26/25 09/25/25 History tablet quetiapine 100 mg tablet 100 mg PO BEDTIME 09/26/25 09/26/25 09/24/25 History rosuvastatin 20 mg tablet 20 mg PO BEDTIME 09/26/25 09/26/25 09/24/25 History ticagrelor 90 mg tablet 90 mg PO BID 09/26/25 09/26/25 09/25/25 History trazodone 100 mg tablet 50 mg PO BEDTIME 09/26/25 09/26/25 09/24/25 History Exam Airway Mallampati Class: I (edentulous) TM Dist: >3cm Neck ROM: Full Heart: rrr Lungs: cta Assessment and Plan Assessment Anesthesia Assessment: Anesthesia Plan Discussed and Chart Reviewed Final Anesthetic Review Family History of Problems with Anesthesia: No History of Problems with Anesthesia: No NPO: Yes ASA Class: III Final Preanesthetic Review: No Changes in Pt Med Stat, Meds/Allgs Chart Reviewed and Consent Obtained/Reviewed Patient Risk: Intermediate Procedure Risk: Intermediate Anesthetic Plan Anesthetic Plan: MAC: Disposition: Standard PACU
[2025-09-28] MEDS: Lidocaine 4 % Patch ADH..PATCH 1 PATCH TRANSDERMA (08:29)
[2025-09-28] MEDS: Aspirin Enteric Coated 81 MG TABLET.DR PO (08:30)
[2025-09-28] MEDS: Metoprolol Succinate ER 25 MG TAB.ER.24H PO (08:31)
[2025-09-28] MEDS: levETIRAcetam in NaCl (iso-os) 500 MG/100 ML PIGGYBACK 400 MG IV (08:31)
--- NOTE | 2025-09-28 11:05 | MHC.CM.PN ---
Patient not medically cleared for dc. CM will continue to follow.
--- NOTE | 2025-09-28 11:20 | P.PNIM_ITS ---
Subjective Subjective Date of Service: 09/28/25 Interval History: still with some right sided abd pain Physical Exam 2 Exam: Exam: General: AO X 3, no acute distress, aphasia Resp: CTA bilateral, no accessory muscles used CVS: S1,S2,RRR GI: soft, non tender, non distended Neuro: paraplegia Vital Signs: Vital Signs: Last Vital Signs Temp 97.4 F 09/28/25 07:49 Pulse 56 09/28/25 07:49 Resp 15 09/28/25 07:49 BP 109/65 09/28/25 07:49 Pulse Ox 96 09/28/25 07:49 O2 Del Method Room Air 09/28/25 07:49 BMI result Body Mass Index 29.3 Objective Data Active Medications Acetaminophen (Acetaminophen 325 Mg Tablet) 975 mg PO Q6H [facility] Last Admin: 09/28/25 05:30 Dose: 975 mg Documented By: FREDDIE Aspirin (Aspirin Enteric Coated 81 Mg Tablet.) 81 mg PO DAILY [facility] Last Admin: 09/28/25 08:30 Dose: 81 mg Documented By: LACEY Atorvastatin Calcium (Atorvastatin Calcium 80 Mg Tablet) 80 mg PO BEDTIME [facility] Last Admin: 09/27/25 20:17 Dose: 80 mg Documented By: FREDDIE Cyanocobalamin (Cyanocobalamin (Vitamin B-12) 1,000 Mcg Tablet) 1,000 mcg PO DAILY [facility] Last Admin: 09/28/25 08:31 Dose: 1,000 mcg Documented By: LACEY Docusate Sodium (Docusate Sodium 100 Mg Capsule) 100 mg PO BID PRN PRN Reason: Constipation Duloxetine HCl (Duloxetine Hcl 60 Mg Capsule.) 60 mg PO DAILY [facility] Last Admin: 09/28/25 08:31 Dose: 60 mg Documented By: LACEY Heparin Sodium (Porcine) (Heparin Sodium,Porcine 5,000 Unit/Ml Vial) 5,000 unit SUBCUT Q12H [facility] Last Admin: 09/28/25 07:11 Dose: 5,000 unit Documented By: FREDDIE Piperacillin Sod/Tazobactam (Sod 4.5 gm/ Sodium Chloride) 100 mls @ 200 mls/hr IV Q8H [facility] Last Infusion: 09/28/25 06:33 Dose: Infused Documented By: FREDDIE Levetiracetam (Keppra) 500 mg in 100 mls @ 400 mls/hr IV Q12H [facility] Last Infusion: 09/28/25 08:55 Dose: Infused Documented By: LACEY Dextrose/Sodium Chloride (D5ns) 1,000 mls @ 80 mls/hr IVCONT .[id number] [facility] Last Admin: 09/28/25 05:32 Dose: 80 mls/hr Documented By: FREDDIE Levetiracetam (Levetiracetam 500 Mg Tablet) 500 mg PO BID [facility]IRI On Hold: 09/26/25 21:02 Last Admin: 09/26/25 21:09 Dose: Not Given Documented By: EDDIE Non-Admin Reason: iv med ordered Lidocaine (Lidocaine 4 % Patch Adh..Patch) 1 patch TRANSDERMA DAILY [facility]; Protocol Last Admin: 09/28/25 08:29 Dose: 1 patch Documented By: LACEY [place] Carbonate ([place] Carbonate 300 Mg Capsule) 300 mg PO BID [facility] Last Admin: 09/28/25 08:31 Dose: 300 mg Documented By: LACEY Methimazole (Methimazole 5 Mg Tablet) 5 mg PO DAILY [facility] Last Admin: 09/28/25 08:31 Dose: 5 mg Documented By: LACEY Metoprolol Succinate (Metoprolol Succinate Er 25 Mg Tab.Er.24h) 25 mg PO DAILY [facility]; Protocol Last Admin: 09/28/25 08:31 Dose: 25 mg Documented By: LACEY Nicotine Polacrilex (Nicotine Polacrilex 2 Mg Gum) 2 mg BUCCAL Q2H PRN PRN Reason: Nicotine Cravings Pantoprazole Sodium (Pantoprazole Sodium 20 Mg Tablet.Dr) 40 mg PO DAILY@0630 [facility] On Hold: 09/27/25 14:22 Last Admin: 09/27/25 05:47 Dose: 40 mg Documented By: EDDIE Pantoprazole Sodium (Pantoprazole Sodium 40 Mg/10 Ml Vial) 40 mg IVPUSH BID@0630,1630 [facility] Last Admin: 09/28/25 05:32 Dose: 40 mg Documented By: FREDDIE Pregabalin (Pregabalin 150 Mg Capsule) 300 mg PO BID [facility] Last Admin: 09/28/25 08:30 Dose: 300 mg Documented By: LACEY Quetiapine Fumarate (Quetiapine Fumarate 100 Mg Tablet) 100 mg PO BEDTIME [facility] Last Admin: 09/27/25 20:18 Dose: 100 mg Documented By: FREDDIE Senna (Sennosides 8.6 Mg Tablet) 17.2 mg PO BEDTIME PRN PRN Reason: Constipation Ticagrelor (Ticagrelor 90 Mg Tablet) 90 mg PO BID [facility] Last Admin: 09/28/25 08:31 Dose: 90 mg Documented By: LACEY Trazodone HCl (Trazodone Hcl 50 Mg Tablet) 50 mg PO BEDTIME [facility] Last Admin: 09/27/25 20:18 Dose: 50 mg Documented By: FREDDIE Labs 09/25/25 19:17 09/27/25 08:35 Microbiology Microbiology Results: Microbiology 09/25/25 Unknown Urine Culture - Final Urine clean catch - Clean Catch Midstream Pseudomonas aeruginosa Assessment and Plan (1) Abdominal pain: Status: Acute Plan 44M PMH 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 abd pain hida negative, follow up gi for possible egd, continue ppi CAD dapl, statin Bipolar/schizophrenia Continue Keppra, lithium, Lyrica, quetiapine, Cymbalta Hyperthyroid Continue methimazole DVT prophylaxis with heparin subQ Full code reason for continued hospitalization: eeg pending, plan for possible egd Quality Stroke Does the patient have a stroke diagnosis?: No VTE Prior VTE?: No VTE Risk Level:: Medical - moderate - high VTE Device Contraindication: Treatment Not Indicated VTE Drug Contraindication: N/A - Med Ordered
[2025-09-28 13:33] VITALS: BP 126/82; PULSE 72; RESP 16; TEMP 36.4; O2SAT 96
--- NOTE | 2025-09-28 14:04 | P.PNGI_ITS ---
Subjective Subjective Date of Service: 09/28/25 Interval History: ongoing RUQ pain unsure if he has had any rectal bleeding or dark stools he has midl nausea no vomiting Critical Care Time (minutes): 0 Physical Exam 2 Exam: Exam: EXAM: GENERAL: The patient is well developed and nontoxic. VITAL SIGNS:see workflow HEENT: Nonicteric sclerae, PERRLA, EOMI. Oropharynx clear. Moist mucous membranes. Conjunctivae appear well perfused. No thyroid mass. CHEST: Chest wall is nontender. HEART: Regular rate and rhythm without murmurs. LUNGS: Clear to auscultation bilaterally. ABDOMEN: Soft, positive bowel sounds, tender , no organomegaly.no flank tenderness SKIN: No rash, no excessive bruising, petechiae, or purpura. NEUROLOGIC: Cranial nerves II-XII intact without motor/sensory deficit. lower limb paralysis Psych: normal affect Vital Signs: Vital Signs: Last Vital Signs Temp 97.6 F 09/28/25 13:33 Pulse 72 09/28/25 13:33 Resp 16 09/28/25 13:33 BP 126/82 09/28/25 13:33 Pulse Ox 96 09/28/25 13:33 O2 Del Method Room Air 09/28/25 13:33 BMI result Body Mass Index 29.3 Objective Data Labs 09/25/25 19:17 09/27/25 08:35 Microbiology Microbiology Results: Microbiology 09/25/25 Unknown Urine clean catch - Clean Catch Midstream Urine Culture - Final Pseudomonas aeruginosa Procedures Date of Service Date of Service: 09/28/25 Progress Note: A&P Assessment and plan (1) Abdominal pain: Status: Acute Plan 1/ RUQ pain, neg biliary imaging thus far PLAN: 1/ EGD and sigmoidoscopy today, if negative, could be radiculopathy, may have to investigate spinal etiology Time Spent With Patient Time: Total time managing care of this patient today ____ minutes. Quality Stroke Does the patient have a stroke diagnosis?: No VTE Prior VTE?: No VTE Risk Level:: Medical - moderate - high VTE Device Contraindication: Treatment Not Indicated VTE Drug Contraindication: N/A - Med Ordered
--- NOTE | 2025-09-28 14:45 | W.PM.OPN ---
Operative Note Operative Note Date of Service: 09/28/25 Narrative: Procedure Description: EGD, sigmoidoscopy Indication: Upper abdominal pain and abn stools Anesthesia: MAC FLEXIBLE TRANSORAL UPPER GASTROINTESTINAL ENDOSCOPY UPPER ENDOSCOPY Consent: Indications for the procedure and potential complications of bleeding, perforation, reaction to medications and missed diagnosis were discussed with the patient and informed consent was obtained. Instrument: Olympus GIF H 190 J mid size upper endoscope and pediatric colonoscope Monitoring: Vital signs and clinical assessment, continuous EKG monitoring, Pulse oximetry, Carbon Dioxide monitoring and blood pressure monitoring were done throughout the procedure. Procedure: The patient was placed in the left lateral decubitis position and pre-procedure medications were administered and a bite block was placed. The endoscope was inserted into the mouth and advanced under direct vision to the third part of duodenum. A careful inspection was made as the upper endoscope was withdrawn including a retroflexed examination of the proximal stomach; Findings and interventions are described below. Findings: Larynx:normal Esophagus: GE junction at 40 cm, diaphragm hiatus at 40 cm, erosive esophagitis noted, LA grade A, bx taken from GEJ and distal , proximal esophagus Stomach: patchy erythema . Biopsies were obtained. Grade 2 flap valve on retroflexed examination of the cardia. Bile acid reflux also noted. Duodenum: moderate severe erosive duodenitis, bx taken Intervention: Biopsies as noted above, Patient was then turned for sigmoidoscopy: Scope reached transverse colon, x 3 sessile polyps 8-10 mm removed with cold and on elfat polyp 7-8 mm lifted with eleview and removed with cold snare Internal hemorrhoids - small noted on retroflexion. no other masses or lesions torrie Impression/Findings: gastritis erosive duodenitis esophagitis polyps internal hemorrhoids PLAN: High dose pantoprazole 40 mg BID can add ursodiol 300 mg BID GERD precautions full colo as o/p due to polyps if ongoing sx then check for spinal etiology of pain.
[2025-09-28 14:50] VITALS: BP 101/60; PULSE 61; RESP 18; TEMP 36.3; O2SAT 96
[2025-09-28 15:01] VITALS: BP 104/64; PULSE 66; RESP 13; TEMP 36.3; O2SAT 96
[2025-09-28 15:29] VITALS: BP 125/79; PULSE 58; RESP 16; TEMP 36.3; O2SAT 95
--- NOTE | 2025-09-28 15:54 | P.DS_ITS ---
DS: Providers Provider Date of Service: 09/28/25 Date of admission: 09/26/25 12:16 Date of discharge: 09/28/25 Primary care physician: Unknown Physician Consults: 09/26/25 12:05 Consult to General Surgery Stat Consulting [place] [facility] [place] [facility] Reason for consultation: RUQ, RLQ tendr, abnormal RUQ ultrasound/CT ?cholecystitis, HIDA ordered Has provider been notified: Yes 09/26/25 20:58 Consult to Neurology Routine Consulting Provider: [facility] Reason for consultation: seizure 09/27/25 13:13 Consult to Gastroenterology Routine Consulting Provider[place] [facility] [place] [facility] Reason for consultation: ruq pain Has provider been notified: No 09/28/25 12:14 Consult to Cardiology Routine Consulting Provider[place] [facility] [place] [facility] Reason for consultation: anasthesia requesting risk strat for EGD DS: Diagnosis Discharge Diagnosis (1) Abdominal pain: Status: Acute DS: Summary Hospital Course Hospital Course: from initial hpi: 44-year-old man presented to the ER with complaints of sudden, constant, stabbing, right lower quadrant pain that started last night. He has been taking antibiotics for urinary tract infection. No leukocytosis or fever noted. Lipase 110. 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 CT abdomen showed concern for gallstones and gallbladder thickening, ultrasound revealed contracted gallbladder with thickening. Patient was treated with Toradol, morphine. Plan will be to admit patient for acute cholecystitis. 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 Was treated with IV Zosyn. For seizure disorder with breakthrough seizure was seen by neurology recommended increasing Keppra to 500 mg b.i.d. and obtaining EEG which was done but not read yet. For abdominal pain initially concern for acute cholecystitis but HIDA was negative. For coronary disease was continued on dual antiplatelet and statin. For bipolar/schizophrenia was continued on Keppra, lithium, Lyrica, quetiapine, Cymbalta. For hyperthyroid was continued on methimazole. Patient decided to leave against medical advice, daughter was able to express understanding of the risks of doing so. Time Attestation Discharge Coordination Time (in mins): 34 Quality: Safe Use of Opioids Does Pt have an Active Cancer Diagnosis on the Problem List?: No Quality: Stroke Does the patient have a stroke diagnosis?: No Physical Exam Exam: Exam: General: AO X 3, no acute distress, aphasia Resp: CTA bilateral, no accessory muscles used CVS: S1,S2,RRR GI: soft, non tender, non distended Neuro: paraplegia Vital Signs: Vital Signs: Last Vital Signs Temp 97.4 F 09/28/25 15:29 Pulse 58 09/28/25 15:29 Resp 16 09/28/25 15:29 BP 125/79 09/28/25 15:29 Pulse Ox 95 09/28/25 15:29 O2 Del Method Room Air 09/28/25 15:29 BMI result Body Mass Index 29.3 DS: Data Data Completed and Pending Pending studies at discharge: Pending at discharge 09/28/25 14:14 Surgical [PTH] Routine Discharge Plan Discharge Anticipated Discharge Date/Time: 09/28/25 15:53 Patient Disposition: Left Against Medical Advice Discharge Diagnosis: seizure, uti, duodenitis, esophagitis Referrals: Physician,Unknown J [Primary Care Provider, Medical] - 09/27/25 Discharge Medications: No Action levetiracetam [Keppra] 500 mg Tablet 500 mg PO BID cyanocobalamin (vitamin B-12) [Vitamin B-12] 1,000 mcg Tablet 1,000 mcg PO DAILY quetiapine 100 mg Tablet 100 mg PO BEDTIME trazodone 100 mg Tablet 50 mg PO BEDTIME pantoprazole 40 mg Tablet,Delayed Release (Dr/Ec) 40 mg PO DAILY@0630 methimazole 5 mg Tablet 5 mg PO DAILY aspirin 81 mg Tablet 81 mg PO DAILY metoprolol succinate 25 mg Tablet Extended Release 24 Hr 25 mg PO DAILY lithium carbonate 300 mg Tablet 300 mg PO BID pyridoxine (vitamin B6) [Vitamin B-6] 500 mg Tablet 500 mg PO DAILY rosuvastatin 20 mg Tablet 20 mg PO BEDTIME pregabalin 300 mg Capsule 300 mg PO BID ticagrelor 90 mg Tablet 90 mg PO BID duloxetine 60 mg Capsule, Delayed Rel Sprinkle 60 mg PO DAILY Discharge Orders: Discharge Order (Routine); Ordered 09/28/25 Ordered By: Kory Brown Diet: Advance to usual diet Activity on Discharge: As tolerated Print Language: Serbian Care Plan Goals: recovery Health Concerns: uti, duodenitis, esophagitis, seizure Plan of Treatment: left ama Assessment: left ama Patient Instructions: Abdominal Pain (ED)
--- NOTE | 2025-09-28 15:55 | PC.NURSE ---
Patient is A&Ox3, able to make his own decisions, Signed AMA paperwork with the suggestion of the daughter. She will drive him to [facility] in [place]. KEON pichardo MD notified, risk and benefits explained. Patient still wishes to leave AMA to go to [facility].
--- NOTE | 2025-09-28 16:17 | PC.NURSE ---
Patient requested to leave AMA, Provider came to bedisde and provided education. AMA form was signed, IV removed and patient lef the hospital with daughter at 16:15
== END 2025-09-28 16:46 | disposition left against medical advice (07) | DRG 700 ==
LOC: HO.ED 09-26 06:46 → HO.EDOVER 09-26 12:22 → HO.S3 09-26 12:43
PROVIDERS: Emergency Medicine Emergency Medical Services; Internal Medicine; Internal Medicine Gastroenterology; Admitting Provider Nurse Practitioner Acute Care; Emergency Provider Emergency Medicine Emergency Medical Services; Visit Provider Internal Medicine
PROC: 0DJ08ZZ Inspection of Upper Intestinal Tract, Via Natural or Artificial Opening Endoscopic (ICD-10-PCS; CPT 43235; principal; 2025-09-28 16:10)
PROC: 0DJD8ZZ Inspection of Lower Intestinal Tract, Via Natural or Artificial Opening Endoscopic (ICD-10-PCS; CPT 45330; 2025-09-28 16:10)
DX: T83.511A Infection and inflammatory reaction due to indwelling urethral catheter, initial encounter (principal); B96.5 Pseudomonas (aeruginosa) (mallei) (pseudomallei) as the cause of diseases classified elsewhere; I25.10 Atherosclerotic heart disease of native coronary artery without angina pectoris; N39.0 Urinary tract infection, site not specified; Z95.5 Presence of coronary angioplasty implant and graft; F17.210 Nicotine dependence, cigarettes, uncomplicated; F31.9 Bipolar disorder, unspecified; G83.89 Other specified paralytic syndromes; G40.909 Epilepsy, unspecified, not intractable, without status epilepticus; G65.0 Sequelae of Guillain-Barre syndrome; R33.8 Other retention of urine; K64.8 Other hemorrhoids; E05.90 Thyrotoxicosis, unspecified without thyrotoxic crisis or storm; K26.9 Duodenal ulcer, unspecified as acute or chronic, without hemorrhage or perforation; K29.90 Gastroduodenitis, unspecified, without bleeding; K63.5 Polyp of colon; K20.90 Esophagitis, unspecified without bleeding; Z71.6 Tobacco abuse counseling; Z79.82 Long term (current) use of aspirin; Z79.899 Other long term (current) drug therapy
CPT/HCPCS: 36415; 70551; 74177; 76705; 78226; 80048; 80053; 80076; 81001; 83690; 85025; 87086; 87088; 87186; 88305; 88313; 88342; 95816; 99285; A9537; J1171; J1644; J1885; J1953; J2003; J2270; J2470; J2543; J2704; J3360; Q9967

== ENCOUNTER → 2025-09-25 18:45 | Outpatient (BNV) | payer MEDICARE, MEDICAID, SELFPAY | PROVIDERS: Emergency Provider Emergency Medicine Emergency Medical Services; Visit Provider Radiology Diagnostic Radiology | DX: R10.9 Unspecified abdominal pain (principal) | CPT/HCPCS: 74177 ==

== ENCOUNTER → 2025-09-26 00:04 | Outpatient (BNV) | payer MEDICARE, MEDICAID, SELFPAY | PROVIDERS: Emergency Provider Emergency Medicine Emergency Medical Services; Visit Provider Radiology Diagnostic Radiology | DX: K82.8 Other specified diseases of gallbladder (principal) | CPT/HCPCS: 76705; 78226 ==

== ENCOUNTER 2025-09-26 12:16 | Outpatient (BNV) | payer MEDICARE, MEDICAID, SELFPAY | END 2025-09-27 14:40 | PROVIDERS: Admitting Provider Nurse Practitioner Acute Care; Emergency Provider Emergency Medicine Emergency Medical Services; Visit Provider Radiology Diagnostic Radiology | DX: G31.9 Degenerative disease of nervous system, unspecified (principal) | CPT/HCPCS: 70551 ==

== ENCOUNTER 2025-09-26 12:16 | Outpatient (BNV) | payer MEDICARE, MEDICAID, SELFPAY | END 2025-09-27 08:00 | PROVIDERS: Admitting Provider Nurse Practitioner Acute Care; Emergency Provider Emergency Medicine Emergency Medical Services; Visit Provider Psychiatry & Neurology Neurology | DX: R94.01 Abnormal electroencephalogram [EEG] (principal); R56.9 Unspecified convulsions | CPT/HCPCS: 95816 ==

== ENCOUNTER → 2025-09-26 12:16 | Outpatient (BNV) | payer MEDICARE, MEDICAID, SELFPAY | PROVIDERS: Admitting Provider Nurse Practitioner Acute Care; Emergency Provider Emergency Medicine Emergency Medical Services; Visit Provider Nurse Practitioner Acute Care | DX: R10.11 Right upper quadrant pain (principal) | CPT/HCPCS: 99223; 99232; 99239; 99499 ==

== ENCOUNTER → 2025-09-26 12:16 | Outpatient (BNV) | payer MEDICARE, MEDICAID, SELFPAY | PROVIDERS: Admitting Provider Nurse Practitioner Acute Care; Emergency Provider Emergency Medicine Emergency Medical Services | DX: R10.11 Right upper quadrant pain (principal) | CPT/HCPCS: 99222; 99232 ==

== ENCOUNTER → 2025-09-26 12:16 | Outpatient (BNV) | payer MEDICARE, MEDICAID, SELFPAY | PROVIDERS: Admitting Provider Nurse Practitioner Acute Care; Emergency Provider Emergency Medicine Emergency Medical Services; Visit Provider Internal Medicine Gastroenterology | DX: R10.11 Right upper quadrant pain (principal); K20.90 Esophagitis, unspecified without bleeding; K29.70 Gastritis, unspecified, without bleeding; K29.80 Duodenitis without bleeding; K63.5 Polyp of colon; K64.8 Other hemorrhoids | CPT/HCPCS: 43239; 45338; 99223; 99232 ==

== ENCOUNTER → 2025-09-26 12:16 | Outpatient (BNV) | payer MEDICARE, MEDICAID, SELFPAY | PROVIDERS: Admitting Provider Nurse Practitioner Acute Care; Emergency Provider Emergency Medicine Emergency Medical Services; Visit Provider Psychiatry & Neurology Neurology | DX: G40.909 Epilepsy, unspecified, not intractable, without status epilepticus (principal) | CPT/HCPCS: 99222 ==